=== PATIENT | male | born 2000 | race Caucasian/White ===

== ENCOUNTER 2019-09-27 01:53 | Outpatient (CLI) | payer OTHER, MEDICAID, SELFPAY ==
[2019-09-27 18:20] LABS: SARS-CoV-2 RNA PCR Negative
== END 2019-09-27 01:54 | disposition home or self-care (01) ==
LOC: ANHCOVIDDT 01:55
PROVIDERS: PCP Family Medicine; Visit Provider Internal Medicine Gastroenterology
DX: Z01.812 Encounter for preprocedural laboratory examination (principal); Z11.59 Encounter for screening for other viral diseases
CPT/HCPCS: 87635; C9803; U0003

== ENCOUNTER 2019-09-29 01:40 | Day surgery (SDC) | payer OTHER, MEDICAID, SELFPAY ==
[2019-09-24 09:55] VITALS: BMI 46.9
[2019-09-29 12:42] VITALS: BP 161/86; PULSE 76; RESP 18; TEMP 36.6; O2SAT 98; BMI 47.7
--- NOTE | 2019-09-29 12:52 | WPDANESEPPF ---
Anes - Initial Pre Proc Eval Procedure: Operation Date: 09/29/19 12:45 Proposed Procedures p Esophagogastroduodenoscopy - Timbo Tovar MD Date/Time: 09/29/19 12:52 Surgeon: Timbo Tovar MD Pre Op Diagnosis: GERD Patient Data Age: 19 Gender: M Height: 5 ft 11 in Weight: 155.4 kg Last Vital Signs Temp 36.6 C 09/29/19 12:42 Pulse 76 09/29/19 12:42 Resp 18 09/29/19 12:42 BP 161/86 H 09/29/19 12:42 Pulse Ox 98 09/29/19 12:42 Allergies Allergy/AdvReac Type Severity Reaction Status Date / Time cephalexin Allergy Intermediate Rash Verified 09/29/19 12:40 Home Medications Medication Instructions Recorded Confirmed Type albuterol sulfate 1 inh INHALATION QID PRN 09/24/19 09/24/19 History Patient hx anesthesia problems: none Family hx anesthesia problems: none PMFSH Past Medical History Medical History Asthma Hemorrhoids without complication History of IBS Morbidly obese Perianal cyst Upper abdominal pain Surgical History Surgical History Hx of tonsillectomy Family History Family History Grandparent Cancer Diabetes mellitus Social History Social History Smoking packs per day: 1 Smoking cigarettes per day: 20.0 Years smoked: 1 Smoking pack-years: 1.00 Smoking status: Current every day smoker Tobacco type: cigarettes Alcohol intake: current Anes - Eval Final PreProcedure Day of Procedure 09/29/19 12:52 Patient weight: morbidly obese Heart: regular rate and rhythm Lungs: clear to auscultation Airway: Mallampati scale class II Neurological: alert and oriented Last oral intake: >/= 8 hours ASA classification: III Emergent: no Anesthetic plan: proceed Anesthesia type and monitoring: general GIVS and standard monitoring Informed Consent: The patient's anesthetic plan and its attendant risks and benefits were discussed with the patient/family/POA. Questions were solicited and answers provided to the satisfaction of the patient/family/POA.
[2019-09-29] MEDS: LACTATED RINGERS 1,000 ML 150 ML IV CONT (13:06)
--- NOTE | 2019-09-29 13:22 | WPDHPUPDATE1 ---
History and Physical Update Update Date/Time: 09/29/19 13:22 History and Physical has been reviewed, including an updated exam of the patient. There are NO changes in the patient's condition. Risks, benefits, and alternatives have been discussed and questions answered. Patient agrees to proceed with procedure.
[2019-09-29 13:44] VITALS: BP 92/70; PULSE 72; O2SAT 98
[2019-09-29 13:54] VITALS: BP 100/68; PULSE 68; O2SAT 98
[2019-09-29 14:04] VITALS: BP 112/72; PULSE 72; O2SAT 99
== END 2019-09-29 14:30 | disposition home or self-care (01) ==
PROVIDERS: PCP Family Medicine; Visit Provider Internal Medicine Gastroenterology
PROC: 0DJ08ZZ Inspection of Upper Intestinal Tract, Via Natural or Artificial Opening Endoscopic (ICD-10-PCS; CPT 43235; principal; 2019-09-29 12:45)
DX: K20.9 Esophagitis, unspecified (principal); K29.60 Other gastritis without bleeding; J45.909 Unspecified asthma, uncomplicated; E66.01 Morbid (severe) obesity due to excess calories; Z68.42 Body mass index [BMI] 45.0-49.9, adult; F17.210 Nicotine dependence, cigarettes, uncomplicated
CPT/HCPCS: 43239; 88305; J2704; J7120

== ENCOUNTER 2019-10-01 11:17 | Emergency (ER) | payer OTHER, MEDICAID, SELFPAY ==
--- NOTE | 2019-10-01 11:45 | PC.NURSE ---
1022 noted prior to triage pt requests work note and pt was informed by staff provider could not release pt to return to work. states he did not want to be seen today and would call his doctor. no apparent distress. observed pleasant and talkative.
--- NOTE | 2019-10-01 12:05 | PCDIET ---
1120 noted prior to triage pt requested work note and was informed by staff provider would not give a work note. pt states does not want to be seen at this time and would call his doctor. observed pt active in no distress, pleasant and talkative.
== END 2019-10-01 11:20 | disposition left against medical advice (07) ==
PROVIDERS: Emergency Provider Nurse Practitioner Family; PCP Family Medicine
DX: Z53.21 Procedure and treatment not carried out due to patient leaving prior to being seen by health care provider (principal)
CPT/HCPCS: 99199

== ENCOUNTER 2020-01-28 10:21 | Outpatient (CLI) | payer OTHER, MEDICAID, SELFPAY ==
[2020-01-28 11:07] LABS: Alanine Aminotransferase 26 U/L (4-50); Albumin Level 4.3 g/dL (3.5-5.1); Alkaline Phosphatase 74 U/L (38-126); Anion Gap 7 mmol/L (8-16); Aspartate Amino Transferase 27 U/L (17-59); Bilirubin,Total 0.6 mg/dL (0.2-1.3); Blood Urea Nitrogen 16 mg/dL (9-20); Calcium 9.4 mg/dL (8.4-10.2); Carbon Dioxide 32 mmol/L (22-30); Chloride 102 mmol/L (98-107); Cholesterol 166 mg/dL (0-200); Estimated Glomerular Filt Rate > 60; Glucose 94 mg/dL (75-110); HDL Direct 33 mg/dL; Sodium 141 mmol/L (137-145); Triglycerides 144 mg/dL (<150)
[2020-01-28 11:19] LABS: LDL Cholesterol Direct 110 mg/dL
== END 2020-01-28 10:22 | disposition home or self-care (01) ==
LOC: ANHLAB 10:23
PROVIDERS: PCP Family Medicine; Visit Provider Internal Medicine Cardiovascular Disease
DX: E66.9 Obesity, unspecified (principal)
CPT/HCPCS: 36415; 80053; 80061; 84443

== ENCOUNTER 2022-01-28 11:55 | Emergency (ER) | payer OTHER, SELFPAY ==
[2022-01-28 12:00] VITALS: BP 151/71; PULSE 101; RESP 20; TEMP 36.7; O2SAT 98
--- NOTE | 2022-01-28 12:02 | ED.URI ---
HPI - URI/Sore Throat General Chief Complaint: Upper Respiratory Infection Stated Complaint: flu test Time Seen by Provider: 01/28/22 12:17 Source: patient and RN notes reviewed Mode of arrival: ambulatory Limitations: no limitations History of Present Illness HPI Narrative: 22-year-old male presents concern for cough, chest congestion this started last night. Reports today he woke up with general malaise, body aches, chills, fever, vomiting. Reports exposure influenza MD elicited complaint: cough and other (Vomiting) Related Data Allergies Allergy/AdvReac Type Severity Reaction Status Date / Time cephalexin Allergy Intermediate Rash Verified 10/11/21 16:45 Review of Systems Review of Systems: CONSTITUTIONAL: Reports malaise, chills, sweats, fever. EYES: Denies visual changes, redness, or discharge. ENT: Reports rhinorrhea, congestion. Denies sinus pain, otalgia and sore throat. CARDIOVASCULAR: Denies chest pain, palpitations, or edema. RESPIRATORY: Reports cough. Denies dyspnea. GASTROINTESTINAL: Denies abdominal pain, diarrhea. Reports nausea and vomiting SKIN: Denies rash or itching. MUSCULOSKELETAL: Reports myalgia. NEUROLOGIC: Denies headache. All systems reviewed & are unremarkable except as noted in HPI and below PMFSH Past Medical History Medical History Abdominal pain Asthma Chest pain Chronic GERD Constipation Daytime hypersomnolence Family history of osteoporosis Fatigue Headache, migraine Hemorrhoids without complication History of IBS Morbidly obese Nausea Noncompliance Obesity Palpitations Perianal cyst Pinworms Right shoulder injury Right shoulder pain Rotator cuff tendinitis Tobacco abuse Upper abdominal pain Surgical History Surgical History History of endoscopy History of removal of cyst Pilonidal Hx of tonsillectomy Family History Family History Grandparent Cancer Diabetes mellitus Social History Social History Social History: Single Smoking packs per day: 0.5 Smoking cigarettes per day: 10.0 Years smoked: 1.5 Smoking pack-years: 0.75 Smoking status: Current every day smoker Tobacco type: cigarettes Alcohol intake: current Alcohol use details: Occasionally Substance use: current Substance use type: marijuana Last use: Pt smokes daily. Gender identity (if verbalized by the patient): Male Sexual Orientation (if Verbalized by the Patient): Straight or Heterosexual Comments At time of signature, agree with nursing past medical, surgical, social and family history. There is no relevant family history pertinent to the presenting complaint Exam Narrative: GENERAL: Nontoxic-appearing and in no acute distress. HEAD: Normocephalic EYES: PERRLA, conjunctivae clear ENT: Nares clear, green discharge. Mucous membranes moist. TM pearly rangel with dull light reflex bilaterally; no tragal tenderness. Oropharynx not erythematous without lesions. Tonsils not enlarged and without exudate, no drooling, no hoarseness, no trismus, uvula midline. NECK: Supple. No lymphadenopathy CHEST: Clear to auscultation, breath sounds equal. No wheezing, rhonchi, rales, or stridor. No respiratory distress, speaks in full sentences. HEART: Regular rate and rhythm. No murmur heard. SKIN: Warm, dry, no rash. NEURO: Alert and oriented x3. PSYCH: Normal mood and affect Course Course Emergency Course: Patient is aware of diagnosis, understands and agrees to treatment plan. Anticipatory guidance given. Patient agrees to follow-up as directed and is aware of reasons to seek care at the emergency department. Portions of this record may have been created with voice recognition software Level of Care: Express Care Visit Vital Signs Vital signs:
== END 2022-01-28 12:51 | disposition home or self-care (01) ==
PROVIDERS: Emergency Provider Nurse Practitioner; PCP Family Medicine
DX: R05.9 Cough, unspecified (principal); R09.89 Other specified symptoms and signs involving the circulatory and respiratory systems; R11.10 Vomiting, unspecified; R53.81 Other malaise; F17.210 Nicotine dependence, cigarettes, uncomplicated; Z20.822 Contact with and (suspected) exposure to COVID-19
CPT/HCPCS: 87426; 87804; 99213; C9803; G0463

== ENCOUNTER 2023-02-12 11:15 | Emergency (ER) | payer OTHER, SELFPAY ==
[2023-02-12 11:21] VITALS: BP 147/65; PULSE 97; RESP 18; TEMP 36.6; O2SAT 97
--- NOTE | 2023-02-12 11:51 | ED.GENADULT ---
HPI - General Adult General Chief complaint: Upper Respiratory Infection Stated complaint: sore throat Source: patient, RN notes reviewed and old records reviewed Mode of arrival: ambulatory Limitations: no limitations History of Present Illness HPI narrative: 23-year-old male presents to Express Care with complaint sore throat, sinus congestion, sinus pain that started yesterday. Patient states symptoms are worsening. Patient is not taking [id number] medications for symptoms. Patient denies weakness, dizziness, chest pain, shortness of breath. MD complaint: sore throat, congestion Onset (ago): day(s) (1) Related Data Allergies Allergy/AdvReac Type Severity Reaction Status Date / Time cephalexin Allergy Intermediate Rash Verified 02/12/23 11:42 Review of Systems Constitutional: Constitutional: Reports no additional constitutional complaints, Denies body ache(s), Denies chills, Denies fatigue, Denies fever(s) and Denies headache(s) Eyes: Eyes: Reports no additional eye complaints and Denies blurry vision ENT: Reports system reviewed and no additional complaints, except as documented, Denies vertigo, Denies dizziness, Denies ear discharge, Denies otalgia, Denies facial pain, Denies headache(s), Reports nasal congestion, Reports nasal discharge, Denies sinus pain, Reports sinus pressure and Reports sore throat Cardiovascular: Cardiovascular: Reports no additional cardiovascular complaints, Denies chest pain, Denies chest pain at rest, Denies rapid heart rate and Denies dyspnea Respiratory: Respiratory: Reports no additional respiratory complaints, Denies chest congestion, Denies cough, Denies pain on inspiration, Denies pain with cough and Denies dyspnea Gastrointestinal: Gastrointestinal: Denies abdominal pain, Denies diarrhea, Denies nausea and Denies vomiting Integumentary/Breasts: Skin/Breast: Denies rash Neurologic: Reports system reviewed and no additional complaints, except as documented, Denies vertigo, Denies dizziness and Denies headache(s) Endocrine: Endocrine: Denies fatigue PMFSH Past Medical History Medical History Abdominal pain Asthma Chest pain Chronic GERD Constipation Daytime hypersomnolence Family history of osteoporosis Fatigue Headache, migraine Hemorrhoids without complication History of IBS Morbidly obese Nausea Noncompliance Obesity Palpitations Perianal cyst Pinworms Right shoulder injury Right shoulder pain Rotator cuff tendinitis Tobacco abuse Upper abdominal pain Surgical History Surgical History History of endoscopy History of removal of cyst Pilonidal Hx of tonsillectomy Family History Family History Grandparent Cancer Diabetes mellitus Social History Social History (Updated 01/28/23 @ 15:37 by Janis Nice) Social History: Single Smoking packs per day: 0.5 Smoking cigarettes per day: 10.0 Years smoked: 1.5 Smoking pack-years: 0.75 Smoking status: Current every day smoker Tobacco type: cigarettes and e-cigarettes/vaping Smoking end date: 07/18/22 Additional smoking assessment comments: Pt quit smoking and is now vaping. Alcohol intake: current Alcohol use details: rarely Substance use: current Substance use type: marijuana Last use: Pt smokes daily. 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
== END 2023-02-12 12:14 | disposition home or self-care (01) ==
PROVIDERS: Emergency Provider Registered Nurse; PCP Family Medicine
DX: B34.9 Viral infection, unspecified (principal); Z20.822 Contact with and (suspected) exposure to COVID-19; F17.290 Nicotine dependence, other tobacco product, uncomplicated; J45.909 Unspecified asthma, uncomplicated; K21.9 Gastro-esophageal reflux disease without esophagitis; E66.01 Morbid (severe) obesity due to excess calories; Z68.43 Body mass index [BMI] 50.0-59.9, adult
CPT/HCPCS: 87081; 87426; 87880; 99213; C9803; G0463

== ENCOUNTER 2024-07-07 11:09 | Outpatient (CLI) | payer MEDICAID, SELFPAY ==
--- OUTSIDE RECORDS SUMMARY | 2024-07-07 11:41 | XMS_ITS | Referral Summary ---
Author Organization [facility] Address [address] [place] [address] Care Team Providers Care Aboriginal Ceremonial Celebrant Name Role Phone Cesia Banda NP Primary Care Provider [phone] Allergies Active Allergy Reactions Criticality Noted Date Comments Cephalexin Rash Medium 01/06/2017 Other Unknown 01/06/2017 Milk, egg whites Shrimp Unknown 01/06/2017 Wheat Unknown 01/06/[address] (NexIUM) 20 mg capsule Take 20 mg by mouth daily before breakfast. Active acetaminophen-c odeine (TYLENOL with CODEINE #3) 300-30 mg per tablet every 6 hours. Acti ve cetirizine (ZyrTEC) 10 mg tablet daily. Active naproxen (NAPROSYN) 500 mg tablet 8 Active ibuprofen (ADVIL,MOTRIN) 800 mg tablet Take 1 tablet (800 mg total) by mouth 3 (three) times a day. 21 tablet 8 Active cyclobenzaprine (FLEXERIL) 10 mg tablet Take 1 tablet (10 mg total) by mouth every 8 (eight) hours as needed for muscle spasms 12 tablet 9 Active mupirocin (BACTROBAN) 2 % ointment Apply topically 3 (three) times a day 22 g 9 Active ondansetron (ZOFRAN) 4 mg tablet Take 1 tablet (4 mg total) by mouth every 6 (six) hours 12 tablet 9 Active dicyclomine (BENTYL) 20 mg tablet Take 1 tablet (20 mg total) by mouth 2 (two) times a day 20 tablet 9 Active azithromycin (ZITHROMAX) 250 mg tablet Take 2 tablets the first day, then 1 tablet daily for 4 days 6 tablet 9 Active albuterol HFA (PROVENTIL HFA,VENTOLIN HFA,PROAIR HFA) 90 mcg/actuation inhaler Inhale 2 puffs every 4 (four) hours as needed for wheezing 1 Inhaler 9 Active omeprazole (PriLOSEC) 20 mg capsule Take 1 capsule (20 mg total) by mouth daily 30 capsule 0 Active Active Problems Problem Noted Date Diagnosed Date Puncture wound of right hand without foreign bod y 06/15/2018 Abrasions of multiple sites 06/15/2018 Abrasion of right forearm 06/15/2018 Contusion of right hand 06/15/2018 Constipation 05/13/2016 Overview (07/12/2016): Constipation Adiposity 05/13/2016 Overview (07/12/2016): Obesity Pilonidal cyst 03/26/2016 Overview (05/25/2016): Pilonidal cyst Assessment & Plan (01/27/2017 11:45 AM INSTRUCTOR GROUND SERVICES): Encouraged to keep area clean and dry, please notify if redness, pain, swelling, or drainage occurs. Continue to avoid exertion for 2-3 more weeks. Assessment & Plan (01/08/2017 4:02 PM INSTRUCTOR [employer]OUND [employer]): Will schedule surgical excision of pilonidal cyst. The risk of wound complication was explained to the patient and his mother. Both agree to follow treatment plan. Indigestion 03/26/2016 Overview (05/25/2016): Dyspepsia Medical examinations/reports status 04/03/2012 Overview (05/22/2016): Health care maintenance Immunizations Immunization Administration Dates Next Due DTaP 10/11/2003, 0,1998,06/28,1998 HPV9 06/13/2016 Hep A, Pediatric 09/16/2008,10/09/2006 Hep B, Adolescent or Pediatric 1998,1997,1998 Hib (HbOC) 04/09/1999, 9,1998,04/28 IPV 10/11/2003, 0,1998,04/28 MMR 10/10/2003,01/05/1999 Meningococcal MCV4P (Menactra) 12/01/2015,2012 Meningococcal Polysaccharide (Menomune) 08/28/2009 Tdap 09/16/2012,09/16/2008 Varicella 09/30/2013,01/05/1999 Social History Tobacco Use Types Packs/Day Years Used Date Smoking Tobacco: Every Day Cigarettes Smokeless Tobacco: Never Alcohol Use Standard Drinks/Week Comments Yes 0 (1 standard drink = 0.6 oz pur e alcohol) rarely Sex and Gender Information Value Date Recorded Sex Assigned at Not on file Legal Sex Male 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 [employer] Gender Identity Not on file Sexual Orientation Not on file Last Filed Vital Signs Vital Sign Reading Time Taken Comments Blood Pressure 123/60 10/08/2019 7:41 PM CDT Pulse 87 10/08/2019 8:15 PM CDT Temperature 36.8 C (98.2 F) 10/08/2019 4:45 PM CDT Respiratory Rate 20 10/08/2019 7:41 PM CDT Oxygen Saturation 96% 10/08/2019 8:15 PM CDT Inhaled Oxygen Concentration - - Weight 155.1 kg (342 lb) 10/08/2019 4:45 PM CDT Height 177.8 cm (5' 10 ) 10/08/2019 4:45 PM CDT Body Mass Index 49.07 10/08/2019 4:45 PM CDT Plan of Treatment Not on file Insurance [facility] MEDICAID [facility] CHOICE PLUS [facility] PPO IDPA Care Teams Aboriginal Ceremonial Celebrant Relationship Specialty Start Date End Date Cesia Banda NP [address] [place] [id number] PCP - General 03/29/20
--- OUTSIDE RECORDS SUMMARY | 2024-07-07 11:41 | XMS_ITS | Encounter Summary ---
Author Organization [facility] Address [address] [place] [address] Care Team Providers Care Professor Of Latin American Studies Name Role Phone Unavailable Primary Care Provider Unavailabl e Reason for Visit * Reason Comments Post-Op Open appy with parti al cecectomy and abd washout Encounter Details Date Type Department Care Team (Latest Contact Info) Description 07/07/2024 9:40 AM CDT Office Visit [facility] - Surgery [address] [place] [address], [address] [place] [id number] Santiago Joy MD [address] [place] [facility] [place] [address] Postoperative state (Primary Dx) Social History Tobacco Use Types Packs/Day Years Used Date Smoking Tobacco: Never Smokeless Tobacco: Current Tobacco Cessation:Ready to Q uit: No; Counseling Given: No Comments:Vape. Alcohol Use Standard Drinks/Week Comments Never 0 (1 standard drink = 0.6 oz pur e alcohol) AUDIT-C Answer Date Recorded Q1: How often do you have a drink containing alcohol? Never 05/22/2024 Q2: How many drinks containi ng alcohol do you have on a typical day when you are drinking? Patient does not drink Q3: How often do you have si x or more drinks on one occasion? Never 05/22/2024 Overall Financial Resource Strain (CARDIA) Answe r Date Recorded How hard is it for you to pa y for the very basics like food, housing, medical care, and heating? Not hard at all 05/21/2024 [facility] [place] [facility] - Occupational Stress Questionnaire Answer Date Recorded Do you feel stress - tense, restless, nervous, or anxious, or unable to sleep at night because your mind is troubled all the time - these days? Not at all 05/21/2024 Hunger Vital Sign Answer Date Recorded Within the past 12 months, y ou worried that your food would run out before you got the money to buy more. Never true 05/22/19 25 Within the past 12 months, t he food you bought just didn't last and you didn't have money to get more. Never true 05/21/2024 PRAPARE - Transportation Answer Date Re corded In the past 12 months, has l ack of transportation kept you from medical appointments or from getting medications? No 05/2024 In the past 12 months, has l ack of transportation kept you from meetings, work, or from getting things needed for daily living? No 05/21/2024 Housing Stability Vital Sign Answer Stephen e Recorded In the last 12 months, was t here a time when you were not able to pay the mortgage or rent on time? No 05/21/2024 In the past 12 months, how m any times have you moved where you were living? 1 05/21/2024 At any time in the past 12 m [facility], were you homeless or living in a usp (including now)? 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 Answer Date of Assessment Author No 05/21/2024 6:51 PM CDT Charito Davies RN * Is person blind or have serious difficulty seeing? Answer Date of Assessment Author No 05/21/2024 6:51 PM CDT Charito Davies RN * Does person have serious difficulty walking/climbing stairs? Answer Date of Assessment Author No 05/21/2024 6:51 PM CDT Charito Davies RN * Does person have difficulty dressing/bathing? Answer Date of Assessment Author No 05/21/2024 6:51 PM CDT Charito Davies RN * Does person have difficulty doing errands alone? Answer Date of Assessment Author No 05/21/2024 6:51 PM CDT Charito Davies RN documented as of this encounter Mental Status * Does person have difficulty concentrating/remembering/making decisions? Answer Entry Date Author No 05/21/2024 6:51 PM CDT Charito Davies RN documented in this encounter Patient Instructions * Patient Instructions* Sumi Lazaro CMA - 07/07/2024 9:48 AM CDT Patient's medications and allergies were reviewed with the patient today. Patient was instructed tocontact primary care physician or ordering provider with any questions regarding medications. documented in this encounter Progress Notes * Santiago Joy MD - 07/07/2024 10:33 AM CDT General Surgery Note Status post open appendectomy, partial cecectomy for perforated appendicitis. Patient was a transfer from an outside hospital. Currently asymptomatic. Patient looks and feels great. No nausea vomiting fevers chills. No abdominal pain. Physical exam. Small little granulomas, treated with silver nitrate. No infection. No hernia. No drainage. Abdominal binder with activity. Discussed BMI of 62, discussed medical weight loss program recommended. Activity with an abdominal binder. Follow up with medical team. Return to ER for worsening abdominal pain, hernias, fevers chills, etc.. Discussed post operative care Santiago Joy MD, [facility] General Surgeon, [facility] in partnership with [facility] [phone] [facility] [phone] option 8 Exchange: [phone] documented in this encounter Plan of Treatment Not on file documented as of this encounter Visit Diagnoses Diagnosis Postoperative state- Primary Other postprocedural status documented in this encounter
--- OUTSIDE RECORDS SUMMARY | 2024-07-07 11:41 | XMS_ITS | Encounter Summary ---
Author Organization [facility] Address [address] [facility] [place] [address] Care Team Providers Care Spa Receptionist Name Role Phone Unavailable Primary Care Provider Unavailabl e Encounter Details Date Type Department Care Team (Latest Contact Info) Description 07/07/2024 Travel Social History Tobacco Use Types Packs/Day Years Used Date Smoking Tobacco: Never Smokeless Tobacco: Current Comments:Vape. Alcohol Use Standard Drinks/Week Comments Never [...] and heating? Not hard at all 05/21/2024 [facility] [place] [facility] - Occupational Stress [...] any time in the past 12 m [facility], were you homeless or living in a fpc (including now)? 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 Answer Date of Assessment Author No 05/21/2024 6:51 PM LOKESHT Charito Davies RN * Does person have difficulty doing errands alone? Answer Date of Assessment Author No 05/21/2024 6:51 PM LOKESHT Charito Davies RN documented as of this encounter Mental Status * Does person have difficulty concentrating/remembering/making decisions? Answer Entry Date Author No 05/21/2024 6:51 PM LOKESHT Charito Davies RN documented in this encounter Plan of Treatment Not on file documented as of this encounter Visit Diagnoses Not on filedocumented in this encounter
--- OUTSIDE RECORDS SUMMARY | 2024-07-07 11:41 | XMS_ITS | Clinical Summary ---
Author Organization [facility] Address [address] [place] [address] Phone Care Team Providers Care Can Top Setter Name Role Phone Provider, None Primary Care Provider Unavailabl e Allergies Active Allergy Reactions Criticality Noted Date Comments Cephalexin Hives 01/21/2019 Medications omeprazole (PRILOSEC) 20 MG CAPSULE DELAYED RELEASE [The details of the medication are not available because there are pending changes by a home health clinician.] 30 Cap 9 Active Additional Information Patient not taking.Reported on 06/10/2024 albuterol 108 (90 Base) MCG/ACT Aerosol Solution take 2 Puffs by inhalation every 6 hours as needed for Wheezing or Cough. 18 g 3 Active ferrous sulfate 325 (65 Fe) MG Tablet Take 325 mg by mouth daily. Active HYDROcodone-ac etaminophen (NORCO) 5-325 MG Tablet Take 1 Tablet by mouth every 6 hours as needed for Severe pain. Active amoxicillin-cl avulanate (AUGMENTIN) 875-125 MG Tablet Take 1 Tablet by mouth 2 times daily. 025 Discontin ued(Thera py completed ) enoxaparin (Lovenox) 40 MG/0.4ML Solution Prefilled Syringe 40 mg by Subcutaneous route every 12 hours. 025 Discontin ued(Thera py completed ) oxyCODONE (ROXICODONE) 5 MG Tablet Take 5 mg by mouth every 6 hours as needed for Severe pain. 025 Discontin ued(Thera py completed ) Encounters Date Type Department Care Team Description 06/30/2024 9:00 AM CDT Home Care Visit [address] [address] Sanaz Montoya, DESIRE SN - WOUND VISIT 06/23/2024 12:00 PM CDT Home Care Visit [address] [address] Amy Saul RN SN - WOUND VISIT 06/15/2024 3:00 PM CDT Home Care Visit [address] [address] Amy Saul RN SN - WOUND VISIT 06/11/2024 Plan of Care Documentation [address] [address] 06/10/2024 12:30 PM CDT Home Care Visit [address] [address] Amy Saul, DESIRE SN - OASIS START OF CARE 06/02/2024 Home Care Visit [address] [address] Bev Porter RN TELEPHONE ENCOUNTER 05/21/2024 10:52 AM CDT - 05/21/2024 5:02 PM CDT Emergency [facility] [address] [place] [address] Cayla Snyder APRN, COMBATANT DIVER QUALIFIED Acute appendicitis, unspecified acute appendicitis type Discharge Disposition: [facility] 05/21/2024 Travel from Last 3 Months Social History Tobacco Use Types Packs/Day Years Used Date Smoking Tobacco: Every Day Cigarettes Smokeless Tobacco: Never Alcohol Use Standard Drinks/Week Comments Yes 2 (1 standard drink = 0.6 oz pur e alcohol) Sex and Gender Information Value Date Recorded Sex Assigned at Not on file Legal Sex Male 7:31 PM CDT Gender Identity Not on file Sexual Orientation Not on file Last Filed Vital Signs Vital Sign Reading Time Taken Comments Blood Pressure 142/80 06/30/2024 9:11 AM CDT Pulse 76 06/30/2024 9:11 AM CDT Temperature 36.3 C (97.3 F) 06/30/2024 9:11 AM CDT Respiratory Rate 18 06/30/2024 9:11 AM CDT Oxygen Saturation 95% 06/30/2024 9:11 AM CDT Inhaled Oxygen Concentration - - Weight 190.5 kg (420 lb) 06/10/2024 12:39 PM CDT Height 180.3 cm (5' 11 ) 06/10/2024 12:39 PM CDT Body Mass Index 58.58 06/10/2024 12:39 PM CDT Plan of Treatment Upcoming Encounters Date Type Department Care Team (Late st Contact Info) Description 07/08/2024 1:00 AM CDT Home Care Visit [address] [address] Amy Saul, DESIRE [place] 07/13/2024 1:00 AM CDT Home Care Visit [address] [address] Sanaz Montoya RN [place] 07/27/2024 1:00 AM CDT Appointment [address] [address] Amy Saul, RN [place] Health Maintenance Due Date Last Done Comments Hepatitis C Virus (HCV) Screening 1998 Human Papillomavirus (HPV) Immunization (2 - Male 3-dose series) 07/11/2016 06/13/2016 Pneumococcal Immunization Combined (1 of 2 - PCV) 2017 SARS-COV-2 Immunization (3 - season) 2023 07/13/2020, 06/15/2020 Influenza Immunization (Season Ended) 2024 05/04/2018, 11/20/2016, 2011, Additional history exists Respiratory Syncytial Virus (RSV) Immunization (Adult) (1 - 1-dose 75+ series) 2073 Hepatitis B Immunization Completed 999, 1998, 1998 DTaP/Tdap/Td Immunization Discontinued 2012, 09/16/2008, 10/11/2003, Additional history exists TdaP Immunization Completed 09/16/2012, 09/16/2008 Meningococcal Immunization (ACWY) Completed 12/01/2015, 09/16/2012, 08/28/2009 Rotavirus Immunization Aged Out No lo nger eligible based on patient's age to complete this topic Procedures Procedure Name Priority Date/Time Associated Diagnosis Comments CT ABDOMEN PELVIS W/ CONTRAST Stat with Interpretation 05/21/2024 1:30 PM CDT URINALYSIS REFLEX IF INDICATED BY ABNORMAL RESULTS STAT 05/21/2024 12:08 PM CDT GROUP A STREP BY PCR STAT 05/21/2024 11:17 AM CDT RSV,SARS-COV-2,INF LUENZA A&B BY PCR STAT 05/21/2024 11:16 AM CDT GOLD TOP TUBE STAT 05/21/2024 11:04 AM CDT BLUE TOP TUBE STAT 05/21/2024 11:04 AM CDT CBC WITH AUTO DIFFERENTIAL STAT 05/21/2024 11:04 AM CDT EXTRA TUBES STAT 05/21/2024 11:04 AM CDT CMP (COMPREHENSIVE METABOLIC PANEL) STAT 05/21/2024 11:04 AM CDT COMPLETE BLOOD COUNT (CBC) WITH DIFF STAT 05/21/2024 11:04 AM CDT from Last 3 Months Results * CT ABDOMEN PELVIS W/ CONTRAST (05/21/2024 1:30 PM CDT) Anatomical Region Laterality Modality Abdomen N/A Computed Tomogra phy 05/21/2024 2:00 PM CDT Impressions 05/21/2024 2:03 PM CDT IMPRESSION: Induration surrounds the cecal tip and extends along the appendix with a small amount of adjacent fluid. The appendix itself is distended measuring 1.5 cm. Findings suspicious for developing appendicitis or other inflammatory change. Though, with a somewhat atypical appearance as above. No evidence of abscess or perforation. Nonenlarged lymph nodes along the small bowel mesentery and iliac alexandria chains are likely reactive in nature. I called these findings by phone at time of dictation to SAILBOAT CAPTAIN Cayla Fu 05/21/2024 2:03 PM CDT EXAM DESCRIPTION: CT ABDOMEN PELVIS W/ CONTRAST REASON FOR STUDY: N/V/D with abd pain since Friday night. Hx asthma. TECHNIQUE: CT scan of the abdomen and pelvis performed with intravenous and without oral contrast using helical scanning technique with dynamic intravenous contrast injection. Reconstructed coronal and sagittal MPR images reviewed. All images stored on PACS. Automated exposure control was used as a dose optimization technique for this examination. CONTRAST TYPE/DOSE: 124mL of IOPAMIDOL 76 % IV SOLN injected via Intravenous COMPARISON: 01/21/2019 FINDINGS: LOWER CHEST: No significant pulmonary abnormalities. No effusion. LIVER: Normal size. No identified cystic or solid masses. GALLBLADDER: Normally distended BILE DUCTS: No intrahepatic or extrahepatic ductal dilatation. SPLEEN: Normal size. No focal lesions. PANCREAS: No identified cystic or solid masses. No significant calcifications. No adjacent inflammation or peripancreatic fluid collections. Pancreatic duct not dilated. ADRENALS: Normal. KIDNEYS/URINARY TRACT: No identified significant cystic or solid masses. No visualized stones. No hydronephrosis or hydroureter. Symmetric enhancement. Urinary bladder is unremarkable. GI: The stomach and transverse duodenum appear unremarkable. Loops of small bowel have normal caliber without distention. The terminal ileum and cecum appear unremarkable. Induration is identified surrounding the cecal tip and extending along the appendix with the adjacent thickening of the pericolic gutter which may indicate a small amount of adjacent fluid. The appendix itself is mildly distended measuring 1.5 cm. Appendiceal inflammation is suspected. However there is air within portions of the appendix not typical of an obstructed appendicitis. Small lymph nodes identified in the adjacent small bowel mesentery. Findings may represent a developing appendicitis or other inflammatory change. No adjacent focal fluid collection to suggest abscess. No free air to suggest perforation. Colon has a normal caliber and overall low to moderate stool burden. PERITONEUM: No free air or focal free fluid collection. Induration along the right pericolic gutter near the appendix as above may indicate minimal amount of fluid or induration. RETROPERITONEUM: Nonenlarged lymph nodes along the iliac alexandria chains. Additional nonenlarged lymph nodes along the small bowel mesentery. REPRODUCTIVE: No significant abnormality. VASCULATURE: No abdominal aortic aneurysm. MUSCULOSKELETAL: No significant abnormality. OTHER: No other abnormality. THIS IS AN ELECTRONICALLY VERIFIED FINAL REPORT 05/21/2024 2:00 PM - Electronically signed by Marvin Merlos M.D. RB: CLAUDIA Report ID: [id number] Reading Location: [place] [address] Procedure Note Marvin Merlos MD - 05/21/2024 EXAM DESCRIPTION: CT ABDOMEN PELVIS W/ CONTRAST REASON FOR STUDY: N/V/D with abd pain since Friday night. Hx asthma. TECHNIQUE: CT scan of the abdomen and pelvis performed with intravenous and without oral contrast using helical scanning technique with dynamic intravenous contrast injection. Reconstructed coronal and sagittal MPR images reviewed. All images stored on PACS. Automated exposure control was used as a dose optimization technique for this examination. CONTRAST TYPE/DOSE: 124mL of IOPAMIDOL 76 % IV SOLN injected via Intravenous COMPARISON: 01/21/2019 FINDINGS: LOWER CHEST: No significant pulmonary abnormalities. No effusion. LIVER: Normal size. No identified cystic or solid masses. GALLBLADDER: Normally distended BILE DUCTS: No intrahepatic or extrahepatic ductal dilatation. SPLEEN: Normal size. No focal lesions. PANCREAS: No identified cystic or solid masses. No significant calcifications. No adjacent inflammation or peripancreatic fluid collections. Pancreatic duct not dilated. ADRENALS: Normal. KIDNEYS/URINARY TRACT: No identified significant cystic or solid masses. No visualized stones. No hydronephrosis or hydroureter. Symmetric enhancement. Urinary bladder is unremarkable. GI: The stomach and transverse duodenum appear unremarkable. Loops of small bowel have normal caliber without distention. The terminal ileum and cecum appear unremarkable. Induration is identified surrounding the cecal tip and extending along the appendix with the adjacent thickening of the pericolic gutter which may indicate a small amount of adjacent fluid. The appendix itself is mildly distended measuring 1.5 cm. Appendiceal inflammation is suspected. However there is air within portions of the appendix not typical of an obstructed appendicitis. Small lymph nodes identified in the adjacent small bowel mesentery. Findings may represent a developing appendicitis or other inflammatory change. No adjacent focal fluid collection to suggest abscess. No free air to suggest perforation. Colon has a normal caliber and overall low to moderate stool burden. PERITONEUM: No free air or focal free fluid collection. Induration along the right pericolic gutter near the appendix as above may indicate minimal amount of fluid or induration. RETROPERITONEUM: Nonenlarged lymph nodes along the iliac alexandria chains. Additional nonenlarged lymph nodes along the small bowel mesentery. REPRODUCTIVE: No significant abnormality. VASCULATURE: No abdominal aortic aneurysm. MUSCULOSKELETAL: No significant abnormality. OTHER: No other abnormality. THIS IS AN ELECTRONICALLY VERIFIED FINAL REPORT 05/21/2024 2:00 PM - Electronically signed by Marvin Merlos M.D. RB: CLAUDIA Report ID: [id number] Reading Location: [id number] IMPRESSION: Induration surrounds the cecal tip and extends along the appendix with a small amount of adjacent fluid. The appendix itself is distended measuring 1.5 cm. Findings suspicious for developing appendicitis or other inflammatory change. Though, with a somewhat atypical appearance as above. No evidence of abscess or perforation. Nonenlarged lymph nodes along the small bowel mesentery and iliac alexandria chains are likely reactive in nature. I called these findings by phone at time of dictation to JEREMY Snyder Cayla Snyder MANAGER SERVICE DESK, COMBATANT DIVER QUALIFIED IM CT ORDERABLES Final Result * (ABNORMAL) Urinalysis w/ Reflex (05/21/2024 12:08 PM CDT) SPECIFIC GRAVITY 1.010 1.003 - 1.030 05/21/2024 1:03 PM CDT [facility] URINE PH 7.0 5.0 - 9.0 05/21/2024 1:03 PM CDT [facility] WBC ESTERASE Negative Negative 05/21/2024 1:03 PM CDT [facility] NITRITE Negative Negative 05/21/2024 1:03 PM CDT [facility] PROTEIN, RANDOM URINE 30 mg/dL(A) Negative 05/21/2024 1:03 PM CDT [facility] URINE GLUCOSE, QUAL Negative Negative 05/21/2024 1:03 PM CDT [facility] URINE KETONES Negative Negative 05/21/2024 1:03 PM CDT [facility] UROBILINOGEN 4 mg/dL(A) Normal mg/dL 05/21/2024 1:03 PM CDT [facility] URINE BLOOD Negative Negative gonzález/ul 05/21/2024 1:03 PM CDT [facility] URINALYSIS COLOR Yellow 05/22/19 1:03 PM CDT [facility] URINALYSIS CLARITY Clear 05/21/2024 1:03 PM CDT [facility] WBC (Urine) Negative Negative, 0-5 /hpf 05/21/2024 1:03 PM CDT [facility] URINE RBC'S Negative Negative, 0-2 /hpf 05/21/2024 1:03 PM CDT [facility] EPITHELIAL CELLS Occasional /lpf 05/22/19 1:03 PM CDT [facility] BACTERIA, URINE Few(A) Negative /hpf 05/21/2024 1:03 PM CDT [facility] Urine URINE SPECIMEN / Unknown Non-Phlebotomy Collection / Unknown 05/21/2024 12:08 PM CDT 05/21/2024 12:22 PM CDT Cayla Snyder MANAGER SERVICE DESK, COMBATANT DIVER QUALIFIED URINE ORDERABLES F inal Result [facility] [address] [place] [address] * GROUP A STREP BY PCR (05/21/2024 11:17 AM CDT) GROUP A STREP BY PCR NOT DETECTED NOT DETECTED 05/21/2024 12:43 PM CDT [facility] Swab STRUCTURE OF ANTERIOR PORTION OF NECK / Unknown Non-Phlebotomy Collection / Unknown 05/21/2024 11:17 AM CDT 05/21/2024 12:10 PM CDT us Cayla Snyder APRN, CNP MICROBIOLOGY - GEN ERAL ORDERABLES Final Result [facility] [address] [place] [address] * PIPO-COV-2 Flu RSV - (Quad PCR) (05/21/2024 11:16 AM CDT) FLU A Negative Negative, Error 05/21/2024 12:19 PM CDT [facility] FLU B Negative Negative 05/21/2024 12:19 PM CDT [facility] RESP SYNC VIRUS Negative Negative 12:19 PM CDT [facility] SARSCOV2 NOT DETECTED (Reference Range for this test is Not Detected) 05/21/2024 12:19 PM CDT [facility] Comment:This test was perfor med by a Reverse Cane Pusher PCR Method. Swab NASOPHARYNGEAL SWAB / Unknown Non-Phlebotomy Collection / Unknown 05/21/2024 11:16 AM CDT 05/21/2024 11:37 AM CDT us Cayla Snyder APRN, CNP MICROBIOLOGY - GEN ERAL ORDERABLES Final Result Performing Organization Address City/[facility]/ZIP Co de Phone Number [facility] [address] [place] [address] * Gold Top Tube (05/21/2024 11:04 AM CDT) Blood No Phlebotomy Charged / Unknown 05/21/2024 11:04 AM CDT 05/21/2024 11:39 AM CDT us Cayla Snyder APRN, CNP CHEMISTRY ORDERABL ES Final Result [facility] [address] [place] [address] * Blue Top Tube (05/21/2024 11:04 AM CDT) Blood No Phlebotomy Charged / Unknown 05/21/2024 11:04 AM CDT 05/21/2024 11:39 AM CDT us Cayla Snyder APRN, CNP HEMATOLOGY ORDERAB LES Final Result [facility] [address] [place] [address] * (ABNORMAL) CBC with Auto Differential (05/21/2024 11:04 AM CDT) WBC 16.90(H) 4.00 - 12.00 10(3)/mcL 05/21/2024 11:42 AM CDT [facility] RBC 4.65 4.40 - 5.80 10(6)/[facility] 05/21/2024 11:42 AM CDT [facility] HEMOGLOBIN (HGB) 12.1(L) 13.0 - 16.5 g/dL 05/21/2024 11:42 AM CDT [facility] HEMATOCRIT (HCT) 38.3 38.0 - 50.0 % 05/21/2024 11:42 AM CDT [facility] MCV 82.4 82.0 - 96.0 fL 05/21/2024 11:42 AM CDT [facility] MCH 26.0 26.0 - 32.0 pg 05/21/2024 11:42 AM CDT [facility] MCHC 31.6 31.0 - 36.0 g/dL 05/21/2024 11:42 AM CDT [facility] PLATELET COUNT 296 140 - 440 10(3)/mcL 05/21/2024 11:42 AM CDT [facility] RDW 15.0 11.8 - 15.5 % 05/21/2024 11:42 AM CDT [facility] MPV 10.1 8.0 - 12.6 fL 05/21/2024 11:42 AM CDT [facility] NEUTROPHILS 70.8(H) 40.0 - 68.0 % 05/21/2024 11:42 AM CDT [facility] LYMPHOCYTES 17.3(L) 19.0 - 49.0 % 05/21/2024 11:42 AM CDT [facility] MONOCYTES 9.8 3.0 - 13.0 % 05/21/2024 11:42 AM CDT [facility] EOSINOPHILS 1.5 0.0 - 8.0 % 05/21/2024 11:42 AM CDT [facility] BASOPHILS 0.6 0.0 - 1.0 % 05/21/2024 11:42 AM CDT [facility] ABSOLUTE NEUTROPHILS 11.96(H) 1.40 - 5.30 10(3)/mcL 05/21/2024 11:42 AM CDT [facility] ABSOLUTE LYMPHOCYTES 2.92 0.90 - 3.30 10(3)/mcL 05/21/2024 11:42 AM CDT [facility] ABSOLUTE MONOCYTES 1.66(H) 0.10 - 0.90 10(3)/[facility] 05/21/2024 11:42 AM CDT [facility] ABSOLUTE EOSINOPHIL 0.26 0.00 - 0.50 10(3)/[facility] 05/21/2024 11:42 AM CDT [facility] ABSOLUTE BASOPHILS 0.10 0.00 - 0.10 10(3)/[facility] 05/21/2024 11:42 AM CDT [facility] NRBC PER 100 WBC 0 05/22/19 11:42 AM CDT [facility] Blood Venipuncture / Unknown 05/21/2024 11:04 AM CDT 05/21/2024 11:37 AM CDT us Jim Rowland MD HEMATOLOGY ORDERABLES Mechelle shah Result [facility] [address] [place] [address] * (ABNORMAL) Comprehensive Metabolic Panel (Cmp) [id number] (05/21/2024 11:04 AM CDT) [facility] SODIUM 139 136 - 145 mmol/L 05/21/2024 11:59 AM CDT [facility] POTASSIUM 3.8 3.5 - 5.1 mmol/L 05/21/2024 11:59 AM CDT [facility] CHLORIDE 101 98 - 107 mmol/L 05/21/2024 11:59 AM CDT [facility] CO2, VENOUS 28 22 - 30 mmol/L 05/21/2024 11:59 AM CDT [facility] ANION GAP 13.8 <18.0 mmol/L 05/21/2024 11:59 AM CDT [facility] GLUCOSE 90 70 - 99 mg/dL 05/21/2024 11:59 AM CDT [facility] BUN 9 9 - 21 mg/dL 05/21/2024 11:59 AM CDT [facility] CREATININE, BLOOD 0.80 0.70 - 1.30 mg/dL 05/21/2024 11:59 AM CDT [facility] BUN/CREATININE RATIO 11(L) 12 - 20 ratio 05/21/2024 11:59 AM CDT [facility] TOTAL PROTEIN 7.8 6.0 - 8.0 g/dL 05/21/2024 11:59 AM CDT [facility] ALBUMIN 4.0 3.5 - 5.0 g/dL 05/21/2024 11:59 AM CDT [facility] A/G RATIO 1.1 1.0 - 2.2 05/21/2024 11:59 AM CDT [facility] CALCIUM 9.2 8.7 - 10.5 mg/dL 05/21/2024 11:59 AM CDT [facility] T BILI 0.9 0.2 - 1.2 mg/dL 05/21/2024 11:59 AM CDT [facility] SGOT (AST) 27 <43 U/L 05/21/2024 11:59 AM CDT [facility] SGPT (ALT) 44 <56 U/L 05/21/2024 11:59 AM CDT [facility] ALKALINE PHOSPHATASE 85 40 - 150 U/L 05/21/2024 11:59 AM CDT [facility] GFR, ESTIMATED >60 >=60 05/21/2024 11:59 AM CDT [facility] Comment: Creatinine Clearance is the preferred criteria for selecting drug dose adjustments in renally impaired patients. The GFR is provided as additional pertinent clinical information. GFR is reported in mL/min/1.73 sq m. Calculation based on the Chronic Kidney Disease Epidemiology Collaboration (CKD- EPI) equation refit without adjustment for race. GFR, EST. >60 >=60 025 11:59 AM CDT [facility] GFR, EST. NONAFRICAN >60 >=60 05/21/2024 11:59 AM CDT [facility] Blood Venipuncture / Unknown 05/21/2024 11:04 AM CDT 05/21/2024 11:37 AM CDT Jim Rowland MD CHEMISTRY ORDERABLES Final Result [facility] [address] [place] [address] from Last 3 Months Insurance MEDICAID [place] Advance Directives * Full Code (Latest Code Status on File) Date Activated Date Inactivated Comments 06/11/2024 7:01 AM Care Teams Can Top Setter Relationship Specialty Start Date End Date Provider, None [place] PCP - General 12/12/23
--- OUTSIDE RECORDS SUMMARY | 2024-07-07 11:41 | XMS_ITS | Clinical Summary ---
Author Organization [facility] Address [address] [place] [address] Care Team Providers Care Gas Golf Cart Repairer Name Role Phone Cesia Banda NP Primary Care Provider [phone] Allergies Active Allergy Reactions Criticality Noted Date [...] cyst Assessment & Plan (01/27/2017 11:45 AM MACHINING TECHNICIAN): Encouraged to keep area clean and dry, please notify if redness, pain, swelling, or drainage occurs. Continue to avoid exertion for 2-3 more weeks. Assessment & Plan (01/08/2017 4:02 PM MACHINING TECHNICIAN): Will schedule surgical excision of pilonidal cyst. [...] Polysaccharide (Menomune) 08/28/2009 Tdap 09/16/2012,09/16/2008 Varicella 09/30/2013,01/05/1999 Surgical History Surgery Date Site/Laterality Comments OTHER SURGICAL HISTORY 8# product of nl : Vaginal delivery OTHER SURGICAL HISTORY Bronchiolitis RSV: Admit PICU OTHER SURGICAL HISTORY 01/13/2017 Excision of pilonidal cyst Medical History Medical History Date Comments Hx Other Medical 1997 8# product of n l Hx Other Medical 1997 Bronchiolitis R SV Hx Other Medical 12/10/2013 FX 5th metacarp al R (wall); Comments: KJL 12/14/2013 - Asthma mild asthma Family History Medical History Relation Name Comments Hyperlipidemia Father Hyperlipidemi a; borderline Mitral valve prolapse Mother Asthma Other 1 Family history of Asthma; Diabetes Other 2 Family history of Diabetes mellitus; Other Other 3 No family histo ry of Sudden <50; Other Other 4 Family history of CVAs in young; Relation Name Status Comments Father Alive Mother Alive Other 1 Other 2 Other 3 Other 4 Social History Tobacco Use Types Packs/Day Years Used Date Smoking Tobacco: Every Day Cigarettes Smokeless Tobacco: Never Alcohol Use Standard Drinks/Week Comments Yes 0 (1 standard drink = 0.6 oz pur e alcohol) rarely Sex and Gender Information Value Date Recorded Sex Assigned at Not on file Legal Sex Male 11:28 PM MACHINING TECHNICIAN Gender Identity Not on file Sexual Orientation Not on file Obstetrics History Last Filed Vital Signs Vital Sign Reading [...] 10/08/2019 4:45 PM CDT Plan of Treatment Health Maintenance Due Date Last Done Comments Depression Screening 1998 Hepatitis C Screening 1998 Regular Well Visit/Exam 18-64 01/05/2016 HPV Vaccines (2 - Male 3-dos e series) 07/11/2016 06/13/2016 Pneumococcal vaccine <65 (1 of 2 - PCV) 2017 DTaP/Tdap/Td Vaccine (8 - Td or Tdap) 09/16/2022 09/16/2012, 09/16/2008, 10/11/2003, Additional history exists Covid-19 Vaccine (3 - 2023-2 5 season) 2023 07/13/2020, 06/15/2020 Influenza Vaccine (Season Ended) 2024 05/05/19 19, 11/20/2016 Hepatitis B Screening Completed 1998 , 1998, 1998 Varicella Vaccines Completed 09/30/2013, 01/05/1999 Insurance HMO [facility] [employer] [facility] [employer] [facility] PPO Care Teams Gas Golf Cart Repairer Relationship Specialty Start Date End Date Cesia Banda NP [address] [place] [address] PCP - General 03/29/20
--- OUTSIDE RECORDS SUMMARY | 2024-07-07 11:42 | XMS_ITS | Clinical Summary ---
Author Organization [facility] Address [address] [place] [address] Care Team Providers Care Oil Inspector Name Role Phone Unavailable Primary Care Provider Unavailabl e Source Comments [facility],non-owned Affiliates and Associated Physician Practices is amultiple site organization consisting of ambulatory clinics and hospital sitesin [place], [place], [place] and [place]. This disclosure is being madepursuant to the Care Everywhere program and may not contain all information available regarding this patient. Last updated 17.[facility] Rocket Relief Allergies Active Allergy Reactions Criticality Noted Date Comments Cephalexin Urticaria Medium 05/21/2024 Shrimp Extract Allergy Skin Test Unknown 01/06/2017 shrimp allergenic extract Wheat Bran Unknown 01/06/2017 wheat preparation Medications * Be aware that medications may not be up to date on this document. Alwaysverify current medications with the patient. oxyCODONE, immediate release, (Roxicodone) 5 MG tabletIndicatio ns:Appendicitis , unspecified appendicitis type Take 1 (one) tablet by mouth every 6 hours as needed 12 tablet 5 3:59 PM CDT 05/29/19 25 Active Additional Information Patient not taking.Reported on 07/07/2024 HYDROcodone-qi taminophen (Lincoln) 5-325 MG tabletIndicatio ns:Post-op pain Take 1 (one) tablet by mouth every 6 hours as needed for Pain 12 tablet 06/12/19 25 07/11/ 025 Active Additional Information Patient not taking.Reported on 07/07/2024 albuterol HFA (Proventil; Ventolin; Proair) 108 (90 Base) MCG/ACT inhaler Inhale 2 puffs every 4 hours by inhalation route as needed. Active Nutritional Supplements (Chris) PACK Take 1 packet by mouth 2 times daily for 30 days 05/25/19 025 Additional Information Patient not taking.Reported on 06/23/2024 amoxicillin-cla vulanate (Augmentin) 875-125 MG tablet Take 1 (one) tablet by mouth 2 times daily with morning and evening meal 20 tablet 3:59 PM CDT 05/29/19 025 Discontinu ed(List Clean-Up) ferrous sulfate 325 (65 FE) MG tablet Take 1 (one) tablet by mouth once daily after lunch 30 tablet 3:59 PM CDT 05/29/19 025 Discontinu ed(List Clean-Up) enoxaparin (Lovenox) 40 MG/0.4ML injection Inject 0.4 mL subcutaneously 2 times daily for 21 days 16.8 mL 05/29/19 025 Active Problems Problem Noted Date Diagnosed Date Postoperative state 06/09/2024 Acute hypoxemic respiratory failure 05/22/2024 Morbid obesity with BMI of 60.0-69.9, adult 06/2024 Sepsis 05/22/2024 Appendicitis, unspecified appendicitis type 05/2024 Encounters Date Type Department Care Team Description 07/07/2024 9:40 AM CDT Office Visit [facility] - Surgery [address] [place] [address], [address] [place] [phone] Santiago Joy MD Postoperative state (Primary Dx) 07/07/2024 Travel 06/23/2024 8:40 AM CDT Office Visit [facility] - Surgery [address] [place] [address], [address] [place] [phone] Santiago Joy MD Postoperative state (Primary Dx) 06/23/2024 Travel 06/11/2024 Orders Only [facility] - Surgery [address], [address] [place] [address] Santiago Joy MD Post-op pain 06/11/2024 Orders Only [facility] Surgery [address], [address] [place] [address] Santiago Joy MD Post-op pain 06/10/2024 Telephone [facility] [address], [address] [place] [phone] Santiago Joy MD Med Question; Wound Care 06/09/2024 8:40 AM CDT Office Visit [facility] [address], [address] [place] [phone] Santiago Joy MD Postoperative state (Primary Dx) 06/09/2024 Travel 06/01/[address], [address] [place] [phone] Santiago Joy MD Question 05/27/2024 3:00 PM CDT Anesthesia Event [facility] - Perioperative Surgery [address] [place] [phone] Matty Raya, 05/27/2024 2:31 PM CDT - 05/27/2024 3:42 PM CDT Surgery [facility] - Perioperative Surgery [address] [place] [phone] Santiago Joy MD ABDOMINAL WOUND WASHOUT 05/22/2024 8:35 AM CDT Anesthesia Event [facility] - Perioperative Surgery [address] [place] [phone] Matty Raya, 05/22/2024 7:30 AM CDT - 05/22/2024 9:03 AM CDT Surgery [facility] - Perioperative Surgery [address] [place] [phone] Santiago Joy MD DIAGNOSTIC LAPAROSCOPY, OPEN APPENDECTOMY/PARTIAL CECECTOMY, PARTIAL OMENTECTOMY, DRAINAGE ABDOMINAL ABSCESS, NEGATIVE PRESSURE WOUND VAC, LYSIS OF ADHESIONS 05/21/2024 5:56 PM CDT - 05/28/2024 4:20 PM CDT Hospital Encounter [address] [address] Doug Perez MD Arekooti, MD Claudia Munguia, MD Suzy Shore, MD Kyle Cruz, MD Karl Salazar, Ishaan Hussein MD Hospitalist Discharge Disposition: Home or Self Care 05/21/2024 Travel from Last 3 Months Family History Medical History Relation Name Comments Other Other Negative Relation Name Status Comments Other Social History Tobacco Use Types Packs/Day Years [...] and heating? Not hard at all 05/21/2024 [facility] [place] [facility] Occupat ional Health - Occupational Stress [...] any time in the past 12 [facility], were you homeless or living in a nursing home (including now)? 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 Gender Identity Not on file Sexual Orientation Not on file Last Filed Vital Signs Vital Sign Reading Time Taken Comments Blood Pressure 150/88 05/28/2024 8:28 AM CDT Pulse 90 05/28/2024 8:28 AM CDT Temperature 36.2 C (97.2 F) 05/28/2024 8:28 AM CDT Respiratory Rate 18 05/28/2024 8:28 AM CDT Oxygen Saturation 96% 05/28/2024 8:28 AM CDT Inhaled Oxygen Concentration 40% 05/25/2024 4 :31 AM CDT Weight 208.7 kg (460 lb) 07/07/2024 9:47 AM CDT Height 182.9 cm (6') 07/07/2024 9:47 AM CDT Body Mass Index 62.39 07/07/2024 9:47 AM CDT Plan of Treatment Health Maintenance Due Date Last Done Comments HIV SCREENING 2013 HPV VACCINE (1 - Male 3-dose series) 2013 HEPATITIS C SCREENING 12/31/2015 DTAP/TDAP/TD VACCINES (1 - Tdap) 2017 HEPATITIS B VACCINE (1 of 3 - 19+ 3-dose series) 2017 COVID-19 VACCINE (3 - season) 2023 07/13/2020, 06/15/2020 DEPRESSION SCREENING 02/18/2024 INFLUENZA VACCINE (Season Ended) 2024 05/04/2018, 11/20/2016, 2011, Additional history exists ZOSTER VACCINE (1 of 2) 01/05/2048 HIB VACCINE Aged Out No longer eligi ble based on patient's age to complete this topic MENINGOCOCCAL (Group B) VACCINE SHARED DECISION-MAKING Aged Out No longer eligible based on patient's age to complete this topic MENINGOCOCCAL GROUPS A/C/Y/W VACCINE Aged Out No longer eligible based on patient's age to complete this topic PNEUMOCOCCAL VACCINE Aged Out No long er eligible based on patient's age to complete this topic Procedures Procedure Name Priority Date/Time Associated Diagnosis Comments CARDIAC RHYTHM STRIP ORDER 05/31/2024 6:28 PM CDT CBC W/O DIFFERENTIAL AM Draw 05/28/2024 6:22 AM CDT GLUCOSE - POINT OF CARE Routine 05/27/2024 9:11 PM CDT GLUCOSE - POINT OF CARE Routine 05/27/2024 3:52 PM CDT ENDOTRACHEAL TUBE NOTE Routine 05/27/2024 3:14 PM CDT VT DEBRIDE SKIN AT FX SITE 05/27/2024 2:53 PM CDT CBC W/O DIFFERENTIAL AM Draw 05/27/2024 5:52 AM CDT FOLATE AM Draw 05/26/2024 5:05 AM CDT VITAMIN B12 AM Draw 05/26/2024 5:05 AM CDT FERRITIN Routine 05/26/2024 5:05 AM CDT IRON + TRANSFERRIN PANEL Routine 05/26/2024 5:05 AM CDT CBC W/O DIFFERENTIAL AM Draw 05/26/2024 5:05 AM CDT PHOSPHORUS BLOOD AM Draw 05/26/2024 5:05 AM CDT GLUCOSE - POINT OF CARE Routine 05/25/2024 12:33 PM CDT GLUCOSE - POINT OF CARE Routine 05/25/2024 5:01 AM CDT SLIDE SCAN HEMATOLOGY AM Draw 05/25/2024 2:10 AM CDT PHOSPHORUS BLOOD AM Draw 05/25/2024 2:10 AM CDT MAGNESIUM BLOOD AM Draw 05/25/2024 2:10 AM CDT COMPREHENSIVE METABOLIC PANEL AM Draw 05/25/2024 2:10 AM CDT CBC W AUTO DIFFERENTIAL AM Draw 05/25/2024 2:10 AM CDT GLUCOSE - POINT OF CARE Routine 05/25/2024 12:31 AM CDT GLUCOSE - POINT OF CARE Routine 05/24/2024 6:15 PM CDT GLUCOSE - POINT OF CARE Routine 05/24/2024 12:03 PM CDT GLUCOSE - POINT OF CARE Routine 05/24/2024 6:05 AM CDT SLIDE SCAN HEMATOLOGY AM Draw 05/24/2024 5:10 AM CDT PHOSPHORUS BLOOD AM Draw 05/24/2024 5:10 AM CDT MAGNESIUM BLOOD AM Draw 05/24/2024 5:10 AM CDT COMPREHENSIVE METABOLIC PANEL AM Draw 05/24/2024 5:10 AM CDT CBC W AUTO DIFFERENTIAL AM Draw 05/24/2024 5:10 AM CDT GLUCOSE - POINT OF CARE Routine 05/24/2024 12:13 AM CDT GLUCOSE - POINT OF CARE Routine 05/23/2024 5:42 PM CDT GLUCOSE - POINT OF CARE Routine 05/23/2024 12:23 PM CDT OT EVAL AND TREAT Routine 05/23/2024 9:2 1 AM CDT GLUCOSE - POINT OF CARE Routine 05/23/2024 6:44 AM CDT XR CHEST 1VW PORTABLE Routine 05/23/2024 6:14 AM CDT Appendicitis, unspecified appendicitis type SLIDE SCAN HEMATOLOGY AM Draw 05/23/2024 5:06 AM CDT PHOSPHORUS BLOOD AM Draw 05/23/2024 5:06 AM CDT MAGNESIUM BLOOD AM Draw 05/23/2024 5:06 AM CDT COMPREHENSIVE METABOLIC PANEL AM Draw 05/23/2024 5:06 AM CDT CBC W AUTO DIFFERENTIAL AM Draw 05/23/2024 5:06 AM CDT HEMOGLOBIN A1C Routine 05/23/2024 5:06 AM CDT GLUCOSE - POINT OF CARE Routine 05/23/2024 12:08 AM CDT GLUCOSE - POINT OF CARE Routine 05/22/2024 6:02 PM CDT XR CHEST 1VW PORTABLE STAT 05/22/2024 2:07 PM CDT Appendicitis, unspecified appendicitis type CBC W AUTO DIFFERENTIAL STAT 05/22/2024 1:29 PM CDT PHOSPHORUS BLOOD STAT 05/22/2024 1:28 PM CDT LACTIC ACID BLOOD STAT 05/22/2024 1:2 8 PM CDT MAGNESIUM BLOOD STAT 05/22/2024 1:28 PM CDT COMPREHENSIVE METABOLIC PANEL STAT 05/22/2024 1:28 PM CDT GLUCOSE - POINT OF CARE Routine 05/22/2024 1:20 PM CDT BLOOD GASES ARTERIAL STAT 05/22/2024 12:24 PM CDT PATHOLOGY TISSUE EXAM (STL) Routine 05/22/2024 10:01 AM CDT Diagnosis unknown ENDOTRACHEAL TUBE NOTE Routine 05/22/2024 9:20 AM CDT VT LAP,APPENDECTOMY 05/22/2024 8 :26 AM CDT Special Needs REQ BOOKWALTER, PT NEEDS ICU BED POSTOP CULTURE BLOOD STAT 05/21/2024 9:21 PM CDT PT-INR STAT 05/21/2024 9:07 PM CDT LACTIC ACID BLOOD STAT 05/21/2024 9:0 7 PM CDT COMPREHENSIVE METABOLIC PANEL STAT 05/21/2024 9:07 PM CDT CBC W AUTO DIFFERENTIAL STAT 05/21/2024 9:07 PM CDT CULTURE BLOOD STAT 05/21/2024 8:43 PM CDT from Last 3 Months Results * CARDIAC RHYTHM STRIP ORDER (05/31/2024 6:28 PM CDT) Narrative 05/31/2024 6:28 PM CDT Ordered by an unspecified provider. us Scanned Document CARDIAC SERVICES ORDERABLES Fin al Result * (ABNORMAL) CBC W/O DIFFERENTIAL (05/28/2024 6:22 AM CDT) Only the most recent of3 resultswithin the time period is included. WBC 16.2(H) 4.0 - 10.7 x10E9/L 05/28/2024 6:35 AM CDT [facility] RBC Count 4.42 4.30 - 5.80 x10E12/L 05/28/2024 6:35 AM CDT [facility] Hemoglobin 11.0(L) 13.3 - 17.5 g/dL 05/28/2024 6:35 AM CDT [facility] Hematocrit 36.1(L) 38.7 - 51.1 % 05/28/2024 6:35 AM CDT [facility] MCV 81.7 80.0 - 98.0 fL 05/28/2024 6:35 AM CDT [facility] MCH 24.9(L) 26.7 - 33.6 pg 05/28/2024 6:35 AM CDT [facility] MCHC 30.5(L) 31.7 - 36.3 g/dL 05/28/2024 6:35 AM CDT [facility] RDW-CV 14.7 11.3 - 14.8 % 05/28/2024 6:35 AM CDT [facility] Platelet Count 345 150 - 420 x10E9/L 05/28/2024 6:35 AM CDT [facility] MPV 10.0 7.8 - 11.4 fL 05/28/2024 6:35 AM CDT [facility] Blood BLOOD SPECIMEN / Unknown Venipuncture / Unknown 05/28/2024 6:22 AM CDT 05/28/2024 6:29 AM CDT us Ishaan Barajas MD LAB - HEMATOLOGY ORD ERABLES Final Result [facility] [address] [place] [address] * (ABNORMAL) GLUCOSE - POINT OF CARE (05/27/2024 9:11 PM CDT) Only the most recent of15 resultswithin the time period is included. Glucose WB/POC 145(H) 70 - 99 mg/dL 05/27/2024 11:33 PM CDT [facility] Specimen Type Cap Fingerstick 2024 11:33 PM CDT [facility] Blood BLOOD SPECIMEN / Unknown 05/27/2024 9:11 PM CDT 05/27/2024 11:32 PM CDT us Ishaan Barajas MD LAB - POINT OF CARE ORDERABLES Final Result [facility] [address] [place] [address] * ETT LINE PERFORMABLE (05/27/2024 3:14 PM CDT) Narrative Radha Chatman APRN-CRNA - 05/27/2024 3:14 PM CDT Radha Chatman APRN-CRNA 05/27/2024 3:14 PM Endotracheal Tube Placement: Patient Location: OR. Intubation Event Date/Time: 05/27/2024 3:09 PM Procedure: intubation (31574) Procedure Section: Sedation: under general anesthesia. Indications for Airway Management: anesthesia Induction: modified rapid sequence Patient Position: sniffing Mask Ventilation: not attempted. Blade Type: Video Blade Size: 4 Laryngoscopy View: grade 1 (full cords) Intubation Adjuncts: video laryngoscope and stylet Tube: endotracheal tube Placement: oral Tube type: cuff - inflated Depth of Insertion (CM): 22 Measured From: lips Cuff volume (mL): 8 Cuff Inflated With: air Number of Attempts: 1. Placement Verified By: direct visualization, bilateral breath sounds, chest auscultation and CO2 monitor Tube secured with: adhesive tape and ETT acosta. Dentition unchanged? Yes Difficult Airway? Yes. Reason: obesity Procedure Start Time: 05/27/2024 3:09 PM. Staff Section Anesthesia Provider: Radha Chatman APRN-CRNA, Performed the procedure Additional Comments: Atraumatic induction and intubation. Dentition remained intact ETT secured with tape . Matty Raya DO GENERAL ANESTHESIA ORDERABLES F inal Result * PHOSPHORUS BLOOD (05/26/2024 5:05 AM CDT) Only the most recent of5 resultswithin the time period is included. Pathologist [facility] Phosphorus 3.1 2.5 - 4.5 mg/dL 05/26/2024 5:39 AM CDT [facility] Blood BLOOD SPECIMEN / Unknown Venipuncture / Unknown 05/26/2024 5:05 AM CDT 05/26/2024 5:17 AM CDT us Santos Almonte MD LAB - CHEMISTRY ORDERABLES Fin al Result Performing Organization Address City/[facility]/ZIP Co de Phone Number [facility] [address] [place] [phone] * FOLATE (05/26/2024 5:05 AM CDT) Folate 11.7 7.0 - 31.4 ng/mL 05/26/2024 6:10 AM CDT [facility] Blood BLOOD SPECIMEN / Unknown Venipuncture / Unknown 05/26/2024 5:05 AM CDT 05/26/2024 5:17 AM CDT us Ishaan Barajas MD LAB - CHEMISTRY DEBRA BONNER Final Result Performing Organization Address [facility] Co de Phone Number [facility] [address] [place] [phone] * VITAMIN B12 (05/26/2024 5:05 AM CDT) Vitamin B12 501 213 - 816 pg/mL 05/26/2024 6:10 AM CDT [facility] Blood BLOOD SPECIMEN / Unknown Venipuncture / Unknown 05/26/2024 5:05 AM CDT 05/26/2024 5:17 AM CDT us Ishaan Barajas MD LAB - CHEMISTRY DEBRA BONNER Final Result Performing Organization Address City/[facility]/ZIP Co de Phone Number [facility] [address] [place] [phone] * (ABNORMAL) IRON + TRANSFERRIN PANEL (05/26/2024 5:05 AM CDT) Iron 13(L) 50 - 175 ug/dL 05/26/2024 5:39 AM CDT [facility] Transferrin 153(L) 174 - 382 mg/dL 05/26/2024 5:39 AM CDT [facility] TIBC Calculated 191(L) 240 - 450 ug/dL 05/26/2024 5:39 AM CDT [facility] Iron Saturation % 7(L) 20 - 50 % 05/26/2024 5:39 AM CDT [facility] Blood BLOOD SPECIMEN / Unknown Venipuncture / Unknown 05/26/2024 5:05 AM CDT 05/26/2024 5:17 AM CDT Ishaan Barajas MD LAB - CHEMISTRY DEBRA BONNER Final Result Performing Organization Address [facility]/ZIP Co de Phone Number [facility] [address] [place] [phone] * (ABNORMAL) FERRITIN (05/26/2024 5:05 AM CDT) Pathologist [facility] Ferritin 347(H) 22 - 275 ng/mL 05/26/2024 6:10 AM CDT [facility] Blood BLOOD SPECIMEN / Unknown Venipuncture / Unknown 05/26/2024 5:05 AM CDT 05/26/2024 5:17 AM CDT Ishaan Barajas MD LAB - CHEMISTRY DEBRA BONNER Final Result Performing Organization Address [facility] de Phone Number [facility] [address] [place] [phone] * (ABNORMAL) SLIDE SCAN HEMATOLOGY (05/25/2024 2:10 AM CDT) Only the most recent of3 resultswithin the time period is included. Pathologist [facility] RBC Morphology REVIEWED 05/25/2024 3:13 AM CDT [facility] Microcytosis MANY(A) (none) 05/25/2024 3:13 AM CDT [facility] Platelet Clumps PRESENT(A) (none) 3:13 AM CDT [facility] Comment See Comment 05/25/2024 3:13 AM CDT [facility] Comment:Platelet clumped on smear, but it appears adequate. Recommond repeat with sodium citrate tube. Blood BLOOD SPECIMEN / Unknown Venipuncture / Unknown 05/25/2024 2:10 AM CDT 05/25/2024 2:39 AM CDT us Santos Almonte MD LAB - HEMATOLOGY ORDERABLES Fi nal Result [facility] [address] [place] [address] * (ABNORMAL) CBC W AUTO DIFFERENTIAL (05/25/2024 2:10 AM CDT) Only the most recent of5 resultswithin the time period is included. WBC 14.8(H) 4.0 - 10.7 x10E9/L 05/25/2024 3:13 AM CDT [facility] RBC Count 4.17(L) 4.30 - 5.80 x10E12/L 05/25/2024 3:13 AM CDT [facility] Hemoglobin 10.4(L) 13.3 - 17.5 g/dL 05/25/2024 3:13 AM CDT [facility] Hematocrit 34.8(L) 38.7 - 51.1 % 05/25/2024 3:13 AM CDT [facility] MCV 83.5 80.0 - 98.0 fL 05/25/2024 3:13 AM CDT [facility] MCH 24.9(L) 26.7 - 33.6 pg 05/25/2024 3:13 AM CDT [facility] MCHC 29.9(L) 31.7 - 36.3 g/dL 05/25/2024 3:13 AM CDT [facility] RDW-CV 14.5 11.3 - 14.8 % 05/25/2024 3:13 AM CDT [facility] Platelet Count 269 150 - 420 x10E9/L 05/25/2024 3:13 AM CDT [facility] MPV 10.0 7.8 - 11.4 fL 05/25/2024 3:13 AM CDT [facility] Neutrophil % 69.9 41.0 - 74.0 % 05/25/2024 3:13 AM CDT [facility] Lymphocyte % 17.1 17.0 - 47.0 % 05/25/2024 3:13 AM CDT [facility] Monocyte % 9.2 3.0 - 11.0 % 05/25/2024 3:13 AM CDT [facility] Eosinophil % 2.8 0.0 - 7.0 % 05/25/2024 3:13 AM CDT [facility] Basophil % 0.3 0.0 - 1.6 % 05/25/2024 3:13 AM CDT [facility] Immature Granulocytes % 0.7 0.0 - 1.0 % 05/25/2024 3:13 AM CDT [facility] Neutrophil Absolute 10.34(H) 1.60 - 7.50 x10E9/L 05/25/2024 3:13 AM CDT [facility] Lymphocyte Absolute 2.54 1.00 - 4.40 x10E9/L 05/25/2024 3:13 AM CDT [facility] Monocyte Absolute 1.37(H) 0.15 - 1.00 x10E9/L 05/25/2024 3:13 AM CDT [facility] Eosinophil Absolute 0.42 0.00 - 0.60 x10E9/L 05/25/2024 3:13 AM CDT [facility] Basophil Absolute 0.05 0.00 - 0.13 x10E9/L 05/25/2024 3:13 AM CDT [facility] Blood BLOOD SPECIMEN / Unknown Venipuncture / Unknown 05/25/2024 2:10 AM CDT 05/25/2024 2:39 AM CDT us Santos Almonte MD LAB - HEMATOLOGY ORDERABLES Fi nal Result [facility] [address] [place] [address] * (ABNORMAL) COMPREHENSIVE METABOLIC PANEL (05/25/2024 2:10 AM CDT) Only the most recent of5 resultswithin the time period is included. [facility] Glucose 96 70 - 99 mg/dL 05/25/2024 2:57 AM CDT [facility] Sodium 137 136 - 145 mmol/L 05/25/2024 2:57 AM CDT [facility] Potassium 4.0 3.5 - 5.1 mmol/L 05/25/2024 2:57 AM CDT [facility] Chloride 102 98 - 107 mmol/L 05/25/2024 2:57 AM CDT [facility] CO2 24 22 - 29 mmol/L 05/25/2024 2:57 AM CDT [facility] Calcium 8.8 8.4 - 10.4 mg/dL 05/25/2024 2:57 AM CDT [facility] Anion Gap 11 6 - 16 mmol/L 05/25/2024 2:57 AM CDT [facility] BUN 11 5.3 - 18.7 mg/dL 05/25/2024 2:57 AM CDT [facility] Creatinine 0.76 0.72 - 1.25 mg/dL 05/25/2024 2:57 AM CDT [facility] Alkaline Phosphatase 69 40 - 150 U/L 05/25/2024 2:57 AM CDT [facility] ALT 36 6 - 57 U/L 05/25/2024 2:57 AM CDT [facility] AST 26 10 - 48 U/L 05/25/2024 2:57 AM CDT [facility] Protein Total 6.3(L) 6.4 - 8.3 gm/dL 05/25/2024 2:57 AM CDT [facility] Albumin 2.4(L) 3.4 - 5.0 gm/dL 05/25/2024 2:57 AM CDT [facility] Bilirubin Total 0.4 0.2 - 1.2 mg/dL 05/25/2024 2:57 AM CDT [facility] eGFR by CKD-EPI >90 >=90 mL/min/1.7 3 m2 05/25/2024 2:57 AM CDT [facility] Blood BLOOD SPECIMEN / Unknown Venipuncture / Unknown 05/25/2024 2:10 AM CDT 05/25/2024 2:39 AM CDT us Santos Almonte MD LAB - CHEMISTRY ORDERABLES Fin al Result [facility] [address] [place] [address] * MAGNESIUM BLOOD (05/25/2024 2:10 AM CDT) Only the most recent of4 resultswithin the time period is included. Magnesium 1.8 1.6 - 2.6 mg/dL 05/25/2024 2:57 AM CDT [facility] Blood BLOOD SPECIMEN / Unknown Venipuncture / Unknown 05/25/2024 2:10 AM CDT 05/25/2024 2:39 AM CDT Santos Almonte MD LAB - CHEMISTRY ORDERABLES Fin al Result [facility] [address] [place] [address] * XR CHEST 1VW PORTABLE (05/23/2024 6:14 AM CDT) Only the most recent of2 resultswithin the time period is included. Anatomical Region Laterality Modality Chest Computed Radiogr aphy 05/23/2024 11:0 4 AM CDT Narrative 05/23/2024 11:07 AM CDT Portable AP Chest x-ray INDICATION: K37: Unspecified appendicitis, chest pain, shortness of breath COMPARISON: 05/22/2024 FINDINGS: Heart size is stable. There is no focal infiltrate or consolidation. There is no pleural effusion or pneumothorax. > Interpreting Provider: Matty Almonte JR, MD on 05/23/2024 11:07 AM Procedure Note Matty Almonte MD - 05/23/2024 Portable AP Chest x-ray INDICATION: K37: Unspecified appendicitis, chest pain, shortness ofbreath COMPARISON: 05/22/2024 FINDINGS: Heart size is stable. There is no focal infiltrate or consolidation.There is no pleural effusion or pneumothorax. > Interpreting Provider: Matty Almonte JR, MD on 05/23/2024 11:07 AM Santos Almonte MD DIAGNOSTIC IMAGING ORDERABLES Final Result * (ABNORMAL) HEMOGLOBIN A1C (05/23/2024 5:06 AM CDT) Hemoglobin A1c 5.9(H) <5.7 % 05/23/2024 5:57 AM CDT [facility] Estimated Average Glucose 123 mg/dL 05/23/2024 5:57 AM CDT [facility] Blood BLOOD SPECIMEN / Unknown Venipuncture / Unknown 05/23/2024 5:06 AM CDT 05/23/2024 5:45 AM CDT Narrative [facility] - 05/23/2024 5:57 AM CDT HbA1c Interpretation: Normal: < 5.7% Pre-diabetes: 5.7-6.4% Diabetes: Equal to or greater than 6.5% Test results diagnostic of diabetes should be repeated for confirmation. Treatment target values recommended by ADA and other clinical organizations should be used to evaluate metabolic control in patients. This test should not replace glucose testing for patients with Type 1 diabetes, pediatric patients, or women. Falsely low HbA1c results may be observed in patients with clinical conditions that shorten erythrocyte life span or decrease mean erythrocyte age such as the presence of unstable hemoglobin variants, elevated hemoglobin F level or other causes of hemolytic anemia. HbA1c may not accurately reflect glycemic control when clinical conditions that affect erythrocyte survival are present. Severe Iron deficiency anemia may yield falsely high results. Hemoglobin A1c assay should not be used to diagnose or monitor diabetes in patients with malignancy, recent blood transfusion, chronic kidney or liver disease. This method may yield falsely low results when hemoglobin (HbF) exceeds 5% in the specimen. The [employer] Alinity assay for the measurement of HbA1c is a National Glycohemoglobin Standardization Program (NGSP) certified method. Bryan Taylor MD LAB - CHEMISTRY ORDERAB LES Final Result Performing Organization Address City/[facility] de Phone Number [facility] [address] [place] [address] * LACTIC ACID BLOOD (05/22/2024 1:28 PM CDT) Only the most recent of2 resultswithin the time period is included. Lactic Acid 1.7 <=2 mmol/L 05/22/2024 1:50 PM CDT [facility] Blood BLOOD SPECIMEN / Unknown Venipuncture / Unknown 05/22/2024 1:28 PM CDT 05/22/2024 1:35 PM CDT Santos Almonte MD LAB - CHEMISTRY ORDERABLES Fin al Result Performing Organization Address City/State/[facility] Co de Phone Number [facility] [address] [place] [address] * (ABNORMAL) BLOOD GASES ARTERIAL (05/22/2024 12:24 PM CDT) pH Arterial 7.27(L) 7.35 - 7.45 pH 05/22/2024 12:35 PM CDT [facility] pO2 Arterial 68(L) 80 - 100 mmHg 05/22/2024 12:35 PM CDT [facility] pCO2 Arterial 66(H) 35 - 45 mmHg 05/22/2024 12:35 PM CDT [facility] HCO3 Arterial 30.3(H) 22.0 - 26.0 mmol/L 05/22/2024 12:35 PM CDT [facility] BE Arterial 1.6 -2.0 - 2.0 mmol/L 05/22/2024 12:35 PM CDT [facility] O2 Saturation Arterial 92 90 - 100 % 05/22/2024 12:35 PM CDT [facility] Dawit's Test Yes 05/22/2024 12:35 PM CDT [facility] Sample Site Right RA 05/22/2024 12:35 PM CDT [facility] Mode Bipap 05/22/2024 12:35 PM CDT [facility] FI O2 40.0 % 05/22/2024 12:35 PM CDT [facility] BIPAP Insp Pressure (cmH2O) 12 05/22/2024 12:35 PM CDT [facility] BIPAP Exp Pressure (cmH2O) 6 05/22/2024 12:35 PM CDT [facility] Blood, arterial ARTERIAL BLOOD SPECIMEN / Unknown 05/22/2024 12:24 PM CDT 05/22/2024 12:24 PM CDT us Santos Almonte MD LAB - BLOOD GASES ORDERABLES F inal Result Performing Organization Address [facility]/ZIP Co de Phone Number [facility] [address] [place] [address], [facility] [phone] * PATHOLOGY TISSUE EXAM (STL) (05/22/2024 10:01 AM CDT) Case Report Surgical Pathology Report Case: [id number] Authorizing Provider: Santiago Joy MD Collected: 05/22/2024 10:01 AM Ordering Location: [facility] Received: 05/24/2024 06:29 AM - Perioperative Surgery Pathologist: Jose Wylie MD Specimen: Appendix 05/25/2024 11:05 AM CDT [facility] Final Diagnosis Appendix, appendectomy: -- Acute necrotizing and perforated appendicitis 05/25/2024 11:05 AM CDT [facility] at 1105 CDT Clinical History Perforated appendicitis 05/25/2024 11:05 AM CDT [facility] Gross Description Received in formalin in a sterile container labeled Vin Alonzo, appendix, is a 9 x 1.5 cm vermiform appendix with attached mesoappendix. The serosa is dusky purple, with thickened [id number] purulent exudate. The margin of resection is inked. Sections show a patent lumen containing red-brown debris. Distribution Supervisor sections are submitted in cassette A1. CH/eh 05/25/2024 11:05 AM CDT [facility] Microscopic Description Microscopic examination substantiates the above cited diagnosis. MC 05/25/2024 11:05 AM T [facility] Disclaimer All histochemical and/or immunohistochemical results are interpreted with controls that demonstrate appropriate staining reactions before reporting results. Note on use of immunocytochemistry reagents: This test was developed and its performance characteristic determined by [facility], Department of Laboratory Medicine. It has not been cleared or approved by the U.S. Food and Drug Administration (FDA). The FDA has determined that such clearance or approval is not necessary. The test is used for clinical purpose. It should not be regarded as investigational or for research. This laboratory is certified to perform high complexity testing. The performance characteristics of the IHC/LEN assays have been validated on formalin-fixed paraffin embedded tissues only. The assays have not been validated on decalcified tissues. Results should be interpreted with caution. 05/25/2024 11:05 AM CDT [facility] Embedded Images 05/25/2024 11:05 AM [facility] Pathology/Cytolo gy ENTIRE APPENDIX / Unknown 05/22/2024 10:01 AM CDT 05/24/2024 6:29 AM CDT us Santiago Joy MD LAB - PATHOLOGY/CYTOLOGY ORDER SAMUEL Final Result [facility] [address] [place] [address] * ETT LINE PERFORMABLE (05/22/2024 9:20 AM CDT) Narrative Jesenia Vazquez APRN-CRNA - 05/22/2024 9:20 AM CDT Jesenia Vazquez APRN-CRNA 05/22/2024 9:20 AM Endotracheal Tube Placement: Patient Location: OR. Intubation Event Date/Time: 05/22/2024 8:51 AM Procedure: intubation (03733) Procedure Section: Sedation: under general anesthesia. Indications for Airway Management: anesthesia Procedure pretreatments used? No Induction: rapid sequence Patient Position: sniffing Mask Ventilation: not attempted. Blade Type: Video Blade Size: 4 Laryngoscopy View: grade 1 (full cords) Intubation Adjuncts: cricoid pressure, stylet and video laryngoscope Tube: endotracheal tube Placement: oral Tube type: cuff - inflated Tube Size (MM): 8 Depth of Insertion (CM): 23 Measured From: teeth Cuff volume (mL): 8 Cuff Inflated With: air Number of Attempts: 1. Placement Verified By: direct visualization, bilateral breath sounds, chest auscultation and CO2 monitor Tube secured with: adhesive tape. Dentition unchanged? Yes Difficult Airway? No. Procedure Start Time: 05/22/2024 8:51 AM. Staff Section Anesthesia Provider: Jesenia Vazquez APRN-CRNA, Performed the procedure us Matty Raya DO GENERAL ANESTHESIA ORDERABLES F inal Result * CULTURE BLOOD (05/21/2024 9:21 PM CDT) Only the most recent of2 resultswithin the time period is included. Culture No growth day 5 IMELDA 05/27/2024 2:01 AM CDT [facility] Blood PERIPHERAL BLOOD / Unknown Venipuncture / Unknown 05/21/2024 9:21 PM CDT 05/21/2024 9:47 PM CDT Doug Perez MD LAB - MICROBIOLOGY ORDERABLES F inal Result [facility] [address] [place] [address], [facility] [phone] * (ABNORMAL) PT-INR (05/21/2024 9:07 PM CDT) PT 14.9(H) 12.1 - 14.8 sec 05/21/2024 10:03 PM CDT [facility] INR 1.2(H) 0.9 - 1.1 05/21/2024 10:03 PM CDT [facility] Blood BLOOD SPECIMEN / Unknown Venipuncture / Unknown 05/21/2024 9:07 PM CDT 05/21/2024 9:47 PM CDT Narrative [facility] - 05/21/2024 10:03 PM CDT Conventional Warfarin Anticoagulant Therapy: INR Reference Range: 2.0-3.0 Intensive Warfarin Anticoagulant Therapy: INR Reference Range: 2.5-3.5 Doug Perez MD LAB - COAGULATION ORDERABLES Fi nal Result Performing Organization Address [facility] Co de Phone Number [facility] [address] [place] [address] from Last 3 Months Insurance MEDICAID - OUT OF STATE [employer] MEDICAID - [place] Advance Directives * Full Code (Latest Code Status on File) Date Activated Date Inactivated Comments 05/22/2024 11:11 AM 05/28/2024 5:20 PM * Full Code Date Activated Date Inactivated Comments 05/21/2024 6:58 PM 05/22/2024 11:11 AM
--- OUTSIDE RECORDS SUMMARY | 2024-07-07 11:42 | XMS_ITS | Data Portability ---
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 Not available 03/29/2020 13:42:40 Plan of Treatment Reminders Order Date Submit Date Provider Last Modified By Organization Details Last Modified Time Details Appointments NEW PATIENT 30 2024 09:00A M Cesia Pickard, DAMPENER, PLATINUMSMITH-C Not available Not available Not available Lab CMP, serum or plasma 2020 021 [facility], [address] [place] [address], [address], [address], 06/16/2020 08:20:43 CBC w/ auto diff 2020 021 [facility], [address] [place] [address], [facility], [place], [address], 06/16/2020 08:20:42 TSH, ultra-sen sitive, serum 2020 021 [facility], [address] [place] [address], [facility], [place], [address], 06/16/2020 08:20:45 vitamin B12 + folate, serum or blood 2020 021 [facility], [address] [place] [address], [facility], [place], [address], 06/16/2020 08:20:43 HbA1c (hemoglob in A1c), blood 2020 021 [facility], [address] [facility], [facility], [place], [address], 06/16/2020 08:20:45 SARS CoV 2 IgG Ab, QL IA, serum or plasma 2020 021 [facility], [address] [facility], [facility], [place], [address], 06/16/2020 08:20:46 amylase + lipase, serum 2020 021 [facility], [address] [facility], [facility], [place], [address], 06/16/2020 08:20:44 rapid flu (A+B) 2018 019 [facility] In-Office Order, Internal Use Only DO Not Attach Compendium DO Not Attach Compendium, Do Not Delete/merge, [id number] 06/24/2018 12:32:37 Referral None recorded. Procedures None recorded. Surgeries None recorded. Imaging XR, [facility], 2 [facility] [address] [facility] , [place], [address], 03/29/2020 16:59:29 Medication Orders ProAir HFA 90 mcg/actua tion aerosol inhaler 2020 021 [id number], [address], [place], [place], [id number], 06/15/2020 10:33:47 ProAir HFA 90 mcg/actua tion aerosol inhaler 2020 021 [facility] #[id number], [address], [place], [place], [id number], 03/29/2020 12:36:30 albuterol sulfate 2.5 mg/3 mL (0.083 %) solution for nebulizat ion 2018 Not available 03/29/2020 12:32:49 azithromy chanell 250 mg tablet 2018 [facility] #[id number], [address], [place], [place], [id number], 03/29/2020 12:06:07 Zyrtec 10 mg capsule 2018 [facility] #[id number], [address], [place], [place], [id number], 03/29/2020 12:06:30 Patient TargetsNo targets recorded. Patient Instructions Encounter Date Encounter Id Patient Instructions Last Modified By Organization Details Last Modified Time 03/29/2020 [id number] tobacco cessation Not availab le 03/29/2020 12:36:18 Learning About Benefits of Quitting Smoking Not available 03/29/2020 12:36:18 shortness of breath: care instructions Not available 03/29/2020 12:36:18 Keep rescue inha ler with you, if using more than 2 times a week please notify office. Use inhaler 15-20 min before working out as prevention. Not available 03/29/2020 13:43:42 make apt for long ual prevention exam Not available 03/29/2020 13:44:05 06/15/2020 [id number] lightheadedness or faintness: care instructions Not available 06/15/2020 10:33:42 nausea and vomiting: care instructions Not available 06/15/2020 10:33:42 Increase clear fluids. BRAT (bananas, rice, applesauce, toast) diet. If pain increases or if fever, go to ER. 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 Keep log of foods/symptoms. Not available 06/15/2020 10:33:22 dwp labs needed, plan pending results Not available 06/15/2020 13:50:43 Reason for Referral None Reported. Results Created Date Observation Date Name Description Value Unit Range Abnormal Flag Note LastModifiedBy Organization Detail LastModifiedTime 06/25/19 19 06/24/2018 rapid flu (A+B) Flu A negati ve Not Available In-Office Order Internal Use Only DO Not Attach Compendium DO Not Attach Compendium, Do Not Delete/merge, [id number] 06/24/2018 12:08:56 06/25/19 19 06/24/2018 rapid flu (A+B) Flu B negati ve Not Available In-Office Order Internal Use Only DO Not Attach Compendium DO Not Attach Compendium, Do Not Delete/merge, [id number] 06/24/2018 12:08:56 06/16/19 21 06/16/2020 CBC w/ auto diff WBC 9.0 x10e3 /uL 3.4-10 .8 Not Available [facility] ([facility]) [address] [place], [address], 06/16/2020 08:20:42 06/16/19 21 06/16/2020 CBC w/ auto diff RBC 5.43 x10e6 /uL 4.14-5 .80 Not Available [facility] ([facility]) [address] [place], [address], 06/16/2020 08:20:42 06/16/19 21 06/16/2020 CBC w/ auto diff hemoglobin 15.1 g/dL 13.0-1 7.7 Not Available [facility] ([facility]) [address] [place], [address], 06/16/2020 08:20:42 06/16/19 21 06/16/2020 CBC w/ auto diff hematocrit 45.2 % 37.5-5 1.0 Not Available [facility] ([facility]) [address] [place], [address], 06/16/2020 08:20:42 06/16/19 21 06/16/2020 CBC w/ auto diff MCV 83 fL 79-97 Not Available [facility] ([facility]) [address] [facility], [place], [address], 06/16/2020 08:20:42 06/16/19 21 06/16/2020 CBC w/ auto diff MCH 27.8 pg 26.6-3 3.0 Not Available [facility] ([facility]) [address] [facility], [place], [address], 06/16/2020 08:20:42 06/16/19 21 06/16/2020 CBC w/ auto diff MCHC 33.4 g/dL 31.5-3 5.7 Not Available [facility] ([facility]) [address] [facility], [place], [address], 06/16/2020 08:20:42 06/16/19 21 06/16/2020 CBC w/ auto diff RDW 13.2 % 11.6-1 5.4 Not Available [facility] ([facility]) [address] [facility], [place], [address], 06/16/2020 08:20:42 06/16/19 21 06/16/2020 CBC w/ auto diff platelets 295 x10e3 /uL 150-45 0 Not Available [facility] ([facility]) [address] [facility], [place], [address], 06/16/2020 08:20:42 06/16/19 21 06/16/2020 CBC w/ auto diff neutrophils 58 % not estab. Not Available [facility] ([facility]) [address] [facility], [place], [address], 06/16/2020 08:20:42 06/16/19 21 06/16/2020 CBC w/ auto diff lymphs 32 % not estab. Not Available [facility] ([facility]) [address] [facility], [place], [address], 06/16/2020 08:20:42 06/16/19 21 06/16/2020 CBC w/ auto diff monocytes 7 % not estab. Not Available [facility] ([facility]) [address] [place], [address], 06/16/2020 08:20:42 06/16/19 21 06/16/2020 CBC w/ auto diff eos 2 % not estab. Not Available [facility] ([facility]) [address] [place], [address], 06/16/2020 08:20:42 06/16/19 21 06/16/2020 CBC w/ auto diff basos 1 % not estab. Not Available [facility] ([facility]) [address] [place], [address], 06/16/2020 08:20:42 06/16/19 21 06/16/2020 CBC w/ auto diff immature cells IRONMOLDER Not Available [facility] ([facility]) [address] [place], [address], 06/16/2020 08:20:42 06/16/19 21 06/16/2020 CBC w/ auto diff neutrophils (absolute) 5.2 x10e3 /uL 1.4-7. 0 Not Available [facility] ([facility]) [address] [place], [address], 06/16/2020 08:20:42 06/16/19 21 06/16/2020 CBC w/ auto diff lymphs (absolute) 2.9 x10e3 /uL 0.7-3. 1 Not Available [facility] ([facility]) [address] [place], [address], 06/16/2020 08:20:42 06/16/19 21 06/16/2020 CBC w/ auto diff monocytes(ab solute) 0.6 x10e3 /uL 0.1-0. 9 Not Available [facility] ([facility]) [address] [place], [address], 06/16/2020 08:20:42 06/16/19 21 06/16/2020 CBC w/ auto diff eos (absolute) 0.2 x10e3 /uL 0.0-0. 4 Not Available [facility] ([facility]) [address] [facility], [place], [address], 06/16/2020 08:20:42 06/16/19 21 06/16/2020 CBC w/ auto diff baso (absolute) 0.1 x10e3 /uL 0.0-0. 2 Not Available [facility] ([facility]) [address] [facility], [place], [address], 06/16/2020 08:20:42 06/16/19 21 06/16/2020 CBC w/ auto diff immature granulocytes 0 % not estab. Not Available [facility] ([facility]) [address] [facility], [place], [address], 06/16/2020 08:20:42 06/16/19 21 06/16/2020 CBC w/ auto diff immature grans (abs) 0.0 x10e3 /uL 0.0-0. 1 Not Available [facility] ([facility]) [address] [facility], [place], [address], 06/16/2020 08:20:42 06/16/19 21 06/16/2020 CBC w/ auto diff NRBC IRONMOLDER Not Available [facility] ([facility]) [address] [facility], [place], [address], 06/16/2020 08:20:42 06/16/19 21 06/16/2020 CBC w/ auto diff hematology comments: IRONMOLDER Not Available [facility] ([facility]) [address] [facility], [place], [address], 06/16/2020 08:20:42 06/16/19 21 06/16/2020 CMP, serum or plasm a glucose 80 mg/dL 65-99 Not Available [facility] ([facility]) [address] [facility] [place], [address], 06/16/2020 08:20:43 06/16/19 21 06/16/2020 CMP, serum or plasm a BUN 13 mg/dL 6-20 Not Available [facility] ([facility]) [address] [facility] [place], [address], 06/16/2020 08:20:43 06/16/19 21 06/16/2020 CMP, serum or plasm a creatinine 0.82 mg/dL 0.76-1 .27 Not Available [facility] ([facility]) [address] [facility], [place], [address], 06/16/2020 08:20:43 06/16/19 21 06/16/2020 CMP, serum or plasm a eGFR if nonafricn AM 126 mL/mi n/1.7 3 >59 Not Available [facility] ([facility]) [address] [facility], [place], [address], 06/16/2020 08:20:43 06/16/19 21 06/16/2020 CMP, serum or plasm a eGFR if africn AM 145 mL/mi n/1.7 3 >59 Lab [facility] curre ntly repor ts eGFR in compl iance with the curre nt recom menda tions of the [facility] ation . [facility] will updat e repor ting as new guide lines are publi shed from the NKF-A SN Task force . Not Available [facility] ([facility]) [address] [facility], [place], [address], 06/16/2020 08:20:43 06/16/19 21 06/16/2020 CMP, serum or plasm a BUN/creatini ne ratio 16 9-20 Not Available [facility] ([facility]) [address] [facility], [place], [address], 06/16/2020 08:20:43 06/16/19 21 06/16/2020 CMP, serum or plasm a sodium 141 mmol/ L 134-14 4 Not Available [facility] ([facility]) [address] [place], [address], 06/16/2020 08:20:43 06/16/19 21 06/16/2020 CMP, serum or plasm a potassium 4.3 mmol/ L 3.5-5. 2 Not Available [facility] ([facility]) [address] [place], [address], 06/16/2020 08:20:43 06/16/19 21 06/16/2020 CMP, serum or plasm a chloride 103 mmol/ L 96-106 Not Available [facility] ([facility]) [address] [place], [address], 06/16/2020 08:20:43 06/16/19 21 06/16/2020 CMP, serum or plasm a carbon dioxide, total 24 mmol/ L 20-29 Not Available [facility] ([facility]) [address] [place], [address], 06/16/2020 08:20:43 06/16/19 21 06/16/2020 CMP, serum or plasm a calcium 9.2 mg/dL 8.7-10 .2 Not Available [facility] ([facility]) [address] [place], [address], 06/16/2020 08:20:43 06/16/19 21 06/16/2020 CMP, serum or plasm a protein, total 7.3 g/dL 6.0-8. 5 Not Available [facility] ([facility]) [address] [place], [address], 06/16/2020 08:20:43 06/16/19 21 06/16/2020 CMP, serum or plasm a albumin 4.6 g/dL 4.1-5. 2 Not Available [facility] ([facility]) [address] [facility] [place], [address], 06/16/2020 08:20:43 06/16/19 21 06/16/2020 CMP, serum or plasm a globulin, total 2.7 g/dL 1.5-4. 5 Not Available [facility] ([facility]) [address] [facility] [place], [address], 06/16/2020 08:20:43 06/16/19 21 06/16/2020 CMP, serum or plasm a A/G ratio 1.7 1.2-2. 2 Not Available [facility] ([facility]) [address] [facility] [place], [address], 06/16/2020 08:20:43 06/16/19 21 06/16/2020 CMP, serum or plasm a bilirubin, total 0.2 mg/dL 0.0-1. 2 Not Available [facility] ([facility]) [address] [place], [address], 06/16/2020 08:20:43 06/16/19 21 06/16/2020 CMP, serum or plasm a alkaline phosphatase 93 IU/L 39-117 Not Available [facility] [address] [facility] [place], [address], 06/16/2020 08:20:43 06/16/19 21 06/16/2020 CMP, serum or plasm a AST (SGOT) 16 IU/L 0-40 Not Available [facility] ([facility]) [address] [place], [address], 06/16/2020 08:20:43 06/16/19 21 06/16/2020 CMP, serum or plasm a ALT (SGPT) 24 IU/L 0-44 Not Available [facility] ([facility]) [address] [facility] [place], [address], 06/16/2020 08:20:43 06/16/19 21 06/16/2020 vitam in B12 + folat e, serum or blood vitamin B12 542 pg/mL 232-12 45 Not Available [facility] ([facility]) [address] [place], [address], 06/16/2020 08:20:43 06/16/19 21 06/16/2020 vitam in B12 + folat e, serum or blood folate (folic acid), serum >20.0 NG/mL >3.0 A serum folat e kentrell ntrat ion of less than 3.1 ng/mL is consi dered to repre sent clini becky defic iency . Not Available [facility] ([facility]) [address] [place], [address], 06/16/2020 08:20:43 06/16/19 21 06/16/2020 amyla se + lipas e, serum amylase 43 U/L 31-110 Not Available [facility] ([facility]) [address] [place], [address], 06/16/2020 08:20:44 06/16/19 21 06/16/2020 amyla se + lipas e, serum lipase 15 U/L 13-78 Not Available [facility] ([facility]) [address] [place], [address], 06/16/2020 08:20:44 06/16/19 21 06/16/2020 HbA1c (hemo globi n A1c), blood hemoglobin A1C 5.4 % 4.8-5. 6 Predi abete s: 5.7 - 6.4 Diabe eduard: >6.4 Glyce imelda contr ol for adult s with diabe eduard: <7.0 Not Available [facility] ([facility]) [address] [place], [address], 06/16/2020 08:20:45 06/16/19 21 06/16/2020 TSH, ultra -sens itive , serum TSH 5.510 uIU/m L 0.450- 4.500 above high normal Not Available [facility] ([facility]) [address] [place], [address], 06/16/2020 08:20:45 06/16/19 21 06/16/2020 SARS CoV 2 IgG Ab, QL IA, serum or plasm a sars-cov-2 antibody, IgG Positi ve negati ve Resul ts sugge st recen t or prior infec tion with SARS- CoV-2 . Corre latio n with epide miolo gic risk facto rs and other clini becky and labor atory findi ngs is recom roddy d. Serol ogic resul ts shoul d not be used as the sole basis to diagn ose or exclu de recen t SARS- CoV-2 infec tion. False posit lupillo resul ts infre quent ly occur due to prior infec tion with other human Coron aviru ses. This assay was perfo rmed using the Dia[employer] rin Liais on(R) SARS- CoV-2 S1/S2 IgG assay . This assay detec ts antib odies again st SARS- CoV-2 spike prote in inclu ding the office manager receptionist tor bala ng nav n (RBD) . Not Available [facility] ([facility]) [address] [facility], [place], [address], 06/16/2020 08:20:46 07/28/19 21 07/28/2020 TSH, ultra -sens itive , serum TSH 2.300 uIU/m L 0.450- 4.500 Not Available [facility] ([facility]) [address] [facility], [place], [address], 07/28/2020 04:09:23 05/22/19 25 05/27/2024 Bacte sully ident ified in Blood by Cultu re microorganis m identified in specimen by culture No growth day 5 Cultu re No growt h day 5 IMELDA 05/27 2:01 AM CDT [facility] Not Available Not Available 06/01/2024 16:51:01 05/22/19 25 05/27/2024 Bacte sully ident ified in Blood by Cultu re interpretati on and review of laboratory results Normal Not Available Not Available 05/18 16:51:01 05/22/19 25 05/21/2024 INR in Plate let poor plasm a by Coagu latio n assay prothrombin time (PT) 14.9 text: 12.1 - 14.8 sec high PT 14.9 (H) 12.1 - 14.8 sec 05/21 10:03 PM CDT [facility] Not Available Not Available 06/01/2024 16:51:01 05/22/19 25 05/21/2024 INR in Plate let poor plasm a by Coagu latio n assay INR in platelet poor plasma by coagulation assay 1.2 low: 0.9hig h: 1.1 high INR 1.2 (H) 0.9 - 1.1 05/21 10:03 PM CDT [facility] Not Available Not Available 06/01/2024 16:51:01 05/22/19 25 05/21/2024 INR in Plate let poor plasm a by Coagu latio n assay Unknown Analyte Conven tional Warfar in Antico agulan t Therap y: INR Refere nce Range: 2.0-3. 0 Intens lupillo Warfar in Antico agulan t Therap y: INR Refere nce Range: 2.5-3. 5 Conve ntion al Warfa rin Antic oagul ant Thera py: INR Refer ence Range : 2.0-3 .0 Inten sive Warfa rin Antic oagul ant Thera py: INR Refer ence Range : 2.5-3 .5 Not Available Not Available 06/01/2024 16:51:01 05/22/19 25 05/21/2024 INR in Plate let poor plasm a by Coagu latio n assay interpretati on and review of laboratory results Abnorm al Not Available Not Available 16:51:01 05/22/19 25 05/21/2024 Lacta te [Mole s/vol ume] in Serum or Plasm a lactate [moles/volum e] in serum or plasma 0.6 mmol/ L high: 2mmol/ L Lacti c Acid 0.6 <=2 mmol/ L 05/21 10:05 PM CDT [facility] Not Available Not Available 06/01/2024 16:51:01 05/22/19 25 05/21/2024 Lacta te [Mole s/vol ume] in Serum or Plasm a interpretati on and review of laboratory results Normal Not Available Not Available 05/18 16:51:01 05/22/19 25 05/21/2024 Compr Useful Systemsens lupillo metab olic 1999 panel - Serum or Plasm a glucose [mass/volume ] in serum or plasma 80 mg/dL low: 70mg/d Lhigh: 99mg/d L Gluco se 80 70 - 99 mg/dL 05/21 10:07 PM CDT [facility] Not Available Not Available 06/01/2024 16:51:01 05/22/19 25 05/21/2024 Compr Useful Systemsens luipllo metab olic 1999 panel - Serum or Plasm a sodium [moles/volum e] in serum or plasma 138 mmol/ L low: 136mmo l/Lhig h: 145mmo l/L Sodiu m 138 136 - 145 mmol/ L 05/21 10:07 PM CDT [facility] Not Available Not Available 06/01/2024 16:51:01 05/22/19 25 05/21/2024 Compr Useful Systemsens lupillo metab olic 1999 panel - Serum or Plasm a potassium [moles/volum e] in serum or plasma 3.9 mmol/ L low: 3.5mmo l/Lhig h: 5.1mmo l/L Potas sium 3.9 3.5 - 5.1 mmol/ L 05/21 10:07 PM CDT [facility] Not Available Not Available 06/01/2024 16:51:01 05/22/19 25 05/21/2024 Compr Useful Systemsens lupillo metab olic 1999 panel - Serum or Plasm a chloride [moles/volum e] in serum or plasma 101 mmol/ L low: 98mmol /Lhigh : 107mmo l/L Chlor temitope 101 98 - 107 mmol/ L 05/21 10:07 PM CDT [facility] Not Available Not Available 06/01/2024 16:51:01 05/22/19 25 05/21/2024 Compr ehens lupillo metab olic 1999 panel - Serum or Plasm a carbon dioxide, total [moles/volum e] in serum or plasma 27 mmol/ L low: 22mmol /Lhigh : 29mmol /L CO2 27 22 - 29 mmol/ L 05/21 10:07 PM CDT [facility] Not Available Not Available 06/01/2024 16:51:01 05/22/19 25 05/21/2024 Compr ehens lupillo metab olic 1999 panel - Serum or Plasm a calcium [mass/volume ] in serum or plasma 8.8 mg/dL low: 8.4mg/ dLhigh : 10.4mg /dL Calci um 8.8 8.4 - 10.4 mg/dL 05/21 10:07 PM CDT [facility] Not Available Not Available 06/01/2024 16:51:01 05/22/19 25 05/21/2024 Compr ehens lupillo metab olic 1999 panel - Serum or Plasm a anion gap in blood by calculation 10 mmol/ L low: 6mmol/ Lhigh: 16mmol /L Anion Gap 10 6 - 16 mmol/ L 05/21 10:07 PM CDT [facility] Not Available Not Available 06/01/2024 16:51:01 05/22/19 25 05/21/2024 Compr Useful Systemsens lupillo metab olic 1999 panel - Serum or Plasm a urea nitrogen [mass/volume ] in serum or plasma 11 mg/dL low: 5.3mg/ dLhigh : 18.7mg /dL BUN 11 5.3 - 18.7 mg/dL 05/21 10:07 PM CDT [facility] Not Available Not Available 06/01/2024 16:51:01 05/22/19 25 05/21/2024 Compr Useful Systemsens lupillo metab olic 1999 panel - Serum or Plasm a creatinine [mass/volume ] in serum or plasma 0.77 mg/dL low: 0.72mg /dLhig h: 1.25mg /dL Creat inine 0.77 0.72 - 1.25 mg/dL 05/21 10:07 PM CDT [facility] Not Available Not Available 06/01/2024 16:51:01 05/22/19 25 05/21/2024 Compr ehens lupillo metab olic 1999 panel - Serum or Plasm a alkaline phosphatase [enzymatic activity/vol ume] in serum or plasma 86 U/L low: 40U/Lh igh: 150U/L Alkal ine Phosp hatas e 86 40 - 150 U/L 05/21 10:07 PM CDT [facility] Not Available Not Available 06/01/2024 16:51:01 05/22/19 25 05/21/2024 Compr ehens lupillo metab olic 1999 panel - Serum or Plasm a alanine aminotransfe rase [enzymatic activity/vol ume] in serum or plasma 43 U/L low: 6U/Lhi gh: 57U/L ALT 43 6 - 57 U/L 05/21 10:07 PM CDT [facility] Not Available Not Available 06/01/2024 16:51:01 05/22/19 25 05/21/2024 Compr ehens lupillo metab olic 1999 panel - Serum or Plasm a aspartate aminotransfe rase [enzymatic activity/vol ume] in serum or plasma 31 U/L low: 10U/Lh igh: 48U/L AST 31 10 - 48 U/L 05/21 10:07 PM CDT [facility] Not Available Not Available 06/01/2024 16:51:01 05/22/19 25 05/21/2024 Compr ehens lupillo metab olic 1999 panel - Serum or Plasm a protein [mass/volume ] in serum or plasma 7.1 text: 6.4 - 8.3 gm/dL Prote in Total 7.1 6.4 - 8.3 gm/dL 05/21 10:07 PM CDT [facility] Not Available Not Available 06/01/2024 16:51:01 05/22/19 25 05/21/2024 Compr ehens lupillo metab olic 1999 panel - Serum or Plasm a albumin [mass/volume ] in serum or plasma 3.2 text: 3.4 - 5.0 gm/dL low Album in 3.2 (L) 3.4 - 5.0 gm/dL 05/21 10:07 PM CDT [facility] Not Available Not Available 06/01/2024 16:51:01 05/22/19 25 05/21/2024 Compr ehens lupillo metab olic 2000 panel - Serum or Plasm a bilirubin.to chana [mass/volume ] in serum or plasma 0.9 mg/dL low: 0.2mg/ dLhigh : 1.2mg/ dL Bilir ubin Total 0.9 0.2 - 1.2 mg/dL 05/21 10:07 PM CDT [facility] Not Available Not Available 06/01/2024 16:51:01 05/22/19 25 05/21/2024 Compr ehens lupillo metab olic 2000 panel - Serum or Plasm a glomerular filtration rate [volume rate/area] in serum, plasma or blood by creatinine-b ased formula (CKD-epi 2020)/1.73 sq M text: >=90 mL/min /1.73 m2 eGFR by CKD-E PI >90 >=90 mL/mi n/1.7 3 m2 05/21 10:07 PM CDT [facility] Not Available Not Available 06/01/2024 16:51:01 05/22/19 25 05/21/2024 Compr ehens lupillo metab olic 2000 panel - Serum or Plasm a interpretati on and review of laboratory results Abnorm al Not Available Not Available 16:51:01 05/22/19 25 05/21/2024 CBC W Auto Diffe renti al panel - Blood leukocytes [#/volume] in blood by automated count 17 text: 4.0 - 10.7 x10e9/ L high WBC 17.0 (H) 4.0 - 10.7 x10E9 /L 05/21 9:53 PM CDT [facility] Not Available Not Available 06/01/2024 16:51:01 05/22/19 25 05/21/2024 CBC W Auto Diffe renti al panel - Blood erythrocytes [#/volume] in blood by automated count 4.55 text: 4.30 - 5.80 x10e12 /L RBC Count 4.55 4.30 - 5.80 x10E1 2/L 05/21 9:53 PM CDT [facility] Not Available Not Available 06/01/2024 16:51:01 05/22/19 25 05/21/2024 CBC W Auto Diffe kayode al panel - Blood hemoglobin [mass/volume ] in blood 11.5 g/dL low: 13.3g/ dLhigh : 17.5g/ dL low Hemog lobin 11.5 (L) 13.3 - 17.5 g/dL 05/21 9:53 PM CDT [facility] Not Available Not Available 06/01/2024 16:51:01 05/22/19 25 05/21/2024 CBC W Auto Diffe kayode branham panel - Blood hematocrit [volume fraction] of blood by automated count 37.3 % low: 38.7%h igh: 51.1% low Hemat ocrit 37.3 (L) 38.7 - 51.1 % 05/21 9:53 PM CDT [facility] Not Available Not Available 06/01/2024 16:51:01 05/22/19 25 05/21/2024 CBC W Auto Diffe kayode branham panel - Blood MCV [entitic mean volume] in red blood cells by automated count 82 fL low: 80fLhi gh: 98fL MCV 82.0 80.0 - 98.0 fL 05/21 9:53 PM CDT [facility] Not Available Not Available 06/01/2024 16:51:01 05/22/19 25 05/21/2024 CBC W Auto Diffrosalia branham panel - Blood MCH [entitic mass] by automated count 25.3 pg low: 26.7pg high: 33.6pg low MCH 25.3 (L) 26.7 - 33.6 pg 05/21 9:53 PM CDT [facility] Not Available Not Available 06/01/2024 16:51:01 05/22/19 25 05/21/2024 CBC W Auto Diffe kayode al panel - Blood MCHC [entitic mass/volume] in red blood cells by automated count 30.8 g/dL low: 31.7g/ dLhigh : 36.3g/ dL low MCHC 30.8 (L) 31.7 - 36.3 g/dL 05/21 9:53 PM CDT [facility] Not Available Not Available 06/01/2024 16:51:01 05/22/19 25 05/21/2024 CBC W Auto Diffe renti al panel - Blood erythrocyte [distwidth] in red blood cells by automated count 15.1 % low: 11.3%h igh: 14.8% high RDW-C V 15.1 (H) 11.3 - 14.8 % 05/21 9:53 PM CDT [facility] Not Available Not Available 06/01/2024 16:51:01 05/22/19 25 05/21/2024 CBC W Auto Diffe renti al panel - Blood platelets [#/volume] in blood by automated count 283 text: 150 - 420 x10e9/ L Plate let Count 283 150 - 420 x10E9 /L 05/21 9:53 PM CDT [facility] Not Available Not Available 06/01/2024 16:51:01 05/22/19 25 05/21/2024 CBC W Auto Diffe renti al panel - Blood platelet [entitic mean volume] in blood by automated count 10.5 fL low: 7.8fLh igh: 11.4fL MPV 10.5 7.8 - 11.4 fL 05/21 9:53 PM CDT [facility] Not Available Not Available 06/01/2024 16:51:01 05/22/19 25 05/21/2024 CBC W Auto Diffe renti al panel - Blood neutrophils/ leukocytes in blood by automated count 74.1 % low: 41%hig h: 74% high Neutr ophil % 74.1 (H) 41.0 - 74.0 % 05/21 9:53 PM CDT [facility] Not Available Not Available 06/01/2024 16:51:01 05/22/19 25 05/21/2024 CBC W Auto Diffe renti al panel - Blood lymphocytes/ leukocytes in blood by automated count 15.6 % low: 17%hig h: 47% low Lymph ocyte % 15.6 (L) 17.0 - 47.0 % 05/21 9:53 PM CDT [facility] Not Available Not Available 06/01/2024 16:51:01 05/22/19 25 05/21/2024 CBC W Auto Diffe renti al panel - Blood monocytes/le ukocytes in blood by automated count 7.9 % low: 3%high : 11% Monoc yte % 7.9 3.0 - 11.0 % 05/21 9:53 PM CDT [facility] Not Available Not Available 06/01/2024 16:51:01 05/22/19 25 05/21/2024 CBC W Auto Diffe renti al panel - Blood eosinophils/ leukocytes in blood by automated count 1.6 % low: 0%high : 7% Eosin ophil % 1.6 0.0 - 7.0 % 05/21 9:53 PM CDT [facility] Not Available Not Available 06/01/2024 16:51:01 05/22/19 25 05/21/2024 CBC W Auto Diffe renti al panel - Blood basophils/le ukocytes in blood by automated count 0.3 % low: 0%high : 1.6% Basop hil % 0.3 0.0 - 1.6 % 05/21 9:53 PM CDT [facility] Not Available Not Available 06/01/2024 16:51:01 05/22/19 25 05/21/2024 CBC W Auto Diffe renti al panel - Blood immature granulocytes /leukocytes in blood by automated count 0.5 % low: 0%high : 1% Immat ure Granu locyt es % 0.5 0.0 - 1.0 % 05/21 9:53 PM CDT [facility] Not Available Not Available 06/01/2024 16:51:01 05/22/19 25 05/21/2024 CBC W Auto Diffe renti al panel - Blood neutrophils [#/volume] in blood by automated count 12.58 text: 1.60 - 7.50 x10e9/ L high Neutr ophil Absol [place] 12.58 (H) 1.60 - 7.50 x10E9 /L 05/21 9:53 PM CDT [facility] Not Available Not Available 06/01/2024 16:51:01 05/22/19 25 05/21/2024 CBC W Auto Diffe renti al panel - Blood lymphocytes [#/volume] in blood by automated count 2.66 text: 1.00 - 4.40 x10e9/ L Lymph ocyte Absol [place] 2.66 1.00 - 4.40 x10E9 /L 05/21 9:53 PM CDT [facility] Not Available Not Available 06/01/2024 16:51:01 05/22/19 25 05/21/2024 CBC W Auto Diffe renti al panel - Blood monocytes [#/volume] in blood by automated count 1.35 text: 0.15 - 1.00 x10e9/ L high Monoc yte Absol [place] 1.35 (H) 0.15 - 1.00 x10E9 /L 05/21 9:53 PM CDT [facility] Not Available Not Available 06/01/2024 16:51:01 05/22/19 25 05/21/2024 CBC W Auto Diffe renti al panel - Blood eosinophils [#/volume] in blood 0.28 text: 0.00 - 0.60 x10e9/ L Eosin ophil Absol [place] 0.28 0.00 - 0.60 x10E9 /L 05/21 9:53 PM CDT [facility] Not Available Not Available 06/01/2024 16:51:01 05/22/19 25 05/21/2024 CBC W Auto Diffe renti al panel - Blood basophils [#/volume] in blood by automated count 0.05 text: 0.00 - 0.13 x10e9/ L Basop hil Absol [place] 0.05 0.00 - 0.13 x10E9 /L 05/21 9:53 PM CDT [facility] Not Available Not Available 06/01/2024 16:51:01 05/22/19 25 05/21/2024 CBC W Auto Diffe renti al panel - Blood interpretati on and review of laboratory results Abnorm al Not Available Not Available 16:51:01 05/22/19 25 05/27/2024 Bacte sully ident ified in Blood by Cultu re microorganis m identified in specimen by culture No growth day 5 Cultu re No growt h day 5 IMELDA 05/27 2:01 AM CDT [facility] Not Available Not Available 06/01/2024 16:51:01 05/22/19 25 05/27/2024 Bacte sully ident ified in Blood by Cultu re interpretati on and review of laboratory results Normal Not Available Not Available 05/18 16:51:01 05/22/19 25 05/21/2024 Influ nan virus A and B and SARS- CoV-2 (COVI D-19) and Respi rator y syncy tial virus RNA panel - Respi rator y syste m speci men by ELLIE with probe detec tion influenza virus A RNA [presence] in upper respiratory specimen by ELLIE with probe detection Negati ve text: negati ve, error FLU A Negat lupillo Negat lupillo, Error 05/21 12:19 PM CDT [facility] [employer] LAB Not Available Not Available 06/01/2024 16:51:38 05/22/19 25 05/21/2024 Influ nan virus A and B and SARS- CoV-2 (COVI D-19) and Respi rator y syncy tial virus RNA panel - Respi rator y syste m speci men by ELLIE with probe detec tion influenza virus B RNA [presence] in upper respiratory specimen by ELLIE with probe detection Negati ve text: negati ve FLU B Negat lupillo Negat lupillo 05/21 12:19 PM CDT [facility] [employer] LAB Not Available Not Available 06/01/2024 16:51:38 05/22/19 25 05/21/2024 Influ nan virus A and B and SARS- CoV-2 (COVI D-19) and Respi rator y syncy tial virus RNA panel - Respi rator y syste m speci men by ELLIE with probe detec tion respiratory syncytial virus RNA [presence] in respiratory system specimen by ELLIE with probe detection Negati ve text: negati ve RESP SYNC VIRUS Negat lupillo Negat lupillo 05/21 12:19 PM CDT [facility] [employer] LAB Not Available Not Available 06/01/2024 16:51:38 05/22/19 25 05/21/2024 Influ nan virus A and B and SARS- CoV-2 (COVI D-19) and Respi rator y syncy tial virus RNA panel - Respi rator y syste m speci men by ELLIE with probe detec tion sars-cov-2 (covid-19) N gene [presence] in specimen by ELLIE with probe detection NOT DETECT ED text: (refer ence range for this test IS not detect ed) SARSC OV2 NOT DETEC TREASURE (Refe rence Range for this test is Not Detec treasure) 05/21 12:19 PM CDT [facility] [employer] LAB Not Available Not Available 06/01/2024 16:51:38 05/22/19 25 05/21/2024 Influ nan virus A and B and SARS- CoV-2 (COVI D-19) and Respi rator y syncy tial virus RNA panel - Respi rator y syste m speci men by ELLIE with probe detec tion interpretati on and review of laboratory results Normal Not Available Not Available 05/18 16:51:38 05/22/19 25 05/21/2024 CBC W Auto Diffe renti al panel - Blood leukocytes [#/volume] in blood by automated count 16.9 text: 4.00 - 12.00 10(3)/ mcL high WBC 16.90 (H) 4.00 - 12.00 10(3) /mcL 05/21 11:42 AM CDT [facility] [employer] LAB Not Available Not Available 06/01/2024 16:51:38 05/22/19 25 05/21/2024 CBC W Auto Diffe renti al panel - Blood erythrocytes [#/volume] in blood by automated count 4.65 text: 4.40 - 5.80 10(6)/ mcL RBC 4.65 4.40 - 5.80 10(6) /mcL 05/21 11:42 AM CDT [facility] [employer] LAB Not Available Not Available 06/01/2024 16:51:38 05/22/19 25 05/21/2024 CBC W Auto Diffe renti al panel - Blood hemoglobin [mass/volume ] in blood 12.1 g/dL low: 13g/dL high: 16.5g/ dL low HEMOG LOBIN (HGB) 12.1 (L) 13.0 - 16.5 g/dL 05/21 11:42 AM CD[facility] Not Available Not Available 06/01/2024 16:51:38 05/22/19 25 05/21/2024 CBC W Auto Diffe renti al panel - Blood hematocrit [volume fraction] of blood by automated count 38.3 % low: 38%hig h: 50% HEMAT OCRIT (HCT) 38.3 38.0 - 50.0 % 05/21 11:42 AM CDT [facility] Not Available Not Available 06/01/2024 16:51:38 05/22/19 25 05/21/2024 CBC W Auto Diffe renti al panel - Blood MCV [entitic mean volume] in red blood cells by automated count 82.4 fL low: 82fLhi gh: 96fL MCV 82.4 82.0 - 96.0 fL 05/21 11:42 AM CDT [facility] Not Available Not Available 06/01/2024 16:51:38 05/22/19 25 05/21/2024 CBC W Auto Diffe renti al panel - Blood MCH [entitic mass] by automated count 26 pg low: 26pghi gh: 32pg MCH 26.0 26.0 - 32.0 pg 05/21 11:42 AM CDT [facility] Not Available Not Available 06/01/2024 16:51:38 05/22/19 25 05/21/2024 CBC W Auto Diffe renti al panel - Blood MCHC [entitic mass/volume] in red blood cells by automated count 31.6 g/dL low: 31g/dL high: 36g/dL MCHC 31.6 31.0 - 36.0 g/dL 05/21 11:42 AM CDT [facility] Not Available Not Available 06/01/2024 16:51:38 05/22/19 25 05/21/2024 CBC W Auto Diffe renti al panel - Blood platelets [#/volume] in blood 296 text: 140 - 440 10(3)/ mcL PLATE LET COUNT 296 140 - 440 10(3) /mcL 05/21 11:42 AM CDT [facility] H [facility] Not Available Not Available 06/01/2024 16:51:38 05/22/19 25 05/21/2024 CBC W Auto Diffe renti al panel - Blood erythrocyte [distwidth] in red blood cells by automated count 15 % low: 11.8%h igh: 15.5% RDW 15.0 11.8 - 15.5 % 05/21 11:42 AM CDT [facility]IT[facility] H [facility] Not Available Not Available 06/01/2024 16:51:38 05/22/19 25 05/21/2024 CBC W Auto Diffe renti al panel - Blood platelet [entitic mean volume] in blood by automated count 10.1 fL low: 8fLhig h: 12.6fL MPV 10.1 8.0 - 12.6 fL 05/21 11:42 AM CDT [facility] Not Available Not Available 06/01/2024 16:51:38 05/22/19 25 05/21/2024 CBC W Auto Diffe renti al panel - Blood neutrophils/ leukocytes in blood by automated count 70.8 % low: 40%hig h: 68% high NEUTR OPHIL S 70.8 (H) 40.0 - 68.0 % 05/21 11:42 AM CDT [facility] H [facility] Not Available Not Available 06/01/2024 16:51:38 05/22/19 25 05/21/2024 CBC W Auto Diffe renti al panel - Blood lymphocytes/ leukocytes in blood by automated count 17.3 % low: 19%hig h: 49% low LYMPH OCYTE S 17.3 (L) 19.0 - 49.0 % 05/21 11:42 AM CDT [facility] Not Available Not Available 06/01/2024 16:51:38 05/22/19 25 05/21/2024 CBC W Auto Diffe renti al panel - Blood monocytes/le ukocytes in blood by automated count 9.8 % low: 3%high : 13% MONOC YTES 9.8 3.0 - 13.0 % 05/21 11:42 AM CDT [facility] Not Available Not Available 06/01/2024 16:51:38 05/22/19 25 05/21/2024 CBC W Auto Diffe renti al panel - Blood eosinophils/ leukocytes in blood by automated count 1.5 % low: 0%high : 8% EOSIN OPHIL S 1.5 0.0 - 8.0 % 05/21 11:42 AM CDT [facility] Not Available Not Available 06/01/2024 16:51:38 05/22/19 25 05/21/2024 CBC W Auto Diffe renti al panel - Blood basophils/le ukocytes in blood by automated count 0.6 % low: 0%high : 1% BASOP HILS 0.6 0.0 - 1.0 % 05/21 11:42 AM CDT [facility] Not Available Not Available 06/01/2024 16:51:38 05/22/19 25 05/21/2024 CBC W Auto Diffe renti al panel - Blood neutrophils [#/volume] in blood by automated count 11.96 text: 1.40 - 5.30 10(3)/ mcL high ABSOL [place] [employer] NEUTR OPHIL S 11.96 (H) 1.40 - 5.30 10(3) /mcL 05/21 11:42 AM CDT [facility] Not Available Not Available 06/01/2024 16:51:38 05/22/19 25 05/21/2024 CBC W Auto Diffe renti al panel - Blood lymphocytes [#/volume] in blood by automated count 2.92 text: 0.90 - 3.30 10(3)/ mcL ABSOL [place] [employer] LYMPH OCYTE S 2.92 0.90 - 3.30 10(3) /mcL 05/21 11:42 AM CDT [facility] Not Available Not Available 06/01/2024 16:51:38 05/22/19 25 05/21/2024 CBC W Auto Diffe renti al panel - Blood monocytes [#/volume] in blood by automated count 1.66 text: 0.10 - 0.90 10(3)/ mcL high ABSOL [place] [employer] MONOC YTES 1.66 (H) 0.10 - 0.90 10(3) /mcL 05/21 11:42 AM CDT [facility] Not Available Not Available 06/01/2024 16:51:38 05/22/19 25 05/21/2024 CBC W Auto Diffe renti al panel - Blood eosinophils [#/volume] in blood by automated count 0.26 text: 0.00 - 0.50 10(3)/ mcL ABSOL [place] [employer] EOSIN OPHIL 0.26 0.00 - 0.50 10(3) /mcL 05/21 11:42 AM CDT [facility] Not Available Not Available 06/01/2024 16:51:38 05/22/19 25 05/21/2024 CBC W Auto Diffe renti al panel - Blood basophils [#/volume] in blood by automated count 0.1 text: 0.00 - 0.10 10(3)/ mcL ABSOL [place] [employer] BASOP HILS 0.10 0.00 - 0.10 10(3) /mcL 05/21 11:42 AM CDT [facility] Not Available Not Available 06/01/2024 16:51:38 05/22/19 25 05/21/2024 CBC W Auto Diffe renti al panel - Blood nucleated erythrocytes /leukocytes [ratio] in blood 0 NRBC PER 100 WBC 0 05/21 11:42 AM CDT [facility] Not Available Not Available 06/01/2024 16:51:38 05/22/19 25 05/21/2024 CBC W Auto Diffe renti al panel - Blood interpretati on and review of laboratory results Abnorm al Not Available Not Available 16:51:38 05/22/19 25 05/21/2024 Compr ehens lupillo metab olic 1999 panel - Serum or Plasm a sodium [moles/volum e] in serum or plasma 139 mmol/ L low: 136mmo l/Lhig h: 145mmo l/L SODIU M 139 136 - 145 mmol/ L 05/21 11:59 AM CDT [facility] Not Available Not Available 06/01/2024 16:51:38 05/22/19 25 05/21/2024 Compr ehens lupillo metab olic 1999 panel - Serum or Plasm a potassium [moles/volum e] in serum or plasma 3.8 mmol/ L low: 3.5mmo l/Lhig h: 5.1mmo l/L POTAS SIUM 3.8 3.5 - 5.1 mmol/ L 05/21 11:59 AM CDT [facility] Not Available Not Available 06/01/2024 16:51:38 05/22/19 25 05/21/2024 Compr ehens lupillo metab olic 1999 panel - Serum or Plasm a chloride [moles/volum e] in serum or plasma 101 mmol/ L low: 98mmol /Lhigh : 107mmo l/L CHLOR TEMITOPE 101 98 - 107 mmol/ L 05/21 11:59 AM CDT [facility] Not Available Not Available 06/01/2024 16:51:38 05/22/19 25 05/21/2024 Compr ehens lupillo metab olic 1999 panel - Serum or Plasm a carbon dioxide, total [moles/volum e] in serum or plasma 28 mmol/ L low: 22mmol /Lhigh : 30mmol /L CO2, VENOU S 28 22 - 30 mmol/ L 05/21 11:59 AM CDT [facility] Not Available Not Available 06/01/2024 16:51:38 05/22/19 25 05/21/2024 Compr ehens lupillo metab olic 1999 panel - Serum or Plasm a anion gap in serum or plasma by calculation 13.8 mmol/ L high: 18mmol /L ANION GAP 13.8 <18.0 mmol/ L 05/21 11:59 AM CDT [facility] [employer] [facility] Not Available Not Available 06/01/2024 16:51:38 05/22/19 25 05/21/2024 [facility] Action lupillo metab olic 1999 panel - Serum or Plasm a glucose [mass/volume ] in serum or plasma 90 mg/dL low: 70mg/d Lhigh: 99mg/d L GLUCO SE 90 70 - 99 mg/dL 05/21 11:59 AM CDT [facility] [employer] [facility] Not Available Not Available 06/01/2024 16:51:38 05/22/19 25 05/21/2024 [facility] Action lupilloFaceRig olic 1999 panel - Serum or Plasm a urea nitrogen [mass/volume ] in serum or plasma 9 mg/dL low: 9mg/dL high: 21mg/d L BUN 9 9 - 21 mg/dL 05/21 11:59 AM CDT [facility] [employer] [facility] Not Available Not Available 06/01/2024 16:51:38 05/22/19 25 05/21/2024 [facility] Daz 3d olic 1999 panel - Serum or Plasm a creatinine [mass/volume ] in serum or plasma 0.8 mg/dL low: 0.7mg/ dLhigh : 1.3mg/ dL CREAT ININE , BLOOD 0.80 0.70 - 1.30 mg/dL 05/21 11:59 AM CDT [facility] [employer] [facility] LAB Not Available Not Available 06/01/2024 16:51:38 05/22/19 25 05/21/2024 Compr Daz 3d olic 1999 panel - Serum or Plasm a urea nitrogen/cre atinine [mass ratio] in serum or plasma 11 text: 12 - 20 ratio low BUN/C REATI NINE RATIO 11 (L) 12 - 20 ratio 05/21 11:59 AM CDT [facility] Not Available Not Available 06/01/2024 16:51:38 05/22/19 25 05/21/2024 Compr ehens lupillo metab olic 1999 panel - Serum or Plasm a protein [mass/volume ] in serum or plasma 7.8 g/dL low: 6g/dLh igh: 8g/dL TOTAL PROTE IN 7.8 6.0 - 8.0 g/dL 05/21 11:59 AM CDT [facility] [employer] LAB Not Available Not Available 06/01/2024 16:51:38 05/22/19 25 05/21/2024 Compr ehens lupillo metab olic 2000 panel - Serum or Plasm a albumin [mass/volume ] in serum or plasma 4 g/dL low: 3.5g/d Lhigh: 5g/dL ALBUM IN 4.0 3.5 - 5.0 g/dL 05/21 11:59 AM CDT [facility] [employer] LAB Not Available Not Available 06/01/2024 16:51:38 05/22/19 25 05/21/2024 Compr ehens lupillo metab olic 2000 panel - Serum or Plasm a albumin/glob ulin [mass ratio] in serum or plasma 1.1 low: 1high: 2.2 A/G RATIO 1.1 1.0 - 2.2 05/21 11:59 AM CDT [facility] [employer] LAB Not Available Not Available 06/01/2024 16:51:38 05/22/19 25 05/21/2024 Compr ehens lupillo metab olic 1999 panel - Serum or Plasm a calcium [mass/volume ] in serum or plasma 9.2 mg/dL low: 8.7mg/ dLhigh : 10.5mg /dL CALCI UM 9.2 8.7 - 10.5 mg/dL 05/21 11:59 AM CDT [facility] [employer] LAB Not Available Not Available 06/01/2024 16:51:38 05/22/19 25 05/21/2024 Compr ehens lupillo metab olic 2000 panel - Serum or Plasm a bilirubin.to chana [mass/volume ] in serum or plasma 0.9 mg/dL low: 0.2mg/ dLhigh : 1.2mg/ dL T BILI 0.9 0.2 - 1.2 mg/dL 05/21 11:59 AM CDT [facility] Not Available Not Available 06/01/2024 16:51:38 05/22/19 25 05/21/2024 Compr Useful System[employer] lupillo metab olic 1999 panel - Serum or Plasm a aspartate aminotransfe rase [enzymatic activity/vol ume] in serum or plasma 27 U/L high: 43U/L SGOT (AST) 27 <43 U/L 05/21 11:59 AM CDT [facility] Not Available Not Available 06/01/2024 16:51:38 05/22/19 25 05/21/2024 Compr Useful Systemsens lupillo metab olic 2000 panel - Serum or Plasm a alanine aminotransfe rase [enzymatic activity/vol ume] in serum or plasma 44 U/L high: 56U/L SGPT (ALT) 44 <56 U/L 05/21 11:59 AM CDT [facility] Not Available Not Available 06/01/2024 16:51:38 05/22/19 25 05/21/2024 Compr Useful Systemsens lupillo metab olic 1999 panel - Serum or Plasm a alkaline phosphatase [enzymatic activity/vol ume] in serum or plasma 85 U/L low: 40U/Lh igh: 150U/L ALKAL INE PHOSP HATAS E 85 40 - 150 U/L 05/21 11:59 AM CDT [facility] Not Available Not Available 06/01/2024 16:51:38 05/22/19 25 05/21/2024 Compr Action lupillo Back[employer] olic 1999 panel - Serum or Plasm a glomerular filtration rate [volume rate/area] in serum, plasma or blood by creatinine-b ased formula (CKD-epi 2020)/1.73 sq M low: 60 GFR, ESTIM ATED >60 >=60 05/21 11:59 AM CDT [facility] Not Available Not Available 06/01/2024 16:51:38 05/22/19 25 05/21/2024 Compr ehens lupillo metab olic 2000 panel - Serum or Plasm a glomerular filtration rate [volume rate/area] in serum, plasma or blood by creatinine-b ased formula (MDRD)/1.73 sq M among black population low: 60 GFR, EST. AFRIC AN >60 >=60 05/21 11:59 AM CDT [facility] Not Available Not Available 06/01/2024 16:51:38 05/22/19 25 05/21/2024 Compr ehens lupillo metab olic 2000 panel - Serum or Plasm a glomerular filtration rate [volume rate/area] in serum, plasma or blood by creatinine-b ased formula (MDRD)/1.73 sq M among non black population low: 60 GFR, EST. NONAF RICAN >60 >=60 05/21 11:59 AM CD[facility] Not Available Not Available 06/01/2024 16:51:38 05/22/19 25 05/21/2024 Compr ehens lupillo metab olic 2000 panel - Serum or Plasm a interpretati on and review of laboratory results Abnorm al Not Available Not Available 16:51:38 05/23/19 25 05/23/2024 Gluco se [Mass /volu me] in Arter ial blood glucose [mass/volume ] in capillary blood by glucometer 115 mg/dL low: 70mg/d Lhigh: 99mg/d L high Gluco se WB/PO C 115 (H) 70 - 99 mg/dL 05/23 3:57 AM CDT [facility] Not Available Not Available 06/01/2024 16:51:02 05/23/19 25 05/23/2024 Gluco se [Mass /volu me] in Arter ial blood specimen source identified Arteri al Speci men Type Arter ial 05/23 3:57 AM CDT [facility] Not Available Not Available 06/01/2024 16:51:02 05/23/19 25 05/23/2024 Gluco se [Mass /volu me] in Arter ial blood interpretati on and review of laboratory results Abnorm al Not Available Not Available 16:51:02 05/23/19 25 05/22/2024 CBC W Auto Diffe renroberto al panel - Blood leukocytes [#/volume] in blood by automated count 20.3 text: 4.0 - 10.7 x10e9/ L high WBC 20.3 (H) 4.0 - 10.7 x10E9 /L 05/22 1:38 PM CDT [facility] Not Available Not Available 06/01/2024 16:51:02 05/23/19 25 05/22/2024 CBC W Auto Diffe kayode al panel - Blood erythrocytes [#/volume] in blood by automated count 4.76 text: 4.30 - 5.80 x10e12 /L RBC Count 4.76 4.30 - 5.80 x10E1 2/L 05/22 1:38 PM CDT [facility] Not Available Not Available 06/01/2024 16:51:02 05/23/19 25 05/22/2024 CBC W Auto Diffe kayode al panel - Blood hemoglobin [mass/volume ] in blood 12.1 g/dL low: 13.3g/ dLhigh : 17.5g/ dL low Hemog lobin 12.1 (L) 13.3 - 17.5 g/dL 05/22 1:38 PM CDT [facility] Not Available Not Available 06/01/2024 16:51:02 05/23/19 25 05/22/2024 CBC W Auto Diffe kayode branham panel - Blood hematocrit [volume fraction] of blood by automated count 39.3 % low: 38.7%h igh: 51.1% Hemat ocrit 39.3 38.7 - 51.1 % 05/22 1:38 PM CDT [facility] Not Available Not Available 06/01/2024 16:51:02 05/23/19 25 05/22/2024 CBC W Auto Diffe renroberto al panel - Blood MCV [entitic mean volume] in red blood cells by automated count 82.6 fL low: 80fLhi gh: 98fL MCV 82.6 80.0 - 98.0 fL 05/22 1:38 PM CDT [facility] Not Available Not Available 06/01/2024 16:51:02 05/23/19 25 05/22/2024 CBC W Auto Diffe renti al panel - Blood MCH [entitic mass] by automated count 25.4 pg low: 26.7pg high: 33.6pg low MCH 25.4 (L) 26.7 - 33.6 pg 05/22 1:38 PM CDT [facility] Not Available Not Available 06/01/2024 16:51:02 05/23/19 25 05/22/2024 CBC W Auto Diffe renti al panel - Blood MCHC [entitic mass/volume] in red blood cells by automated count 30.8 g/dL low: 31.7g/ dLhigh : 36.3g/ dL low MCHC 30.8 (L) 31.7 - 36.3 g/dL 05/22 1:38 PM CDT [facility] Not Available Not Available 06/01/2024 16:51:02 05/23/19 25 05/22/2024 CBC W Auto Diffe augustinti al panel - Blood erythrocyte [distwidth] in red blood cells by automated count 14.6 % low: 11.3%h igh: 14.8% RDW-C V 14.6 11.3 - 14.8 % 05/22 1:38 PM CDT [facility] Not Available Not Available 06/01/2024 16:51:02 05/23/19 25 05/22/2024 CBC W Auto Diffe augustinti al panel - Blood platelets [#/volume] in blood by automated count 286 text: 150 - 420 x10e9/ L Plate let Count 286 150 - 420 x10E9 /L 05/22 1:38 PM CDT [facility] Not Available Not Available 06/01/2024 16:51:02 05/23/19 25 05/22/2024 CBC W Auto Diffe renti al panel - Blood platelet [entitic mean volume] in blood by automated count 9.7 fL low: 7.8fLh igh: 11.4fL MPV 9.7 7.8 - 11.4 fL 05/22 1:38 PM CDT [facility] Not Available Not Available 06/01/2024 16:51:02 05/23/19 25 05/22/2024 CBC W Auto Diffe renti al panel - Blood neutrophils/ leukocytes in blood by automated count 92.8 % low: 41%hig h: 74% high Neutr ophil % 92.8 (H) 41.0 - 74.0 % 05/22 1:38 PM CDT [facility] Not Available Not Available 06/01/2024 16:51:02 05/23/19 25 05/22/2024 CBC W Auto Diffe renti al panel - Blood lymphocytes/ leukocytes in blood by automated count 3.4 % low: 17%hig h: 47% low Lymph ocyte % 3.4 (L) 17.0 - 47.0 % 05/22 1:38 PM CDT [facility] Not Available Not Available 06/01/2024 16:51:02 05/23/19 25 05/22/2024 CBC W Auto Diffe renti al panel - Blood monocytes/le ukocytes in blood by automated count 3.1 % low: 3%high : 11% Monoc yte % 3.1 3.0 - 11.0 % 05/22 1:38 PM CDT [facility] Not Available Not Available 06/01/2024 16:51:02 05/23/19 25 05/22/2024 CBC W Auto Diffe renti al panel - Blood eosinophils/ leukocytes in blood by automated count 0 % low: 0%high : 7% Eosin ophil % 0.0 0.0 - 7.0 % 05/22 1:38 PM CDT [facility] Not Available Not Available 06/01/2024 16:51:02 05/23/19 25 05/22/2024 CBC W Auto Diffe renti al panel - Blood basophils/le ukocytes in blood by automated count 0.2 % low: 0%high : 1.6% Basop hil % 0.2 0.0 - 1.6 % 05/22 1:38 PM CDT [facility] Not Available Not Available 06/01/2024 16:51:02 05/23/19 25 05/22/2024 CBC W Auto Diffe renti al panel - Blood immature granulocytes /leukocytes in blood by automated count 0.5 % low: 0%high : 1% Immat ure Granu locyt es % 0.5 0.0 - 1.0 % 05/22 1:38 PM CDT [facility] Not Available Not Available 06/01/2024 16:51:02 05/23/19 25 05/22/2024 CBC W Auto Diffe renti al panel - Blood neutrophils [#/volume] in blood by automated count 18.8 text: 1.60 - 7.50 x10e9/ L high Neutr ophil Absol [place] 18.80 (H) 1.60 - 7.50 x10E9 /L 05/22 1:38 PM CDT [facility] Not Available Not Available 06/01/2024 16:51:02 05/23/19 25 05/22/2024 CBC W Auto Diffe renti al panel - Blood lymphocytes [#/volume] in blood by automated count 0.68 text: 1.00 - 4.40 x10e9/ L low Lymph ocyte Absol [place] 0.68 (L) 1.00 - 4.40 x10E9 /L 05/22 1:38 PM CDT [facility] Not Available Not Available 06/01/2024 16:51:02 05/23/19 25 05/22/2024 CBC W Auto Diffe renti al panel - Blood monocytes [#/volume] in blood by automated count 0.62 text: 0.15 - 1.00 x10e9/ L Monoc yte Absol [place] 0.62 0.15 - 1.00 x10E9 /L 05/22 1:38 PM CDT [facility] Not Available Not Available 06/01/2024 16:51:02 05/23/19 25 05/22/2024 CBC W Auto Diffe renti al panel - Blood eosinophils [#/volume] in blood 0.01 text: 0.00 - 0.60 x10e9/ L Eosin ophil Absol [place] 0.01 0.00 - 0.60 x10E9 /L 05/22 1:38 PM CDT [facility] Not Available Not Available 06/01/2024 16:51:02 05/23/19 25 05/22/2024 CBC W Auto Diffe renti al panel - Blood basophils [#/volume] in blood by automated count 0.05 text: 0.00 - 0.13 x10e9/ L Basop hil Absol [place] 0.05 0.00 - 0.13 x10E9 /L 05/22 1:38 PM CDT [facility] Not Available Not Available 06/01/2024 16:51:02 05/23/19 25 05/22/2024 CBC W Auto Diffe renti al panel - Blood interpretati on and review of laboratory results Abnorm al Not Available Not Available 16:51:02 05/23/19 25 05/22/2024 Phosp hate [Mass /volu me] in Serum or Plasm a phosphate [mass/volume ] in serum or plasma 3.2 mg/dL low: 2.5mg/ dLhigh : 4.5mg/ dL Phosp horus 3.2 2.5 - 4.5 mg/dL 05/22 1:51 PM CDT [facility] Not Available Not Available 06/01/2024 16:51:02 05/23/19 25 05/22/2024 Phosp hate [Mass /volu me] in Serum or Plasm a interpretati on and review of laboratory results Normal Not Available Not Available 05/18 16:51:02 05/23/19 25 05/22/2024 Lacta te [Mole s/vol ume] in Serum or Plasm a lactate [moles/volum e] in serum or plasma 1.7 mmol/ L high: 2mmol/ L Lacti c Acid 1.7 <=2 mmol/ L 05/22 1:50 PM CDT [facility] Not Available Not Available 06/01/2024 16:51:02 05/23/19 25 05/22/2024 Lacta te [Mole s/vol ume] in Serum or Plasm a interpretati on and review of laboratory results Normal Not Available Not Available 05/18 16:51:02 05/23/19 25 05/22/2024 Magne sium [Mass /volu me] in Serum or Plasm a magnesium [mass/volume ] in serum or plasma 2.1 mg/dL low: 1.6mg/ dLhigh : 2.6mg/ dL Magne sium 2.1 1.6 - 2.6 mg/dL 05/22 1:51 PM CDT [facility] Not Available Not Available 06/01/2024 16:51:02 05/23/19 25 05/22/2024 Magne sium [Mass /volu me] in Serum or Plasm a interpretati on and review of laboratory results Normal Not Available Not Available 05/18 16:51:02 05/23/19 25 05/22/2024 Compr ehens lupillo metab olic 1999 panel - Serum or Plasm a glucose [mass/volume ] in serum or plasma 125 mg/dL low: 70mg/d Lhigh: 99mg/d L high Gluco se 125 (H) 70 - 99 mg/dL 05/22 1:51 PM CDT [facility] Not Available Not Available 06/01/2024 16:51:02 05/23/19 25 05/22/2024 Compr ehens lupillo metab olic 1999 panel - Serum or Plasm a sodium [moles/volum e] in serum or plasma 137 mmol/ L low: 136mmo l/Lhig h: 145mmo l/L Sodiu m 137 136 - 145 mmol/ L 05/22 1:51 PM CDT [facility] Not Available Not Available 06/01/2024 16:51:02 05/23/19 25 05/22/2024 Compr ehens lupillo metab olic 1999 panel - Serum or Plasm a potassium [moles/volum e] in serum or plasma 4.2 mmol/ L low: 3.5mmo l/Lhig h: 5.1mmo l/L Potas sium 4.2 3.5 - 5.1 mmol/ L 05/22 1:51 PM CDT [facility] Not Available Not Available 06/01/2024 16:51:02 05/23/19 25 05/22/2024 Compr ehens lupillo metab olic 1999 panel - Serum or Plasm a chloride [moles/volum e] in serum or plasma 99 mmol/ L low: 98mmol /Lhigh : 107mmo l/L Chlor temitope 99 98 - 107 mmol/ L 05/22 1:51 PM CDT [facility] Not Available Not Available 06/01/2024 16:51:02 05/23/19 25 05/22/2024 Compr ehens lupillo metab olic 1999 panel - Serum or Plasm a carbon dioxide, total [moles/volum e] in serum or plasma 25 mmol/ L low: 22mmol /Lhigh : 29mmol /L CO2 25 22 - 29 mmol/ L 05/22 1:51 PM CDT [facility] Not Available Not Available 06/01/2024 16:51:02 05/23/19 25 05/22/2024 Compr ehens lupillo metab olic 1999 panel - Serum or Plasm a calcium [mass/volume ] in serum or plasma 9.1 mg/dL low: 8.4mg/ dLhigh : 10.4mg /dL Calci um 9.1 8.4 - 10.4 mg/dL 05/22 1:51 PM CDT [facility] Not Available Not Available 06/01/2024 16:51:02 05/23/19 25 05/22/2024 Compr ehens lupillo metab olic 1999 panel - Serum or Plasm a anion gap in blood by calculation 13 mmol/ L low: 6mmol/ Lhigh: 16mmol /L Anion Gap 13 6 - 16 mmol/ L 05/22 1:51 PM CDT [facility] Not Available Not Available 06/01/2024 16:51:02 05/23/19 25 05/22/2024 Compr ehens lupillo metab olic 1999 panel - Serum or Plasm a urea nitrogen [mass/volume ] in serum or plasma 12 mg/dL low: 5.3mg/ dLhigh : 18.7mg /dL BUN 12 5.3 - 18.7 mg/dL 05/22 1:51 PM CDT [facility] Not Available Not Available 06/01/2024 16:51:02 05/23/19 25 05/22/2024 Compr ehens lupillo metab olic 1999 panel - Serum or Plasm a creatinine [mass/volume ] in serum or plasma 0.95 mg/dL low: 0.72mg /dLhig h: 1.25mg /dL Creat inine 0.95 0.72 - 1.25 mg/dL 05/22 1:51 PM CDT [facility] Not Available Not Available 06/01/2024 16:51:02 05/23/19 25 05/22/2024 Compr ehens lupillo metab olic 1999 panel - Serum or Plasm a alkaline phosphatase [enzymatic activity/vol ume] in serum or plasma 90 U/L low: 40U/Lh igh: 150U/L Alkal ine Phosp hatas e 90 40 - 150 U/L 05/22 1:51 PM CDT [facility] Not Available Not Available 06/01/2024 16:51:02 05/23/19 25 05/22/2024 Compr ehens lupillo metab olic 1999 panel - Serum or Plasm a alanine aminotransfe rase [enzymatic activity/vol ume] in serum or plasma 56 U/L low: 6U/Lhi gh: 57U/L ALT 56 6 - 57 U/L 05/22 1:51 PM CDT [facility] Not Available Not Available 06/01/2024 16:51:02 05/23/19 25 05/22/2024 Compr ehens lupillo metab olic 1999 panel - Serum or Plasm a aspartate aminotransfe rase [enzymatic activity/vol ume] in serum or plasma 34 U/L low: 10U/Lh igh: 48U/L AST 34 10 - 48 U/L 05/22 1:51 PM CDT [facility] Not Available Not Available 06/01/2024 16:51:02 05/23/19 25 05/22/2024 Compr ehens lupillo metab olic 1999 panel - Serum or Plasm a protein [mass/volume ] in serum or plasma 7.5 text: 6.4 - 8.3 gm/dL Prote in Total 7.5 6.4 - 8.3 gm/dL 05/22 1:51 PM CDT [facility] Not Available Not Available 06/01/2024 16:51:02 05/23/19 25 05/22/2024 Compr ehens lupillo metab olic 1999 panel - Serum or Plasm a albumin [mass/volume ] in serum or plasma 3.2 text: 3.4 - 5.0 gm/dL low Album in 3.2 (L) 3.4 - 5.0 gm/dL 05/22 1:51 PM CDT [facility] Not Available Not Available 06/01/2024 16:51:02 05/23/19 25 05/22/2024 Compr ehens lupillo metab olic 1999 panel - Serum or Plasm a bilirubin.to chana [mass/volume ] in serum or plasma 1 mg/dL low: 0.2mg/ dLhigh : 1.2mg/ dL Bilir ubin Total 1.0 0.2 - 1.2 mg/dL 05/22 1:51 PM CDT [facility] Not Available Not Available 06/01/2024 16:51:02 05/23/19 25 05/22/2024 Compr Useful Systemsens lupillo metab olic 2000 panel - Serum or Plasm a glomerular filtration rate [volume rate/area] in serum, plasma or blood by creatinine-b ased formula (CKD-epi 2020)/1.73 sq M text: >=90 mL/min /1.73 m2 eGFR by CKD-E PI >90 >=90 mL/mi n/1.7 3 m2 05/22 1:51 PM CDT [facility] Not Available Not Available 06/01/2024 16:51:02 05/23/19 25 05/22/2024 Compr Useful Systemsens lupillo Backchat olic 2000 panel - Serum or Plasm a interpretati on and review of laboratory results Abnorm al Not Available Not Available 16:51:02 05/23/19 25 05/22/2024 Gluco se [Mass /volu me] in Arter ial blood glucose [mass/volume ] in capillary blood by glucometer 112 mg/dL low: 70mg/d Lhigh: 99mg/d L high Gluco se WB/PO C 112 (H) 70 - 99 mg/dL 05/22 4:43 PM CDT [facility] Not Available Not Available 06/01/2024 16:51:02 05/23/19 25 05/22/2024 Gluco se [Mass /volu me] in Arter ial blood specimen source identified Cap Finger stick Speci men Type Cap Finge rstic k 05/22 4:43 PM CDT [facility] Not Available Not Available 06/01/2024 16:51:02 05/23/19 25 05/22/2024 Gluco se [Mass /volu me] in Arter ial blood interpretati on and review of laboratory results Abnorm al Not Available Not Available 16:51:02 05/23/19 25 05/22/2024 Gas panel - Arter ial blood pH of arterial blood 7.27 pH low: 7.35pH high: 7.45pH low pH Arter ial 7.27 (L) 7.35 - 7.45 pH 05/22 12:35 PM CDT [facility] Not Available Not Available 06/01/2024 16:51:02 05/23/19 25 05/22/2024 Gas panel - Arter ial blood oxygen [partial pressure] in arterial blood 68 text: 80 - 100 mmHg low pO2 Arter ial 68 (L) 80 - 100 mmHg 05/22 12:35 PM CDT [facility] Not Available Not Available 06/01/2024 16:51:02 05/23/19 25 05/22/2024 Gas panel - Arter ial blood carbon dioxide [partial pressure] in arterial blood 66 text: 35 - 45 mmHg high pCO2 Arter ial 66 (H) 35 - 45 mmHg 05/22 12:35 PM CDT [facility] Not Available Not Available 06/01/2024 16:51:02 05/23/19 25 05/22/2024 Gas panel - Arter ial blood bicarbonate [moles/volum e] in arterial blood 30.3 mmol/ L low: 22mmol /Lhigh : 26mmol /L high HCO3 Arter ial 30.3 (H) 22.0 - 26.0 mmol/ L 05/22 12:35 PM CDT [facility] Not Available Not Available 06/01/2024 16:51:02 05/23/19 25 05/22/2024 Gas panel - Arter ial blood base excess standard in arterial blood by calculation 1.6 mmol/ L low: -2mmol /Lhigh : 2mmol/ L BE Arter ial 1.6 -2.0 - 2.0 mmol/ L 05/22 12:35 PM CDT [facility] Not Available Not Available 06/01/2024 16:51:02 05/23/19 25 05/22/2024 Gas panel - Arter ial blood oxygen saturation in arterial blood 92 % low: 90%hig h: 100% O2 Satur ation Arter ial 92 90 - 100 % 05/22 12:35 PM CDT [facility] Not Available Not Available 06/01/2024 16:51:02 05/23/19 25 05/22/2024 Gas panel - Arter ial blood arterial patency wrist artery --pre arterial puncture Yes Dawit 's Test Yes 05/22 12:35 PM CDT [facility] Not Available Not Available 06/01/2024 16:51:02 05/23/19 25 05/22/2024 Gas panel - Arter ial blood specimen source identified Right RA Sampl e Site Right RA 05/22 12:35 PM CDT [facility] Not Available Not Available 06/01/2024 16:51:02 05/23/19 25 05/22/2024 Gas panel - Arter ial blood ventilation mode ventilator Bipap Mode Bipap 05/22 12:35 PM CDT [facility] Not Available Not Available 06/01/2024 16:51:02 05/23/19 25 05/22/2024 Gas panel - Arter ial blood inhaled oxygen concentratio n 40 % FI O2 40.0 % 05/22 12:35 PM CDT [facility] Not Available Not Available 06/01/2024 16:51:02 05/23/19 25 05/22/2024 Gas panel - Arter ial blood BIPAP andor CPAP setting ventilator 12 BIPAP Insp Press ure (cmH2 O) 12 05/22 12:35 PM CDT [facility] Not Available Not Available 06/01/2024 16:51:02 05/23/19 25 05/22/2024 Gas panel - Arter ial blood BIPAP andor CPAP setting ventilator 6 BIPAP Exp Press ure (cmH2 O) 6 05/22 12:35 PM CDT [facility] Not Available Not Available 06/01/2024 16:51:02 05/23/19 25 05/22/2024 Gas panel - Arter ial blood interpretati on and review of laboratory results Abnorm al Not Available Not Available 16:51:02 05/23/19 25 05/25/2024 Patho logy study pathology report.secti on heading Surgic al Pathol ogy Report Case: [id number] Author izing Provid er: Santiago Joy MD [facility] treasure: 2024 10:01 AM Orderi ng Locati on: [facility] Receiv ed: 2024 06:29 AM - Periop erativ e Surger y Pathol ogist: Jose Wylie MD Specim en: Append ix Case Repor t Surgi becky Patho logy Repor t Case: [id number] Autho rizin g Provi silverio: Santiago Joy MD [facility] cted: 05/22 10:01 AM Order ing Locat ion: [facility] Recei prosper: 05/24 06:29 AM - Perio perat lupillo Surge ry Patho logis t: Shirley Wylie MD Speci men: Polo ni 05/25 11:05 AM CDT [facility] Not Available Not Available 06/01/2024 16:51:02 05/23/19 25 05/25/2024 Patho logy study pathology report final diagnosis narrative Append ix, append ectomy : -- Acute necrot izing and perfor ated append icitis Final Diagn osis Appbree ni, polo decto my: -- Acute necro tizin g and perfo rated appbree dicit is 05/25 11:05 AM CDT [facility] Elect mara huang kavitha d by Shirley Wylie MD on 025 at 11:05 AM Not Available Not Available 06/01/2024 16:51:02 05/23/19 25 05/25/2024 Patho logy study pathology report relevant history narrative Perfor ated append icitis Clini becky Histo ry Perfo rated appen dicit is 05/25 11:05 AM CDT [facility] Not Available Not Available 06/01/2024 16:51:02 05/23/19 25 05/25/2024 Patho logy study pathology report gross observation narrative Receiv ed in formal in in a steril e contai ner labele d Scottie Alonzo, append ix, is a 9 x 1.5 cm vermif orm append ix with attach ed mesoap pendix . The serosa is dusky purple , with thicke kirill green- yellow -purpl e purule nt exudat e. The margin of resect ion is inked. Sectio ns show a patent lumen contai anu red-br own debris . Repres entati ve sectio ns are submit treasure in casset te A1. / Gross Descr iptio n Recei prosper in forma maverick in a steri le conta iner label ed Chri stopdaryl Alonzo, appen raine, is a 9 x 1.5 cm vermi form appen raine with attac hed mesoa ppend ix. The seros a is dusky purpl e, with thick ened green -yell ow-pu rple purul ent exuda te. The joann n of resec tion is inked . Secti ons show a paten t lumen conta ining red-b rown debri s. Repre senta tive secti ons are submi tted in casse tte A1. / 05/25 11:05 AM CDT [facility] Not Available Not Available 06/01/2024 16:51:02 05/23/19 25 05/25/2024 Patho logy study pathology report microscopic observation narrative other stain Micros copic examin ation substa ntiate s the above cited diagno sis. Micro scopi c Descr iptio n Micro scopi c exami natio n subst antia eduard the above cited diagn osis. 05/25 11:05 AM CDT [facility] Not Available Not Available 06/01/2024 16:51:02 05/23/19 25 05/25/2024 Patho logy study service comment All histoc hemica l and/or immuno histoc hemica l result s are interp reted with contro ls that demons trate approp riate staini ng reacti ons before report ing result s. Note on use of immuno cytoch emistr y reagen ts: This test was develo ped and its perfor olive thompson terist ic determ ined by [facility] , Depart ment of Labora tory Medici ne. It has not been cleare d or approv ed by the U.[place]. Food and Drug Admini strati on (FDA). The FDA has determ ined that such cleara nce or approv al is not necess horace. The test is used for clinic al purpos e. It should not be regard ed as invest igatio nal or for resear ch. This labora tory is certif ied to perfor m high comple xity testin g. The perfor olive charalexus terist ics of the IHC/IS H assays have been valida treasure on formal in-fix ed paraff in embedd ed tissue s only. The assays have not been valida treasure on decalc ified tissue s. Result s should be interp reted with cautio n. Discl aimer All histo chemi becky and/o r immun ohist ochem ical resul ts are inter prete d with contr ols that demon strat e appro priat e stain ing react ions befor e repor ting resul ts. Note on use of immun ocyto chemi stry reage nts: This test was devel oped and its perfo rmanc e tariq cteri stic deter mined by [facility], Depar tment of Labor atory Medic ine. It has not been clear ed or appro prosper by the U.S. Food and Drug Admin istra tion (FDA) . The FDA has deter mined that such clear ance or appro melina is not neces melvi. The test is used for clini becky purpo se. It shoul d not be regar ded as inves tigat ional or for resea rch. This labor atory is certi fied to perfo rm high compl exity testi ng. The perfo rmanc e tariq cteri stics of the IHC/I SH assay s have been valid ated on forma maverick-f ixed paraf fin embed ded tissu es only. The assay s have not been valid ated on decal cifie d tissu es. Resul ts shojose d be inter prete d with cauti on. 05/25 11:05 AM CDT [facility] Not Available Not Available 06/01/2024 16:51:02 05/23/19 25 05/25/2024 Patho logy study embedded images Embed ded Image s 05/25 11:05 AM CDT [facility] Not Available Not Available 06/01/2024 16:51:02 05/24/19 25 05/23/2024 Gluco se [Mass /volu me] in Arter ial blood glucose [mass/volume ] in capillary blood by glucometer 106 mg/dL low: 70mg/d Lhigh: 99mg/d L high Gluco se WB/PO C 106 (H) 70 - 99 mg/dL 05/23 5:56 PM CDT [facility] Not Available Not Available 06/01/2024 16:51:04 05/24/19 25 05/23/2024 Gluco se [Mass /volu me] in Arter ial blood specimen source identified Cap Finger stick Speci men Type Cap Finge rstic k 05/23 5:56 PM CDT [facility] Not Available Not Available 06/01/2024 16:51:04 05/24/19 25 05/23/2024 Gluco se [Mass /volu me] in Arter ial blood interpretati on and review of laboratory results Abnorm al Not Available Not Available 16:51:04 05/24/19 25 05/23/2024 Gluco se [Mass /volu me] in Arter ial blood glucose [mass/volume ] in capillary blood by glucometer 106 mg/dL low: 70mg/d Lhigh: 99mg/d L high Gluco se WB/PO C 106 (H) 70 - 99 mg/dL 05/23 12:29 PM CDT [facility] Not Available Not Available 06/01/2024 16:51:03 05/24/19 25 05/23/2024 Gluco se [Mass /volu me] in Arter ial blood specimen source identified Cap Finger stick Speci men Type Cap Finge rstic k 05/23 12:29 PM CDT [facility] Not Available Not Available 06/01/2024 16:51:03 05/24/19 25 05/23/2024 Gluco se [Mass /volu me] in Arter ial blood interpretati on and review of laboratory results Abnorm al Not Available Not Available 16:51:03 05/24/19 25 05/23/2024 Gluco se [Mass /volu me] in Arter ial blood glucose [mass/volume ] in capillary blood by glucometer 112 mg/dL low: 70mg/d Lhigh: 99mg/d L high Gluco se WB/PO C 112 (H) 70 - 99 mg/dL 05/23 6:50 AM CDT [facility] Not Available Not Available 06/01/2024 16:51:03 05/24/19 25 05/23/2024 Gluco se [Mass /volu me] in Arter ial blood specimen source identified Arteri al Speci men Type Arter ial 05/23 6:50 AM CDT [facility] Not Available Not Available 06/01/2024 16:51:03 05/24/19 25 05/23/2024 Gluco se [Mass /volu me] in Arter ial blood interpretati on and review of laboratory results Abnorm al Not Available Not Available 16:51:03 05/24/19 25 05/23/2024 SLIDE SCAN HEMAT OLOGY erythrocyte [morphology] in blood REVIEW ED RBC Morph ology REVIE WED 05/23 6:16 AM CDT [facility] Not Available Not Available 06/01/2024 16:51:03 05/24/19 25 05/23/2024 SLIDE SCAN HEMAT OLOGY microcytes [presence] in blood by light microscopy MANY text: (none) abnormal Micro cytos is MANY (A) (none ) 05/23 6:16 AM CDT [facility] Not Available Not Available 06/01/2024 16:51:03 05/24/19 25 05/23/2024 SLIDE SCAN HEMAT OLOGY interpretati on and review of laboratory results Abnorm al Not Available Not Available 16:51:03 05/24/19 25 05/23/2024 Phosp hate [Mass /volu me] in Serum or Plasm a phosphate [mass/volume ] in serum or plasma 3.7 mg/dL low: 2.5mg/ dLhigh : 4.5mg/ dL Phosp horus 3.7 2.5 - 4.5 mg/dL 05/23 6:10 AM CDT [facility] Not Available Not Available 06/01/2024 16:51:03 05/24/19 25 05/23/2024 Phosp hate [Mass /volu me] in Serum or Plasm a interpretati on and review of laboratory results Normal Not Available Not Available 05/18 16:51:03 05/24/19 25 05/23/2024 Magne sium [Mass /volu me] in Serum or Plasm a magnesium [mass/volume ] in serum or plasma 2.2 mg/dL low: 1.6mg/ dLhigh : 2.6mg/ dL Magne sium 2.2 1.6 - 2.6 mg/dL 05/23 6:10 AM CDT [facility] Not Available Not Available 06/01/2024 16:51:03 05/24/19 25 05/23/2024 Magne sium [Mass /volu me] in Serum or Plasm a interpretati on and review of laboratory results Normal Not Available Not Available 05/18 16:51:03 05/24/19 25 05/23/2024 Compr ehens lupillo metab olic 1999 panel - Serum or Plasm a glucose [mass/volume ] in serum or plasma 110 mg/dL low: 70mg/d Lhigh: 99mg/d L high Gluco se 110 (H) 70 - 99 mg/dL 05/23 6:10 AM CDT [facility] Not Available Not Available 06/01/2024 16:51:03 05/24/19 25 05/23/2024 Compr ehens lupillo metab olic 2000 panel - Serum or Plasm a sodium [moles/volum e] in serum or plasma 138 mmol/ L low: 136mmo l/Lhig h: 145mmo l/L Sodiu m 138 136 - 145 mmol/ L 05/23 6:10 AM CDT [facility] Not Available Not Available 06/01/2024 16:51:03 05/24/19 25 05/23/2024 Compr ehens lupillo metab olic 1999 panel - Serum or Plasm a potassium [moles/volum e] in serum or plasma 4.7 mmol/ L low: 3.5mmo l/Lhig h: 5.1mmo l/L Potas sium 4.7 3.5 - 5.1 mmol/ L 05/23 6:10 AM CDT [facility] Not Available Not Available 06/01/2024 16:51:03 05/24/19 25 05/23/2024 Compr ehens lupillo metab olic 1999 panel - Serum or Plasm a chloride [moles/volum e] in serum or plasma 102 mmol/ L low: 98mmol /Lhigh : 107mmo l/L Chlor temitope 102 98 - 107 mmol/ L 05/23 6:10 AM CDT [facility] Not Available Not Available 06/01/2024 16:51:03 05/24/19 25 05/23/2024 Compr Useful Systemsens lupillo metab olic 1999 panel - Serum or Plasm a carbon dioxide, total [moles/volum e] in serum or plasma 24 mmol/ L low: 22mmol /Lhigh : 29mmol /L CO2 24 22 - 29 mmol/ L 05/23 6:10 AM CDT [facility] Not Available Not Available 06/01/2024 16:51:03 05/24/19 25 05/23/2024 Compr ehens lupillo metab olic 1999 panel - Serum or Plasm a calcium [mass/volume ] in serum or plasma 9 mg/dL low: 8.4mg/ dLhigh : 10.4mg /dL Calci um 9.0 8.4 - 10.4 mg/dL 05/23 6:10 AM CDT [facility] Not Available Not Available 06/01/2024 16:51:03 05/24/19 25 05/23/2024 Compr ehens lupillo metab olic 1999 panel - Serum or Plasm a anion gap in blood by calculation 12 mmol/ L low: 6mmol/ Lhigh: 16mmol /L Anion Gap 12 6 - 16 mmol/ L 05/23 6:10 AM CDT [facility] Not Available Not Available 06/01/2024 16:51:03 05/24/19 25 05/23/2024 [facility] 1999 panel - Serum or Plasm a urea nitrogen [mass/volume ] in serum or plasma 13 mg/dL low: 5.3mg/ dLhigh : 18.7mg /dL BUN 13 5.3 - 18.7 mg/dL 05/23 6:10 AM CDT [facility] Not Available Not Available 06/01/2024 16:51:03 05/24/19 25 05/23/2024 Compr [facility] 1999 panel - Serum or Plasm a creatinine [mass/volume ] in serum or plasma 0.77 mg/dL low: 0.72mg /dLhig h: 1.25mg /dL Creat inine 0.77 0.72 - 1.25 mg/dL 05/23 6:10 AM CDT [facility] Not Available Not Available 06/01/2024 16:51:03 05/24/19 25 05/23/2024 Compr [facility] 1999 panel - Serum or Plasm a alkaline phosphatase [enzymatic activity/vol ume] in serum or plasma 76 U/L low: 40U/Lh igh: 150U/L Alkal ine Phosp hatas e 76 40 - 150 U/L 05/23 6:10 AM CDT [facility] Not Available Not Available 06/01/2024 16:51:03 05/24/19 25 05/23/2024 Compr [facility] 1999 panel - Serum or Plasm a alanine aminotransfe rase [enzymatic activity/vol ume] in serum or plasma 34 U/L low: 6U/Lhi gh: 57U/L ALT 34 6 - 57 U/L 05/23 6:10 AM CDT [facility] Not Available Not Available 06/01/2024 16:51:03 05/24/19 25 05/23/2024 [facility] 1999 panel - Serum or Plasm a aspartate aminotransfe rase [enzymatic activity/vol ume] in serum or plasma 23 U/L low: 10U/Lh igh: 48U/L AST 23 10 - 48 U/L 05/23 6:10 AM CDT [facility] Not Available Not Available 06/01/2024 16:51:03 05/24/19 25 05/23/2024 [facility] 1999 panel - Serum or Plasm a protein [mass/volume ] in serum or plasma 6.8 text: 6.4 - 8.3 gm/dL Prote in Total 6.8 6.4 - 8.3 gm/dL 05/23 6:10 AM CDT [facility] Not Available Not Available 06/01/2024 16:51:03 05/24/19 25 05/23/2024 [facility] panel - Serum or Plasm a albumin [mass/volume ] in serum or plasma 2.7 text: 3.4 - 5.0 gm/dL low Album in 2.7 (L) 3.4 - 5.0 gm/dL 05/23 6:10 AM CDT [facility] Not Available Not Available 06/01/2024 16:51:03 05/24/19 25 05/23/2024 [facility] panel - Serum or Plasm a bilirubin.to chana [mass/volume ] in serum or plasma 0.6 mg/dL low: 0.2mg/ dLhigh : 1.2mg/ dL Bilir ubin Total 0.6 0.2 - 1.2 mg/dL 05/23 6:10 AM CDT [facility] Not Available Not Available 06/01/2024 16:51:03 05/24/19 25 05/23/2024 [facility] 2000 panel - Serum or Plasm a glomerular filtration rate [volume rate/area] in serum, plasma or blood by creatinine-b ased formula (CKD-epi 2020)/1.73 sq M text: >=90 mL/min /1.73 m2 eGFR by CKD-E PI >90 >=90 mL/mi n/1.7 3 m2 04/06 /2025 6:10 AM CDT [facility] Not Available Not Available 06/01/2024 16:51:03 05/24/19 25 05/23/2024 Compr ehens lupillo metab olic 2000 panel - Serum or Plasm a interpretati on and review of laboratory results Abnorm al Not Available Not Available 16:51:03 05/24/19 25 05/23/2024 CBC W Auto Diffe renti al panel - Blood leukocytes [#/volume] in blood by automated count 18.6 text: 4.0 - 10.7 x10e9/ L high WBC 18.6 (H) 4.0 - 10.7 x10E9 /L 05/23 6:16 AM CDT [facility] Not Available Not Available 06/01/2024 16:51:03 05/24/19 25 05/23/2024 CBC W Auto Diffe renti al panel - Blood erythrocytes [#/volume] in blood by automated count 4.32 text: 4.30 - 5.80 x10e12 /L RBC Count 4.32 4.30 - 5.80 x10E1 2/L 05/23 6:16 AM CDT [facility] Not Available Not Available 06/01/2024 16:51:03 05/24/19 25 05/23/2024 CBC W Auto Diffe renti al panel - Blood hemoglobin [mass/volume ] in blood 11 g/dL low: 13.3g/ dLhigh : 17.5g/ dL low Hemog lobin 11.0 (L) 13.3 - 17.5 g/dL 05/23 6:16 AM CDT [facility] Not Available Not Available 06/01/2024 16:51:03 05/24/19 25 05/23/2024 CBC W Auto Diffe renti al panel - Blood hematocrit [volume fraction] of blood by automated count 35.7 % low: 38.7%h igh: 51.1% low Hemat ocrit 35.7 (L) 38.7 - 51.1 % 05/23 6:16 AM CDT [facility] Not Available Not Available 06/01/2024 16:51:03 05/24/19 25 05/23/2024 CBC W Auto Diffe renti al panel - Blood MCV [entitic mean volume] in red blood cells by automated count 82.6 fL low: 80fLhi gh: 98fL MCV 82.6 80.0 - 98.0 fL 05/23 6:16 AM CDT [facility] Not Available Not Available 06/01/2024 16:51:03 05/24/19 25 05/23/2024 CBC W Auto Diffe renti al panel - Blood MCH [entitic mass] by automated count 25.5 pg low: 26.7pg high: 33.6pg low MCH 25.5 (L) 26.7 - 33.6 pg 05/23 6:16 AM CDT [facility] Not Available Not Available 06/01/2024 16:51:03 05/24/19 25 05/23/2024 CBC W Auto Diffe renti al panel - Blood MCHC [entitic mass/volume] in red blood cells by automated count 30.8 g/dL low: 31.7g/ dLhigh : 36.3g/ dL low MCHC 30.8 (L) 31.7 - 36.3 g/dL 05/23 6:16 AM CDT [facility] Not Available Not Available 06/01/2024 16:51:03 05/24/19 25 05/23/2024 CBC W Auto Diffe renti al panel - Blood erythrocyte [distwidth] in red blood cells by automated count 14.6 % low: 11.3%h igh: 14.8% RDW-C V 14.6 11.3 - 14.8 % 05/23 6:16 AM CDT [facility] Not Available Not Available 06/01/2024 16:51:03 05/24/19 25 05/23/2024 CBC W Auto Diffe renti al panel - Blood platelets [#/volume] in blood by automated count 275 text: 150 - 420 x10e9/ L Plate let Count 275 150 - 420 x10E9 /L 05/23 6:16 AM CDT [facility] Not Available Not Available 06/01/2024 16:51:03 05/24/19 25 05/23/2024 CBC W Auto Diffe renti al panel - Blood platelet [entitic mean volume] in blood by automated count 10.3 fL low: 7.8fLh igh: 11.4fL MPV 10.3 7.8 - 11.4 fL 05/23 6:16 AM CDT [facility] Not Available Not Available 06/01/2024 16:51:03 05/24/19 25 05/23/2024 CBC W Auto Diffe renti al panel - Blood neutrophils/ leukocytes in blood by automated count 82 % low: 41%hig h: 74% high Neutr ophil % 82.0 (H) 41.0 - 74.0 % 05/23 6:16 AM CDT [facility] Not Available Not Available 06/01/2024 16:51:03 05/24/19 25 05/23/2024 CBC W Auto Diffe renti al panel - Blood lymphocytes/ leukocytes in blood by automated count 9 % low: 17%hig h: 47% low Lymph ocyte % 9.0 (L) 17.0 - 47.0 % 05/23 6:16 AM CDT [facility] Not Available Not Available 06/01/2024 16:51:03 05/24/19 25 05/23/2024 CBC W Auto Diffe renti al panel - Blood monocytes/le ukocytes in blood by automated count 8.2 % low: 3%high : 11% Monoc yte % 8.2 3.0 - 11.0 % 05/23 6:16 AM CDT [facility] Not Available Not Available 06/01/2024 16:51:03 05/24/19 25 05/23/2024 CBC W Auto Diffe renti al panel - Blood eosinophils/ leukocytes in blood by automated count 0.1 % low: 0%high : 7% Eosin ophil % 0.1 0.0 - 7.0 % 05/23 6:16 AM CDT [facility] Not Available Not Available 06/01/2024 16:51:03 05/24/19 25 05/23/2024 CBC W Auto Diffe renti al panel - Blood basophils/le ukocytes in blood by automated count 0.2 % low: 0%high : 1.6% Basop hil % 0.2 0.0 - 1.6 % 05/23 6:16 AM CDT [facility] Not Available Not Available 06/01/2024 16:51:03 05/24/19 25 05/23/2024 CBC W Auto Diffe renti al panel - Blood immature granulocytes /leukocytes in blood by automated count 0.5 % low: 0%high : 1% Immat ure Granu locyt es % 0.5 0.0 - 1.0 % 05/23 6:16 AM CDT [facility] Not Available Not Available 06/01/2024 16:51:03 05/24/19 25 05/23/2024 CBC W Auto Diffe renti al panel - Blood neutrophils [#/volume] in blood by automated count 15.23 text: 1.60 - 7.50 x10e9/ L high Neutr ophil Absol [employer] 15.23 (H) 1.60 - 7.50 x10E9 /L 05/23 6:16 AM CDT [facility] Not Available Not Available 06/01/2024 16:51:03 05/24/19 25 05/23/2024 CBC W Auto Diffe renti al panel - Blood lymphocytes [#/volume] in blood by automated count 1.67 text: 1.00 - 4.40 x10e9/ L Lymph ocyte Absol [employer] 1.67 1.00 - 4.40 x10E9 /L 05/23 6:16 AM CDT [facility] Not Available Not Available 06/01/2024 16:51:03 05/24/19 25 05/23/2024 CBC W Auto Diffe renti al panel - Blood monocytes [#/volume] in blood by automated count 1.53 text: 0.15 - 1.00 x10e9/ L high Monoc yte Absol [employer] 1.53 (H) 0.15 - 1.00 x10E9 /L 05/23 6:16 AM CDT [facility] Not Available Not Available 06/01/2024 16:51:03 05/24/19 25 05/23/2024 CBC W Auto Diffe renti al panel - Blood eosinophils [#/volume] in blood 0.01 text: 0.00 - 0.60 x10e9/ L Eosin ophil Absol [employer] 0.01 0.00 - 0.60 x10E9 /L 05/23 6:16 AM CDT [facility] Not Available Not Available 06/01/2024 16:51:03 05/24/19 25 05/23/2024 CBC W Auto Diffe renti al panel - Blood basophils [#/volume] in blood by automated count 0.03 text: 0.00 - 0.13 x10e9/ L Basop hil Absol [employer] 0.03 0.00 - 0.13 x10E9 /L 05/23 6:16 AM CDT [facility] Not Available Not Available 06/01/2024 16:51:03 05/24/19 25 05/23/2024 CBC W Auto Diffe renti al panel - Blood interpretati on and review of laboratory results Abnorm al Not Available Not Available 16:51:03 05/24/19 25 05/23/2024 Hemog lobin A1c/H emogl obin. total in Blood hemoglobin A1C/hemoglob in.total in blood 5.9 % high: 5.7% high Hemog lobin A1c 5.9 (H) <5.7 % 05/23 5:57 AM CDT [facility] Not Available Not Available 06/01/2024 16:51:03 05/24/19 25 05/23/2024 Hemog lobin A1c/H emogl obin. total in Blood glucose mean value [mass/volume ] in blood estimated from glycated hemoglobin 123 mg/dL Estim ated Ethel ge Gluco se 123 mg/dL 05/23 5:57 AM CDT [facility] Not Available Not Available 06/01/2024 16:51:03 05/24/19 25 05/23/2024 Hemog lobin A1c/H emogl obin. total in Blood Unknown Analyte HbA1c Interp retati on: Normal : < 5.7% Pre-di abetes : 5.7-6. 4% Diabet es: Equal to or greate r than 6.5% Test result s diagno stic of diabet es should be repeat ed for confir mation . Treatm ent target values recomm ended by ADA and other clinic al organi zation s should be used to evalua te metabo lic contro l in patien ts. This test should not replac e glucos e testin g for patien ts with Type 1 diabet es, pediat freddie patien ts, or pregna nt women. Falsel y low HbA1c result s may be observ ed in patien ts with clinic al condit ions that shorte n erythr ocyte life span or decrea se mean erythr ocyte age such as the presen ce of unstab le hemogl obin varian ts, elevat ed hemogl obin F level or other causes of hemoly tic anemia . HbA1c may not accura tely reflec t glycem ic contro l when clinic al condit ions that affect erythr ocyte surviv al are presen t. Severe Iron defici ency anemia may yield falsel y high result s. Hemogl obin A1c assay should not be used to diagno se or monito r diabet es in patien ts with malign agnieszka, recent blood transf usion, chroni c kidney or liver diseas e. This method may yield falsel y low result s when hemogl obin (HbF) exceed s 5% in the specim en. The [employer] assay for the measur ement of HbA1c is a Nation al Glycoh emoglo bin Standa rdizat ion Progra m (NGSP) certif ied method . HbA1c Inter preta tion: Nevaeh l: < 5.7% Pre-d iabet es: 5.7-6 .4% Diabe eduard: Equal to or great er than 6.5% Test resul ts diagn ostic of diabe eduard shoul d be repea treasure for confi rmati on. Treat ment targe t value s recom roddy d by ADA and other clini becky organ izati ons shoul d be used to evalu ate metab olic contr ol in patie nts. This test shoul d not repla ce gluco se testi ng for patie nts with Type 1 diabe eduard, pedia tric patie nts, or pregn ant women . False ly low HbA1c resul ts may be obser prosper in patie nts with clini becky condi tions that short en eryth rocyt e life span or decre ase mean eryth rocyt e age such as the prese nce of unsta ble hemog lobin varia nts, eleva treasure hemog lobin F level or other cause s of hemol ytic anemi a. HbA1c may not accur ately refle ct glyce imelda contr ol when clini becky condi tions that affec t eryth rocyt e survi melina are prese nt. Sever e Iron defic iency anemi a may yield false ly high resul ts. Hemog lobin A1c assay shoul d not be used to diagn ose or monit or diabe eduard in patie nts with malig maggie , recen t blood trans fusio n, chron ic kidne y or liver disea se. This metho d may yield false ly low resul ts when hemog lobin (HbF) excee ds 5% in the speci men. The [employer] assay for the measu remen t of HbA1c is a Natio nal Glyco hemog lobin Stand ardiz ation Progr am (NGSP ) certi fied metho d. Not Available Not Available 06/01/2024 16:51:03 05/24/19 25 05/23/2024 Hemog lobin A1c/H emogl obin. total in Blood interpretati on and review of laboratory results Abnorm al Not Available Not Available 16:51:03 05/24/19 25 05/23/2024 Gluco se [Mass /volu me] in Arter ial blood glucose [mass/volume ] in capillary blood by glucometer 122 mg/dL low: 70mg/d Lhigh: 99mg/d L high Gluco se WB/PO C 122 (H) 70 - 99 mg/dL 05/23 12:32 AM CDT [facility] Not Available Not Available 06/01/2024 16:51:02 05/24/19 25 05/23/2024 Gluco se [Mass /volu me] in Arter ial blood specimen source identified Arteri al Speci men Type Arter ial 05/23 12:32 AM CDT [facility] Not Available Not Available 06/01/2024 16:51:02 05/24/19 25 05/23/2024 Gluco se [Mass /volu me] in Arter ial blood interpretati on and review of laboratory results Abnorm al Not Available Not Available 16:51:02 05/25/19 25 05/24/2024 Gluco se [Mass /volu me] in Arter ial blood glucose [mass/volume ] in capillary blood by glucometer 87 mg/dL low: 70mg/d Lhigh: 99mg/d L Gluco se WB/PO C 87 70 - 99 mg/dL 05/24 6:17 PM CDT [facility] Not Available Not Available 06/01/2024 16:51:04 05/25/19 25 05/24/2024 Gluco se [Mass /volu me] in Arter ial blood specimen source identified Cap Finger stick Speci men Type Vadim Yepez rstic k 05/24 6:17 PM CDT [facility] Not Available Not Available 06/01/2024 16:51:04 05/25/19 25 05/24/2024 Gluco se [Mass /volu me] in Arter ial blood glucose [mass/volume ] in capillary blood by glucometer 74 mg/dL low: 70mg/d Lhigh: 99mg/d L Gluco se WB/PO C 74 70 - 99 mg/dL 05/24 12:11 PM CDT [facility] Not Available Not Available 06/01/2024 16:51:04 05/25/19 25 05/24/2024 Gluco se [Mass /volu me] in Arter ial blood specimen source identified Cap Finger stick Speci men Type Vadim Yepez rstic k 05/24 12:11 PM CDT [facility] Not Available Not Available 06/01/2024 16:51:04 05/25/19 25 05/24/2024 Gluco se [Mass /volu me] in Arter ial blood glucose [mass/volume ] in capillary blood by glucometer 97 mg/dL low: 70mg/d Lhigh: 99mg/d L Gluco se WB/PO C 97 70 - 99 mg/dL 05/24 6:19 AM CDT [facility] Not Available Not Available 06/01/2024 16:51:04 04/07/05/24/2024 Gluco se [Mass /volu me] in Arter ial blood specimen source identified Arteri al Speci men Type Arter ial 05/24 6:19 AM CDT [facility] Not Available Not Available 06/01/2024 16:51:04 05/25/19 25 05/24/2024 SLIDE SCAN HEMAT OLOGY erythrocyte [morphology] in blood RED CELL INDICI ES CONFIR MED RBC Morph ology RED CELL INDIC IES CONFI RMED 05/24 6:00 AM CDT [facility] Not Available Not Available 06/01/2024 16:51:04 05/25/19 25 05/24/2024 Phosp hate [Mass /volu me] in Serum or Plasm a phosphate [mass/volume ] in serum or plasma 4.3 mg/dL low: 2.5mg/ dLhigh : 4.5mg/ dL Phosp horus 4.3 2.5 - 4.5 mg/dL 05/24 5:44 AM CDT [facility] Not Available Not Available 06/01/2024 16:51:04 05/25/19 25 05/24/2024 Phosp hate [Mass /volu me] in Serum or Plasm a interpretati on and review of laboratory results Normal Not Available Not Available 05/18 16:51:04 05/25/19 25 05/24/2024 Magne sium [Mass /volu me] in Serum or Plasm a magnesium [mass/volume ] in serum or plasma 1.9 mg/dL low: 1.6mg/ dLhigh : 2.6mg/ dL Magne sium 1.9 1.6 - 2.6 mg/dL 05/24 5:44 AM CDT [facility] [employer] [facility] Not Available Not Available 06/01/2024 16:51:04 05/25/19 25 05/24/2024 Magne sium [Mass /volu me] in Serum or Plasm a interpretati on and review of laboratory results Normal Not Available Not Available 05/18 16:51:04 05/25/19 25 05/24/2024 Compr ehens lupillo metab olic 2000 panel - Serum or Plasm a glucose [mass/volume ] in serum or plasma 95 mg/dL low: 70mg/d Lhigh: 99mg/d L Gluco se 95 70 - 99 mg/dL 05/24 5:44 AM CDT [facility] Not Available Not Available 06/01/2024 16:51:04 05/25/19 25 05/24/2024 Compr ehens lupillo metab olic 1999 panel - Serum or Plasm a sodium [moles/volum e] in serum or plasma 138 mmol/ L low: 136mmo l/Lhig h: 145mmo l/L Sodiu m 138 136 - 145 mmol/ L 05/24 5:44 AM CDT [facility] Not Available Not Available 06/01/2024 16:51:04 05/25/19 25 05/24/2024 Compr ehens lupillo metab olic 1999 panel - Serum or Plasm a potassium [moles/volum e] in serum or plasma 4.1 mmol/ L low: 3.5mmo l/Lhig h: 5.1mmo l/L Potas sium 4.1 3.5 - 5.1 mmol/ L 05/24 5:44 AM CDT [facility] Not Available Not Available 06/01/2024 16:51:04 05/25/19 25 05/24/2024 Compr ehens lupillo metab olic 1999 panel - Serum or Plasm a chloride [moles/volum e] in serum or plasma 102 mmol/ L low: 98mmol /Lhigh : 107mmo l/L Chlor temitope 102 98 - 107 mmol/ L 05/24 5:44 AM CDT [facility] Not Available Not Available 06/01/2024 16:51:04 05/25/19 25 05/24/2024 Compr ehens lupillo metab olic 1999 panel - Serum or Plasm a carbon dioxide, total [moles/volum e] in serum or plasma 28 mmol/ L low: 22mmol /Lhigh : 29mmol /L CO2 28 22 - 29 mmol/ L 05/24 5:44 AM CDT [facility] Not Available Not Available 06/01/2024 16:51:04 05/25/19 25 05/24/2024 Compr ehens lupillo metab olic 1999 panel - Serum or Plasm a calcium [mass/volume ] in serum or plasma 8.9 mg/dL low: 8.4mg/ dLhigh : 10.4mg /dL Calci um 8.9 8.4 - 10.4 mg/dL 05/24 5:44 AM CDT [facility] Not Available Not Available 06/01/2024 16:51:04 05/25/19 25 05/24/2024 Compr [employer] [facility] [employer] 1999 panel - Serum or Plasm a anion gap in blood by calculation 8 mmol/ L low: 6mmol/ Lhigh: 16mmol /L Anion Gap 8 6 - 16 mmol/ L 05/24 5:44 AM CDT [facility] Not Available Not Available 06/01/2024 16:51:04 05/25/19 25 05/24/2024 Compr [employer] [facility] [employer] 1999 panel - Serum or Plasm a urea nitrogen [mass/volume ] in serum or plasma 15 mg/dL low: 5.3mg/ dLhigh : 18.7mg /dL BUN 15 5.3 - 18.7 mg/dL 05/24 5:44 AM CDT [facility] Not Available Not Available 06/01/2024 16:51:04 05/25/19 25 05/24/2024 Compr [employer] [facility] [employer] 1999 panel - Serum or Plasm a creatinine [mass/volume ] in serum or plasma 0.87 mg/dL low: 0.72mg /dLhig h: 1.25mg /dL Creat inine 0.87 0.72 - 1.25 mg/dL 05/24 5:44 AM CDT [facility] Not Available Not Available 06/01/2024 16:51:04 05/25/19 25 05/24/2024 Compr [employer] [facility] [employer] 1999 panel - Serum or Plasm a alkaline phosphatase [enzymatic activity/vol ume] in serum or plasma 68 U/L low: 40U/Lh igh: 150U/L Alkal ine Phosp hatas e 68 40 - 150 U/L 05/24 5:44 AM CDT [facility] Not Available Not Available 06/01/2024 16:51:04 05/25/19 25 05/24/2024 [facility] 1999 panel - Serum or Plasm a alanine aminotransfe rase [enzymatic activity/vol ume] in serum or plasma 31 U/L low: 6U/Lhi gh: 57U/L ALT 31 6 - 57 U/L 05/24 5:44 AM CDT [facility] Not Available Not Available 06/01/2024 16:51:04 05/25/19 25 05/24/2024 [facility] [employer] [facility] [facility] 1999 panel - Serum or Plasm a aspartate aminotransfe rase [enzymatic activity/vol ume] in serum or plasma 19 U/L low: 10U/Lh igh: 48U/L AST 19 10 - 48 U/L 05/24 5:44 AM CDT [facility] Not Available Not Available 06/01/2024 16:51:04 05/25/19 25 05/24/2024 [facility] [employer] [facility] 1999 panel - Serum or Plasm a protein [mass/volume ] in serum or plasma 6.4 text: 6.4 - 8.3 gm/dL Prote in Total 6.4 6.4 - 8.3 gm/dL 05/24 5:44 AM CDT [facility] Not Available Not Available 06/01/2024 16:51:04 05/25/19 25 05/24/2024 [facility] [employer] 1999 panel - Serum or Plasm a albumin [mass/volume ] in serum or plasma 2.6 text: 3.4 - 5.0 gm/dL low Album in 2.6 (L) 3.4 - 5.0 gm/dL 05/24 5:44 AM CDT [facility] Not Available Not Available 06/01/2024 16:51:04 05/25/19 25 05/24/2024 [facility] 1999 panel - Serum or Plasm a bilirubin.to chana [mass/volume ] in serum or plasma 0.4 mg/dL low: 0.2mg/ dLhigh : 1.2mg/ dL Bilir ubin Total 0.4 0.2 - 1.2 mg/dL 05/24 5:44 AM CDT [facility] Not Available Not Available 06/01/2024 16:51:04 05/25/1905/24/2024 Compr ehens lupillo metab olic 2000 panel - Serum or Plasm a glomerular filtration rate [volume rate/area] in serum, plasma or blood by creatinine-b ased formula (CKD-epi 2020)/1.73 sq M text: >=90 mL/min /1.73 m2 eGFR by CKD-E PI >90 >=90 mL/mi n/1.7 3 m2 05/24 5:44 AM CDT [facility] Not Available Not Available 06/01/2024 16:51:04 05/25/1905/24/2024 Compr ehens lupillo metab olic 2000 panel - Serum or Plasm a interpretati on and review of laboratory results Abnorm al Not Available Not Available 16:51:04 05/25/19 25 05/24/2024 CBC W Auto Diffe renti al panel - Blood leukocytes [#/volume] in blood by automated count 17.7 text: 4.0 - 10.7 x10e9/ L high WBC 17.7 (H) 4.0 - 10.7 x10E9 /L 05/24 6:00 AM CDT [facility] Not Available Not Available 06/01/2024 16:51:04 05/25/19 25 05/24/2024 CBC W Auto Diffe renti al panel - Blood erythrocytes [#/volume] in blood by automated count 4.18 text: 4.30 - 5.80 x10e12 /L low RBC Count 4.18 (L) 4.30 - 5.80 x10E1 2/L 05/24 6:00 AM CDT [facility] Not Available Not Available 06/01/2024 16:51:04 05/25/19 25 05/24/2024 CBC W Auto Diffe renti al panel - Blood hemoglobin [mass/volume ] in blood 10.4 g/dL low: 13.3g/ dLhigh : 17.5g/ dL low Hemog lobin 10.4 (L) 13.3 - 17.5 g/dL 05/24 6:00 AM CDT [facility] Not Available Not Available 06/01/2024 16:51:04 05/25/19 25 05/24/2024 CBC W Auto Diffe kayode al panel - Blood hematocrit [volume fraction] of blood by automated count 35 % low: 38.7%h igh: 51.1% low Hemat ocrit 35.0 (L) 38.7 - 51.1 % 05/24 6:00 AM CDT [facility] Not Available Not Available 06/01/2024 16:51:04 05/25/19 25 05/24/2024 CBC W Auto Diffe kayode al panel - Blood MCV [entitic mean volume] in red blood cells by automated count 83.7 fL low: 80fLhi gh: 98fL MCV 83.7 80.0 - 98.0 fL 05/24 6:00 AM CDT [facility] Not Available Not Available 06/01/2024 16:51:04 05/25/19 25 05/24/2024 CBC W Auto Diffe kayode al panel - Blood MCH [entitic mass] by automated count 24.9 pg low: 26.7pg high: 33.6pg low MCH 24.9 (L) 26.7 - 33.6 pg 05/24 6:00 AM CDT [facility] Not Available Not Available 06/01/2024 16:51:04 05/25/19 25 05/24/2024 CBC W Auto Diffe kayode al panel - Blood MCHC [entitic mass/volume] in red blood cells by automated count 29.7 g/dL low: 31.7g/ dLhigh : 36.3g/ dL low MCHC 29.7 (L) 31.7 - 36.3 g/dL 05/24 6:00 AM CDT [facility] Not Available Not Available 06/01/2024 16:51:04 05/25/19 25 05/24/2024 CBC W Auto Diffe kayode al panel - Blood erythrocyte [distwidth] in red blood cells by automated count 14.8 % low: 11.3%h igh: 14.8% RDW-C V 14.8 11.3 - 14.8 % 05/24 6:00 AM CDT [facility] Not Available Not Available 06/01/2024 16:51:04 05/25/19 25 05/24/2024 CBC W Auto Diffe renti al panel - Blood platelets [#/volume] in blood by automated count 296 text: 150 - 420 x10e9/ L Plate let Count 296 150 - 420 x10E9 /L 05/24 6:00 AM CDT [facility] Not Available Not Available 06/01/2024 16:51:04 05/25/19 25 05/24/2024 CBC W Auto Diffe renti al panel - Blood platelet [entitic mean volume] in blood by automated count 10 fL low: 7.8fLh igh: 11.4fL MPV 10.0 7.8 - 11.4 fL 05/24 6:00 AM CDT [facility] Not Available Not Available 06/01/2024 16:51:04 05/25/19 25 05/24/2024 CBC W Auto Diffe renti al panel - Blood neutrophils/ leukocytes in blood by automated count 73.2 % low: 41%hig h: 74% Neutr ophil % 73.2 41.0 - 74.0 % 05/24 6:00 AM CDT [facility] Not Available Not Available 06/01/2024 16:51:04 05/25/19 25 05/24/2024 CBC W Auto Diffe renti al panel - Blood lymphocytes/ leukocytes in blood by automated count 12.5 % low: 17%hig h: 47% low Lymph ocyte % 12.5 (L) 17.0 - 47.0 % 05/24 6:00 AM CDT [facility] Not Available Not Available 06/01/2024 16:51:04 05/25/19 25 05/24/2024 CBC W Auto Diffe renti al panel - Blood monocytes/le ukocytes in blood by automated count 11.3 % low: 3%high : 11% high Monoc yte % 11.3 (H) 3.0 - 11.0 % 05/24 6:00 AM CDT [facility] Not Available Not Available 06/01/2024 16:51:04 05/25/19 25 05/24/2024 CBC W Auto Diffe renti al panel - Blood eosinophils/ leukocytes in blood by automated count 2 % low: 0%high : 7% Eosin ophil % 2.0 0.0 - 7.0 % 05/24 6:00 AM CDT [facility] Not Available Not Available 06/01/2024 16:51:04 05/25/19 25 05/24/2024 CBC W Auto Diffe renti al panel - Blood basophils/le ukocytes in blood by automated count 0.4 % low: 0%high : 1.6% Basop hil % 0.4 0.0 - 1.6 % 05/24 6:00 AM CDT [facility] Not Available Not Available 06/01/2024 16:51:04 05/25/19 25 05/24/2024 CBC W Auto Diffe renti al panel - Blood immature granulocytes /leukocytes in blood by automated count 0.6 % low: 0%high : 1% Immat ure Granu locyt es % 0.6 0.0 - 1.0 % 05/24 6:00 AM CDT [facility] Not Available Not Available 06/01/2024 16:51:04 05/25/19 25 05/24/2024 CBC W Auto Diffe renti al panel - Blood neutrophils [#/volume] in blood by automated count 12.94 text: 1.60 - 7.50 x10e9/ L high Neutr ophil Absol [place] 12.94 (H) 1.60 - 7.50 x10E9 /L 05/24 6:00 AM CDT [facility] Not Available Not Available 06/01/2024 16:51:04 05/25/19 25 05/24/2024 CBC W Auto Diffe renti al panel - Blood lymphocytes [#/volume] in blood by automated count 2.2 text: 1.00 - 4.40 x10e9/ L Lymph ocyte Absol [place] 2.20 1.00 - 4.40 x10E9 /L 05/24 6:00 AM CDT [facility] Not Available Not Available 06/01/2024 16:51:04 05/25/19 25 05/24/2024 CBC W Auto Diffe renti al panel - Blood monocytes [#/volume] in blood by automated count 1.99 text: 0.15 - 1.00 x10e9/ L high Monoc yte Absol [place] 1.99 (H) 0.15 - 1.00 x10E9 /L 05/24 6:00 AM CDT [facility] Not Available Not Available 06/01/2024 16:51:04 05/25/19 25 05/24/2024 CBC W Auto Diffe renti al panel - Blood eosinophils [#/volume] in blood 0.35 text: 0.00 - 0.60 x10e9/ L Eosin ophil Absol [place] 0.35 0.00 - 0.60 x10E9 /L 05/24 6:00 AM CDT [facility] Not Available Not Available 06/01/2024 16:51:04 05/25/19 25 05/24/2024 CBC W Auto Diffe renti al panel - Blood basophils [#/volume] in blood by automated count 0.07 text: 0.00 - 0.13 x10e9/ L Basop hil Absol [place] 0.07 0.00 - 0.13 x10E9 /L 05/24 6:00 AM CDT [facility] Not Available Not Available 06/01/2024 16:51:04 05/25/19 25 05/24/2024 CBC W Auto Diffe renti al panel - Blood interpretati on and review of laboratory results Abnorm al Not Available Not Available 16:51:04 05/25/19 25 05/24/2024 Gluco se [Mass /volu me] in Arter ial blood glucose [mass/volume ] in capillary blood by glucometer 95 mg/dL low: 70mg/d Lhigh: 99mg/d L Gluco se WB/PO C 95 70 - 99 mg/dL 05/24 12:36 AM CDT [facility] Not Available Not Available 06/01/2024 16:51:04 05/25/19 25 05/24/2024 Gluco se [Mass /volu me] in Arter ial blood specimen source identified Arteri al Speci men Type Arter ial 05/24 12:36 AM CDT [facility] Not Available Not Available 06/01/2024 16:51:04 04/08/20 25 05/25/2024 Gluco se [Mass /volu me] in Arter ial blood glucose [mass/volume ] in capillary blood by glucometer 116 mg/dL low: 70mg/d Lhigh: 99mg/d L high Gluco se WB/PO C 116 (H) 70 - 99 mg/dL 05/25 12:40 PM CDT [facility] Not Available Not Available 06/01/2024 16:51:05 05/26/19 25 05/25/2024 Gluco se [Mass /volu me] in Arter ial blood specimen source identified Cap Finger stick Speci men Type Cap Finge rstic k 05/25 12:40 PM CDT [facility] Not Available Not Available 06/01/2024 16:51:05 05/26/19 25 05/25/2024 Gluco se [Mass /volu me] in Arter ial blood interpretati on and review of laboratory results Abnorm al Not Available Not Available 16:51:05 05/26/19 25 05/25/2024 Gluco se [Mass /volu me] in Arter ial blood glucose [mass/volume ] in capillary blood by glucometer 95 mg/dL low: 70mg/d Lhigh: 99mg/d L Gluco se WB/PO C 95 70 - 99 mg/dL 05/25 5:05 AM CDT [facility] Not Available Not Available 06/01/2024 16:51:05 05/26/19 25 05/25/2024 Gluco se [Mass /volu me] in Arter ial blood specimen source identified Cap Finger stick Speci men Type Cap Finge rstic k 05/25 5:05 AM CDT [facility] Not Available Not Available 06/01/2024 16:51:05 05/26/19 25 05/25/2024 SLIDE SCAN HEMAT OLOGY erythrocyte [morphology] in blood REVIEW ED RBC Morph ology REVIE WED 05/25 3:13 AM CDT [facility] Not Available Not Available 06/01/2024 16:51:05 05/26/19 25 05/25/2024 SLIDE SCAN HEMAT OLOGY microcytes [presence] in blood by light microscopy MANY text: (none) abnormal Micro cytos is MANY (A) (none ) 05/25 3:13 AM CDT [facility] Not Available Not Available 06/01/2024 16:51:05 05/26/19 25 05/25/2024 SLIDE SCAN HEMAT OLOGY platelet clump [presence] in blood by light microscopy PRESEN T text: (none) abnormal Plate let Clump s PRESE NT (A) (none ) 05/25 3:13 AM CDT [facility] Not Available Not Available 06/01/2024 16:51:05 05/26/19 25 05/25/2024 SLIDE SCAN HEMAT OLOGY comment See Commen t Comme nt See Comme nt 05/25 3:13 AM CDT [facility] Not Available Not Available 06/01/2024 16:51:05 05/26/19 25 05/25/2024 SLIDE SCAN HEMAT OLOGY interpretati on and review of laboratory results Abnorm al Not Available Not Available 16:51:05 05/26/19 25 05/25/2024 Phosp hate [Mass /volu me] in Serum or Plasm a phosphate [mass/volume ] in serum or plasma 4.9 mg/dL low: 2.5mg/ dLhigh : 4.5mg/ dL high Phosp horus 4.9 (H) 2.5 - 4.5 mg/dL 05/25 2:57 AM CDT [facility] Not Available Not Available 06/01/2024 16:51:05 05/26/19 25 05/25/2024 Phosp hate [Mass /volu me] in Serum or Plasm a interpretati on and review of laboratory results Abnorm al Not Available Not Available 16:51:05 05/26/19 25 05/25/2024 Magne sium [Mass /volu me] in Serum or Plasm a magnesium [mass/volume ] in serum or plasma 1.8 mg/dL low: 1.6mg/ dLhigh : 2.6mg/ dL Magne sium 1.8 1.6 - 2.6 mg/dL 05/25 2:57 AM CDT [facility] Not Available Not Available 06/01/2024 16:51:05 05/26/19 25 05/25/2024 Magne sium [Mass /volu me] in Serum or Plasm a interpretati on and review of laboratory results Normal Not Available Not Available 05/18 16:51:05 05/26/19 25 05/25/2024 Compr ehens lupillo metab olic 1999 panel - Serum or Plasm a glucose [mass/volume ] in serum or plasma 96 mg/dL low: 70mg/d Lhigh: 99mg/d L Gluco se 96 70 - 99 mg/dL 05/25 2:57 AM CDT [facility] Not Available Not Available 06/01/2024 16:51:05 05/26/19 25 05/25/2024 Compr ehens lupillo metab olic 1999 panel - Serum or Plasm a sodium [moles/volum e] in serum or plasma 137 mmol/ L low: 136mmo l/Lhig h: 145mmo l/L Sodiu m 137 136 - 145 mmol/ L 05/25 2:57 AM CDT [facility] Not Available Not Available 06/01/2024 16:51:05 05/26/19 25 05/25/2024 Compr ehens lupillo metab olic 1999 panel - Serum or Plasm a potassium [moles/volum e] in serum or plasma 4 mmol/ L low: 3.5mmo l/Lhig h: 5.1mmo l/L Potas sium 4.0 3.5 - 5.1 mmol/ L 05/25 2:57 AM CDT [facility] Not Available Not Available 06/01/2024 16:51:05 05/26/19 25 05/25/2024 Compr ehens lupillo metab olic 1999 panel - Serum or Plasm a chloride [moles/volum e] in serum or plasma 102 mmol/ L low: 98mmol /Lhigh : 107mmo l/L Chlor temitope 102 98 - 107 mmol/ L 05/25 2:57 AM CDT [facility] Not Available Not Available 06/01/2024 16:51:05 05/26/19 25 05/25/2024 Compr ehens lupillo metab olic 1999 panel - Serum or Plasm a carbon dioxide, total [moles/volum e] in serum or plasma 24 mmol/ L low: 22mmol /Lhigh : 29mmol /L CO2 24 22 - 29 mmol/ L 05/25 2:57 AM CDT [facility] Not Available Not Available 06/01/2024 16:51:05 05/26/19 25 05/25/2024 Compr ens lupillo metab olic 1999 panel - Serum or Plasm a calcium [mass/volume ] in serum or plasma 8.8 mg/dL low: 8.4mg/ dLhigh : 10.4mg /dL Calci um 8.8 8.4 - 10.4 mg/dL 05/25 2:57 AM CDT [facility] Not Available Not Available 06/01/2024 16:51:05 05/26/19 25 05/25/2024 [facility] [employer] lupillo metab olic 1999 panel - Serum or Plasm a anion gap in blood by calculation 11 mmol/ L low: 6mmol/ Lhigh: 16mmol /L Anion Gap 11 6 - 16 mmol/ L 05/25 2:57 AM CDT [facility] Not Available Not Available 06/01/2024 16:51:05 05/26/19 25 05/25/2024 Compr Use[employer] lupillo metab olic 1999 panel - Serum or Plasm a urea nitrogen [mass/volume ] in serum or plasma 11 mg/dL low: 5.3mg/ dLhigh : 18.7mg /dL BUN 11 5.3 - 18.7 mg/dL 05/25 2:57 AM CDT [facility] Not Available Not Available 06/01/2024 16:51:05 05/26/19 25 05/25/2024 Compr Use[employer] lupillo Backchat olic 1999 panel - Serum or Plasm a creatinine [mass/volume ] in serum or plasma 0.76 mg/dL low: 0.72mg /dLhig h: 1.25mg /dL Creat inine 0.76 0.72 - 1.25 mg/dL 05/25 2:57 AM CDT [facility] Not Available Not Available 06/01/2024 16:51:05 05/26/19 25 05/25/2024 Compr ehens lupillo metab ic 1999 panel - Serum or Plasm a alkaline phosphatase [enzymatic activity/vol ume] in serum or plasma 69 U/L low: 40U/Lh igh: 150U/L Alkal ine Phosp hatas e 69 40 - 150 U/L 05/25 2:57 AM CDT [facility] Not Available Not Available 06/01/2024 16:51:05 05/26/19 25 05/25/2024 Compr Use[employer] lupillo metab ic 1999 panel - Serum or Plasm a alanine aminotransfe rase [enzymatic activity/vol ume] in serum or plasma 36 U/L low: 6U/Lhi gh: 57U/L ALT 36 6 - 57 U/L 05/25 2:57 AM CDT [facility] Not Available Not Available 06/01/2024 16:51:05 05/26/19 25 05/25/2024 Compr Use[employer] lupillo metab ic 1999 panel - Serum or Plasm a aspartate aminotransfe rase [enzymatic activity/vol ume] in serum or plasma 26 U/L low: 10U/Lh igh: 48U/L AST 26 10 - 48 U/L 05/25 2:57 AM CDT [facility] Not Available Not Available 06/01/2024 16:51:05 05/26/19 25 05/25/2024 Compr Action lupillo metab ic 1999 panel - Serum or Plasm a protein [mass/volume ] in serum or plasma 6.3 text: 6.4 - 8.3 gm/dL low Prote in Total 6.3 (L) 6.4 - 8.3 gm/dL 05/25 2:57 AM CDT [facility] Not Available Not Available 06/01/2024 16:51:05 05/26/19 25 05/25/2024 Compr Use[employer] lupillo metab olic 1999 panel - Serum or Plasm a albumin [mass/volume ] in serum or plasma 2.4 text: 3.4 - 5.0 gm/dL low Album in 2.4 (L) 3.4 - 5.0 gm/dL 05/25 2:57 AM CDT [facility] Not Available Not Available 06/01/2024 16:51:05 05/26/19 25 05/25/2024 Compr ehens lupillo metab olic 2000 panel - Serum or Plasm a bilirubin.to chana [mass/volume ] in serum or plasma 0.4 mg/dL low: 0.2mg/ dLhigh : 1.2mg/ dL Bilir ubin Total 0.4 0.2 - 1.2 mg/dL 05/25 2:57 AM CDT [facility] Not Available Not Available 06/01/2024 16:51:05 05/26/19 25 05/25/2024 Compr ehens lupillo metab olic 2000 panel - Serum or Plasm a glomerular filtration rate [volume rate/area] in serum, plasma or blood by creatinine-b ased formula (CKD-epi 2020)/1.73 sq M text: >=90 mL/min /1.73 m2 eGFR by CKD-E PI >90 >=90 mL/mi n/1.7 3 m2 05/25 2:57 AM CDT [facility] Not Available Not Available 06/01/2024 16:51:05 05/26/19 25 05/25/2024 Compr Use[employer] lupillo Backchat olic 2000 panel - Serum or Plasm a interpretati on and review of laboratory results Abnorm al Not Available Not Available 16:51:05 05/26/19 25 05/25/2024 CBC W Auto Diffe renti al panel - Blood leukocytes [#/volume] in blood by automated count 14.8 text: 4.0 - 10.7 x10e9/ L high WBC 14.8 (H) 4.0 - 10.7 x10E9 /L 05/25 3:13 AM CDT [facility] Not Available Not Available 06/01/2024 16:51:05 05/26/19 25 05/25/2024 CBC W Auto Diffe renti al panel - Blood erythrocytes [#/volume] in blood by automated count 4.17 text: 4.30 - 5.80 x10e12 /L low RBC Count 4.17 (L) 4.30 - 5.80 x10E1 2/L 05/25 3:13 AM CDT [facility] Not Available Not Available 06/01/2024 16:51:05 05/26/19 25 05/25/2024 CBC W Auto Diffe renti al panel - Blood hemoglobin [mass/volume ] in blood 10.4 g/dL low: 13.3g/ dLhigh : 17.5g/ dL low Hemog lobin 10.4 (L) 13.3 - 17.5 g/dL 05/25 3:13 AM CDT [facility] Not Available Not Available 06/01/2024 16:51:05 05/26/19 25 05/25/2024 CBC W Auto Diffe renti al panel - Blood hematocrit [volume fraction] of blood by automated count 34.8 % low: 38.7%h igh: 51.1% low Hemat ocrit 34.8 (L) 38.7 - 51.1 % 05/25 3:13 AM CDT [facility] Not Available Not Available 06/01/2024 16:51:05 05/26/19 25 05/25/2024 CBC W Auto Diffe renti al panel - Blood MCV [entitic mean volume] in red blood cells by automated count 83.5 fL low: 80fLhi gh: 98fL MCV 83.5 80.0 - 98.0 fL 05/25 3:13 AM CDT [facility] Not Available Not Available 06/01/2024 16:51:05 05/26/19 25 05/25/2024 CBC W Auto Diffe renti al panel - Blood MCH [entitic mass] by automated count 24.9 pg low: 26.7pg high: 33.6pg low MCH 24.9 (L) 26.7 - 33.6 pg 05/25 3:13 AM CDT [facility] Not Available Not Available 06/01/2024 16:51:05 05/26/19 25 05/25/2024 CBC W Auto Diffe renti al panel - Blood MCHC [entitic mass/volume] in red blood cells by automated count 29.9 g/dL low: 31.7g/ dLhigh : 36.3g/ dL low MCHC 29.9 (L) 31.7 - 36.3 g/dL 05/25 3:13 AM CDT [facility] Not Available Not Available 06/01/2024 16:51:05 05/26/19 25 05/25/2024 CBC W Auto Diffe renti al panel - Blood erythrocyte [distwidth] in red blood cells by automated count 14.5 % low: 11.3%h igh: 14.8% RDW-C V 14.5 11.3 - 14.8 % 05/25 3:13 AM CDT [facility] Not Available Not Available 06/01/2024 16:51:05 05/26/19 25 05/25/2024 CBC W Auto Diffe renti al panel - Blood platelets [#/volume] in blood by automated count 269 text: 150 - 420 x10e9/ L Plate let Count 269 150 - 420 x10E9 /L 05/25 3:13 AM CDT [facility] Not Available Not Available 06/01/2024 16:51:05 05/26/19 25 05/25/2024 CBC W Auto Diffe renti al panel - Blood platelet [entitic mean volume] in blood by automated count 10 fL low: 7.8fLh igh: 11.4fL MPV 10.0 7.8 - 11.4 fL 05/25 3:13 AM CDT [facility] Not Available Not Available 06/01/2024 16:51:05 05/26/19 25 05/25/2024 CBC W Auto Diffe renti al panel - Blood neutrophils/ leukocytes in blood by automated count 69.9 % low: 41%hig h: 74% Neutr ophil % 69.9 41.0 - 74.0 % 05/25 3:13 AM CDT [facility] Not Available Not Available 06/01/2024 16:51:05 05/26/19 25 05/25/2024 CBC W Auto Diffe renti al panel - Blood lymphocytes/ leukocytes in blood by automated count 17.1 % low: 17%hig h: 47% Lymph ocyte % 17.1 17.0 - 47.0 % 05/25 3:13 AM CDT [facility] Not Available Not Available 06/01/2024 16:51:05 05/26/19 25 05/25/2024 CBC W Auto Diffe renti al panel - Blood monocytes/le ukocytes in blood by automated count 9.2 % low: 3%high : 11% Monoc yte % 9.2 3.0 - 11.0 % 05/25 3:13 AM CDT [facility] Not Available Not Available 06/01/2024 16:51:05 05/26/19 25 05/25/2024 CBC W Auto Diffe renti al panel - Blood eosinophils/ leukocytes in blood by automated count 2.8 % low: 0%high : 7% Eosin ophil % 2.8 0.0 - 7.0 % 05/25 3:13 AM CDT [facility] Not Available Not Available 06/01/2024 16:51:05 05/26/19 25 05/25/2024 CBC W Auto Diffe renti al panel - Blood basophils/le ukocytes in blood by automated count 0.3 % low: 0%high : 1.6% Basop hil % 0.3 0.0 - 1.6 % 05/25 3:13 AM CDT [facility] Not Available Not Available 06/01/2024 16:51:05 05/26/19 25 05/25/2024 CBC W Auto Diffe renti al panel - Blood immature granulocytes /leukocytes in blood by automated count 0.7 % low: 0%high : 1% Immat ure Granu locyt es % 0.7 0.0 - 1.0 % 05/25 3:13 AM CDT [facility] Not Available Not Available 06/01/2024 16:51:05 05/26/19 25 05/25/2024 CBC W Auto Diffe renti al panel - Blood neutrophils [#/volume] in blood by automated count 10.34 text: 1.60 - 7.50 x10e9/ L high Neutr ophil Absol [place] 10.34 (H) 1.60 - 7.50 x10E9 /L 05/25 3:13 AM CDT [facility] Not Available Not Available 06/01/2024 16:51:05 05/26/19 25 05/25/2024 CBC W Auto Diffe renti al panel - Blood lymphocytes [#/volume] in blood by automated count 2.54 text: 1.00 - 4.40 x10e9/ L Lymph ocyte Absol [place] 2.54 1.00 - 4.40 x10E9 /L 05/25 3:13 AM CDT [facility] Not Available Not Available 06/01/2024 16:51:05 05/26/19 25 05/25/2024 CBC W Auto Diffe renti al panel - Blood monocytes [#/volume] in blood by automated count 1.37 text: 0.15 - 1.00 x10e9/ L high Monoc yte Absol [place] 1.37 (H) 0.15 - 1.00 x10E9 /L 05/25 3:13 AM CDT [facility] Not Available Not Available 06/01/2024 16:51:05 05/26/19 25 05/25/2024 CBC W Auto Diffe renti al panel - Blood eosinophils [#/volume] in blood 0.42 text: 0.00 - 0.60 x10e9/ L Eosin ophil Absol [place] 0.42 0.00 - 0.60 x10E9 /L 05/25 3:13 AM CDT [facility] Not Available Not Available 06/01/2024 16:51:05 05/26/19 25 05/25/2024 CBC W Auto Diffe renti al panel - Blood basophils [#/volume] in blood by automated count 0.05 text: 0.00 - 0.13 x10e9/ L Basop hil Absol [place] 0.05 0.00 - 0.13 x10E9 /L 05/25 3:13 AM CDT [facility] Not Available Not Available 06/01/2024 16:51:05 05/26/19 25 05/25/2024 CBC W Auto Diffe renti al panel - Blood interpretati on and review of laboratory results Abnorm al Not Available Not Available 16:51:05 05/26/19 25 05/25/2024 Gluco se [Mass /volu me] in Arter ial blood glucose [mass/volume ] in capillary blood by glucometer 108 mg/dL low: 70mg/d Lhigh: 99mg/d L high Gluco se WB/PO C 108 (H) 70 - 99 mg/dL 05/25 12:33 AM CDT [facility] Not Available Not Available 06/01/2024 16:51:05 05/26/19 25 05/25/2024 Gluco se [Mass /volu me] in Arter ial blood specimen source identified Arteri al Speci men Type Arter ial 05/25 12:33 AM CDT [facility] Not Available Not Available 06/01/2024 16:51:05 05/26/19 25 05/25/2024 Gluco se [Mass /volu me] in Arter ial blood interpretati on and review of laboratory results Abnorm al Not Available Not Available 16:51:05 05/27/19 25 05/26/2024 Phosp hate [Mass /volu me] in Serum or Plasm a phosphate [mass/volume ] in serum or plasma 3.1 mg/dL low: 2.5mg/ dLhigh : 4.5mg/ dL Phosp horus 3.1 2.5 - 4.5 mg/dL 05/26 5:39 AM CDT [facility] Not Available Not Available 06/01/2024 16:51:06 05/27/19 25 05/26/2024 Phosp hate [Mass /volu me] in Serum or Plasm a interpretati on and review of laboratory results Normal Not Available Not Available 05/18 16:51:06 05/27/19 25 05/26/2024 Folat e [Mass /volu me] in Serum or Plasm a folate [mass/volume ] in serum or plasma 11.7 NG/mL low: 7NG/mL high: 31.4NG /mL Folat e 11.7 7.0 - 31.4 ng/mL 05/26 6:10 AM CDT [facility] Not Available Not Available 06/01/2024 16:51:06 05/27/19 25 05/26/2024 Folat e [Mass /volu me] in Serum or Plasm a interpretati on and review of laboratory results Normal Not Available Not Available 05/18 16:51:06 05/27/19 25 05/26/2024 Cobal littlejohn (Becca min B12) [Mass /volu me] in Serum or Plasm a cobalamin (vitamin B12) [mass/volume ] in serum or plasma 501 pg/mL low: 213pg/ mLhigh : 816pg/ mL Vitam in B12 501 213 - 816 pg/mL 05/26 6:10 AM CDT [facility] Not Available Not Available 06/01/2024 16:51:06 05/27/19 25 05/26/2024 Cobal littlejohn (Becca min B12) [Mass /volu me] in Serum or Plasm a interpretati on and review of laboratory results Normal Not Available Not Available 05/18 16:51:06 05/27/19 25 05/26/2024 Shawn tin [Mass /volu me] in Serum or Plasm a ferritin [mass/volume ] in serum or plasma 347 NG/mL low: 22NG/m Lhigh: 275NG/ mL high Shawn tin 347 (H) 22 - 275 ng/mL 05/26 6:10 AM CDT [facility] Not Available Not Available 06/01/2024 16:51:06 05/27/19 25 05/26/2024 Shawn tin [Mass /volu me] in Serum or Plasm a interpretati on and review of laboratory results Abnorm al Not Available Not Available 16:51:06 05/27/19 25 05/26/2024 Iron satur ation [Mass Fract ion] in Serum or Plasm a iron [mass/volume ] in serum or plasma 13 ug/dL low: 50ug/d Lhigh: 175ug/ dL low Iron 13 (L) 50 - 175 ug/dL 05/26 5:39 AM CDT [facility] Not Available Not Available 06/01/2024 16:51:06 05/27/19 25 05/26/2024 Iron satur ation [Mass Fract ion] in Serum or Plasm a transferrin [mass/volume ] in serum or plasma 153 mg/dL low: 174mg/ dLhigh : 382mg/ dL low Trans shawn n 153 (L) 174 - 382 mg/dL 05/26 5:39 AM CDT [facility] Not Available Not Available 06/01/2024 16:51:06 05/27/19 25 05/26/2024 Iron satur ation [Mass Fract ion] in Serum or Plasm a iron binding capacity [mass/volume ] in serum or plasma 191 ug/dL low: 240ug/ dLhigh : 450ug/ dL low TIBC Calcu lated 191 (L) 240 - 450 ug/dL 05/26 5:39 AM CDT [facility] Not Available Not Available 06/01/2024 16:51:06 05/27/19 25 05/26/2024 Iron satur ation [Mass Fract ion] in Serum or Plasm a iron saturation [mass fraction] in serum or plasma 7 % low: 20%hig h: 50% low Iron Satur ation % 7 (L) 20 - 50 % 05/26 5:39 AM CDT [facility] Not Available Not Available 06/01/2024 16:51:06 05/27/19 25 05/26/2024 Iron satur ation [Mass Fract ion] in Serum or Plasm a interpretati on and review of laboratory results Abnorm al Not Available Not Available 16:51:06 05/27/19 25 05/26/2024 CBC panel - Blood by Autom ated count leukocytes [#/volume] in blood by automated count 16 text: 4.0 - 10.7 x10e9/ L high WBC 16.0 (H) 4.0 - 10.7 x10E9 /L 05/26 5:23 AM CDT [facility] Not Available Not Available 06/01/2024 16:51:06 05/27/19 25 05/26/2024 CBC panel - Blood by Autom ated count erythrocytes [#/volume] in blood by automated count 4.25 text: 4.30 - 5.80 x10e12 /L low RBC Count 4.25 (L) 4.30 - 5.80 x10E1 2/L 05/26 5:23 AM CDT [facility] Not Available Not Available 06/01/2024 16:51:06 05/27/19 25 05/26/2024 CBC panel - Blood by Autom ated count hemoglobin [mass/volume ] in blood 10.6 g/dL low: 13.3g/ dLhigh : 17.5g/ dL low Hemog lobin 10.6 (L) 13.3 - 17.5 g/dL 05/26 5:23 AM CDT [facility] Not Available Not Available 06/01/2024 16:51:06 05/27/19 25 05/26/2024 CBC panel - Blood by Autom ated count hematocrit [volume fraction] of blood by automated count 34.3 % low: 38.7%h igh: 51.1% low Hemat ocrit 34.3 (L) 38.7 - 51.1 % 05/26 5:23 AM CDT [facility] Not Available Not Available 06/01/2024 16:51:06 05/27/1905/26/2024 CBC panel - Blood by Autom ated count MCV [entitic mean volume] in red blood cells by automated count 80.7 fL low: 80fLhi gh: 98fL MCV 80.7 80.0 - 98.0 fL 05/26 5:23 AM [facility] Not Available Not Available 06/01/2024 16:51:06 05/27/19 25 05/26/2024 CBC panel - Blood by Autom ated count MCH [entitic mass] by automated count 24.9 pg low: 26.7pg high: 33.6pg low MCH 24.9 (L) 26.7 - 33.6 pg 05/26 5:23 AM CDT [facility] Not Available Not Available 06/01/2024 16:51:06 05/27/1905/26/2024 CBC panel - Blood by Autom ated count MCHC [entitic mass/volume] in red blood cells by automated count 30.9 g/dL low: 31.7g/ dLhigh : 36.3g/ dL low MCHC 30.9 (L) 31.7 - 36.3 g/dL 05/26 5:[address] [facility] [employer] AT[facility] Not Available Not Available 06/01/2024 16:51:06 05/27/19 25 05/26/2024 CBC panel - Blood by Autom ated count erythrocyte [distwidth] in red blood cells by automated count 14.3 % low: 11.3%h igh: 14.8% RDW-C V 14.3 11.3 - 14.8 % 05/26 5:23 AM CDT [facility] Not Available Not Available 06/01/2024 16:51:06 05/27/19 25 05/26/2024 CBC panel - Blood by Autom ated count platelets [#/volume] in blood by automated count 305 text: 150 - 420 x10e9/ L Plate let Count 305 150 - 420 x10E9 /L 05/26 5:23 AM CDT [facility] Not Available Not Available 06/01/2024 16:51:06 05/27/19 25 05/26/2024 CBC panel - Blood by Autom ated count platelet [entitic mean volume] in blood by automated count 9.7 fL low: 7.8fLh igh: 11.4fL MPV 9.7 7.8 - 11.4 fL 05/26 5:23 AM CDT [facility] Not Available Not Available 06/01/2024 16:51:06 05/27/19 25 05/26/2024 CBC panel - Blood by Autom ated count interpretati on and review of laboratory results Abnorm al Not Available Not Available 16:51:06 05/28/19 25 05/28/2024 Gluco se [Mass /volu me] in Arter ial blood glucose [mass/volume ] in capillary blood by glucometer 145 mg/dL low: 70mg/d Lhigh: 99mg/d L high Gluco se WB/PO C 145 (H) 70 - 99 mg/dL 05/27 11:33 PM CDT [facility] Not Available Not Available 06/01/2024 16:51:06 05/28/19 25 05/28/2024 Gluco se [Mass /volu me] in Arter ial blood specimen source identified Cap Finger stick Speci men Type Cap Finge rstic k 05/27 11:33 PM CDT [facility] Not Available Not Available 06/01/2024 16:51:06 05/28/19 25 05/28/2024 Gluco se [Mass /volu me] in Arter ial blood interpretati on and review of laboratory results Abnorm al Not Available Not Available 16:51:06 05/28/19 25 05/27/2024 Gluco se [Mass /volu me] in Arter ial blood glucose [mass/volume ] in capillary blood by glucometer 120 mg/dL low: 70mg/d Lhigh: 99mg/d L high Gluco se WB/PO C 120 (H) 70 - 99 mg/dL 05/27 3:52 PM CDT [facility] Not Available Not Available 06/01/2024 16:51:06 05/28/19 25 05/27/2024 Gluco se [Mass /volu me] in Arter ial blood specimen source identified Venous Speci men Type Venou s 05/27 3:52 PM CDT [facility] Not Available Not Available 06/01/2024 16:51:06 05/28/1905/27/2024 Gluco se [Mass /volu me] in Arter ial blood interpretati on and review of laboratory results Abnorm al Not Available Not Available 16:51:06 05/28/19 25 05/27/2024 CBC panel - Blood by Autom ated count leukocytes [#/volume] in blood by automated count 14.2 text: 4.0 - 10.7 x10e9/ L high WBC 14.2 (H) 4.0 - 10.7 x10E9 /L 05/27 6:00 AM CDT [facility] Not Available Not Available 06/01/2024 16:51:06 05/28/19 25 05/27/2024 CBC panel - Blood by Autom ated count erythrocytes [#/volume] in blood by automated count 4.63 text: 4.30 - 5.80 x10e12 /L RBC Count 4.63 4.30 - 5.80 x10E1 2/L 05/27 6:00 AM CDT [facility] Not Available Not Available 06/01/2024 16:51:06 05/28/19 25 05/27/2024 CBC panel - Blood by Autom ated count hemoglobin [mass/volume ] in blood 11.4 g/dL low: 13.3g/ dLhigh : 17.5g/ dL low Hemog lobin 11.4 (L) 13.3 - 17.5 g/dL 05/27 6:[address] [facility] Not Available Not Available 06/01/2024 16:51:06 05/28/19 25 05/27/2024 CBC panel - Blood by Autom ated count hematocrit [volume fraction] of blood by automated count 38.6 % low: 38.7%h igh: 51.1% low Hemat ocrit 38.6 (L) 38.7 - 51.1 % 05/27 6:[address] [facility] Not Available Not Available 06/01/2024 16:51:06 05/28/19 25 05/27/2024 CBC panel - Blood by Autom ated count MCV [entitic mean volume] in red blood cells by automated count 83.4 fL low: 80fLhi gh: 98fL MCV 83.4 80.0 - 98.0 fL 05/27 6:[address] [facility] Not Available Not Available 06/01/2024 16:51:06 05/28/19 25 05/27/2024 CBC panel - Blood by Autom ated count MCH [entitic mass] by automated count 24.6 pg low: 26.7pg high: 33.6pg low MCH 24.6 (L) 26.7 - 33.6 pg 05/27 6:[address] [facility] Not Available Not Available 06/01/2024 16:51:06 05/28/19 25 05/27/2024 CBC panel - Blood by Autom ated count MCHC [entitic mass/volume] in red blood cells by automated count 29.5 g/dL low: 31.7g/ dLhigh : 36.3g/ dL low MCHC 29.5 (L) 31.7 - 36.3 g/dL 05/27 6:[address] [facility] Not Available Not Available 06/01/2024 16:51:06 05/28/19 25 05/27/2024 CBC panel - Blood by Autom ated count erythrocyte [distwidth] in red blood cells by automated count 14.6 % low: 11.3%h igh: 14.8% RDW-C V 14.6 11.3 - 14.8 % 05/27 6:00 AM CDT [facility] Not Available Not Available 06/01/2024 16:51:06 05/28/19 25 05/27/2024 CBC panel - Blood by Autom ated count platelets [#/volume] in blood by automated count 274 text: 150 - 420 x10e9/ L Plate let Count 274 150 - 420 x10E9 /L 05/27 6:00 AM CDT [facility] Not Available Not Available 06/01/2024 16:51:06 05/28/19 25 05/27/2024 CBC panel - Blood by Autom ated count platelet [entitic mean volume] in blood by automated count 9.7 fL low: 7.8fLh igh: 11.4fL MPV 9.7 7.8 - 11.4 fL 05/27 6:00 AM CDT [facility] Not Available Not Available 06/01/2024 16:51:06 05/28/19 25 05/27/2024 CBC panel - Blood by Autom ated count interpretati on and review of laboratory results Abnorm al Not Available Not Available 16:51:06 05/29/19 25 05/28/2024 CBC panel - Blood by Autom ated count leukocytes [#/volume] in blood by automated count 16.2 text: 4.0 - 10.7 x10e9/ L high WBC 16.2 (H) 4.0 - 10.7 x10E9 /L 05/28 6:35 AM T [facility] Not Available Not Available 06/01/2024 16:51:06 05/29/19 25 05/28/2024 CBC panel - Blood by Autom ated count erythrocytes [#/volume] in blood by automated count 4.42 text: 4.30 - 5.80 x10e12 /L RBC Count 4.42 4.30 - 5.80 x10E1 2/L 05/28 6:35 AM CDT [facility] Not Available Not Available 06/01/2024 16:51:06 05/29/19 25 05/28/2024 CBC panel - Blood by Autom ated count hemoglobin [mass/volume ] in blood 11 g/dL low: 13.3g/ dLhigh : 17.5g/ dL low Hemog lobin 11.0 (L) 13.3 - 17.5 g/dL 05/28 6:35 AM CDT [facility] Not Available Not Available 06/01/2024 16:51:06 05/29/19 25 05/28/2024 CBC panel - Blood by Autom ated count hematocrit [volume fraction] of blood by automated count 36.1 % low: 38.7%h igh: 51.1% low Hemat ocrit 36.1 (L) 38.7 - 51.1 % 05/28 6:35 AM CDT [facility] Not Available Not Available 06/01/2024 16:51:06 05/29/19 25 05/28/2024 CBC panel - Blood by Autom ated count MCV [entitic mean volume] in red blood cells by automated count 81.7 fL low: 80fLhi gh: 98fL MCV 81.7 80.0 - 98.0 fL 05/28 6:35 AM [facility] Not Available Not Available 06/01/2024 16:51:06 05/29/19 25 05/28/2024 CBC panel - Blood by Autom ated count MCH [entitic mass] by automated count 24.9 pg low: 26.7pg high: 33.6pg low MCH 24.9 (L) 26.7 - 33.6 pg 05/28 6:35 AM [facility] Not Available Not Available 06/01/2024 16:51:06 05/29/19 25 05/28/2024 CBC panel - Blood by Autom ated count MCHC [entitic mass/volume] in red blood cells by automated count 30.5 g/dL low: 31.7g/ dLhigh : 36.3g/ dL low MCHC 30.5 (L) 31.7 - 36.3 g/dL 05/28 6:35 AM [facility] Not Available Not Available 06/01/2024 16:51:06 05/29/19 25 05/28/2024 CBC panel - Blood by Autom ated count erythrocyte [distwidth] in red blood cells by automated count 14.7 % low: 11.3%h igh: 14.8% RDW-C V 14.7 11.3 - 14.8 % 05/28 6:35 AM CDT [facility] Not Available Not Available 06/01/2024 16:51:06 05/29/19 25 05/28/2024 CBC panel - Blood by Autom ated count platelets [#/volume] in blood by automated count 345 text: 150 - 420 x10e9/ L Plate let Count 345 150 - 420 x10E9 /L 05/28 6:35 AM CDT [facility] Not Available Not Available 06/01/2024 16:51:06 05/29/19 25 05/28/2024 CBC panel - Blood by Autom ated count platelet [entitic mean volume] in blood by automated count 10 fL low: 7.8fLh igh: 11.4fL MPV 10.0 7.8 - 11.4 fL 05/28 6:35 AM CDT [facility] Not Available Not Available 06/01/2024 16:51:06 05/29/19 25 05/28/2024 CBC panel - Blood by Autom ated count interpretati on and review of laboratory results Abnorm al Not Available Not Available 16:51:06 03/29/19 21 03/29/2020 XR, chest , 2 view No observ ation record ed. [email or web address] [address], [address], 04/06/2020 12:31:28 Result Notes None recorded. Problems Name Problem SNOMED Code Status Onset Date Resolution Date Notes Provider Name and Address Organization Details Recorded Time Contact dermatit is 77850532 Active 2017 Rossy Lim PA-C Attn: Lita g,[address] [facility], [place], [address], [facility] 9 12:25:07 Non-alco holic fatty liver 700759705 Active 2017 Rossy Lim PA-C Attn: Lita g,[address] [facility], [place], [address], [facility] 9 12:25:07 Streptoc occal tonsilli tis 72162527 Active 2017 Rossy Lim PA-C Attn: Lita johnson,[address] [facility], [place], [address], [facility] 9 12:25:07 Pilonida l cyst 03816208 Active 2016 Rossy Lim PA-C Attn: Lita johnson,[address] [facility], [place], [address], [facility] 9 12:25:56 Constipa tion 95056012 Active 2016 Rossy Lim PA-C Attn: Lita johnson,[address] [facility], [place], [address], [facility] 9 12:25:56 Gastroes ophageal reflux disease without esophagi tis 297695249 Active 2016 Rossy Lim PA-C Attn: Lita johnson,[address] [facility], [place], [address], [facility] 9 12:25:07 Pilonida l cyst with abscess Completed 201602/25/2017 s/p surgical excision Removal Reason: removed by gen surg Rossy Lim PA-C Attn: Lita johnson,[address] [facility], [place], [address], [facility] 8 11:41:15 Problem Notes None recorded. Procedures Surgical History Date Name Laterality Status Provider Name and Address Organization Details Recorded Time 9 Nebulizer tx completed Rossy Lim PA-C Attn: Accounting,[address] [place], [address], [facility] 06/25/2018 08:33:39 8 Nebulizer tx completed Rossy Lim PA-C Attn: Accounting,[address] [place], [address], [facility] 03/31/2017 11:26:54 Imaging Results Imaging Date Name Status LastModified by Organiz ation Details LastModified Time 03/29/2020 X[facility] [address] [place], [address], 04/06/2020 12:31:28 Procedure Notes None recorded. Medical Equipment None Reported. Allergies Allergen ID Allergen Name Allergen Category Reaction Reaction Severity Criticality Documentation Date Start Date Code Code System Note Provider Name and Address Organization Details Recorded Time 607690 wheat preparati on food,medi cation Not available Not available Not available 05/04/20182016 72348 52 RxNorm Other react ions and sever ities : 'Unkn own'. Rossy Lim PA-C Attn: Accountin g,[address] [facility], [place], [address], [place] - [facility] 9 12:25:56 [id number] shrimp allergeni c extract food Not available Not available Not available 05/04/20182016 47131 2 RxNorm Other react ions and sever ities : 'Unkn own'. Rossy Lim PA-C Attn: Accountin g,[address] [facility], [place], [address], [place] - [facility] 9 12:25:56 [id number] cephalexi n medicatio n rash moderate Not available 05/04/20182016 2231 RxNorm Rossy Lim PA-C Attn: Accountin g,[address] [facility], [place], [address], [place] - [facility] 9 12:25:56 70766 Keflex medicatio n rash Not available Not available 11/20/2016 19982 7 RxNorm SADAF [place], [place] - [facility] 7 09:03:53 Medications Name Sig Start Date Stop Date Status Note LastModified by Organization Details LastModified Time cyclobenz aprine 10 mg tablet 10 mg by oral route. 05/04 completed 05/05/19 19-pt states he stopped taking it Not Available Not Available Not Available amoxicill in 500 mg capsule Take 2 capsules every 8 hours by oral route for 5 days. 05/04 completed Not Available Not Available Not Available albuterol sulfate 2.5 mg/3 mL (0.083 %) solution for nebulizat ion Inhale 3 mL every day by nebuliza tion route for 1 day. 03/29 completed Not Available Not Available Not Available azithromy chanell 250 mg tablet TAKE 2 TABLETS (500 MG) BY ORAL ROUTE ONCE DAILY FOR 1 DAY THEN 1 TABLET (250 MG) BY ORAL ROUTE ONCE DAILY FOR 4 DAYS 03/29 completed Not Available Not Available Not Available ibuprofen 800 mg tablet 01/21 completed Not Available Not Available Not Available ondansetr on HCl 8 mg tablet Take 1 tablet every 8 hours by oral route as needed. 10/22 completed Not Available Not Available Not Available famotidin e 40 mg tablet Take 1 tablet every day by oral route. 10/22 completed Not Available Not Available Not Available Tubersol 5 tub. unit/0.1 mL intraderm al injection solution Administ er .1ml interder orlin 01/21 completed Not Available Not Available Not Available Zyrtec 10 mg tablet Take 1 tablet every day by oral route at bedtime. 06/24 completed Not Available Not Available Not Available metronida zole 500 mg tablet 12/24 completed Not Available Not Available Not Available acetamino phen 300 mg-codein e 30 mg tablet 06/24 completed Not Available Not Available Not Available ciproflox acin 500 mg tablet 12/24 completed Not Available Not Available Not Available tramadol 50 mg tablet TAKE 1 TABLET BY MOUTH EVERY 8 HOURS NEEDED FOR MODERATE TO SEVERE PAIN 03/29 completed Not Available Not Available Not Available amoxicill in 500 mg tablet Take 2 tablets every day by oral route for 10 days. 10/22 completed Not Available Not Available Not Available oxycodone -acetamin ophen 5 mg-325 mg tablet 02/25 completed Not Available Not Available Not Available ranitidin e 150 mg tablet 11/20 completed Not Available Not Available Not Available amoxicill in 400 mg/5 mL oral suspensio n 05/04 completed Not Available Not Available Not Available polyethyl estuardo glycol 3350 17 gram/dose oral powder 11/20 completed Not Available Not Available Not Available methylpre dnisolone 4 mg tablets in a dose pack take as directed 03/31 completed Not Available Not Available Not Available albuterol sulfate HFA 90 mcg/actua tion aerosol inhaler Inhale 2 puffs every 4 hours by inhalati on route as needed. active Not Available Not Available No t Available fluticaso ne propionat e 50 mcg/actua tion nasal spray,eric pension INHALE 1 SPRAY INTO EACH NOSTRIL ONCE A DAY 05/07 completed Not Available Not Available Not Available naproxen 500 mg tablet TAKE 1 TABLET BY MOUTH TWICE DAILY WITH MEALS 03/29 completed Not Available Not Available Not Available amoxicill in 875 mg-potass ium clavulana te 125 mg tablet Take 1 tablet every 12 hours by oral route for 7 days. 05/07 completed Not Available Not Available Not Available hydrocodo ne 7.5 mg-acetam inophen 325 mg/15 mL oral solution 05/04 completed Not Available Not Available Not Available Mucinex D 60 mg-600 mg tablet,ex tended release Take 1 tablet twice a day by oral route. 05/04 completed Not Available Not Available Not Available Align (B. is) 4 mg capsule Take 1 capsule every day by oral route for 7 days. 02/25 completed Not Available Not Available Not Available Zyrtec 10 mg capsule Take 1 capsule every day by oral route. 03/29 completed Not Available Not Available Not Available Nexium 24HR 22.3 mg capsule,d elayed release Take 1 capsule every day by oral route for 10 days. 05/07 completed Not Available Not Available Not Available ID NOW COVID-19 Test Kit TEST DIRECTED active Not Available Not Available No t Available COVID-19 test specimen collectio n DIRECTED active Not Available Not Available No t Available Vitals Date Recorded Body height Body mass index (BMI) Body mass index (BMI) Percentile per age and sex Body weight Heart rate Respiratory rate Body temperature Oxygen saturation Oxygen saturation in Arterial blood by Pulse oximetry Systolic blood pressure Diastolic blood pressure Provider Name and Address Organization Details Last Updated DateTime 9 179.07 cm 47.8 kg/m2 99 % 731047. 14 g 100 /min 16 /min 99.1 [degF] 95 % 95 % 146 mm[Hg] 98 mm[Hg] SADAF [place] [facility] 9 12:02:58 Date Recorded Body height Body mass index (BMI) Body weight Oxygen saturation Oxygen saturation in Arterial blood by Pulse oximetry Heart rate Respiratory rate Body temperature Systolic blood pressure Diastolic blood pressure Provider Name and Address Organization Details Last Updated DateTime 1 179.07 cm 55.1 kg/m2 027263. 58 g 98 % 98 % 92 /min 16 /min 97.3 [degF] 138 mm[Hg] 86 mm[Hg] Maranda Pacheco MA [facility] 10:16:17 Social History Question Answer Notes LastModified by [employer] ion Details LastModified Time Tobacco Smoking Status Current Every Day Smoker Maranda Pacheco MA [facility] 03/29/2020 12:10:54 Do You Have An Advance Directive? No Information not available 03/29/2020 Is Your Home Air Conditioned? Yes Information not available 03/29/2020 How Many Years Have You Consumed Alcohol? 13 Information not available 03/29/2020 Are You Currently Sexually Active With Anyone Who Has Traveled (within The Last 12 Weeks) To A Zika-affected Area? No Information not available 03/29/2020 Do You Have A Basement? No Information not available 03/29/2020 Do You Wear A Helmet When Biking? No Information not available 03/29/2020 Are You Blind Or Do You Have Difficulty Seeing? No Information not available 03/29/2020 Is Blood Transfusion Acceptable In An Emergency? Yes Information not available 03/29/2020 What Is Your Level Of Caffeine Consumption? Moderate Soda Information not available 11/20/2016 Are You A Caregiver? No Information not available 03/29/2020 How Much Tobacco Do You Chew? None Information not available 11/20/2016 What Type Of Injection Machine Operator Do You Use? None Information not available 03/29/2020 In The 14 Days Before Symptom Onset, Have You Had Close Contact With A Laboratory-confi rmed COVID-19 While That Case Was Ill? No Information not available 03/29/2020 In The 14 Days Before Symptom Onset, Have You Had Close Contact With A Person Who Is Under Investigation For COVID-19 While That Person Was Ill? No Information not available 03/29/2020 Have You Been To An Area Known To Be High Risk For COVID-19? No Information not available 03/29/2020 Are You Deaf Or Do You Have Serious Difficulty Hearing? No Information not available 03/29/2020 What Type Of Diet Are You Following? REGULAR Information not available 11/20/2016 Do You Have A Directive To Physicians? No Information not available 03/29/2020 Which Illicit Or Recreational Drugs Have You Used? Marijuana Smokes Marijuana 1-2 Times A Month Information not available 05/04/2018 Have You Processed Blood Or Body Fluids From An Ebola Virus Disease Patient Without Appropriate PPE? No Information not available 03/29/2020 Do You Reside In Or Have You Traveled To An Area Where Ebola Virus Transmission Is Active? No Information not available 03/29/2020 Education 12 Information no t available 03/31/2017 What Is The Highest Grade Or Level Of School You Have Completed Or The Highest Degree You Have Received? [id number] Information not available 03/29/2020 Do You Have An Electrostatic Air Filter? No Information not available 03/29/2020 Who Is Your Employer? [employer] Information not available 03/29/2020 Have There Been Any Changes To Your Family Or Social Situation? Yes Information not available 03/29/2020 What Is The Fluoride Status Of Your Home? Unknown Information not available 03/29/2020 Are There Any Guns Present In Your Home? No Information not available 03/29/2020 Which Of Your Hands Is Dominant? Right Information not available 03/29/2020 Hard Of Hearing Or Deaf In One Or Both Ears? No Information not available 11/20/2016 Have You Recently Or Are You Planning To Travel To An Area With Zika Virus? No Information not available 03/29/2020 Do You Have A Humidifier? No Information not available 03/29/2020 How Many Years Have You Used Illicit Or Recreational Drugs? 13 Information not available 03/29/2020 Do You Use Insect Repellent Routinely? No Information not available 03/29/2020 Legally Blind In One Or Both Eyes? No Information not available 11/20/2016 Where Do You Live? Apartment Information not available 03/29/2020 Do You Have A High School Diploma Or Higher Education? Yes Information not available 03/29/2020 Do You Sometimes Have To Miss Your Medical Appointments Due To Difficult Getting Transportation? No Information not available 03/29/2020 Do You Feel Unfairly Treated Due To Things Such As Race, Age, Gender, Disability Or Some Other Reason? No Information not available 03/29/2020 Do You Feel Physically And Emotionally Safe While Living At Home? Yes Information not available 03/29/2020 Do You Feel Physically And Emotionally Safe In Your Neighborhood Or Other Public Places? Yes Information not available 03/29/2020 How Long Have You Lived There? 2 Information not available 03/29/2020 Marital Status Single julio [email or web address] judd not available 11/20/2016 Do You Have A Medical Power Of Compliance Engineer Products? No Information not available 03/29/2020 What Was The Date Of Your Most Recent Tobacco Screening? 06/15/2020 Information not available 06/15/2020 Do You Have An Out Of Hospital DNR? No Information not available 03/29/2020 Have You Ever Been Counseled For Unhealthy Alcohol Use? No Information not available 03/29/2020 Do You Have Any Pets? Yes Information not available 03/29/2020 What Is Your Relationship Status? Single Information not available 03/29/2020 Do You Use Your Seat Belt Or Car Seat Routinely? No Information not available 03/29/2020 Are You Sexually Active? No Information not available 03/29/2020 Do You Have Smoke And Carbon Monoxide Detectors In Your Home? Yes Information not available 03/29/2020 At What Age Did You Start Smoking Tobacco? 19 Information not available 03/29/2020 Are You Passively Exposed To Smoke? Yes Information not available 03/29/2020 Are There Any Smokers In Your House? Yes Information not available 03/29/2020 How Much Tobacco Do You Smoke? 0.5 PPD Information not available 03/29/2020 Do You Participate In Social Media? Yes Information not available 03/29/2020 General Stress Level High Information not available 11/20/2016 Do You Use Sunscreen Routinely? No Information not available 03/29/2020 How Many Years Have You Smoked Tobacco? 1 03/29/2020 Information not available 03/29/2020 Have You Recently Traveled Abroad? No Information not available 03/29/2020 Do You Have Difficulty Walking Or Climbing Stairs? No Information not available 03/29/2020 Are You Currently In School? No Information not available 03/29/2020 Sex: Unknown Functional Status Question Answer Note LastModified by Organization Details LastModified Time Do you or have you ever used smokeless tobacco? Never used smokeless tobacco Information not available 03/29/2020 Are you currently employed? Yes Information not available 03/29/2020 Have you been exposed to chemicals or toxins? No Information not available 03/29/2020 Do you have transportation difficulties? No Information not available 03/29/2020 Are you able to care for yourself? Yes Information not available 03/29/2020 Do you have difficulty dressing or bathing? No Information not available 03/29/2020 Do you or have you ever used e-cigarettes or vape? Former user of electronic cigarettes Information not available 03/29/2020 What is your exercise level? Occasional [address], walking Information not available 11/20/2016 Do you use any illicit or recreational drugs? Yes Information not available 03/29/2020 Do you or have you ever used any other forms of tobacco or nicotine? Yes Information not available 03/29/2020 What is your level of alcohol consumption? Occasional Information not available 03/29/2020 Have you been exposed to heavy metals? No Information not available 03/29/2020 Are you able to walk? YESWOREST Information not available 03/29/2020 Do you have difficulty doing errands alone? 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 noExposureToExcessiveNo ise Information not available 03/29/2020 Mental Status Question Answer Note LastModified by Organizat ion Details LastModified Time Do you feel stressed (tense, restless, nervous, or anxious, or unable to sleep at night)? [id number] Information not available 03/29/2020 Do you have difficulty concentrating, remembering or making decisions? No Information no t available 03/29/2020 Family History Relationship Description Onset Age of this Age Resolved Age Notes LastModified by Organization Details LastModified Time Father Kortneyt sergio bah Not available 2016 09:05:03 Medical History Condition Response Coronary Artery Disease N Other N High Blood Pressure N Atrial Fibrillation N Thyroid Problems N Kidney or Bladder Problems N GI Problems Y Depression N COPD N Blood Clots N Skin Problems N Anemia N Heart Attack ([place]) N Anxiety Disorder N Diabetes N Muscle, Joint, or Bone Problems N Seizures/Epilepsy N Acid Reflux (GERD) N Cancer N Stroke N Asthma Y Allergies N High Cholesterol N Hepatitis N Liver Disease N Headaches N Osteoporosis N Heart Failure N Immunizations Vaccine Type Date Status Note Provider Nam e and Address Organization Details Recorded Time varicella 9 completed Rossy Lim PA-C Attn: Accounting,[address], [place], [address], [facility] 05/04/2018 12:25:56 Tdap 9 completed Rossy Lim PA-C Attn: Accounting,[address] [facility], [place], [place], [address] [place] [address], [facility] 05/04/2018 12:25:56 DTaP 0 completed Rossy Lim PA-C Attn: Accounting,[address] [facility], [place], [place], [address] [place] [address], [facility] 05/04/2018 12:25:56 varicella 4 completed Rossy Lim PA-C Attn: Accounting,[address] [facility], [place], [address] [place] [address], [facility] 05/04/2018 12:25:56 Hib (HbOC) 0 completed Rossy Lim PA-C Attn: Accounting,[address] [facility], [place], [address] [place] [address], [facility] 05/04/2018 12:25:57 meningococcal MPSV4 0 completed Rossy Lim PA-C Attn: Accounting,[address] [facility], [place], [address] [place] [address], [facility] 05/04/2018 12:25:57 Hep A, ped/adol, 2 dose 9 completed Rossy Lim PA-C Attn: Accounting,[address] [facility], [place], [address] [place] [address], [facility] 05/04/2018 12:25:57 Hib (HbOC) 9 completed Rossy Lim PA-C Attn: Accounting,[address] [facility], [place], [address] [place] [address], [facility] 05/04/2018 12:25:57 Tdap 3 completed Rossy Lim PA-C Attn: Accounting,[address] [facility], [place], [address] [place] [address], [facility] 05/04/2018 12:25:57 DTaP 4 completed Rossy Lim PA-C Attn: Accounting,[address] [facility], [place], [address] [place] [address], [facility] 05/04/2018 12:25:57 IPV 4 completed Rossy Lim PA-C Attn: Accounting,[address] [facility], [place], [address] [place] [address], [facility] 05/04/2018 12:25:57 Hep A, ped/adol, 2 dose 7 completed Rossy Lim PA-C Attn: Accounting,[address] [facility], [place], [address] [place] [address], [facility] 05/04/2018 12:25:57 meningococcal MCV4P 6 completed Rossy Lim PA-C Attn: Accounting,[address] [facility], [place], [address] [place] [address], [facility] 05/04/2018 12:25:57 DTaP 9 completed Rossy Lim PA-C Attn: Accounting,[address] [facility], [place], [address] [place] [address], [facility] 05/04/2018 12:25:57 HPV9 7 completed Rossy Lim PA-C Attn: Accounting,[address] [facility], [place], [address] [place] [address], [facility] 05/04/2018 12:25:57 IPV 9 completed Rossy Lim PA-C Attn: Accounting,[address] [facility], [place], [address] [place] [address], [facility] 05/04/2018 12:25:57 DTaP 9 completed Rossy Lim PA-C Attn: Accounting,[address] [facility], [place], [address] [place] [address], [facility] 05/04/2018 12:25:57 MMR 4 completed Rossy Lim PA-C Attn: Accounting,[address] [facility], [place], [address] [place] [address], [facility] 05/04/2018 12:25:57 IPV 9 completed Rossy Lim PA-C Attn: Accounting,[address] [facility], [place], [address], [facility] 05/04/2018 12:25:57 Hep B, adolescent or pediatric 8 completed Rossy Lim PA-C Attn: Accounting,[address] [facility], [place], [address], [facility] 05/04/2018 12:25:57 Hib (HbOC) 9 completed Rossy Lim PA-C Attn: Accounting,[address] [facility], [place], [address], [facility] 05/04/2018 12:25:57 meningococcal MCV4P 3 completed Rossy Lim PA-C Attn: Accounting,[address] [facility], [place], [address], [facility] 05/04/2018 12:25:57 Hep B, adolescent or pediatric 9 completed Rossy Lim PA-C Attn: Accounting,[address] [place], [address], [facility] 05/04/2018 12:25:57 IPV 0 completed Rossy Lim PA-C Attn: Accounting,[address] [place], [address], [facility] 05/04/2018 12:25:57 Hib (HbOC) 9 completed Rossy Lim PA-C Attn: Accounting,[address] [facility], [place], [address], [facility] 05/04/2018 12:25:57 MMR 9 completed Rossy Lim PA-C Attn: Accounting,[address] [place], [address], [facility] 05/04/2018 12:25:57 DTaP 9 completed Rossy Lim PA-C Attn: Accounting,[address] [facility], [place], [address], [facility] 05/04/2018 12:25:57 Hep B, adolescent or pediatric 8 completed Rossy Lim PA-C Attn: Accounting,[address] [facility], [place], [address], [facility] 05/04/2018 12:25:57 Influenza, split virus, quadrivalent, PF 7 completed Not Available [facility] 03/06/2019 02:34:20 Influenza, split virus, quadrivalent, preservative 9 completed Not Available [facility] 03/06/2019 02:40:58 COVID-19, mRNA, LNP-S, PF, 100 mcg/0.5mL dose or 50 mcg/0.25mL dose 1 completed [facility] Small, [place] [facility] 06/19/2020 08:04:54 COVID-19, mRNA, LNP-S, PF, 100 mcg/0.5mL dose or 50 mcg/0.25mL dose 1 completed SADAF Martin null, [place] [facility] 07/13/2020 16:59:59 Past Encounters Encounter ID Performer Location Encounter Start Date Encounter Closed Date Diagnosis/Indication Diagnosis SNOMED-CT Code Diagnosis ICD10 Code Diagnosis Note [id number] Luther Arora MD [facility] (Adult Med) [address] [place] [address] 11/20/2016 08:45:43 11/21/2016 08:34:43 Abdominal pain 20619681 R10.9 Reviewed ER notes, no imaging studies, no fever, no tenderness to LLQ, not likely colitis, pt has one more week of abx. Can't get breath test until that is completed. Not sure if patient needs to continue abx since he has not felt any change in pain with completing one week of treatment. DDx: gastritis, GERD, cholelithi asis. ER labs showed normal pancreatic enzymes so not likely pancreatit is. Due to chronicity and review of pt's diet, likely GERD/gastr itis. Given samples of Nexium, but needs to hold this until he gets breath test done. Rule out any food allergy or celiac dz. One liver enzyme elevated in ER, repeat test now that he has not had ay more vomiting. Low back pain 095945380 M54.5 maybe associated w/ abdominal pain since it started at same time and not assoc w/ movement, non-tender on exam today. Rule out urinary cause. Pilonidal cyst without abscess 02265858 L05.91 Cyst is very small and superficia l today. discussed sitz baths to prevent worsening of current cyst. If it flares up, increases in size becomes more tender, instructed him to call here and we can refer to general surgeon for I&D or removal. Gastroesop hageal reflux disease without esophagitis 176717864 K21.9 Reviewed diet with patient, discussed making changes to current caffeine intake and limiting fried/fatt y foods. Did not improve w/ ranitidine . Given samples of nexium but instructed to hold until breath test can be done once he completes abx. Given handout with foods to try & avoid Influenza vaccine needed [id number] 106 Z23 Body mass index 40+ - severely obese 999025424 Z68.41 discussed reducing caffeinate d products that are also high in sugar including sodas. stay active, goal of 1lb weight loss per week would be safe, reasses at f/u visit. 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 Positive s creening for depression on PHQ-9 (Patient Health Questionnaire 9) [id number] 69113 Z13.89 pts pain is his main concern at this time, will revisit at f/u appt [id number] [facility] [address] [place] [address] 12/24/2016 09:50:24 12/25/2016 15:39:33 Pilonidal cyst with abscess 84279910 L05.01 drains intermitte ntly since he was in grade school. continue sitz baths, see general surgeon for possible excision. Gastroesop hageal reflux disease without esophagitis 045475863 K21.9 improving w/ dietary changes. discussed use of medication s on as needed basis if he feels it is controlled w/ diet, especially with upcoming holidays and tendency to overeat during those times and eating high fat foods Depressive disorder 3548 6130 F33.0 patient deferred counseling and/or medication s at this time. Denies any SI or HI. He has good support system with friends and family. Understand s that if situation changes he can call here for referral or to discuss medication s. [id number] MD Connor De La Paz (Adult Med) [address] [place] [address] 02/25/2017 10:48:10 02/25/2017 16:03:10 Contact dermatitis 29854291 L25.9 Likely from using new product, AXE 3 in 1 body wash. Stop using the product, use hypoallerg enic products. Take oral steroids due to diffuse rash, ok to use hydrocorti sone OTC. Take benadryl or other allergy med for itching. Call if rash persists after completing medication . Pilonidal cyst with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
[2024-07-07 18:36] LABS: Basophils Absolute Auto 0.1 K/mm3 (0.0-0.1); Basophils Percent Auto 0.6 % (0.2-1.2); Eosinophils Absolute Auto 0.3 K/mm3 (0-0.3); Eosinophils Percent Auto 3.4 % (0-4.4); Hematocrit 42.2 % (42.0-52.0); Hemoglobin 12.4 g/dL (14.0-18.0); Immature Granulocyte Absolute 0.04 K/mm3 (0.00-0.031); Immature Granulocyte Percent A 0.4 % (0-0.5); Lymphocytes Absolute Auto 2.98 K/mm3 (0.9-3.2); Lymphocytes Percent Auto 30.4 % (18.3-44.2); Mean Corpuscular HGB Conc 29.4 g/dl (32-36); Mean Corpuscular Hemoglobin 24.6 pg (26-34); Mean Corpuscular Volume 83.7 fl (80-100); Mean Platelet Volume 9.9 fl (7.4-10.4); Monocytes Absolute Auto 0.6 K/mm3 (0.1-0.6); Monocytes Percent Auto 5.8 % (2.6-8.5); Neutrophils Absolute Auto 5.8 K/mm3 (1.3-6.7); Neutrophils Percent Auto 59.4 % (45.5-73.1); Platelet Count Result 328 k/mm3 (150-375); Red Blood Count 5.04 M/mm3 (4.6-6.20); White Blood Count 9.8 K/mm3 (4.5-10.0)
[2024-07-07 19:03] LABS: Hypochromasia 1+; Platelet Estimate Adequate (Adequate); Schistocytes None Seen
[2024-07-07 19:04] LABS: Anisocytosis 1+; Band Neutrophils Percent 0 % (0-6)
[2024-07-07 19:29] LABS: Alanine Aminotransferase 31 U/L (6-50); Albumin Level 4.2 g/dL (3.5-5.1); Alkaline Phosphatase 94 U/L (38-126); Anion Gap 6 mmol/L (4-12); Aspartate Amino Transferase 53 U/L (17-59); Bilirubin,Total 0.4 mg/dL (0.2-1.3); Blood Urea Nitrogen 15 mg/dL (9-20); Carbon Dioxide 32 mmol/L (22-30); Chloride 100 mmol/L (98-107); Cholesterol 200 mg/dL (0-200); Estimated Glomerular Filt Rate > 60; Glucose 68 mg/dL (65-110); HDL Direct 32 mg/dL; Potassium 4.2 mmol/L (3.4-5.0); Sodium 138 mmol/L (137-145); Triglycerides 183 mg/dL (<150)
[2024-07-07 19:37] LABS: NT Pro B Type Natriuretic Pept 37 pg/mL (19.9-100)
[2024-07-07 19:39] LABS: Free T4 Free Thyroxine 1.45 ng/dL (0.78-2.19)
[2024-07-07 19:40] LABS: LDL Cholesterol Direct 120 mg/dL
[2024-07-07 20:05] LABS: Hemoglobin A1C 5.6 % (<5.7)
[2024-07-09 08:03] LABS: Thyroid Peroxidase Antibodies <1 IU/mL (<9)
[2024-07-09 14:43] LABS: Insulin Level Total 37.7 uIU/mL
== END 2024-07-07 11:10 | disposition home or self-care (01) ==
LOC: ANHBWCLAB 11:13
PROVIDERS: PCP Nurse Practitioner Adult Health; Visit Provider Nurse Practitioner Adult Health
DX: E03.9 Hypothyroidism, unspecified (principal); I10 Essential (primary) hypertension
CPT/HCPCS: 36415; 80053; 80061; 83036; 83525; 83527; 83880; 84439; 84443; 85025; 86376

== ENCOUNTER 2024-07-13 09:38 | Outpatient (CLI) | payer MEDICAID, SELFPAY ==
--- OUTSIDE RECORDS SUMMARY | 2024-07-13 09:41 | XMS_ITS | Clinical Summary ---
Author Organization [facility] Address [address] [place] [address] Phone Care Team Providers Care Continuous Improvement Analyst Name Role Phone Provider, None Primary Care [...] Encounters Date Type Department Care Team Description 07/08/2024 2:30 PM CDT Home Care Visit [address] [address] Amy Saul, DESIRE SN - WOUND VISIT 06/30/2024 9:00 AM CDT Home Care Visit [address] [address] Sanaz Montoya RN SN - WOUND VISIT 06/23/2024 12:00 PM CDT Home Care Visit [address] [address] Amy Saul RN SN - WOUND VISIT 06/15/2024 3:00 PM CDT Home Care Visit [address] [address] Amy Saul RN SN - WOUND VISIT 06/11/2024 Plan of Care Documentation [address] [address] 06/10/2024 12:30 PM CDT Home Care Visit [address] [address] Amy Saul, DESIRE SN - OASIS START OF CARE 06/02/2024 Home Care Visit [address] [address] Bev Porter RN TELEPHONE ENCOUNTER 05/21/2024 10:52 AM CDT - 05/21/2024 5:02 PM CDT [facility] [address] [place] [address] Cayla Snyder APRN, CLERICAL PRODUCTION WORKER Acute appendicitis, unspecified acute appendicitis type Discharge [...] Sign Reading Time Taken Comments Blood Pressure 124/68 07/08/2024 1:36 PM CDT Pulse 94 07/08/2024 1:36 PM CDT Temperature 36.4 C (97.6 F) 07/08/2024 1:36 PM CDT Respiratory Rate 16 07/08/2024 1:36 PM CDT Oxygen Saturation 95% 07/08/2024 1:36 PM CDT Inhaled Oxygen Concentration - - Weight 190.5 kg (420 lb) 06/10/2024 12:39 PM CDT Height 180.3 cm (5' 11) 06/10/2024 12:39 PM CDT Body Mass Index 58.58 06/10/2024 12:39 PM CDT Plan of Treatment Upcoming Encounters Date Type Department Care Team (Late st Contact Info) Description 07/13/2024 11:00 AM CDT Home Care Visit [facility] [address] [place] [address] Sanaz Montoya RN [place] 07/27/2024 1:00 AM CDT Appointment [facility] [address] [place] [address] Amy Saul, RN [place] Health Maintenance Due Date Last Done Comments [...] phone at time of dictation to JEREMY Fu 05/21/2024 2:03 PM CDT EXAM DESCRIPTION: [...] Marvin Merlos M.D. RB: CLAUDIA Report ID: [id number] Reading Location: [id number] Procedure Note Marvin Merlos MD - 05/21/2024 [...] Marvin Merlos M.D. RB: CLAUDIA Report ID: [id number] Reading Location: [id number] IMPRESSION: Induration surrounds the cecal tip and [...] of dictation to JEREMY Snyder Cayla Snyder APRN, CLERICAL PRODUCTION WORKER IM CT ORDERABLES Final Result * (ABNORMAL) Urinalysis w/ Reflex (05/21/2024 12:08 PM CDT) SPECIFIC GRAVITY 1.010 1.003 - 1.030 05/21/2024 1:03 PM CDT [facility] URINE PH 7.0 5.0 - 9.0 05/21/2024 1:03 PM CDT [facility] WBC ESTERASE Negative Negative 05/21/2024 1:03 PM CDT [facility] NITRITE Negative Negative 05/21/2024 1:03 PM CDT [facility] PROTEIN, RANDOM URINE 30 mg/dL(A) Negative 05/21/2024 1:03 PM CDT [facility] URINE GLUCOSE, QUAL Negative Negative 05/21/2024 1:03 PM CDT [facility] URINE KETONES Negative Negative 05/21/2024 1:03 PM CDT [facility] UROBILINOGEN 4 mg/dL(A) Normal mg/dL 05/21/2024 1:03 PM CDT [facility] URINE BLOOD Negative Negative gonzález/ul 05/21/2024 1:03 PM CDT [facility] URINALYSIS COLOR Yellow 05/22/19 1:03 PM CDT [facility] URINALYSIS CLARITY Clear 05/21/2024 1:03 PM CDT [facility] WBC (Urine) Negative Negative, 0-5 /hpf 05/21/2024 1:03 PM CDT [facility] URINE RBC'S Negative Negative, 0-2 /hpf 05/21/2024 1:03 PM CDT [facility] EPITHELIAL CELLS Occasional /lpf 05/22/19 1:03 PM CDT [facility] BACTERIA, URINE Few(A) Negative /hpf 05/21/2024 1:03 PM CDT [facility] Urine URINE SPECIMEN / Unknown Non-Phlebotomy Collection / Unknown 05/21/2024 12:08 PM CDT 05/21/2024 12:22 PM CDT us Cayla Snyder SUPERINTENDENT ELECTRIC POWER, CLERICAL PRODUCTION WORKER URINE ORDERABLES F inal Result [facility] [address] [place] [address] * GROUP A STREP BY PCR (05/21/2024 11:17 AM CDT) GROUP A STREP BY PCR NOT DETECTED NOT DETECTED 05/21/2024 12:43 PM CDT [facility] Swab STRUCTURE OF ANTERIOR PORTION OF NECK / Unknown Non-Phlebotomy Collection / Unknown 05/21/2024 11:17 AM CDT 05/21/2024 12:10 PM CDT us Cayla Snyder APRN, KATHY MICROBIOLOGY - GEN ERAL ORDERABLES Final Result [facility] [address] [place] [address] * PIPO-COV-2 Flu RSV - (Quad PCR) (05/21/2024 11:16 AM CDT) FLU A Negative Negative, Error 05/21/2024 12:19 PM CDT [facility] FLU B Negative Negative 05/21/2024 12:19 PM CDT [facility] RESP SYNC VIRUS Negative Negative 12:19 PM CDT [facility] SARSCOV2 NOT DETECTED (Reference Range for this test is Not Detected) 05/21/2024 12:19 PM CDT [facility] Comment:This test was perfor med by a Reverse Industrial Methods Consultant PCR Method. Swab NASOPHARYNGEAL SWAB / Unknown Non-Phlebotomy Collection / Unknown 05/21/2024 11:16 AM CDT 05/21/2024 11:37 AM CDT us Cayla Snyder APRN, CNP MICROBIOLOGY - GEN ERAL ORDERABLES Final Result Performing Organization Address City/[facility]/ZIP Co de Phone Number [facility] [address] [place] [address] * Gold Top Tube (05/21/2024 11:04 AM CDT) Blood No Phlebotomy Charged / Unknown 05/21/2024 11:04 AM CDT 05/21/2024 11:39 AM CDT us Cayla Snyder APRN, KATHY CHEMISTRY ORDERABL ES Final Result [facility] [address] [place] [address] * Blue Top Tube (05/21/2024 11:04 AM CDT) Blood No Phlebotomy Charged / Unknown 05/21/2024 11:04 AM CDT 05/21/2024 11:39 AM CDT us Cayla Snyder APRN, KATHY HEMATOLOGY ORDERAB LES Final Result [facility] [address] [place] [address] * (ABNORMAL) CBC with Auto Differential (05/21/2024 11:04 AM CDT) WBC 16.90(H) 4.00 - 12.00 10(3)/mcL 05/21/2024 11:42 AM CDT [facility] RBC 4.65 4.40 - 5.80 10(6)/[facility] 05/21/2024 11:42 AM CDT [facility] HEMOGLOBIN (HGB) 12.1(L) 13.0 - 16.5 g/dL 05/21/2024 11:42 AM CDT [facility] HEMATOCRIT (HCT) 38.3 38.0 - 50.0 % 05/21/2024 11:42 AM CDT [facility] MCV 82.4 82.0 - 96.0 fL 05/21/2024 11:42 AM CDT [facility] MCH 26.0 26.0 - 32.0 pg 05/21/2024 11:42 AM CDT [facility] MCHC 31.6 31.0 - 36.0 g/dL 05/21/2024 11:42 AM CDT [facility] PLATELET COUNT 296 140 - 440 10(3)/mcL 05/21/2024 11:42 AM CDT [facility] RDW 15.0 11.8 - 15.5 % 05/21/2024 11:42 AM CDT [facility] MPV 10.1 8.0 - 12.6 fL 05/21/2024 11:42 AM CDT [facility] NEUTROPHILS 70.8(H) 40.0 - 68.0 % 05/21/2024 11:42 AM CDT [facility] LYMPHOCYTES 17.3(L) 19.0 - 49.0 % 05/21/2024 11:42 AM CDT [facility] MONOCYTES 9.8 3.0 - 13.0 % 05/21/2024 11:42 AM CDT [facility] EOSINOPHILS 1.5 0.0 - 8.0 % 05/21/2024 11:42 AM CDT [facility] BASOPHILS 0.6 0.0 - 1.0 % 05/21/2024 11:42 AM CDT [facility] ABSOLUTE NEUTROPHILS 11.96(H) 1.40 - 5.30 10(3)/[facility] 05/21/2024 11:42 AM CDT [facility] ABSOLUTE LYMPHOCYTES 2.92 0.90 - 3.30 10(3)/[facility] 05/21/2024 11:42 AM CDT [facility] ABSOLUTE MONOCYTES 1.66(H) 0.10 - 0.90 10(3)/[facility] 05/21/2024 11:42 AM CDT [facility] ABSOLUTE EOSINOPHIL 0.26 0.00 - 0.50 10(3)/[facility] 05/21/2024 11:42 AM CDT [facility] ABSOLUTE BASOPHILS 0.10 0.00 - 0.10 10(3)/[facility] 05/21/2024 11:42 AM CDT [facility] NRBC PER 100 WBC 0 05/22/19 11:42 AM CDT [facility] Blood Venipuncture / Unknown 05/21/2024 11:04 AM CDT 05/21/2024 11:37 AM CDT us Jim Rowland MD HEMATOLOGY ORDERABLES Mechelle l Result [facility] [address] [place] [address] * (ABNORMAL) Comprehensive Metabolic Panel (Cmp) [id number] (05/21/2024 11:04 AM CDT) SODIUM 139 136 - 145 mmol/L 05/21/2024 11:59 AM CDT [facility] POTASSIUM 3.8 3.5 - 5.1 mmol/L 05/21/2024 11:59 AM CDT [facility] CHLORIDE 101 98 - 107 mmol/L 05/21/2024 11:59 AM CDT [facility] CO2, VENOUS 28 22 - 30 mmol/L 05/21/2024 11:59 AM CDT [facility] ANION GAP 13.8 <18.0 mmol/L 05/21/2024 11:59 AM CDT [facility] GLUCOSE 90 70 - 99 mg/dL 05/21/2024 11:59 AM CDT [facility] BUN 9 9 - 21 mg/dL [...] 27 <43 U/L 05/21/2024 11:59 AM CDT [facility] SGPT (ALT) 44 <56 U/L 05/21/2024 11:59 AM CDT [facility] ALKALINE PHOSPHATASE 85 40 - 150 U/L 05/21/2024 11:59 AM CDT [facility] GFR, ESTIMATED >60 >=60 05/21/2024 11:59 AM CDT [facility] Comment: Creatinine Clearance is the preferred criteria for selecting drug dose adjustments in renally impaired patients. The GFR is provided as additional pertinent clinical information. GFR is reported in mL/min/1.73 sq m. Calculation based on the Chronic Kidney Disease Epidemiology Collaboration (CKD- EPI) equation refit without adjustment for race. GFR, EST. >60 >=60 025 11:59 AM CDT [facility] GFR, EST. NONAFRICAN >60 >=60 05/21/2024 11:59 AM CDT [facility] Blood Venipuncture / Unknown 05/21/2024 11:04 AM CDT 05/21/2024 11:37 AM CDT Jim Rowland MD CHEMISTRY ORDERABLES Final Result Performing Organization Address City/State/[facility] Co de Phone Number [facility] [address] [place] [address] from Last 3 Months Insurance MEDICAID [place] Advance Directives * Full Code (Latest Code Status on File) Date Activated Date Inactivated Comments 06/11/2024 7:01 AM Care Teams Continuous Improvement Analyst Relationship Specialty Start Date End Date Provider, None KJ PCP - General 12/12/23
--- OUTSIDE RECORDS SUMMARY | 2024-07-13 09:41 | XMS_ITS | Clinical Summary ---
Author Organization [facility] Address [address] [place] [address] Care Team Providers Care Business Continuity Analyst Name Role Phone Unavailable Primary Care Provider Unavailabl e Source Comments [facility],non-owned Affiliates and Associated Physician Practices is amultiple site organization consisting of ambulatory clinics and hospital sitesin [place], [place], [place] and [place]. This disclosure is being madepursuant to the Care Everywhere program and may not contain all information available regarding this patient. Last updated 17.[facility] [employer] Allergies Active Allergy Reactions Criticality Noted Date [...] 2 times daily for 30 days 05/25/19 25 025 Additional Information Patient not taking.Reported on 06/23/2024 amoxicillin-cla vulanate (Augmentin) 875-125 MG tablet Take 1 (one) tablet by mouth 2 times daily with morning and evening meal 20 tablet 5 3:59 PM CDT 05/29/19 025 Discontinu ed(List Clean-Up) ferrous sulfate 325 (65 FE) MG tablet Take 1 (one) tablet by mouth once daily after lunch 30 tablet 5 3:59 PM CDT 05/29/19 025 Discontinu ed(List Clean-Up) enoxaparin (Lovenox) 40 MG/0.4ML injection Inject 0.4 mL subcutaneously 2 times daily for 21 days 16.8 mL 05/29/19 025 HYDROcodone-qi taminophen ([place]) 5-325 MG tabletIndicatio ns:Post-op pain Take 1 (one) tablet by mouth every 6 hours as needed for Pain 12 tablet 06/12/19 025 Additional Information Patient not taking.Reported on 07/07/2024 Active Problems Problem Noted Date Diagnosed Date Postoperative state 06/09/2024 Acute hypoxemic respiratory failure 05/22/2024 Morbid obesity with BMI of 60.0-69.9, adult 06/2024 Sepsis 05/22/2024 Appendicitis, unspecified appendicitis type 05/2024 Encounters Date Type Department Care Team Description 07/07/2024 9:40 AM CDT Office Visit [facility] - Surgery [address] [place] [address], [address] [place] [phone] Santiago Joy MD Postoperative state (Primary Dx) 07/07/2024 Travel 06/23/2024 8:40 AM CDT Office Visit [facility] - Surgery [address] [place] [address], [address] [place] [phone] Santiago Joy MD Postoperative state (Primary Dx) 06/23/2024 Travel 06/11/2024 Orders Only [facility] - Surgery [address] [facility] [address] [place] [address] Santiago Joy MD Post-op pain 06/11/2024 Orders Only [facility] [address], [address] [place] [address] Santiago Joy MD Post-op pain 06/10/2024 Telephone [facility] [address] [facility], [address] [place] [phone] Santiago Joy MD Med Question; Wound Care 06/09/2024 8:40 AM CDT Office Visit [facility] [address] [facility], [address] [place] [phone] Santiago oJy MD Postoperative state (Primary Dx) 06/09/2024 Travel 06/01/[address], [facility] [address] [place] [phone] Santiago Joy MD Question 05/27/2024 3:00 PM CDT Anesthesia Event [facility] - Perioperative Surgery [address] [place] [address] Matty Raya, DO 05/27/2024 2:31 PM CDT - 05/27/2024 3:42 PM CDT Surgery [facility] - Perioperative Surgery [address] [place] [address] Santiago Joy MD ABDOMINAL WOUND WASHOUT 05/22/2024 8:35 AM CDT Anesthesia Event [facility] - Perioperative Surgery [address] [place] [phone] Matty Raya, DO 05/22/2024 7:30 AM CDT - 05/22/2024 9:03 AM CDT Surgery [facility] Perioperative Surgery [address] [place] [address] Santiago Joy MD DIAGNOSTIC LAPAROSCOPY, OPEN APPENDECTOMY/PARTIAL CECECTOMY, PARTIAL OMENTECTOMY, DRAINAGE ABDOMINAL ABSCESS, NEGATIVE PRESSURE WOUND VAC, LYSIS OF ADHESIONS 05/21/2024 5:56 PM CDT - 05/28/2024 4:20 PM CDT Hospital Encounter [address] [address] Doug Perez MD Arekooti, MD Claudia Munguia, [...] and heating? Not hard at all 05/21/2024 [facility] - Occupational Stress [...] time in the past 12 m [facility], were you homeless or living in a group home (including now)? No 05/21/2024 Sex and Gender Information Value Date Recorded Sex Assigned at Not on file Legal Sex Male 5:38 AM CARPENTRY SPECIALIST Gender Identity Not on file Sexual Orientation [...] - 17.5 g/dL 05/28/2024 6:35 AM CDT [facility] Hematocrit 36.1(L) 38.7 - 51.1 % 05/28/2024 6:35 AM CDT [facility] MCV 81.7 80.0 - 98.0 fL 05/28/2024 6:35 AM CDT [facility] MCH 24.9(L) 26.7 - 33.6 pg 05/28/2024 6:35 AM CDT [facility] MCHC 30.5(L) 31.7 - 36.3 g/dL 05/28/2024 6:35 AM CDT [facility] RDW-CV 14.7 11.3 - 14.8 % 05/28/2024 6:35 AM CDT [facility] Platelet Count 345 150 - 420 x10E9/L 05/28/2024 6:35 AM CDT [facility] MPV 10.0 7.8 - 11.4 fL 05/28/2024 6:35 AM CDT [facility] Blood BLOOD SPECIMEN / Unknown Venipuncture / Unknown 05/28/2024 6:22 AM CDT 05/28/2024 6:29 AM CDT us Ishaan Barajas MD LAB - HEMATOLOGY ORD ERABLES Final Result [facility] [address] [place] [address] * (ABNORMAL) GLUCOSE - POINT OF CARE (05/27/2024 9:11 PM CDT) Only the most recent of15 resultswithin the time period is included. Glucose WB/POC 145(H) 70 - 99 mg/dL 05/27/2024 11:33 PM CDT [facility] Specimen Type Cap Fingerstick 2024 11:33 PM CDT [facility] Blood BLOOD SPECIMEN / Unknown 05/27/2024 9:11 PM CDT 05/27/2024 11:32 PM CDT us Ishaan Barajas MD LAB - POINT OF CARE ORDERABLES Final Result [facility] [address] [place] [address] * ETT LINE PERFORMABLE (05/27/2024 3:14 PM CDT) Narrative Radha Chatman APRN-CRNA - 05/27/2024 3:14 PM CDT Radha Chatman APRN-CRNA 05/27/2024 3:14 PM Endotracheal Tube Placement: Patient Location: OR. Intubation Event Date/Time: 05/27/2024 3:09 PM Procedure: intubation ([id number]) Procedure Section: Sedation: under general anesthesia. Indications [...] - 4.5 mg/dL 05/26/2024 5:39 AM CDT [facility] Blood BLOOD SPECIMEN / Unknown Venipuncture / Unknown 05/26/2024 5:05 AM CDT 05/26/2024 5:17 AM CDT us Santos Almonte MD LAB - CHEMISTRY ORDERABLES Fin al Result Performing Organization Address City/[facility]/ZIP Co de Phone Number [facility] [address] [place] [address] * FOLATE (05/26/2024 5:05 AM CDT) Folate 11.7 7.0 - 31.4 ng/mL 05/26/2024 6:10 AM CDT [facility] Blood BLOOD SPECIMEN / Unknown Venipuncture / Unknown 05/26/2024 5:05 AM CDT 05/26/2024 5:17 AM CDT us Ishaan Barajas MD LAB - CHEMISTRY DEBRA BONNER Final Result Performing Organization Address [facility] Co de Phone Number [facility] [address] [place] [address] * VITAMIN B12 (05/26/2024 5:05 AM CDT) Pathologist [facility] Vitamin B12 501 213 - 816 pg/mL 05/26/2024 6:10 AM CDT [facility] Blood BLOOD SPECIMEN / Unknown Venipuncture / Unknown 05/26/2024 5:05 AM CDT 05/26/2024 5:17 AM CDT us Ishaan Barajas MD LAB - CHEMISTRY DEBRA BONNER Final Result Performing Organization Address City/[facility] Co de Phone Number [facility] [id number] [place] [address] * (ABNORMAL) IRON + TRANSFERRIN PANEL (05/26/2024 5:05 AM CDT) Iron 13(L) 50 - 175 ug/dL 05/26/2024 5:39 AM CDT [facility] Transferrin 153(L) 174 - 382 mg/dL 05/26/2024 5:39 AM CDT [facility] TIBC Calculated 191(L) 240 - 450 ug/dL 05/26/2024 5:39 AM CDT [facility] Iron Saturation % 7(L) 20 - 50 % 05/26/2024 5:39 AM CDT [facility] Blood BLOOD SPECIMEN / Unknown Venipuncture / Unknown 05/26/2024 5:05 AM CDT 05/26/2024 5:17 AM CDT Ishaan Barajas MD LAB - CHEMISTRY DEBRA BONNER Final Result Performing Organization Address City/[facility]/ZIP Co de Phone Number [facility] [address] [place] [address] * (ABNORMAL) FERRITIN (05/26/2024 5:05 AM CDT) Pathologist [facility] Ferritin 347(H) 22 - 275 ng/mL 05/26/2024 6:10 AM CDT [facility] Blood BLOOD SPECIMEN / Unknown Venipuncture / Unknown 05/26/2024 5:05 AM CDT 05/26/2024 5:17 AM CDT Ishaan Barajas MD LAB - CHEMISTRY DEBRA BONNER Final Result Performing Organization Address [facility] de Phone Number [facility] [address] [place] [address] * (ABNORMAL) SLIDE SCAN HEMATOLOGY (05/25/2024 2:10 AM CDT) Only the most recent of3 resultswithin the time period is included. Pathologist [facility] RBC Morphology REVIEWED 05/25/2024 3:13 AM CDT [facility] Microcytosis MANY(A) (none) 05/25/2024 3:13 AM CDT [facility] Platelet Clumps PRESENT(A) (none) 3:13 AM CDT [facility] Comment See Comment 05/25/2024 3:13 AM CDT [facility] Comment:Platelet clumped on smear, but it appears adequate. Recommond repeat with sodium citrate tube. Blood BLOOD SPECIMEN / Unknown Venipuncture / Unknown 05/25/2024 2:10 AM CDT 05/25/2024 2:39 AM CDT us Santos Almonte MD LAB - HEMATOLOGY ORDERABLES Fi nal Result [facility] [address] [place] [address] * (ABNORMAL) CBC W AUTO DIFFERENTIAL (05/25/2024 2:10 AM CDT) Only the most recent of5 resultswithin the time period is included. WBC 14.8(H) 4.0 - 10.7 x10E9/L 05/25/2024 3:13 AM CDT [facility] RBC Count 4.17(L) 4.30 - 5.80 x10E12/L 05/25/2024 3:13 AM CDT [facility] Hemoglobin 10.4(L) 13.3 - 17.5 g/dL 05/25/2024 3:13 AM CDT [facility] Hematocrit 34.8(L) 38.7 - 51.1 % 05/25/2024 3:13 AM CDT [facility] MCV 83.5 80.0 - 98.0 fL 05/25/2024 3:13 AM CDT [facility] MCH 24.9(L) 26.7 - 33.6 pg 05/25/2024 3:13 AM CDT [facility] MCHC 29.9(L) 31.7 - 36.3 g/dL 05/25/2024 3:13 AM CDT [facility] RDW-CV 14.5 11.3 - 14.8 % 05/25/2024 3:13 AM CDT [facility] Platelet Count 269 150 - 420 x10E9/L 05/25/2024 3:13 AM CDT [facility] MPV 10.0 7.8 - 11.4 fL 05/25/2024 3:13 AM CDT [facility] Neutrophil % 69.9 41.0 - 74.0 % 05/25/2024 3:13 AM CDT [facility] Lymphocyte % 17.1 17.0 - 47.0 % 05/25/2024 3:13 AM CDT [facility] Monocyte % 9.2 3.0 - 11.0 % 05/25/2024 3:13 AM CDT [facility] Eosinophil % 2.8 0.0 - 7.0 % 05/25/2024 3:13 AM CDT [facility] Basophil % 0.3 0.0 - 1.6 % 05/25/2024 3:13 AM CDT [facility] Immature Granulocytes % 0.7 0.0 - 1.0 % 05/25/2024 3:13 AM CDT [facility] Neutrophil Absolute 10.34(H) 1.60 - 7.50 x10E9/L 05/25/2024 3:13 AM CDT [facility] Lymphocyte Absolute 2.54 1.00 - 4.40 x10E9/L 05/25/2024 3:13 AM CDT [facility] Monocyte Absolute 1.37(H) 0.15 - 1.00 x10E9/L 05/25/2024 3:13 AM CDT [facility] Eosinophil Absolute 0.42 0.00 - 0.60 x10E9/L 05/25/2024 3:13 AM CDT [facility] Basophil Absolute 0.05 0.00 - 0.13 x10E9/L 05/25/2024 3:13 AM CDT [facility] Blood BLOOD SPECIMEN / Unknown Venipuncture / Unknown 05/25/2024 2:10 AM CDT 05/25/2024 2:39 AM CDT us Santos Almonte MD LAB - HEMATOLOGY ORDERABLES Fi nal Result [facility] [address] [place] [address] * (ABNORMAL) COMPREHENSIVE METABOLIC PANEL (05/25/2024 2:10 AM CDT) Only the most recent of5 resultswithin the time period is included. [facility] Glucose 96 70 - 99 mg/dL 05/25/2024 2:57 AM CDT [facility] Sodium 137 136 - 145 mmol/L 05/25/2024 2:57 AM CDT [facility] Potassium 4.0 3.5 - 5.1 mmol/L 05/25/2024 2:57 AM CDT [facility] Chloride 102 98 - 107 mmol/L 05/25/2024 2:57 AM CDT [facility] CO2 24 22 - 29 mmol/L 05/25/2024 2:57 AM CDT [facility] Calcium 8.8 8.4 - 10.4 mg/dL 05/25/2024 2:57 AM CDT [facility] Anion Gap 11 6 - 16 mmol/L 05/25/2024 2:57 AM CDT [facility] BUN 11 5.3 - 18.7 mg/dL 05/25/2024 2:57 AM CDT [facility] Creatinine 0.76 0.72 - 1.25 mg/dL 05/25/2024 2:57 AM CDT [facility] Alkaline Phosphatase 69 40 - 150 U/L 05/25/2024 2:57 AM CDT [facility] ALT 36 6 - 57 U/L 05/25/2024 2:57 AM CDT [facility] AST 26 10 - 48 U/L 05/25/2024 2:57 AM CDT [facility] Protein Total 6.3(L) 6.4 - 8.3 gm/dL 05/25/2024 2:57 AM CDT [facility] Albumin 2.4(L) 3.4 - 5.0 gm/dL 05/25/2024 2:57 AM CDT [facility] Bilirubin Total 0.4 0.2 - 1.2 mg/dL 05/25/2024 2:57 AM CDT [facility] eGFR by CKD-EPI >90 >=90 mL/min/1.7 3 m2 05/25/2024 2:57 AM CDT [facility] Blood BLOOD SPECIMEN / Unknown Venipuncture / Unknown 05/25/2024 2:10 AM CDT 05/25/2024 2:39 AM CDT us Santos Almonte MD LAB - CHEMISTRY ORDERABLES Fin al Result [facility] [address] [place] [address] * MAGNESIUM BLOOD (05/25/2024 2:10 AM CDT) Only the most recent of4 resultswithin the time period is included. Magnesium 1.8 1.6 - 2.6 mg/dL 05/25/2024 2:57 AM CDT [facility] Blood BLOOD SPECIMEN / Unknown Venipuncture / Unknown 05/25/2024 2:10 AM CDT 05/25/2024 2:39 AM CDT Santos Almonte MD LAB - CHEMISTRY ORDERABLES Fin al Result [facility] [address] [place] [address] * XR CHEST 1VW PORTABLE (05/23/2024 6:14 [...] 5.9(H) <5.7 % 05/23/2024 5:57 AM CDT [facility] Estimated Average Glucose 123 mg/dL 05/23/2024 5:57 AM CDT [facility] Blood BLOOD SPECIMEN / Unknown Venipuncture / Unknown 05/23/2024 5:06 AM CDT 05/23/2024 5:45 AM CDT Narrative [facility] - 05/23/2024 5:57 AM CDT HbA1c [...] National Glycohemoglobin Standardization Program (NGSP) certified method. us Bryan Taylor MD LAB - CHEMISTRY ORDERAB LES Final Result Performing Organization Address City/State/[facility] Co de Phone Number [facility] [address] [place] [address] * LACTIC ACID BLOOD (05/22/2024 1:28 PM CDT) Only the most recent of2 resultswithin the time period is included. Lactic Acid 1.7 <=2 mmol/L 05/22/2024 1:50 PM CDT [facility] Blood BLOOD SPECIMEN / Unknown Venipuncture / Unknown 05/22/2024 1:28 PM CDT 05/22/2024 1:35 PM CDT Santos Almonte MD LAB - CHEMISTRY ORDERABLES Fin al Result [facility] [address] [place] [address] * (ABNORMAL) BLOOD GASES ARTERIAL (05/22/2024 12:24 [...] ORDERABLES F inal Result Performing Organization Address [facility]/ZIP Co de Phone Number [facility] [address] [place] [address], [facility] [phone] * PATHOLOGY TISSUE EXAM (STL) (05/22/2024 10:01 AM CDT) Case Report Surgical Pathology Report Case: [id number] Authorizing Provider: Santiago Joy MD Collected: 05/22/2024 10:01 AM Ordering Location: [facility] Received: 05/24/2024 06:29 AM - Perioperative Surgery Pathologist: Jose Wylie MD Specimen: Appendix 05/25/2024 11:05 AM CDT [facility] Final Diagnosis Appendix, appendectomy: -- Acute necrotizing and perforated appendicitis 05/25/2024 11:05 AM T [facility] at 1105 CDT Clinical History Perforated appendicitis 05/25/2024 11:05 AM CDT [facility] Gross Description Received in formalin in a sterile container labeled Vin Alonzo, appendix, is a 9 x 1.5 cm vermiform appendix with attached mesoappendix. The serosa is dusky purple, with thickened qvnyi-ozuuym-xnxtpp purulent exudate. The margin of resection is inked. Sections show a patent lumen containing red-brown debris. Rn Case Management sections are submitted in cassette A1. CH/eh 05/25/2024 11:05 AM T [facility] Microscopic Description Microscopic examination substantiates the above cited diagnosis. 05/25/2024 11:05 AM T [facility] Disclaimer All histochemical and/or immunohistochemical results are interpreted with controls that demonstrate appropriate staining reactions before reporting results. Note on use of immunocytochemistry reagents: This test was developed and its performance characteristic determined by [facility], Department of Laboratory Medicine. It has not [...] [facility] Embedded Images 05/25/2024 11:05 AM T [facility] Pathology/Cytolo gy ENTIRE APPENDIX / Unknown 05/22/2024 10:01 AM CDT 05/24/2024 6:29 AM CDT us Santiago Joy MD LAB - PATHOLOGY/CYTOLOGY ORDER SAMUEL Final Result [facility] [address] [place] [address] * ETT LINE PERFORMABLE (05/22/2024 9:20 AM CDT) Narrative Jesenia Vazquez APRN-CRNA - 05/22/2024 9:20 AM CDT Jesenia Vazquez APRN-CRNA 05/22/2024 9:20 AM Endotracheal Tube Placement: Patient Location: OR. Intubation Event Date/Time: 05/22/2024 8:51 AM Procedure: intubation ([id number]) Procedure Section: Sedation: under general anesthesia. Indications [...] day 5 IMELDA 05/27/2024 2:01 AM CDT [facility] Blood PERIPHERAL BLOOD / Unknown Venipuncture / Unknown 05/21/2024 9:21 PM CDT 05/21/2024 9:47 PM CDT Doug Perez MD LAB - MICROBIOLOGY ORDERABLES F inal Result [facility] [address] [place] [address] [phone] * (ABNORMAL) PT-INR (05/21/2024 9:07 PM CDT) PT 14.9(H) 12.1 - 14.8 sec 05/21/2024 10:03 PM CDT [facility] INR 1.2(H) 0.9 - 1.1 05/21/2024 10:03 PM CDT [facility] Blood BLOOD SPECIMEN / Unknown Venipuncture / Unknown 05/21/2024 9:07 PM CDT 05/21/2024 9:47 PM CDT Narrative [facility] - 05/21/2024 10:03 PM CDT Conventional Warfarin Anticoagulant Therapy: INR Reference Range: 2.0-3.0 Intensive Warfarin Anticoagulant Therapy: INR Reference Range: 2.5-3.5 Doug Perez MD LAB - COAGULATION ORDERABLES Fi nal Result Performing Organization Address [facility] Co de Phone Number [facility] [address] [place] [address] from Last 3 Months Insurance MEDICAID - OUT OF STATE A[employer]NA MEDICAID [place] Advance Directives * Full Code (Latest Code Status on File) Date Activated Date Inactivated Comments 05/22/2024 11:11 AM 05/28/2024 5:20 PM * Full Code Date Activated Date Inactivated Comments 05/21/2024 6:58 PM 05/22/2024 11:11 AM
--- OUTSIDE RECORDS SUMMARY | 2024-07-13 09:41 | XMS_ITS | Referral Summary ---
Author Organization [facility] Address [address] [place] [address] Care Team Providers Care Honey Liquefier Name Role Phone Cesia Banda NP Primary Care Provider Allergies Active Allergy Reactions Criticality Noted Date [...] cyst Assessment & Plan (01/27/2017 11:45 AM LOADER MAGAZINE GRINDER): Encouraged to keep area clean and dry, please notify if redness, pain, swelling, or drainage occurs. Continue to avoid exertion for 2-3 more weeks. Assessment & Plan (01/08/2017 4:02 PM LOADER MAGAZINE GRINDER): Will schedule surgical excision of pilonidal cyst. [...] on file Legal Sex Male 11:28 PM LOADER MAGAZINE GRINDER Gender Identity Not on file Sexual Orientation [...] 4:45 PM CDT Height 177.8 cm (5' 10) 10/08/2019 4:45 PM CDT Body Mass Index 49.07 10/08/2019 4:45 PM CDT Plan of Treatment Not on file [facility] FOR[facility] MEDICAID [facility] CHOICE PLUS [facility] H[facility]/PPO Address: [address] [address] [place] [address] [facility] PPO IDPA Care Teams Honey Liquefier Relationship Specialty Start Date End Date Cesia Banda NP [address] [place] [address] PCP - General 03/29/20
--- OUTSIDE RECORDS SUMMARY | 2024-07-13 09:41 | XMS_ITS | Clinical Summary ---
Author Organization [facility] Address [address] [place] [address] Care Team Providers Care Auditing Specialist Name Role Phone Ceisa Banda NP Primary Care Provider [phone] Allergies Active Allergy Reactions Criticality Noted Date [...] cyst Assessment & Plan (01/27/2017 11:45 AM NEWSPAPER EDITOR MANAGING): Encouraged to keep area clean and dry, please notify if redness, pain, swelling, or drainage occurs. Continue to avoid exertion for 2-3 more weeks. Assessment & Plan (01/08/2017 4:02 PM NEWSPAPER EDITOR MANAGING): Will schedule surgical excision of pilonidal cyst. [...] on file Legal Sex Male 11:28 PM NEWSPAPER EDITOR MANAGING Gender Identity Not on file Sexual Orientation [...] 09/30/2013, 01/05/1999 Insurance HMO [facility] MEDICAID [facility] CHOICE PLUS IDPA [facility] PPO Care Teams Auditing Specialist Relationship Specialty Start Date End Date Cesia Banda NP [address] [place] [address] PCP - General 03/29/20
[2024-07-13 19:06] LABS: Iron 54 ug/dL (49-181)
[2024-07-13 19:26] LABS: Percent Iron Saturation 17 % (20-50)
== END 2024-07-13 09:39 | disposition home or self-care (01) ==
LOC: ANHBWCLAB 09:39
PROVIDERS: PCP Nurse Practitioner Adult Health; Visit Provider Nurse Practitioner Adult Health
DX: D64.9 Anemia, unspecified (principal)
CPT/HCPCS: 36415; 82728; 83540; 83550

== ENCOUNTER 2024-09-07 16:32 | Emergency (ER) | payer BC, SELFPAY ==
--- OUTSIDE RECORDS SUMMARY | 2024-09-07 16:35 | XMS_ITS | Clinical Summary ---
Author Organization [facility] Address [address] [place] [address] Care Team Providers Care Food Sales Clerk Name Role Phone Cesia Banda NP Primary [...] cyst Assessment & Plan (01/27/2017 11:45 AM MULTI CARE TECHNICIAN): Encouraged to keep area clean and dry, please notify if redness, pain, swelling, or drainage occurs. Continue to avoid exertion for 2-3 more weeks. Assessment & Plan (01/08/2017 4:02 PM MULTI CARE TECHNICIAN): Will schedule surgical excision of pilonidal [...] on file Legal Sex Male 11:28 PM MULTI CARE TECHNICIAN Gender Identity Not on file Sexual [...] Varicella Vaccines Completed 09/30/2013, 01/05/1999 Insurance HMO [facility] MEDICAID [facility] CHOICE PLUS IDPA [facility] PPO Care Teams Food Sales Clerk Relationship Specialty Start Date End Date Cesia Banda NP [address] [place] [address] PCP - General 03/29/20
--- OUTSIDE RECORDS SUMMARY | 2024-09-07 16:35 | XMS_ITS | Clinical Summary ---
Author Organization [facility] Address [address] [place] [address] Phone Care Team Providers Care Lumber Scaler Name Role Phone Provider, None Primary Care [...] Take 325 mg by mouth daily. Active HYDROcodone-qi taminophen (NORCO) 5-325 MG Tablet Take 1 Tablet by mouth every 6 hours as needed for Severe pain. Active irbesartan-hydr oCHLOROthiazide (AVALIDE) 300-12.5 MG Tablet Take 1 Tablet by mouth daily. Active Encounters Date Type Department Care Team Description 07/13/2024 11:00 AM CDT Home Care Visit [facility] [address] [place] [address] Sanaz Montoya RN SN - OASIS DISCHARGE 07/08/2024 2:30 PM CDT [facility] [address] [place] [address] Amy Saul RN SN - WOUND VISIT 06/30/2024 9:00 AM CDT Home Care Visit [address] [address] Sanaz Montoya RN SN - WOUND VISIT 06/23/2024 12:00 PM CDT Home Care Visit [address] [address] Amy Saul RN SN - WOUND VISIT 06/15/2024 3:00 PM CDT Home Care Visit [address] [address] Amy Saul RN SN - WOUND VISIT 06/11/2024 Plan of Care Documentation [address] [id number] 06/10/2024 12:30 PM CDT Home Care Visit [address] [address] Amy Saul RN SN - OASIS START OF CARE from Last 3 Months Social History Tobacco [...] Sign Reading Time Taken Comments Blood Pressure 132/78 07/13/2024 11:49 AM CDT Pulse 96 07/13/2024 11:49 AM CDT Temperature 37.1 C (98.7 F) 07/13/2024 11:49 AM CDT Respiratory Rate 20 07/13/2024 11:49 AM CDT Oxygen Saturation 97% 07/13/2024 11:49 AM CDT Inhaled Oxygen Concentration - - Weight 190.5 kg (420 lb) 06/10/2024 12:39 PM CDT Height 180.3 cm (5' 11) 06/10/2024 12:39 PM CDT Body Mass Index 58.58 06/10/2024 12:39 PM CDT Plan of Treatment Health Maintenance Due Date Last Done Comments Hepatitis C Virus (HCV) Screening 1998 Human Papillomavirus (HPV) Immunization (2 - Male 3-dose series) 07/11/2016 06/13/2016 Pneumococcal Immunization Combined (1 of 2 - PCV) 2017 SARS-COV-2 Immunization (3 - season) 2023 07/13/2020, 06/15/2020 Influenza Immunization (#1) 10/18/202404/17, 11/20/2016, 2011, Additional history exists Respiratory Syncytial Virus (RSV) Immunization (Adult) (1 - 1-dose 75+ series) 2073 Hepatitis B Immunization Completed 999, 1998, 1998 DTaP/Tdap/Td Immunization Discontinued 2012, 09/16/2008, 10/11/2003, Additional history exists TdaP Immunization Completed 09/16/2012, 09/16/2008 Meningococcal Immunization (ACWY) Completed 12/01/2015, 09/16/2012, 08/28/2009 Rotavirus Immunization Aged Out No lo nger eligible based on patient's age to complete this topic Insurance MEDICAID [place] Advance Directives * Full Code (Latest Code Status on File) Date Activated Date Inactivated Comments 06/11/2024 7:01 AM Care Teams Lumber Scaler Relationship Specialty Start Date End Date Provider, None [place] PCP - General 12/12/23
--- OUTSIDE RECORDS SUMMARY | 2024-09-07 16:35 | XMS_ITS | Referral Summary ---
Author Organization [facility] Address [address] [place] [address] Care Team Providers Care Trolley Collector Name Role Phone Cesia Banda NP Primary [...] cyst Assessment & Plan (01/27/2017 11:45 AM LITHOGRAPH OPERATOR): Encouraged to keep area clean and dry, please notify if redness, pain, swelling, or drainage occurs. Continue to avoid exertion for 2-3 more weeks. Assessment & Plan (01/08/2017 4:02 PM LITHOGRAPH OPERATOR): Will schedule surgical excision of pilonidal cyst. [...] on file Legal Sex Male 11:28 PM LITHOGRAPH OPERATOR Gender Identity Not on file Sexual Orientation [...] Plan of Treatment Not on file [facility] MEDICAID [facility] CHOICE PLUS [facility] H[facility]/PPO Address: [address] [address] [place] [address] [facility] PPO IDPA Care Teams Trolley Collector Relationship Specialty Start Date End Date Cesia Banda NP [address] [place] [address] [place] [id number] PCP - General 03/29/20
--- OUTSIDE RECORDS SUMMARY | 2024-09-07 16:36 | XMS_ITS | Clinical Summary ---
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 This disclosure is being madepursuant to the Care Everywhere program and may not contain all information available regarding this patient. Last updated 17.[facility] Allergies Active Allergy Reactions Criticality Noted Date Comments Cephalexin Urticaria Medium 05/21/2024 Shrimp Extract Allergy Skin Test Unknown 01/06/2017 shrimp allergenic extract Wheat Bran Unknown 01/06/2017 wheat preparation Medications * Be aware that medications may not be up to date on this document. Alwaysverify current medications with the patient. oxyCODONE, immediate release, (Roxicodone) 5 MG tabletIndication s:Appendicitis, unspecified appendicitis type Take 1 (one) tablet by mouth every 6 hours as needed 12 tablet 05/28/2024 3:59 PM CDT Active Additional Information Patient not taking.Reported on 07/07/2024 albuterol HFA (Proventil; Ventolin; Proair) 108 (90 Base) MCG/ACT inhaler Inhale 2 puffs every 4 hours by inhalation route as needed. Active Active Problems Problem Noted Date Diagnosed Date Postoperative state 06/09/2024 Acute hypoxemic respiratory failure 05/22/2024 Morbid obesity with BMI of 60.0-69.9, adult 06/2024 Sepsis 05/22/2024 Appendicitis, unspecified appendicitis type 05/2024 Encounters Date Type Department Care Team Description 07/15/2024 Telephone [facility] - Surgery [address] [place] [address], [address] [phone] Santiago Joy MD Med Question 07/07/2024 9:40 AM CDT Office Visit [address], [address] [phone] Santiago Joy MD Postoperative state (Primary Dx) 07/07/2024 Travel 06/23/2024 8:40 AM CDT Office Visit [address], [address] [phone] Santiago Joy MD Postoperative state (Primary Dx) 06/23/2024 Travel 06/11/2024 Orders Only [facility] - Surgery [address], [address] [place] [address] Santiago Joy MD Post-op pain 06/11/2024 Orders Only [facility] - Surgery [address], [address] [place] [address] Santiago Joy MD Post-op pain 06/10/2024 Telephone [facility] - Surgery [address] [place] [address], [address] [phone] Santiago Joy MD Med Question; Wound Care 06/09/2024 8:40 AM CDT Office Visit [facility] Surgery [address] [place] [address], [address] [phone] Santiago Joy MD Postoperative state (Primary Dx) 06/09/2024 Travel from Last 3 Months Family History [...] and heating? Not hard at all 05/21/2024 [facility] [place] [facility] - Occupational Stress [...] any time in the past 12 [facility], were you homeless or living in a care home (including now)? 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
--- OUTSIDE RECORDS SUMMARY | 2024-09-07 16:36 | XMS_ITS | Data Portability ---
Author Organization [facility] Address [address] [facility] [place] [address] Care Team Providers Care Data Management Name Role Phone CESIA PICKARD Primary Care Provider Assessment Encounter Date Assessment Date Assessment LastModified by Organization Details LastModified Time 03/29/2020 03/29/2020 Verbal consent for telephone visit was obtained and phone call lasted for approximately 15 min. Not available 03/29/2020 13:42:40 Plan of Treatment Reminders Order Date Submit Date Provider Last Modified By Organization Details Last Modified Time Details Appointments None recorded. Lab CMP, serum or plasma 2020 021 [facility], [address] [place] [address], [id number], 08:20:43 CBC w/ auto diff 2020 021 [facility], [address] [place] [address] [place], [address], 08:20:42 TSH, ultra-sens itive, serum 2020 021 [facility], [address] [place] [address] 2, [place], [address], 08:20:45 vitamin B12 + folate, serum or blood 2020 021 [facility], [address] [facility] [address], [place], [address], 04/30/202 1 08:20:43 HbA1c (hemoglobi n A1c), blood 2020 021 [facility], [address] [facility], [facility] 2, [place], [address], 1 08:20:45 SARS CoV 2 IgG Ab, QL IA, serum or plasma 2020 021 [facility], [address] [facility], [facility], [place], [address], 1 08:20:46 amylase + lipase, serum 2020 021 [facility], [address] [facility], [facility] 2, [place], [address], 1 08:20:44 rapid flu (A+B) 2018 019 [facility] In-Office Order, Internal Use Only DO Not Attach Compendium DO Not Attach Compendium, Do Not Delete/merge, [id number] 9 12:32:37 Referral None recorded. Procedures None recorded. Surgeries None recorded. Imaging XR, chest, 2 view 2020 [facility], [address] [facility] , [place], [address], 1 16:59:29 Medication Orders ProAir HFA 90 mcg/actuat ion aerosol inhaler 2020 021 [id number], [address] [place], [id number], 10:33:47 ProAir HFA 90 mcg/actuat ion aerosol inhaler 2020 021 [facility] #[id number], [address], [place], [place], [id number], 1 12:36:30 albuterol sulfate 2.5 mg/3 mL (0.083 %) solution for nebulizati on 2018 Not available 12:32:49 azithromyc in 250 mg tablet [address] [facility] #[id number], [address], [place], [place], [id number], 12:06:07 Zyrtec 10 mg capsule [address] [facility] #[id number], [address], [place], [place], [id number], 12:06:30 Patient TargetsNo targets recorded. Patient Instructions Encounter Date Encounter Id Patient Instructions Last Modified By Organization Details Last Modified Time 03/29/2020 [id number] tobacco cessation Not availab le 03/29/2020 12:36:18 [...] prevention exam Not available 03/29/2020 13:44:05 06/15/2020 [id number] lightheadedness or faintness: care instructions Not available 06/15/2020 10:33:42 nausea and vomiting: care instructions Not available 06/15/2020 10:33:42 Increase clear fluids. BRAT (bananas, rice, applesauce, toast) diet. If pain increases or if fever, go to ER. May need to f/u with GI if persists fpc. Keep log of foods/symptoms. Not available 06/15/2020 [...] DO Not Attach Compendium, Do Not Delete/merge, [id number] 06/24/2018 12:08:56 06/25/19 19 06/24/2018 rapid flu (A+B) Flu B negati ve Not Available In-Office Order Internal Use Only DO Not Attach Compendium DO Not Attach Compendium, Do Not Delete/merge, [id number] 06/24/2018 12:08:56 06/16/19 21 06/16/2020 CBC w/ auto diff WBC 9.0 x10e3 /uL 3.4-10 .8 Not Available [facility] ([facility]) [address] [place], [address], 06/16/2020 08:20:42 06/16/19 21 06/16/2020 CBC w/ auto diff RBC 5.43 x10e6 /uL 4.14-5 .80 Not Available [facility] ([facility]) [address] [place], [address], 06/16/2020 08:20:42 06/16/19 21 06/16/2020 CBC w/ auto diff hemoglobin 15.1 g/dL 13.0-1 7.7 Not Available [facility] ([facility]) [address] [place], [address], 06/16/2020 08:20:42 06/16/19 21 06/16/2020 CBC w/ auto diff hematocrit 45.2 % 37.5-5 1.0 Not Available [facility] ([facility]) [address] [place], [address], 06/16/2020 08:20:42 06/16/19 21 06/16/2020 CBC w/ auto diff MCV 83 fL 79-97 Not Available [facility] ([facility]) [address] [facility], [place], [address], 06/16/2020 08:20:42 06/16/19 21 06/16/2020 CBC w/ auto diff MCH 27.8 pg 26.6-3 3.0 Not Available [facility] ([facility]) [address] [facility], [place], [address], 06/16/2020 08:20:42 06/16/19 21 06/16/2020 CBC w/ auto diff MCHC 33.4 g/dL 31.5-3 5.7 Not Available [facility] ([facility]) [address] [facility], [place], [address], 06/16/2020 08:20:42 06/16/19 21 06/16/2020 CBC w/ auto diff RDW 13.2 % 11.6-1 5.4 Not Available [facility] ([facility]) [address] [facility], [place], [address], 06/16/2020 08:20:42 06/16/19 21 06/16/2020 CBC w/ auto diff platelets 295 x10e3 /uL 150-45 0 Not Available [facility] ([facility]) [address] [facility], [place], [address], 06/16/2020 08:20:42 06/16/19 21 06/16/2020 CBC w/ auto diff neutrophils 58 % not estab. Not Available [facility] ([facility]) [address] [facility], [place], [address], 06/16/2020 08:20:42 06/16/19 21 06/16/2020 CBC w/ auto diff lymphs 32 % not estab. Not Available [facility] ([facility]) [address] [facility], [place], [address], 06/16/2020 08:20:42 06/16/19 21 06/16/2020 CBC w/ auto diff monocytes 7 % not estab. Not Available [facility] ([facility]) [address] [place], [address], 06/16/2020 08:20:42 06/16/19 21 06/16/2020 CBC w/ auto diff eos 2 % not estab. Not Available [facility] ([facility]) [address] [place], [address], 06/16/2020 08:20:42 06/16/19 21 06/16/2020 CBC w/ auto diff basos 1 % not estab. Not Available [facility] ([facility]) [address] [facility], [place], [address], 06/16/2020 08:20:42 06/16/19 21 06/16/2020 CBC w/ auto diff immature cells LINEN CLERK Not Available [facility]) [address] [facility], [place], [address], 06/16/2020 08:20:42 06/16/19 21 06/16/2020 CBC w/ auto diff neutrophils (absolute) 5.2 x10e3 /uL 1.4-7. 0 Not Available [facility] ([facility]) [address] [place], [address], 06/16/2020 08:20:42 06/16/19 21 06/16/2020 CBC w/ auto diff lymphs (absolute) 2.9 x10e3 /uL 0.7-3. 1 Not Available [facility] ([facility]) [address] [place], [address], 06/16/2020 08:20:42 06/16/19 21 06/16/2020 CBC w/ auto diff monocytes(ab solute) 0.6 x10e3 /uL 0.1-0. 9 Not Available [facility] ([facility]) [address] [place], [address], 06/16/2020 08:20:42 04/29/20 21 06/16/2020 CBC w/ auto diff eos (absolute) 0.2 x10e3 /uL 0.0-0. 4 Not Available [facility] ([facility]) [address] [place], [address], 06/16/2020 08:20:42 06/16/19 21 06/16/2020 CBC w/ auto diff baso (absolute) 0.1 x10e3 /uL 0.0-0. 2 Not Available [facility] ([facility]) [address] [place], [address], 06/16/2020 08:20:42 06/16/19 21 06/16/2020 CBC w/ auto diff immature granulocytes 0 % not estab. Not Available [facility] ([facility]) [address] [place], [address], 06/16/2020 08:20:42 06/16/19 21 06/16/2020 CBC w/ auto diff immature grans (abs) 0.0 x10e3 /uL 0.0-0. 1 Not Available [facility] ([facility]) [address] [place], [address], 06/16/2020 08:20:42 06/16/19 21 06/16/2020 CBC w/ auto diff NRBC LINEN CLERK Not Available [facility] ([facility]) [address] [place], [address], 06/16/2020 08:20:42 06/16/19 21 06/16/2020 CBC w/ auto diff hematology comments: LINEN CLERK Not Available [facility] ([facility]) [address] [place], [address], 06/16/2020 08:20:42 06/16/19 21 06/16/2020 CMP, serum or plasm a glucose 80 mg/dL 65-99 Not Available [facility] ([facility]) [address] [place], [address], 06/16/2020 08:20:43 06/16/19 21 06/16/2020 CMP, serum or plasm a BUN 13 mg/dL 6-20 Not Available [facility] ([facility]) [address] [facility], [place], [address], 06/16/2020 08:20:43 06/16/19 21 06/16/2020 CMP, serum or plasm a creatinine 0.82 mg/dL 0.76-1 .27 Not Available [facility] ([facility]) [address] [facility], [place], [address], 06/16/2020 08:20:43 06/16/19 21 06/16/2020 CMP, serum or plasm a eGFR if nonafricn AM 126 mL/mi n/1.7 3 >59 Not Available [facility] ([facility]) [address] [facility], [place], [address], 06/16/2020 08:20:43 06/16/19 21 06/16/2020 CMP, serum [...] SN Task force . Not Available [facility] ([facility]) [address] [facility], [place], [address], 06/16/2020 08:20:43 06/16/19 21 06/16/2020 CMP, serum or plasm a BUN/creatini ne ratio 16 9-20 Not Available [facility] ([facility]) [address] [facility], [place], [address], 06/16/2020 08:20:43 06/16/19 21 06/16/2020 CMP, serum or plasm a sodium 141 mmol/ L 134-14 4 Not Available [facility] ([facility]) [address] [place], [address], 06/16/2020 08:20:43 06/16/19 21 06/16/2020 CMP, serum or plasm a potassium 4.3 mmol/ L 3.5-5. 2 Not Available [facility] ([facility]) [address] [place], [address], 06/16/2020 08:20:43 06/16/19 21 06/16/2020 CMP, serum or plasm a chloride 103 mmol/ L 96-106 Not Available [facility] ([facility]) [address] [place], [address], 06/16/2020 08:20:43 06/16/19 21 06/16/2020 CMP, serum or plasm a carbon dioxide, total 24 mmol/ L 20- Not Available [facility] ([facility]) [address] [place], [address], 06/16/2020 08:20:43 06/16/1906/16/2020 CMP, serum or plasm a calcium 9.2 mg/dL 8.7-10 .2 Not Available [facility] ([facility]) [address] [place], [address], 06/16/2020 08:20:43 06/16/1906/16/2020 CMP, serum or plasm a protein, total 7.3 g/dL 6.0-8. 5 Not Available [facility] ([facility]) [address] [place], [address], 06/16/2020 08:20:43 06/16/19 21 06/16/2020 CMP, serum or plasm a albumin 4.6 g/dL 4.1-5. 2 Not Available [facility] ([facility]) [address] [place], [address], 06/16/2020 08:20:43 06/16/19 21 06/16/2020 CMP, serum or plasm a globulin, total 2.7 g/dL 1.5-4. 5 Not Available [facility] ([facility]) [address] [place], [address], 06/16/2020 08:20:43 06/16/19 21 06/16/2020 CMP, serum or plasm a A/G ratio 1.7 1.2-2. 2 Not Available [facility] ([facility]) [address] [place], [address], 06/16/2020 08:20:43 06/16/19 21 06/16/2020 CMP, serum or plasm a bilirubin, total 0.2 mg/dL 0.0-1. 2 Not Available [facility] ([facility]) [address] [place], [address], 06/16/2020 08:20:43 06/16/19 21 06/16/2020 CMP, serum or plasm a alkaline phosphatase 93 IU/L 39-117 Not Available [facility] [address] [place], [address], 06/16/2020 08:20:43 06/16/19 21 06/16/2020 CMP, serum or plasm a AST (SGOT) 16 IU/L 0-40 Not Available [facility] ([facility]) [address] [place], [address], 06/16/2020 08:20:43 06/16/19 21 06/16/2020 CMP, serum or plasm a ALT (SGPT) 24 IU/L 0-44 Not Available [facility] ([facility]) [address] [place], [address], 06/16/2020 08:20:43 06/16/19 21 06/16/2020 vitam in B12 + folat e, serum or blood vitamin B12 542 pg/mL 232-12 45 Not Available [facility] ([facility]) [address] [place], [address], 06/16/2020 08:20:43 06/16/19 21 06/16/2020 vitam in B12 + folat e, serum or blood folate (folic acid), serum >20.0 NG/mL >3.0 A serum folat e kentrell ntrat ion of less than 3.1 ng/mL is consi dered to repre sent clini becky defic iency . Not Available [facility] ([facility]) [address] [place], [address], 06/16/2020 08:20:43 06/16/19 21 06/16/2020 amyla se + lipas e, serum amylase 43 U/L 31-110 Not Available [facility] ([facility]) [address] [place], [address], 06/16/2020 08:20:44 06/16/19 21 06/16/2020 amyla se + lipas e, serum lipase 15 U/L 13-78 Not Available [facility] ([facility]) [address] [place], [address], 06/16/2020 08:20:44 06/16/19 21 06/16/2020 HbA1c (hemo globi n A1c), blood hemoglobin A1C 5.4 % 4.8-5. 6 Predi abete s: 5.7 - 6.4 Diabe eduard: >6.4 Glyce imelda contr ol for adult s with diabe eduard: <7.0 Not Available [facility] ([facility]) [address] [place], [address], 06/16/2020 08:20:45 06/16/19 21 06/16/2020 TSH, ultra -sens itive , serum TSH 5.510 uIU/m L 0.450- 4.500 above high normal Not Available [facility] ([facility]) [address] [facility], [place], [address], 06/16/2020 08:20:45 06/16/19 21 06/16/2020 SARS CoV [...] This assay was perfo rmed using the DiaSHARKMARX rin Liais on(R) SARS- CoV-2 S1/S2 IgG assay . This assay detec ts antib odies again st SARS- CoV-2 spike prote in inclu ding the guest relations receptionist tor bala ng colleenai n (RBD) . Not Available [facility] ([facility]) [address] [facility], [place], [address], 06/16/2020 08:20:46 07/28/19 21 07/28/2020 TSH, ultra -sens itive , serum TSH 2.300 uIU/m L 0.450- 4.500 Not Available [facility] ([facility]) [address] [facility], [place], [address], 07/28/2020 04:09:23 05/22/19 25 05/27/2024 Bacte sully [...] <=2 mmol/ L 05/21 10:05 PM CDT [facility] Not Available Not Available 06/01/2024 16:51:01 05/22/19 25 05/21/2024 Lacta te [Mole s/vol ume] in Serum or Plasm a interpretati on and review of laboratory results Normal Not Available Not Available 05/18 16:51:01 05/22/19 25 05/21/2024 Compr ehens lupillo metab olic 1999 panel - Serum or Plasm a glucose [mass/volume ] in serum or plasma 80 mg/dL low: 70mg/d Lhigh: 99mg/d L Gluco se 80 70 - 99 mg/dL 05/21 10:07 PM CDT [facility] Not Available Not Available 06/01/2024 16:51:01 05/22/19 25 05/21/2024 Compr ehens lupillo metab olic 1999 panel - Serum or Plasm a sodium [moles/volum e] in serum or plasma 138 mmol/ L low: 136mmo l/Lhig h: 145mmo l/L Sodiu m 138 136 - 145 mmol/ L 05/21 10:07 PM CDT [facility] Not Available Not Available 06/01/2024 16:51:01 05/22/19 25 05/21/2024 Compr ehens lupillo metab olic 1999 panel - Serum or Plasm a potassium [moles/volum e] in serum or plasma 3.9 mmol/ L low: 3.5mmo l/Lhig h: 5.1mmo l/L Potas sium 3.9 3.5 - 5.1 mmol/ L 05/21 10:07 PM CDT [facility] Not Available Not Available 06/01/2024 16:51:01 05/22/19 25 05/21/2024 Compr ehens lupillo metab olic 2000 panel - Serum or Plasm a chloride [moles/volum e] in serum or plasma 101 mmol/ L low: 98mmol /Lhigh : 107mmo l/L Chlor temitope 101 98 - 107 mmol/ L 05/21 10:07 PM CDT [facility] Not Available Not Available 06/01/2024 16:51:01 05/22/19 25 05/21/2024 Compr ehens lupillo metab olic 2000 panel - Serum or Plasm a carbon dioxide, total [moles/volum e] in serum or plasma 27 mmol/ L low: 22mmol /Lhigh : 29mmol /L CO2 27 22 - 29 mmol/ L 05/21 10:07 PM CDT [facility] Not Available Not Available 06/01/2024 16:51:01 05/22/19 25 05/21/2024 [facility] 1999 panel - Serum or Plasm a calcium [mass/volume ] in serum or plasma 8.8 mg/dL low: 8.4mg/ dLhigh : 10.4mg /dL Calci um 8.8 8.4 - 10.4 mg/dL 05/21 10:07 PM CDT [facility] Not Available Not Available 06/01/2024 16:51:01 05/22/19 25 05/21/2024 [facility] 1999 panel - Serum or Plasm a anion gap in blood by calculation 10 mmol/ L low: 6mmol/ Lhigh: 16mmol /L Anion Gap 10 6 - 16 mmol/ L 05/21 10:07 PM CDT [facility] Not Available Not Available 06/01/2024 16:51:01 05/22/19 25 05/21/2024 [facility] lupillo [facility] 1999 panel - Serum or Plasm a urea nitrogen [mass/volume ] in serum or plasma 11 mg/dL low: 5.3mg/ dLhigh : 18.7mg /dL BUN 11 5.3 - 18.7 mg/dL 05/21 10:07 PM CDT [facility] Not Available Not Available 06/01/2024 16:51:01 05/22/19 25 05/21/2024 [facility] 1999 panel - Serum or Plasm a creatinine [mass/volume ] in serum or plasma 0.77 mg/dL low: 0.72mg /dLhig h: 1.25mg /dL Creat inine 0.77 0.72 - 1.25 mg/dL 05/21 10:07 PM CDT [facility] Not Available Not Available 06/01/2024 16:51:01 05/22/19 25 05/21/2024 Compr ehens lupillo metab olic 1999 panel - Serum or Plasm a alkaline phosphatase [enzymatic activity/vol ume] in serum or plasma 86 U/L low: 40U/Lh igh: 150U/L Alkal ine Phosp hatas e 86 40 - 150 U/L 05/21 10:07 PM CDT [facility] Not Available Not Available 06/01/2024 16:51:01 05/22/19 25 05/21/2024 Compr ehens lupillo metab olic 1999 panel - Serum or Plasm a alanine aminotransfe rase [enzymatic activity/vol ume] in serum or plasma 43 U/L low: 6U/Lhi gh: 57U/L ALT 43 6 - 57 U/L 05/21 10:07 PM CDT [facility] Not Available Not Available 06/01/2024 16:51:01 05/22/19 25 05/21/2024 Compr ehens lupillo metab olic 1999 panel - Serum or Plasm a aspartate aminotransfe rase [enzymatic activity/vol ume] in serum or plasma 31 U/L low: 10U/Lh igh: 48U/L AST 31 10 - 48 U/L 05/21 10:07 PM CDT [facility] Not Available Not Available 06/01/2024 16:51:01 05/22/19 25 05/21/2024 Compr ehens lupillo metab olic 1999 panel - Serum or Plasm a protein [mass/volume ] in serum or plasma 7.1 text: 6.4 - 8.3 gm/dL Prote in Total 7.1 6.4 - 8.3 gm/dL 05/21 10:07 PM CDT [facility] Not Available Not Available 06/01/2024 16:51:01 05/22/19 25 05/21/2024 Compr ehens lupillo metab olic 1999 panel - Serum or Plasm a albumin [mass/volume ] in serum or plasma 3.2 text: 3.4 - 5.0 gm/dL low Album in 3.2 (L) 3.4 - 5.0 gm/dL 05/21 10:07 PM CDT [facility] Not Available Not Available 06/01/2024 16:51:01 04/04/20 25 05/21/2024 Compr ehens lupillo metab olic 1999 panel - Serum or Plasm a bilirubin.to chana [mass/volume ] in serum or plasma 0.9 mg/dL low: 0.2mg/ dLhigh : 1.2mg/ dL Bilir ubin Total 0.9 0.2 - 1.2 mg/dL 05/21 10:07 PM CDT [facility] Not Available Not Available 06/01/2024 16:51:01 05/22/19 25 05/21/2024 Compr ehens lupillo metab olic 1999 panel - Serum or Plasm a glomerular filtration rate [volume rate/area] in serum, plasma or blood by creatinine-b ased formula (CKD-epi 2020)/1.73 sq M text: >=90 mL/min /1.73 m2 eGFR by CKD-E PI >90 >=90 mL/mi n/1.7 3 m2 05/21 10:07 PM CDT [facility] Not Available Not Available 06/01/2024 16:51:01 05/22/19 25 05/21/2024 Compr [facility] lupillo metab olic 2000 panel - Serum or Plasm a interpretati on and review of laboratory results Abnorm al Not Available Not Available 16:51:01 05/22/19 25 05/21/2024 CBC W Auto Diffe renti al panel - Blood leukocytes [#/volume] in blood by automated count 17 text: 4.0 - 10.7 x10e9/ L high WBC 17.0 (H) 4.0 - 10.7 x10E9 /L 05/21 9:53 PM CDT [facility] Not Available Not Available 06/01/2024 16:51:01 05/22/19 25 05/21/2024 CBC W Auto Diffe renti al panel - Blood erythrocytes [#/volume] in blood by automated count 4.55 text: 4.30 - 5.80 x10e12 /L RBC Count 4.55 4.30 - 5.80 x10E1 2/L 05/21 9:53 PM CDT [facility] Not Available Not Available 06/01/2024 16:51:01 05/22/19 25 05/21/2024 CBC W Auto Diffe renroberto al panel - Blood hemoglobin [mass/volume ] in blood 11.5 g/dL low: 13.3g/ dLhigh : 17.5g/ dL low Hemog lobin 11.5 (L) 13.3 - 17.5 g/dL 05/21 9:53 PM CDT [facility] Not Available Not Available 06/01/2024 16:51:01 05/22/19 25 05/21/2024 CBC W Auto Diffe augustinti al panel - Blood hematocrit [volume fraction] of blood by automated count 37.3 % low: 38.7%h igh: 51.1% low Hemat ocrit 37.3 (L) 38.7 - 51.1 % 05/21 9:53 PM CDT [facility] Not Available Not Available 06/01/2024 16:51:01 05/22/19 25 05/21/2024 CBC W Auto Diffe kayode branham panel - Blood MCV [entitic mean volume] in red blood cells by automated count 82 fL low: 80fLhi gh: 98fL MCV 82.0 80.0 - 98.0 fL 05/21 9:53 PM CDT [facility] Not Available Not Available 06/01/2024 16:51:01 05/22/19 25 05/21/2024 CBC W Auto Diffe kayode branham panel - Blood MCH [entitic mass] by automated count 25.3 pg low: 26.7pg high: 33.6pg low MCH 25.3 (L) 26.7 - 33.6 pg 05/21 9:53 PM CDT [facility] Not Available Not Available 06/01/2024 16:51:01 05/22/19 25 05/21/2024 CBC W Auto Diffe kayode al panel - Blood MCHC [entitic mass/volume] in red blood cells by automated count 30.8 g/dL low: 31.7g/ dLhigh : 36.3g/ dL low MCHC 30.8 (L) 31.7 - 36.3 g/dL 05/21 9:53 PM CDT [facility] [...] - 74.0 % 05/21 9:53 PM CDT [facility] Not Available Not Available 06/01/2024 16:51:01 05/22/19 25 05/21/2024 CBC W Auto Diffe renti al panel - Blood lymphocytes/ leukocytes in blood by automated count 15.6 % low: 17%hig h: 47% low Lymph ocyte % 15.6 (L) 17.0 - 47.0 % 05/21 9:53 PM CDT [facility] [...] 7.50 x10e9/ L high Neutr ophil Absol [place] 12.58 (H) 1.60 - 7.50 x10E9 /L 05/21 9:53 PM CDT [facility] Not Available Not Available 06/01/2024 16:51:01 05/22/19 25 05/21/2024 CBC W Auto Diffe renti al panel - Blood lymphocytes [#/volume] in blood by automated count 2.66 text: 1.00 - 4.40 x10e9/ L Lymph ocyte Absol [place] 2.66 1.00 - 4.40 x10E9 /L 05/21 9:53 PM CDT [facility] Not Available Not Available 06/01/2024 16:51:01 05/22/19 25 05/21/2024 CBC W Auto Diffe renti al panel - Blood monocytes [#/volume] in blood by automated count 1.35 text: 0.15 - 1.00 x10e9/ L high Monoc yte Absol [place] 1.35 (H) 0.15 - 1.00 x10E9 /L 05/21 9:53 PM CDT [facility] Not Available Not Available 06/01/2024 16:51:01 05/22/19 25 05/21/2024 CBC W Auto Diffe renti al panel - Blood eosinophils [#/volume] in blood 0.28 text: 0.00 - 0.60 x10e9/ L Eosin ophil Absol [place] 0.28 0.00 - 0.60 x10E9 /L 05/21 9:53 PM CDT [facility] Not Available Not Available 06/01/2024 16:51:01 05/22/19 25 05/21/2024 CBC W Auto Diffe renti al panel - Blood basophils [#/volume] in blood by automated count 0.05 text: 0.00 - 0.13 x10e9/ L Basop hil Absol [place] 0.05 0.00 - 0.13 x10E9 /L 05/21 9:53 PM CDT [facility] Not Available Not Available 06/01/2024 [...] lupillo, Error 05/21 12:19 PM CDT [facility] Not Available Not Available 06/01/2024 [...] Negat lupillo 05/21 12:19 PM CDT [facility] Not Available Not Available 06/01/2024 [...] Negat lupillo 05/21 12:19 PM CD[facility] Not Available [...] Detec treasure) 05/21 12:19 PM CDT [facility] Not Available Not Available 06/01/2024 [...] 10(3) /mcL 05/21 11:42 AM CDT [facility] Not Available Not Available 06/01/2024 16:51:38 05/22/19 25 05/21/2024 CBC W Auto Diffe renti al panel - Blood erythrocytes [#/volume] in blood by automated count 4.65 text: 4.40 - 5.80 10(6)/ mcL RBC 4.65 4.40 - 5.80 10(6) /mcL 05/21 11:42 AM CDT [facility] Not Available Not Available 06/01/2024 16:51:38 05/22/19 25 05/21/2024 CBC W Auto Diffe renti al panel - Blood hemoglobin [mass/volume ] in blood 12.1 g/dL low: 13g/dL high: 16.5g/ dL low HEMOG LOBIN (HGB) 12.1 (L) 13.0 - 16.5 g/dL 05/21 11:42 AM CDT [facility] Not Available Not Available 06/01/2024 16:51:38 05/22/19 25 05/21/2024 CBC W Auto Diffe renti al panel - Blood hematocrit [volume fraction] of blood by automated count 38.3 % low: 38%hig h: 50% HEMAT OCRIT (HCT) 38.3 38.0 - 50.0 % 05/21 11:42 AM CDT [facility] Not Available Not Available 06/01/2024 16:51:38 05/22/19 25 05/21/2024 CBC W Auto Diffe renti al panel - Blood MCV [entitic mean volume] in red blood cells by automated count 82.4 fL low: 82fLhi gh: 96fL MCV 82.4 82.0 - 96.0 fL 05/21 11:42 AM CDT [facility] Not Available Not Available 06/01/2024 16:51:38 05/22/19 25 05/21/2024 CBC W Auto Diffe renti al panel - Blood MCH [entitic mass] by automated count 26 pg low: 26pghi gh: 32pg MCH 26.0 26.0 - 32.0 pg 05/21 11:42 AM CDT [facility] Not Available Not Available 06/01/2024 16:51:38 05/22/19 25 05/21/2024 CBC W Auto Diffe renti al panel - Blood MCHC [entitic mass/volume] in red blood cells by automated count 31.6 g/dL low: 31g/dL high: 36g/dL MCHC 31.6 31.0 - 36.0 g/dL 05/21 11:42 AM CDT [facility] Not Available Not Available 06/01/2024 16:51:38 05/22/19 25 05/21/2024 CBC W Auto Diffe renti al panel - Blood platelets [#/volume] in blood 296 text: 140 - 440 10(3)/ mcL PLATE LET COUNT 296 140 - 440 10(3) /mcL 05/21 11:42 AM CDT [facility] Not Available Not Available 06/01/2024 16:51:38 05/22/19 25 05/21/2024 CBC W Auto Diffe renti al panel - Blood erythrocyte [distwidth] in red blood cells by automated count 15 % low: 11.8%h igh: 15.5% RDW 15.0 11.8 - 15.5 % 05/21 11:42 AM CDT [facility] Not Available Not Available 06/01/2024 16:51:38 05/22/19 25 05/21/2024 CBC W Auto Diffe renti al panel - Blood platelet [entitic mean volume] in blood by automated count 10.1 fL low: 8fLhig h: 12.6fL MPV 10.1 8.0 - 12.6 fL 05/21 11:42 AM CDT [facility] Not Available Not Available 06/01/2024 16:51:38 05/22/19 25 05/21/2024 CBC W Auto Diffe renti al panel - Blood neutrophils/ leukocytes in blood by automated count 70.8 % low: 40%hig h: 68% high NEUTR OPHIL S 70.8 (H) 40.0 - 68.0 % 05/21 11:42 AM CDT [facility] Not Available Not Available 06/01/2024 16:51:38 05/22/19 25 05/21/2024 CBC W Auto Diffe renti al panel - Blood lymphocytes/ leukocytes in blood by automated count 17.3 % low: 19%hig h: 49% low LYMPH OCYTE S 17.3 (L) 19.0 - 49.0 % 05/21 11:42 AM CDT [facility] Not Available Not Available 06/01/2024 16:51:38 05/22/19 25 05/21/2024 CBC W Auto Diffe renti al panel - Blood monocytes/le ukocytes in blood by automated count 9.8 % low: 3%high : 13% MONOC YTES 9.8 3.0 - 13.0 % 05/21 11:42 AM CDT [facility] Not Available Not Available 06/01/2024 16:51:38 05/22/19 25 05/21/2024 CBC W Auto Diffe renti al panel - Blood eosinophils/ leukocytes in blood by automated count 1.5 % low: 0%high : 8% EOSIN OPHIL S 1.5 0.0 - 8.0 % 05/21 11:42 AM CDT [facility] Not Available Not Available 06/01/2024 16:51:38 05/22/19 25 05/21/2024 CBC W Auto Diffe renti al panel - Blood basophils/le ukocytes in blood by automated count 0.6 % low: 0%high : 1% BASOP HILS 0.6 0.0 - 1.0 % 05/21 11:42 AM CDT [facility] Not Available Not Available 06/01/2024 16:51:38 05/22/19 25 05/21/2024 CBC W Auto Diffe renti al panel - Blood neutrophils [#/volume] in blood by automated count 11.96 text: 1.40 - 5.30 10(3)/ mcL high ABSOL WALES NEUTR OPHIL S 11.96 (H) 1.40 - 5.30 10(3) /mcL 05/21 11:42 AM CDT [facility] Not Available Not Available 06/01/2024 16:51:38 05/22/19 25 05/21/2024 CBC W Auto Diffe renti al panel - Blood lymphocytes [#/volume] in blood by automated count 2.92 text: 0.90 - 3.30 10(3)/ mcL ABSOL WALES LYMPH OCYTE S 2.92 0.90 - 3.30 10(3) /mcL 05/21 11:42 AM CDT [facility] Not Available Not Available 06/01/2024 16:51:38 05/22/19 25 05/21/2024 CBC W Auto Diffe renti al panel - Blood monocytes [#/volume] in blood by automated count 1.66 text: 0.10 - 0.90 10(3)/ mcL high ABSOL WALES MONOC YTES 1.66 (H) 0.10 - 0.90 10(3) /mcL 05/21 11:42 AM CDT [facility] Not Available Not Available 06/01/2024 16:51:38 05/22/19 25 05/21/2024 CBC W Auto Diffe renti al panel - Blood eosinophils [#/volume] in blood by automated count 0.26 text: 0.00 - 0.50 10(3)/ mcL ABSOL WALES EOSIN OPHIL 0.26 0.00 - 0.50 10(3) /mcL 05/21 11:42 AM CDT [facility] Not Available Not Available 06/01/2024 16:51:38 05/22/19 25 05/21/2024 CBC W Auto Diffe renti al panel - Blood basophils [#/volume] in blood by automated count 0.1 text: 0.00 - 0.10 10(3)/ mcL ABSOL WALES BASOP HILS 0.10 0.00 - 0.10 10(3) /mcL 05/21 11:42 AM CDT [facility] Not Available Not Available 06/01/2024 16:51:38 05/22/19 25 05/21/2024 CBC W Auto Diffe renti al panel - Blood nucleated erythrocytes /leukocytes [ratio] in blood 0 NRBC PER 100 WBC 0 05/21 11:42 AM CDT [facility] Not Available [...] 145 mmol/ L 05/21 11:59 AM CDT [facility] Not Available Not Available 06/01/2024 16:51:38 05/22/19 25 05/21/2024 Compr ehens lupillo metab olic 1999 panel - Serum or Plasm a potassium [moles/volum e] in serum or plasma 3.8 mmol/ L low: 3.5mmo l/Lhig h: 5.1mmo l/L POTAS SIUM 3.8 3.5 - 5.1 mmol/ L 05/21 11:59 AM CDT [facility] Not Available Not Available 06/01/2024 16:51:38 05/22/19 25 05/21/2024 Compr ehens lupillo metab olic 1999 panel - Serum or Plasm a chloride [moles/volum e] in serum or plasma 101 mmol/ L low: 98mmol /Lhigh : 107mmo l/L CHLOR TEMITOPE 101 98 - 107 mmol/ L 05/21 11:59 AM CDT [facility] Not Available Not Available 06/01/2024 16:51:38 05/22/19 25 05/21/2024 Compr ehens lupillo metab olic 1999 panel - Serum or Plasm a carbon dioxide, total [moles/volum e] in serum or plasma 28 mmol/ L low: 22mmol /Lhigh : 30mmol /L CO2, VENOU S 28 22 - 30 mmol/ L 05/21 11:59 AM CDT [facility] Not Available Not Available 06/01/2024 16:51:38 05/22/19 25 05/21/2024 Compr ehens lupillo metab olic 1999 panel - Serum or Plasm a anion gap in serum or plasma by calculation 13.8 mmol/ L high: 18mmol /L ANION GAP 13.8 <18.0 mmol/ L 05/21 11:59 AM CDT [facility] Not Available Not Available 06/01/2024 16:51:38 05/22/19 25 05/21/2024 Compr [employer] lupillo metab olic 2000 panel - Serum or Plasm a glucose [mass/volume ] in serum or plasma 90 mg/dL low: 70mg/d Lhigh: 99mg/d L GLUCO SE 90 70 - 99 mg/dL 05/21 11:59 AM CDT [facility] Not Available Not Available 06/01/2024 16:51:38 05/22/19 25 05/21/2024 Compr [employer] lupillo metab olic 2000 panel - Serum or Plasm a urea nitrogen [mass/volume ] in serum or plasma 9 mg/dL low: 9mg/dL high: 21mg/d L BUN 9 9 - 21 mg/dL 05/21 11:59 AM CDT [facility] Not Available Not Available 06/01/2024 16:51:38 05/22/19 25 05/21/2024 Compr [employer] lupillo metab olic 1999 panel - Serum or Plasm a creatinine [mass/volume ] in serum or plasma 0.8 mg/dL low: 0.7mg/ dLhigh : 1.3mg/ dL CREAT ININE , BLOOD 0.80 0.70 - 1.30 mg/dL 05/21 11:59 AM CDT [facility] Not Available Not Available 06/01/2024 16:51:38 05/22/19 25 05/21/2024 Compr [employer] lupillo metab olic 1999 panel - Serum or Plasm a urea nitrogen/cre atinine [mass ratio] in serum or plasma 11 text: 12 - 20 ratio low BUN/C REATI NINE RATIO 11 (L) 12 - 20 ratio 05/21 11:59 AM CDT [facility] Not Available Not Available 06/01/2024 16:51:38 05/22/19 25 05/21/2024 Compr [employer] lupillo metab olic 1999 panel - Serum or Plasm a protein [mass/volume ] in serum or plasma 7.8 g/dL low: 6g/dLh igh: 8g/dL TOTAL PROTE IN 7.8 6.0 - 8.0 g/dL 05/21 11:59 AM CDT [facility] Not Available Not Available 06/01/2024 16:51:38 05/22/19 25 05/21/2024 Compr [employer] lupillo metab olic 1999 panel - Serum or Plasm a albumin [mass/volume ] in serum or plasma 4 g/dL low: 3.5g/d Lhigh: 5g/dL ALBUM IN 4.0 3.5 - 5.0 g/dL 05/21 11:59 AM CDT [facility] Not Available Not Available 06/01/2024 16:51:38 05/22/19 25 05/21/2024 Compr [employer] lupillo metab olic 1999 panel - Serum or Plasm a albumin/glob ulin [mass ratio] in serum or plasma 1.1 low: 1high: 2.2 A/G RATIO 1.1 1.0 - 2.2 05/21 11:59 AM CDT [facility] Not Available Not Available 06/01/2024 16:51:38 05/22/19 25 05/21/2024 Compr [employer] lupillo metab olic 1999 panel - Serum or Plasm a calcium [mass/volume ] in serum or plasma 9.2 mg/dL low: 8.7mg/ dLhigh : 10.5mg /dL CALCI UM 9.2 8.7 - 10.5 mg/dL 05/21 11:59 AM CDT [facility] Not Available Not Available 06/01/2024 16:51:38 05/22/19 25 05/21/2024 Compr [employer] lupillo metab olic 2000 panel - Serum or Plasm a bilirubin.to chana [mass/volume ] in serum or plasma 0.9 mg/dL low: 0.2mg/ dLhigh : 1.2mg/ dL T BILI 0.9 0.2 - 1.2 mg/dL 05/21 11:59 AM CDT [facility] Not Available Not Available 06/01/2024 16:51:38 05/22/19 25 05/21/2024 Compr [employer] lupillo metab olic 1999 panel - Serum or Plasm a aspartate aminotransfe rase [enzymatic activity/vol ume] in serum or plasma 27 U/L high: 43U/L SGOT (AST) 27 <43 U/L 05/21 11:59 AM CDT [facility] Not Available Not Available 06/01/2024 16:51:38 05/22/19 25 05/21/2024 Compr [employer] lupillo metab olic 1999 panel - Serum or Plasm a alanine aminotransfe rase [enzymatic activity/vol ume] in serum or plasma 44 U/L high: 56U/L SGPT (ALT) 44 <56 U/L 05/21 11:59 AM CDT [facility] Not Available Not Available 06/01/2024 16:51:38 05/22/19 25 05/21/2024 Compr [employer] lupillo metab olic 1999 panel - Serum or Plasm a alkaline phosphatase [enzymatic activity/vol ume] in serum or plasma 85 U/L low: 40U/Lh igh: 150U/L ALKAL INE PHOSP HATAS E 85 40 - 150 U/L 05/21 11:59 AM CDT [facility] Not Available Not Available 06/01/2024 16:51:38 05/22/19 25 05/21/2024 Compr [employer] lupilloMeshfire olic 1999 panel - Serum or Plasm a glomerular filtration rate [volume rate/area] in serum, plasma or blood by creatinine-b ased formula (CKD-epi 2020)/1.73 sq M low: 60 GFR, ESTIM ATED >60 >=60 05/21 11:59 AM CDT [facility] Not Available Not Available 06/01/2024 16:51:38 04/06/06 2405/21/2024 Compr ehens lupillo metab olic 2000 panel - Serum or Plasm a glomerular filtration rate [volume rate/area] in serum, plasma or blood by creatinine-b ased formula (MDRD)/1.73 sq M among black population low: 60 GFR, EST. AFRIC AN >60 >=60 05/21 11:59 AM CDT [facility] Not Available Not Available 06/01/2024 16:51:38 05/22/19 25 05/21/2024 Compr ehens lupillo metab olic 1999 panel - Serum or Plasm a glomerular filtration rate [volume rate/area] in serum, plasma or blood by creatinine-b ased formula (MDRD)/1.73 sq M among non black population low: 60 GFR, EST. NONAF RICAN >60 >=60 05/21 11:59 AM CDT [facility] Not Available [...] - 99 mg/dL 05/23 3:57 AM CDT [facility] Not Available [...] Auto Diffe kayode al panel - Blood leukocytes [#/volume] in blood by automated count 20.3 text: 4.0 - 10.7 x10e9/ L high WBC 20.3 (H) 4.0 - 10.7 x10E9 /L 05/22 1:38 PM CDT [facility] Not Available Not Available 06/01/2024 16:51:02 05/23/19 25 05/22/2024 CBC W Auto Diffe kayode al panel - Blood erythrocytes [#/volume] in blood by automated count 4.76 text: 4.30 - 5.80 x10e12 /L RBC Count 4.76 4.30 - 5.80 x10E1 2/L 05/22 1:38 PM CDT [facility] Not Available Not Available 06/01/2024 16:51:02 05/23/19 25 05/22/2024 CBC W Auto Diffe kayode branham panel - Blood hemoglobin [mass/volume ] in blood 12.1 g/dL low: 13.3g/ dLhigh : 17.5g/ dL low Hemog lobin 12.1 (L) 13.3 - 17.5 g/dL 05/22 1:38 PM CDT [facility] Not Available Not Available 06/01/2024 16:51:02 05/23/19 25 05/22/2024 CBC W Auto Diffe kayode branham panel - Blood hematocrit [volume fraction] of blood by automated count 39.3 % low: 38.7%h igh: 51.1% Hemat ocrit 39.3 38.7 - 51.1 % 05/22 1:38 PM CDT [facility] Not Available Not Available 06/01/2024 16:51:02 05/23/19 25 05/22/2024 CBC W Auto Diffe kayode al panel - Blood MCV [entitic mean volume] in red blood cells by automated count 82.6 fL low: 80fLhi gh: 98fL MCV 82.6 80.0 - 98.0 fL 05/22 1:38 PM CDT [facility] Not Available Not Available 06/01/2024 16:51:02 05/23/19 25 05/22/2024 CBC W Auto Diffe renti al panel - Blood MCH [entitic mass] by automated count 25.4 pg low: 26.7pg high: 33.6pg low MCH 25.4 (L) 26.7 - 33.6 pg 05/22 1:38 PM CDT [facility] Not Available Not Available 06/01/2024 16:51:02 05/23/19 25 05/22/2024 CBC W Auto Diffe renti al panel - Blood MCHC [entitic mass/volume] in red blood cells by automated count 30.8 g/dL low: 31.7g/ dLhigh : 36.3g/ dL low MCHC 30.8 (L) 31.7 - 36.3 g/dL 05/22 1:38 PM CDT [facility] Not Available Not Available 06/01/2024 16:51:02 05/23/19 25 05/22/2024 CBC W Auto Diffe renti al panel - Blood erythrocyte [distwidth] in red blood cells by automated count 14.6 % low: 11.3%h igh: 14.8% RDW-C V 14.6 11.3 - 14.8 % 05/22 1:38 PM CDT [facility] Not Available Not Available 06/01/2024 16:51:02 05/23/19 25 05/22/2024 CBC W Auto Diffe augustinti al panel - Blood platelets [#/volume] in blood by automated count 286 text: 150 - 420 x10e9/ L Plate let Count 286 150 - 420 x10E9 /L 05/22 1:38 PM CDT [facility] [...] 7.50 x10e9/ L high Neutr ophil Absol [place] 18.80 (H) 1.60 - 7.50 x10E9 /L 05/22 1:38 PM CDT [facility] Not Available Not Available 06/01/2024 16:51:02 05/23/19 25 05/22/2024 CBC W Auto Diffe renti al panel - Blood lymphocytes [#/volume] in blood by automated count 0.68 text: 1.00 - 4.40 x10e9/ L low Lymph ocyte Absol [place] 0.68 (L) 1.00 - 4.40 x10E9 /L 05/22 1:38 PM CDT [facility] Not Available Not Available 06/01/2024 16:51:02 05/23/19 25 05/22/2024 CBC W Auto Diffe renti al panel - Blood monocytes [#/volume] in blood by automated count 0.62 text: 0.15 - 1.00 x10e9/ L Monoc yte Absol [place] 0.62 0.15 - 1.00 x10E9 /L 05/22 1:38 PM CDT [facility] Not Available Not Available 06/01/2024 16:51:02 05/23/19 25 05/22/2024 CBC W Auto Diffe renti al panel - Blood eosinophils [#/volume] in blood 0.01 text: 0.00 - 0.60 x10e9/ L Eosin ophil [place]ol [place] 0.01 0.00 - 0.60 x10E9 /L 05/22 1:38 PM CDT [facility] Not Available Not Available 06/01/2024 16:51:02 05/23/19 25 05/22/2024 CBC W Auto Diffe kayode al panel - Blood basophils [#/volume] in blood by automated count 0.05 text: 0.00 - 0.13 x10e9/ L Basop hil [place]ol [place] 0.05 0.00 - 0.13 x10E9 /L 05/22 1:38 PM CDT [facility] [...] - 4.5 mg/dL 05/22 1:51 PM CDT [facility] Not Available Not Available 06/01/2024 [...] <=2 mmol/ L 05/22 1:50 PM CDT [facility] Not Available Not Available 06/01/2024 [...] - 99 mg/dL 05/22 1:51 PM CDT [facility] Not Available Not Available 06/01/2024 16:51:02 05/23/19 25 05/22/2024 Compr ehens lupillo metab olic 1999 panel - Serum or Plasm a sodium [moles/volum e] in serum or plasma 137 mmol/ L low: 136mmo l/Lhig h: 145mmo l/L Sodiu m 137 136 - 145 mmol/ L 05/22 1:51 PM CDT [facility] Not Available Not Available 06/01/2024 16:51:02 05/23/19 25 05/22/2024 Compr ehens lupillo metab olic 1999 panel - Serum or Plasm a potassium [moles/volum e] in serum or plasma 4.2 mmol/ L low: 3.5mmo l/Lhig h: 5.1mmo l/L Potas sium 4.2 3.5 - 5.1 mmol/ L 05/22 1:51 PM CDT [facility] [...] 29 mmol/ L 05/22 1:51 PM CDT [facility] Not Available Not Available 06/01/2024 16:51:02 05/23/19 25 05/22/2024 Compr ehens lupillo metab olic 1999 panel - Serum or Plasm a calcium [mass/volume ] in serum or plasma 9.1 mg/dL low: 8.4mg/ dLhigh : 10.4mg /dL Calci um 9.1 8.4 - 10.4 mg/dL 05/22 1:51 PM CDT [facility] Not Available Not Available 06/01/2024 16:51:02 05/23/19 25 05/22/2024 Compr [employer] lupillo metab olic 1999 panel - Serum or Plasm a anion gap in blood by calculation 13 mmol/ L low: 6mmol/ Lhigh: 16mmol /L Anion Gap 13 6 - 16 mmol/ L 05/22 1:51 PM CDT [facility] Not Available Not Available 06/01/2024 16:51:02 05/23/19 25 05/22/2024 Compr [employer] lupillo metab olic 1999 panel - Serum or Plasm a urea nitrogen [mass/volume ] in serum or plasma 12 mg/dL low: 5.3mg/ dLhigh : 18.7mg /dL BUN 12 5.3 - 18.7 mg/dL 05/22 1:51 PM CDT [facility] Not Available Not Available 06/01/2024 [...] - 150 U/L 05/22 1:51 PM CDT [facility] Not Available Not Available 06/01/2024 16:51:02 05/23/19 25 05/22/2024 Compr [employer] lupillo metab olic 1999 panel - Serum or Plasm a alanine aminotransfe rase [enzymatic activity/vol ume] in serum or plasma 56 U/L low: 6U/Lhi gh: 57U/L ALT 56 6 - 57 U/L 05/22 1:51 PM CDT [facility] Not Available Not Available 06/01/2024 16:51:02 05/23/19 25 05/22/2024 Compr [employer] lupillo metab olic 1999 panel - Serum or Plasm a aspartate aminotransfe rase [enzymatic activity/vol ume] in serum or plasma 34 U/L low: 10U/Lh igh: 48U/L AST 34 10 - 48 U/L 05/22 1:51 PM CDT [facility] Not Available Not Available 06/01/2024 16:51:02 05/23/19 25 05/22/2024 Compr [employer] lupillo metab olic 1999 panel - Serum or Plasm a protein [mass/volume ] in serum or plasma 7.5 text: 6.4 - 8.3 gm/dL Prote in Total 7.5 6.4 - 8.3 gm/dL 05/22 1:51 PM CDT [facility] Not Available Not Available 06/01/2024 16:51:02 05/23/19 25 05/22/2024 Compr ehens lupillo metab olic 1999 panel - Serum or Plasm a albumin [mass/volume ] in serum or plasma 3.2 text: 3.4 - 5.0 gm/dL low Album in 3.2 (L) 3.4 - 5.0 gm/dL 05/22 1:51 PM CDT [facility] Not Available Not Available 06/01/2024 16:51:02 05/23/19 25 05/22/2024 Compr [employer] lupillo metab olic 2000 panel - Serum or Plasm a bilirubin.to chana [mass/volume ] in serum or plasma 1 mg/dL low: 0.2mg/ dLhigh : 1.2mg/ dL Bilir ubin Total 1.0 0.2 - 1.2 mg/dL 05/22 1:51 PM CDT [facility] Not Available Not Available 06/01/2024 16:51:02 05/23/1905/22/2024 Compr ehens lupillo metab olic 2000 panel - Serum or Plasm a glomerular filtration rate [volume rate/area] in serum, plasma or blood by creatinine-b ased formula (CKD-epi 2020)/1.73 sq M text: >=90 mL/min /1.73 m2 eGFR by CKD-E PI >90 >=90 mL/mi n/1.7 3 m2 05/22 1:51 PM CDT [facility] Not Available Not Available 06/01/2024 16:51:02 05/23/19 25 05/22/2024 Compr [employer] lupillo metab olic 2000 panel - Serum [...] - 99 mg/dL 05/22 4:43 PM CDT [facility] Not Available Not Available 06/01/2024 [...] Author izing Provid er: Santiago Joy MD Collec treasure: 2024 10:01 AM Orderi ng Locati on: [facility] Receiv ed: 2024 06:29 AM - Periop erativ e Surger y Pathol ogist: Jose Wylie MD Specim en: Append ix Case Repor t Surgi becky Patho logy Repor t Case: [id number] Autho rizin g Provi silverio: Santiago Joy MD [facility] cted: 05/22 10:01 AM Order ing Locat ion: [facility] [...] perfor ated append icitis Final Diagn osis polo Trujillo my: -- Acute necro tizin g and perfo rated appen dicit is 05/25 11:05 AM CDT [facility] Elect mara plummer d by Shirley Wylie MD on 025 at 11:05 AM Not Available Not Available 06/01/2024 16:51:02 05/23/19 25 05/25/2024 Patho logy study pathology report relevant history narrative Perfor ated append icitis Clini becky Histo ry Perfo rated appen dicit is 05/25 11:05 AM CDT [facility] [...] tte A1. / 05/25 11:05 AM CDT [facility] Not Available Not Available 06/01/2024 16:51:02 05/23/19 25 05/25/2024 Patho logy study pathology report microscopic observation narrative other stain Micros copic examin ation substa ntiate s the above cited diagno sis. Micro scopi c Descr iptio n Micro scopi c exami natio n subst antia eduard the above cited diagn osis. 05/25 11:05 AM CDT [facility] [...] olive thompson terist ic determ ined by [facility]. It has not been cleare [...] comple xity testin g. The perfor olive thompson terist ics of the IHC/IS H assays [...] e tariq cteri stic deter mined by [facility] r, Depar tment of Labor atory Medic [...] decal cifie d tissu es. Resul ts shoul d be inter prete d with cauti [...] - 99 mg/dL 05/23 12:29 PM CDT [facility] Not Available Not Available 06/01/2024 [...] Type Arter ial 05/23 6:50 AM CDT [facility] Not Available Not Available 06/01/2024 16:51:03 05/24/19 25 05/23/2024 Gluco se [Mass /volu me] in Arter ial blood interpretati on and review of laboratory results Abnorm al Not Available Not Available 16:51:03 05/24/19 25 05/23/2024 SLIDE SCAN HEMAT OLOGY erythrocyte [morphology] in blood REVIEW ED RBC Morph ology REVIE WED 05/23 6:16 AM CDT [facility] Not Available Not Available 06/01/2024 [...] - 99 mg/dL 05/23 6:10 AM CDT [facility] Not Available Not Available 06/01/2024 16:51:03 05/24/19 25 05/23/2024 Compr ehens lupillo metab olic 2000 panel - Serum or Plasm a sodium [moles/volum e] in serum or plasma 138 mmol/ L low: 136mmo l/Lhig h: 145mmo l/L Sodiu m 138 136 - 145 mmol/ L 05/23 6:10 AM CDT [facility] Not Available Not Available 06/01/2024 16:51:03 05/24/19 25 05/23/2024 Compr ehens lupillo metab olic 1999 panel - Serum or Plasm a potassium [moles/volum e] in serum or plasma 4.7 mmol/ L low: 3.5mmo l/Lhig h: 5.1mmo l/L Potas sium 4.7 3.5 - 5.1 mmol/ L 05/23 6:10 AM CDT [facility] Not Available Not Available 06/01/2024 16:51:03 05/24/19 25 05/23/2024 Compr ehens lupillo metab olic 1999 panel - Serum or Plasm a chloride [moles/volum e] in serum or plasma 102 mmol/ L low: 98mmol /Lhigh : 107mmo l/L Chlor temitope 102 98 - 107 mmol/ L 05/23 6:10 AM CDT [facility] Not Available Not Available 06/01/2024 16:51:03 05/24/19 25 05/23/2024 Compr ehens lupillo metab olic 1999 panel - Serum or Plasm a carbon dioxide, total [moles/volum e] in serum or plasma 24 mmol/ L low: 22mmol /Lhigh : 29mmol /L CO2 24 22 - 29 mmol/ L 05/23 6:10 AM CDT [facility] Not Available Not Available 06/01/2024 16:51:03 05/24/19 25 05/23/2024 Compr [employer] lupillo metab olic 1999 panel - Serum or Plasm a calcium [mass/volume ] in serum or plasma 9 mg/dL low: 8.4mg/ dLhigh : 10.4mg /dL Calci um 9.0 8.4 - 10.4 mg/dL 05/23 6:10 AM CDT [facility] Not Available Not Available 06/01/2024 [...] - 18.7 mg/dL 05/23 6:10 AM CDT [facility] Not Available Not Available 06/01/2024 16:51:03 05/24/19 25 05/23/2024 Compr [employer] lupillo metab olic 1999 panel - Serum or Plasm a creatinine [mass/volume ] in serum or plasma 0.77 mg/dL low: 0.72mg /dLhig h: 1.25mg /dL Creat inine 0.77 0.72 - 1.25 mg/dL 05/23 6:10 AM CDT [facility] Not Available Not Available 06/01/2024 16:51:03 05/24/19 25 05/23/2024 Compr [employer]hens lupillo metab olic 1999 panel - Serum or Plasm a alkaline phosphatase [enzymatic activity/vol ume] in serum or plasma 76 U/L low: 40U/Lh igh: 150U/L Alkal ine Phosp hatas e 76 40 - 150 U/L 05/23 6:10 AM CDT [facility] Not Available Not Available 06/01/2024 [...] - 48 U/L 05/23 6:10 AM CDT [facility] Not Available Not Available 06/01/2024 16:51:03 05/24/19 25 05/23/2024 Compr [employer] lupillo [employer] 2000 panel - Serum or Plasm a protein [mass/volume ] in serum or plasma 6.8 text: 6.4 - 8.3 gm/dL Prote in Total 6.8 6.4 - 8.3 gm/dL 05/23 6:10 AM CDT [facility] Not Available Not Available 06/01/2024 16:51:03 05/24/19 25 05/23/2024 Compr [employer] panel - Serum or Plasm a albumin [mass/volume ] in serum or plasma 2.7 text: 3.4 - 5.0 gm/dL low Album in 2.7 (L) 3.4 - 5.0 gm/dL 05/23 6:10 AM CDT [facility] Not Available Not Available 06/01/2024 16:51:03 05/24/19 25 05/23/2024 Compr [employer] 2000 panel - Serum or Plasm a bilirubin.to chana [mass/volume ] in serum or plasma 0.6 mg/dL low: 0.2mg/ dLhigh : 1.2mg/ dL Bilir ubin Total 0.6 0.2 - 1.2 mg/dL 05/23 6:10 AM [facility] AT[facility] Not Available Not Available 06/01/2024 16:51:03 05/24/19 25 05/23/2024 Compr [employer] 2000 panel - Serum or Plasm a glomerular filtration rate [volume rate/area] in serum, plasma or blood by creatinine-b ased formula (CKD-epi 2020)/1.73 sq M text: >=90 mL/min /1.73 m2 eGFR by CKD-E PI >90 >=90 mL/mi n/1.7 3 m2 05/23 6:10 AM CDT [facility] Not Available [...] 10.7 x10E9 /L 05/23 6:16 AM CDT [facility] Not Available Not Available 06/01/2024 16:51:03 05/24/19 25 05/23/2024 CBC W Auto Diffe renti al panel - Blood erythrocytes [#/volume] in blood by automated count 4.32 text: 4.30 - 5.80 x10e12 /L RBC Count 4.32 4.30 - 5.80 x10E1 2/L 05/23 6:16 AM CDT [facility] Not Available Not Available 06/01/2024 16:51:03 05/24/19 25 05/23/2024 CBC W Auto Diffe renti al panel - Blood hemoglobin [mass/volume ] in blood 11 g/dL low: 13.3g/ dLhigh : 17.5g/ dL low Hemog lobin 11.0 (L) 13.3 - 17.5 g/dL 05/23 6:16 AM CDT [facility] Not Available Not Available 06/01/2024 16:51:03 05/24/19 25 05/23/2024 CBC W Auto Diffe renti al panel - Blood hematocrit [volume fraction] of blood by automated count 35.7 % low: 38.7%h igh: 51.1% low Hemat ocrit 35.7 (L) 38.7 - 51.1 % 05/23 6:16 AM CDT [facility] Not Available Not Available 06/01/2024 16:51:03 05/24/19 25 05/23/2024 CBC W Auto Diffe renti al panel - Blood MCV [entitic mean volume] in red blood cells by automated count 82.6 fL low: 80fLhi gh: 98fL MCV 82.6 80.0 - 98.0 fL 05/23 6:16 AM CDT [facility] Not Available Not Available 06/01/2024 16:51:03 05/24/19 25 05/23/2024 CBC W Auto Diffe renti al panel - Blood MCH [entitic mass] by automated count 25.5 pg low: 26.7pg high: 33.6pg low MCH 25.5 (L) 26.7 - 33.6 pg 05/23 6:16 AM CDT [facility] Not Available Not Available 06/01/2024 16:51:03 05/24/19 25 05/23/2024 CBC W Auto Diffe renti al panel - Blood MCHC [entitic mass/volume] in red blood cells by automated count 30.8 g/dL low: 31.7g/ dLhigh : 36.3g/ dL low MCHC 30.8 (L) 31.7 - 36.3 g/dL 05/23 6:16 AM CDT [facility] Not Available Not Available 06/01/2024 16:51:03 05/24/1905/23/2024 CBC W Auto Diffe kayode al panel - Blood erythrocyte [distwidth] in red blood cells by automated count 14.6 % low: 11.3%h igh: 14.8% RDW-C V 14.6 11.3 - 14.8 % 05/23 6:16 AM T [facility] Not Available Not Available 06/01/2024 16:51:03 05/24/19 25 05/23/2024 CBC W Auto Diffe renti al panel - Blood platelets [#/volume] in blood by automated count 275 text: 150 - 420 x10e9/ L Plate let Count 275 150 - 420 x10E9 /L 05/23 6:16 AM CDT [facility] Not Available Not Available 06/01/2024 16:51:03 05/24/19 25 05/23/2024 CBC W Auto Diffe renti al panel - Blood platelet [entitic mean volume] in blood by automated count 10.3 fL low: 7.8fLh igh: 11.4fL MPV 10.3 7.8 - 11.4 fL 05/23 6:16 AM CDT [facility] Not Available Not Available 06/01/2024 16:51:03 05/24/19 25 05/23/2024 CBC W Auto Diffe renti al panel - Blood neutrophils/ leukocytes in blood by automated count 82 % low: 41%hig h: 74% high Neutr ophil % 82.0 (H) 41.0 - 74.0 % 05/23 6:16 AM CDT [facility] Not Available Not Available 06/01/2024 16:51:03 05/24/19 25 05/23/2024 CBC W Auto Diffe renti al panel - Blood lymphocytes/ leukocytes in blood by automated count 9 % low: 17%hig h: 47% low Lymph ocyte % 9.0 (L) 17.0 - 47.0 % 05/23 6:16 AM CDT [facility] Not Available Not Available 06/01/2024 16:51:03 05/24/19 25 05/23/2024 CBC W Auto Diffe renti al panel - Blood monocytes/le ukocytes in blood by automated count 8.2 % low: 3%high : 11% Monoc yte % 8.2 3.0 - 11.0 % 05/23 6:16 AM CDT [facility] Not Available Not Available 06/01/2024 16:51:03 05/24/19 25 05/23/2024 CBC W Auto Diffe renti al panel - Blood eosinophils/ leukocytes in blood by automated count 0.1 % low: 0%high : 7% Eosin ophil % 0.1 0.0 - 7.0 % 05/23 6:16 AM CDT [facility] Not Available Not Available 06/01/2024 16:51:03 05/24/19 25 05/23/2024 CBC W Auto Diffe renti al panel - Blood basophils/le ukocytes in blood by automated count 0.2 % low: 0%high : 1.6% Basop hil % 0.2 0.0 - 1.6 % 05/23 6:16 AM CDT [facility] Not Available Not Available 06/01/2024 16:51:03 05/24/19 25 05/23/2024 CBC W Auto Diffe renti al panel - Blood immature granulocytes /leukocytes in blood by automated count 0.5 % low: 0%high : 1% Immat ure Granu locyt es % 0.5 0.0 - 1.0 % 05/23 6:16 AM CDT [facility] Not Available Not Available 06/01/2024 16:51:03 05/24/19 25 05/23/2024 CBC W Auto Diffe renti al panel - Blood neutrophils [#/volume] in blood by automated count 15.23 text: 1.60 - 7.50 x10e9/ L high Neutr ophil [place]ol [place] 15.23 (H) 1.60 - 7.50 x10E9 /L 05/23 6:16 AM CDT [facility] Not Available Not Available 06/01/2024 16:51:03 05/24/19 25 05/23/2024 CBC W Auto Diffe renti al panel - Blood lymphocytes [#/volume] in blood by automated count 1.67 text: 1.00 - 4.40 x10e9/ L Lymph ocyte [place] 1.67 1.00 - 4.40 x10E9 /L 05/23 6:16 AM CDT [facility] Not Available Not Available 06/01/2024 16:51:03 05/24/19 25 05/23/2024 CBC W Auto Diffe renti al panel - Blood monocytes [#/volume] in blood by automated count 1.53 text: 0.15 - 1.00 x10e9/ L high Monoc yte [place]ol [place] 1.53 (H) 0.15 - 1.00 x10E9 /L 05/23 6:16 AM CDT [facility] Not Available Not Available 06/01/2024 16:51:03 05/24/19 25 05/23/2024 CBC W Auto Diffe renti al panel - Blood eosinophils [#/volume] in blood 0.01 text: 0.00 - 0.60 x10e9/ L Eosin ophil [place]ol [place] 0.01 0.00 - 0.60 x10E9 /L 05/23 6:16 AM CDT [facility] Not Available Not Available 06/01/2024 16:51:03 05/24/19 25 05/23/2024 CBC W Auto Diffe renti al panel - Blood basophils [#/volume] in blood by automated count 0.03 text: 0.00 - 0.13 x10e9/ L Basop hil [place]ol [place] 0.03 0.00 - 0.13 x10E9 /L 05/23 6:16 AM CDT [facility] Not Available Not Available 06/01/2024 [...] (H) <5.7 % 05/23 5:57 AM CDT [facility] Not Available Not Available 06/01/2024 16:51:03 05/24/19 25 05/23/2024 Hemog lobin A1c/H emogl obin. total in Blood glucose mean value [mass/volume ] in blood estimated from glycated hemoglobin 123 mg/dL Estim shelly brower Gluco se 123 mg/dL 05/23 5:57 AM CDT [facility] Not Available Not Available 06/01/2024 [...] s 5% in the specim en. The [employer] y assay for the measur ement [...] Cap Finger stick Speci men Type Cap Nitzae rstic k 05/24 6:17 PM CDT [facility] [...] Cap Finger stick Speci men Type Cap Nitzae rstic k 05/24 12:11 PM CDT [facility] [...] IES CONFI RMED 05/24 6:00 AM CDT [facility] Not Available Not Available 06/01/2024 16:51:04 05/25/19 25 05/24/2024 Phosp hate [Mass /volu me] in Serum or Plasm a phosphate [mass/volume ] in serum or plasma 4.3 mg/dL low: 2.5mg/ dLhigh : 4.5mg/ dL Phosp horus 4.3 2.5 - 4.5 mg/dL 05/24 5:44 AM CDT [facility] [...] - 2.6 mg/dL 05/24 5:44 AM CDT [facility] [employer] [facility] Not Available Not Available 06/01/2024 16:51:04 [...] - 99 mg/dL 05/24 5:44 AM CDT [facility] Not Available Not Available 06/01/2024 16:51:04 05/25/19 25 05/24/2024 Compr ehens lupillo metab olic 1999 panel - Serum or Plasm a sodium [moles/volum e] in serum or plasma 138 mmol/ L low: 136mmo l/Lhig h: 145mmo l/L Sodiu m 138 136 - 145 mmol/ L 05/24 5:44 AM CDT [facility] Not Available Not Available 06/01/2024 16:51:04 05/25/19 25 05/24/2024 Compr ehens lupillo metab olic 1999 panel - Serum or Plasm a potassium [moles/volum e] in serum or plasma 4.1 mmol/ L low: 3.5mmo l/Lhig h: 5.1mmo l/L Potas sium 4.1 3.5 - 5.1 mmol/ L 05/24 5:44 AM CDT [facility] Not Available Not Available 06/01/2024 16:51:04 05/25/19 25 05/24/2024 Compr ehens lupillo metab olic 1999 panel - Serum or Plasm a chloride [moles/volum e] in serum or plasma 102 mmol/ L low: 98mmol /Lhigh : 107mmo l/L Chlor temitope 102 98 - 107 mmol/ L 05/24 5:44 AM CDT [facility] Not Available Not Available 06/01/2024 16:51:04 05/25/19 25 05/24/2024 Compr ehens lupillo metab olic 1999 panel - Serum or Plasm a carbon dioxide, total [moles/volum e] in serum or plasma 28 mmol/ L low: 22mmol /Lhigh : 29mmol /L CO2 28 22 - 29 mmol/ L 05/24 5:44 AM CDT [facility] Not Available Not Available 06/01/2024 16:51:04 05/25/19 25 05/24/2024 Compr ehens lupillo metab olic 1999 panel - Serum or Plasm a calcium [mass/volume ] in serum or plasma 8.9 mg/dL low: 8.4mg/ dLhigh : 10.4mg /dL Calci um 8.9 8.4 - 10.4 mg/dL 05/24 5:44 AM CDT [facility] Not Available Not Available 06/01/2024 16:51:04 05/25/19 25 05/24/2024 Compr [employer] lupillo [employer] 1999 panel - Serum or Plasm a anion gap in blood by calculation 8 mmol/ L low: 6mmol/ Lhigh: 16mmol /L Anion Gap 8 6 - 16 mmol/ L 05/24 5:44 AM CDT [facility] Not Available Not Available 06/01/2024 16:51:04 05/25/19 25 05/24/2024 Compr [employer] lupillo [employer] 1999 panel - Serum or Plasm a urea nitrogen [mass/volume ] in serum or plasma 15 mg/dL low: 5.3mg/ dLhigh : 18.7mg /dL BUN 15 5.3 - 18.7 mg/dL 05/24 5:44 AM CDT [facility] Not Available Not Available 06/01/2024 16:51:04 05/25/19 25 05/24/2024 Compr [employer] lupillo [employer] 1999 panel - Serum or Plasm a creatinine [mass/volume ] in serum or plasma 0.87 mg/dL low: 0.72mg /dLhig h: 1.25mg /dL Creat inine 0.87 0.72 - 1.25 mg/dL 05/24 5:44 AM CDT [facility] Not Available Not Available 06/01/2024 16:51:04 05/25/19 25 05/24/2024 Compr [employer] lupillo [employer] 1999 panel - Serum or Plasm a alkaline phosphatase [enzymatic activity/vol ume] in serum or plasma 68 U/L low: 40U/Lh igh: 150U/L Alkal ine Phosp hatas e 68 40 - 150 U/L 05/24 5:44 AM CDT [facility] Not Available Not Available 06/01/2024 16:51:04 05/25/19 25 05/24/2024 Compr [employer] lupillo metab olic 2000 panel - Serum or Plasm a alanine aminotransfe rase [enzymatic activity/vol ume] in serum or plasma 31 U/L low: 6U/Lhi gh: 57U/L ALT 31 6 - 57 U/L 05/24 5:44 AM CDT [facility] Not Available Not Available 06/01/2024 16:51:04 05/25/19 25 05/24/2024 Compr [employer] lupillo [employer] 1999 panel - Serum or Plasm a aspartate aminotransfe rase [enzymatic activity/vol ume] in serum or plasma 19 U/L low: 10U/Lh igh: 48U/L AST 19 10 - 48 U/L 05/24 5:44 AM CDT [facility] Not Available Not Available 06/01/2024 16:51:04 05/25/19 25 05/24/2024 Compr [employer] lupillo [employer] 1999 panel - Serum or Plasm a protein [mass/volume ] in serum or plasma 6.4 text: 6.4 - 8.3 gm/dL Prote in Total 6.4 6.4 - 8.3 gm/dL 05/24 5:44 AM CDT [facility] Not Available Not Available 06/01/2024 16:51:04 05/25/19 25 05/24/2024 Compr [employer] lupillo [employer] 1999 panel - Serum or Plasm a albumin [mass/volume ] in serum or plasma 2.6 text: 3.4 - 5.0 gm/dL low Album in 2.6 (L) 3.4 - 5.0 gm/dL 05/24 5:44 AM CDT [facility] Not Available Not Available 06/01/2024 16:51:04 05/25/19 25 05/24/2024 Compr [employer] lupillo [employer] 1999 panel - Serum or Plasm a bilirubin.to chana [mass/volume ] in serum or plasma 0.4 mg/dL low: 0.2mg/ dLhigh : 1.2mg/ dL Bilir ubin Total 0.4 0.2 - 1.2 mg/dL 05/24 5:44 AM CDT [facility] Not Available Not Available 06/01/2024 16:51:04 05/25/19 25 05/24/2024 Compr ehens lupillo metab olic 1999 panel - Serum or Plasm a glomerular filtration rate [volume rate/area] in serum, plasma or blood by creatinine-b ased formula (CKD-epi 2020)/1.73 sq M text: >=90 mL/min /1.73 m2 eGFR by CKD-E PI >90 >=90 mL/mi n/1.7 3 m2 05/24 5:44 AM CDT [facility] Not Available Not Available 06/01/2024 16:51:04 05/25/19 25 05/24/2024 Compr ehens lupillo metab olic 1999 panel - Serum or Plasm a interpretati on and review of laboratory results Abnorm al Not Available Not Available 16:51:04 05/25/19 25 05/24/2024 CBC W Auto Diffe renti al panel - Blood leukocytes [#/volume] in blood by automated count 17.7 text: 4.0 - 10.7 x10e9/ L high WBC 17.7 (H) 4.0 - 10.7 x10E9 /L 05/24 6:00 AM CDT [facility] Not Available Not Available 06/01/2024 16:51:04 05/25/19 25 05/24/2024 CBC W Auto Diffe renti al panel - Blood erythrocytes [#/volume] in blood by automated count 4.18 text: 4.30 - 5.80 x10e12 /L low RBC Count 4.18 (L) 4.30 - 5.80 x10E1 2/L 05/24 6:00 AM CDT [facility] Not Available Not Available 06/01/2024 16:51:04 05/25/19 25 05/24/2024 CBC W Auto Diffe renti al panel - Blood hemoglobin [mass/volume ] in blood 10.4 g/dL low: 13.3g/ dLhigh : 17.5g/ dL low Hemog lobin 10.4 (L) 13.3 - 17.5 g/dL 05/24 6:00 AM CDT [facility] Not Available Not Available 06/01/2024 16:51:04 05/25/19 25 05/24/2024 CBC W Auto Diffe renti al panel - Blood hematocrit [volume fraction] of blood by automated count 35 % low: 38.7%h igh: 51.1% low Hemat ocrit 35.0 (L) 38.7 - 51.1 % 05/24 6:00 AM T [facility] Not Available Not Available 06/01/2024 16:51:04 05/25/19 25 05/24/2024 CBC W Auto Diffrosalia branham panel - Blood MCV [entitic mean volume] in red blood cells by automated count 83.7 fL low: 80fLhi gh: 98fL MCV 83.7 80.0 - 98.0 fL 05/24 6:00 AM CDT [facility] Not Available Not Available 06/01/2024 16:51:04 05/25/19 25 05/24/2024 CBC W Auto Sim branham panel - Blood MCH [entitic mass] by automated count 24.9 pg low: 26.7pg high: 33.6pg low MCH 24.9 (L) 26.7 - 33.6 pg 05/24 6:00 AM T [facility] Not Available Not Available 06/01/2024 16:51:04 05/25/19 25 05/24/2024 CBC W Auto Sim branham panel - Blood MCHC [entitic mass/volume] in red blood cells by automated count 29.7 g/dL low: 31.7g/ dLhigh : 36.3g/ dL low MCHC 29.7 (L) 31.7 - 36.3 g/dL 05/24 6:00 AM T [facility] Not Available Not Available 06/01/2024 16:51:04 05/25/19 25 05/24/2024 CBC W Auto Diffrosalia branham panel - Blood erythrocyte [distwidth] in red blood cells by automated count 14.8 % low: 11.3%h igh: 14.8% RDW-C V 14.8 11.3 - 14.8 % 05/24 6:00 AM T [facility] Not Available Not Available 06/01/2024 16:51:04 05/25/19 25 05/24/2024 CBC W Auto Diffrosalia branham panel - Blood platelets [#/volume] in blood by automated count 296 text: 150 - 420 x10e9/ L Plate let Count 296 150 - 420 x10E9 /L 05/24 6:00 AM CDT [facility] Not Available Not Available 06/01/2024 16:51:04 05/25/19 25 05/24/2024 CBC W Auto Diffe kayode al panel - Blood platelet [entitic mean volume] in blood by automated count 10 fL low: 7.8fLh igh: 11.4fL MPV 10.0 7.8 - 11.4 fL 05/24 6:00 AM CDT [facility] Not Available Not Available 06/01/2024 16:51:04 05/25/19 25 05/24/2024 CBC W Auto Diffrosalia headley al panel - Blood neutrophils/ leukocytes in blood by automated count 73.2 % low: 41%hig h: 74% Neutr ophil % 73.2 41.0 - 74.0 % 05/24 6:00 AM CDT [facility] Not Available Not Available 06/01/2024 16:51:04 05/25/19 25 05/24/2024 CBC W Auto Diffe kayode al panel - Blood lymphocytes/ leukocytes in blood by automated count 12.5 % low: 17%hig h: 47% low Lymph ocyte % 12.5 (L) 17.0 - 47.0 % 05/24 6:00 AM CDT [facility] Not Available Not Available 06/01/2024 16:51:04 05/25/19 25 05/24/2024 CBC W Auto Diffe kayode al panel - Blood monocytes/le ukocytes in blood by automated count 11.3 % low: 3%high : 11% high Monoc yte % 11.3 (H) 3.0 - 11.0 % 05/24 6:00 AM CDT [facility] Not Available Not Available 06/01/2024 16:51:04 05/25/19 25 05/24/2024 CBC W Auto Diffe kayode al panel - Blood eosinophils/ leukocytes in blood by automated count 2 % low: 0%high : 7% Eosin ophil % 2.0 0.0 - 7.0 % 05/24 6:00 AM CDT [facility] Not Available Not Available 06/01/2024 16:51:04 05/25/19 25 05/24/2024 CBC W Auto Diffe renti al panel - Blood basophils/le ukocytes in blood by automated count 0.4 % low: 0%high : 1.6% Basop hil % 0.4 0.0 - 1.6 % 05/24 6:00 AM CDT [facility] Not Available Not Available 06/01/2024 16:51:04 05/25/19 25 05/24/2024 CBC W Auto Diffe renti al panel - Blood immature granulocytes /leukocytes in blood by automated count 0.6 % low: 0%high : 1% Immat ure Granu locyt es % 0.6 0.0 - 1.0 % 05/24 6:00 AM CDT [facility] Not Available Not Available 06/01/2024 16:51:04 05/25/19 25 05/24/2024 CBC W Auto Diffe renti al panel - Blood neutrophils [#/volume] in blood by automated count 12.94 text: 1.60 - 7.50 x10e9/ L high Neutr ophil Absol [place] 12.94 (H) 1.60 - 7.50 x10E9 /L 05/24 6:00 AM CDT [facility] Not Available Not Available 06/01/2024 16:51:04 05/25/19 25 05/24/2024 CBC W Auto Diffe renti al panel - Blood lymphocytes [#/volume] in blood by automated count 2.2 text: 1.00 - 4.40 x10e9/ L Lymph ocyte Absol [place] 2.20 1.00 - 4.40 x10E9 /L 05/24 6:00 AM CDT [facility] Not Available Not Available 06/01/2024 16:51:04 05/25/19 25 05/24/2024 CBC W Auto Diffe renti al panel - Blood monocytes [#/volume] in blood by automated count 1.99 text: 0.15 - 1.00 x10e9/ L high Monoc yte Absol [place] 1.99 (H) 0.15 - 1.00 x10E9 /L 05/24 6:00 AM CDT [facility] Not Available Not Available 06/01/2024 16:51:04 05/25/19 25 05/24/2024 CBC W Auto Diffe renti al panel - Blood eosinophils [#/volume] in blood 0.35 text: 0.00 - 0.60 x10e9/ L Eosin ophil Absol [place] 0.35 0.00 - 0.60 x10E9 /L 05/24 6:00 AM CDT [facility] Not Available Not Available 06/01/2024 16:51:04 05/25/19 25 05/24/2024 CBC W Auto Diffe renti al panel - Blood basophils [#/volume] in blood by automated count 0.07 text: 0.00 - 0.13 x10e9/ L Basop hil Absol [place] 0.07 0.00 - 0.13 x10E9 /L 05/24 6:00 AM CDT [facility] [...] - 99 mg/dL 05/24 12:36 AM CDT [facility] Not Available Not Available 06/01/2024 16:51:04 05/25/19 25 05/24/2024 Gluco se [Mass /volu me] in Arter ial blood specimen source identified Arteri al Speci men Type Arter ial 05/24 12:36 AM CDT [facility] Not Available Not Available 06/01/2024 16:51:04 05/26/19 25 05/25/2024 Gluco se [Mass /volu [...] Cap Finger stick Speci men Type Cap Nitzae rstic k 05/25 12:40 PM CDT [facility] Not Available Not Available 06/01/2024 [...] - 99 mg/dL 05/25 5:05 AM CDT [facility] Not Available Not Available 06/01/2024 16:51:05 05/26/19 25 05/25/2024 Gluco se [Mass /volu me] in Arter ial blood specimen source identified Cap Finger stick Speci men Type Cap Lucho rstic k 05/25 5:05 AM CDT [facility] Not Available Not Available 06/01/2024 16:51:05 05/26/19 25 05/25/2024 SLIDE SCAN HEMAT OLOGY erythrocyte [morphology] in blood REVIEW ED RBC Morph ology REVIE WED 05/25 3:13 AM CDT [facility] Not Available Not Available 06/01/2024 [...] See Comme nt 05/25 3:13 AM CDT [facility] [...] - 4.5 mg/dL 05/25 2:57 AM CDT [facility] Not Available Not Available 06/01/2024 [...] - 2.6 mg/dL 05/25 2:57 AM CDT [facility] Not Available Not Available 06/01/2024 [...] - 99 mg/dL 05/25 2:57 AM CDT [facility] Not Available Not Available 06/01/2024 16:51:05 05/26/19 25 05/25/2024 Compr ehens lupillo metab olic 1999 panel - Serum or Plasm a sodium [moles/volum e] in serum or plasma 137 mmol/ L low: 136mmo l/Lhig h: 145mmo l/L Sodiu m 137 136 - 145 mmol/ L 05/25 2:57 AM CDT [facility] Not Available Not Available 06/01/2024 16:51:05 05/26/19 25 05/25/2024 Compr [employer] lupillo metab olic 1999 panel - Serum or Plasm a potassium [moles/volum e] in serum or plasma 4 mmol/ L low: 3.5mmo l/Lhig h: 5.1mmo l/L Potas sium 4.0 3.5 - 5.1 mmol/ L 05/25 2:57 AM CDT [facility] Not Available Not Available 06/01/2024 16:51:05 05/26/19 25 05/25/2024 Compr [employer] lupillo metab olic 1999 panel - Serum or Plasm a chloride [moles/volum e] in serum or plasma 102 mmol/ L low: 98mmol /Lhigh : 107mmo l/L Chlor temitope 102 98 - 107 mmol/ L 05/25 2:57 AM CDT [facility] Not Available Not Available 06/01/2024 16:51:05 05/26/19 25 05/25/2024 Compr ehens lupillo metab olic 2000 panel - Serum or Plasm a carbon dioxide, total [moles/volum e] in serum or plasma 24 mmol/ L low: 22mmol /Lhigh : 29mmol /L CO2 24 22 - 29 mmol/ L 05/25 2:57 AM CDT [facility] Not Available Not Available 06/01/2024 16:51:05 05/26/19 25 05/25/2024 Compr [employer] lupillo [employer] 1999 panel - Serum or Plasm a calcium [mass/volume ] in serum or plasma 8.8 mg/dL low: 8.4mg/ dLhigh : 10.4mg /dL Calci um 8.8 8.4 - 10.4 mg/dL 05/25 2:57 AM CDT [facility] Not Available Not Available 06/01/2024 16:51:05 05/26/19 25 05/25/2024 Compr [employer] lupillo [employer] 1999 panel - Serum or Plasm a anion gap in blood by calculation 11 mmol/ L low: 6mmol/ Lhigh: 16mmol /L Anion Gap 11 6 - 16 mmol/ L 05/25 2:57 AM CDT [facility] Not Available Not Available 06/01/2024 16:51:05 05/26/19 25 05/25/2024 Compr [employer] lupillo [employer] 1999 panel - Serum or Plasm a urea nitrogen [mass/volume ] in serum or plasma 11 mg/dL low: 5.3mg/ dLhigh : 18.7mg /dL BUN 11 5.3 - 18.7 mg/dL 05/25 2:57 AM CDT [facility] Not Available Not Available 06/01/2024 16:51:05 05/26/19 25 05/25/2024 Compr [employer] lupillo [employer] 1999 panel - Serum or Plasm a creatinine [mass/volume ] in serum or plasma 0.76 mg/dL low: 0.72mg /dLhig h: 1.25mg /dL Creat inine 0.76 0.72 - 1.25 mg/dL 05/25 2:57 AM CDT [facility] Not Available Not Available 06/01/2024 16:51:05 05/26/19 25 05/25/2024 Compr [employer] lupillo [employer] 1999 panel - Serum or Plasm a alkaline phosphatase [enzymatic activity/vol ume] in serum or plasma 69 U/L low: 40U/Lh igh: 150U/L Alkal ine Phosp hatas e 69 40 - 150 U/L 05/25 2:57 AM CDT [facility] Not Available Not Available 06/01/2024 16:51:05 05/26/19 25 05/25/2024 Compr ehens lupillo metab olic 1999 panel - Serum or Plasm a alanine aminotransfe rase [enzymatic activity/vol ume] in serum or plasma 36 U/L low: 6U/Lhi gh: 57U/L ALT 36 6 - 57 U/L 05/25 2:57 AM CDT [facility] Not Available Not Available 06/01/2024 16:51:05 05/26/19 25 05/25/2024 Compr [employer] lupillo metab [facility]lic 1999 panel - Serum or Plasm a aspartate aminotransfe rase [enzymatic activity/vol ume] in serum or plasma 26 U/L low: 10U/Lh igh: 48U/L AST 26 10 - 48 U/L 05/25 2:57 AM CDT [facility] Not Available Not Available 06/01/2024 16:51:05 05/26/19 25 05/25/2024 Compr [employer] lupillo metab olic 1999 panel - Serum or Plasm a protein [mass/volume ] in serum or plasma 6.3 text: 6.4 - 8.3 gm/dL low Prote in Total 6.3 (L) 6.4 - 8.3 gm/dL 05/25 2:57 AM CDT [facility] Not Available Not Available 06/01/2024 16:51:05 05/26/19 25 05/25/2024 Compr [facility]hens lupillo metab olic 1999 panel - Serum or Plasm a albumin [mass/volume ] in serum or plasma 2.4 text: 3.4 - 5.0 gm/dL low Album in 2.4 (L) 3.4 - 5.0 gm/dL 05/25 2:57 AM CDT [facility] Not Available Not Available 06/01/2024 16:51:05 05/26/19 25 05/25/2024 Compr [employer] 1999 panel - Serum or Plasm a bilirubin.to chana [mass/volume ] in serum or plasma 0.4 mg/dL low: 0.2mg/ dLhigh : 1.2mg/ dL Bilir ubin Total 0.4 0.2 - 1.2 mg/dL 05/25 2:57 AM CDT [facility] Not Available Not Available 06/01/2024 16:51:05 05/26/19 25 05/25/2024 [facility] [employer] lup[employer] 1999 panel - Serum or Plasm a glomerular filtration rate [volume rate/area] in serum, plasma or blood by creatinine-b ased formula (CKD-epi 2020)/1.73 sq M text: >=90 mL/min /1.73 m2 eGFR by CKD-E PI >90 >=90 mL/mi n/1.7 3 m2 05/25 2:57 AM CDT [facility] Not Available Not Available 06/01/2024 16:51:05 05/26/19 25 05/25/2024 [facility] [employer] 2000 panel - Serum or Plasm a interpretati on and review of laboratory results Abnorm al Not Available Not Available 16:51:05 05/26/19 25 05/25/2024 CBC W Auto Diffe renti al panel - Blood leukocytes [#/volume] in blood by automated count 14.8 text: 4.0 - 10.7 x10e9/ L high WBC 14.8 (H) 4.0 - 10.7 x10E9 /L 05/25 3:13 AM CDT [facility] Not Available Not Available 06/01/2024 16:51:05 05/26/19 25 05/25/2024 CBC W Auto Diffe renti al panel - Blood erythrocytes [#/volume] in blood by automated count 4.17 text: 4.30 - 5.80 x10e12 /L low RBC Count 4.17 (L) 4.30 - 5.80 x10E1 2/L 05/25 3:13 AM CDT [facility] Not Available Not Available 06/01/2024 16:51:05 05/26/19 25 05/25/2024 CBC W Auto Diffe renti al panel - Blood hemoglobin [mass/volume ] in blood 10.4 g/dL low: 13.3g/ dLhigh : 17.5g/ dL low Hemog lobin 10.4 (L) 13.3 - 17.5 g/dL 05/25 3:13 AM CDT [facility] Not Available Not Available 06/01/2024 16:51:05 05/26/19 25 05/25/2024 CBC W Auto Diffe renti al panel - Blood hematocrit [volume fraction] of blood by automated count 34.8 % low: 38.7%h igh: 51.1% low Hemat ocrit 34.8 (L) 38.7 - 51.1 % 05/25 3:13 AM CDT [facility] Not Available Not Available 06/01/2024 16:51:05 05/26/19 25 05/25/2024 CBC W Auto Diffe renti al panel - Blood MCV [entitic mean volume] in red blood cells by automated count 83.5 fL low: 80fLhi gh: 98fL MCV 83.5 80.0 - 98.0 fL 05/25 3:13 AM CDT [facility] Not Available Not Available 06/01/2024 16:51:05 05/26/19 25 05/25/2024 CBC W Auto Diffe renti al panel - Blood MCH [entitic mass] by automated count 24.9 pg low: 26.7pg high: 33.6pg low MCH 24.9 (L) 26.7 - 33.6 pg 05/25 3:13 AM CDT [facility] Not Available Not Available 06/01/2024 16:51:05 05/26/19 25 05/25/2024 CBC W Auto Diffe renti al panel - Blood MCHC [entitic mass/volume] in red blood cells by automated count 29.9 g/dL low: 31.7g/ dLhigh : 36.3g/ dL low MCHC 29.9 (L) 31.7 - 36.3 g/dL 05/25 3:13 AM CDT [facility] Not Available Not Available 06/01/2024 16:51:05 05/26/19 25 05/25/2024 CBC W Auto Diffe renti al panel - Blood erythrocyte [distwidth] in red blood cells by automated count 14.5 % low: 11.3%h igh: 14.8% RDW-C V 14.5 11.3 - 14.8 % 05/25 3:13 AM CDT [facility] Not Available Not Available 06/01/2024 16:51:05 05/26/19 25 05/25/2024 CBC W Auto Diffe renti al panel - Blood platelets [#/volume] in blood by automated count 269 text: 150 - 420 x10e9/ L Plate let Count 269 150 - 420 x10E9 /L 05/25 3:13 AM CDT [facility] Not Available Not Available 06/01/2024 16:51:05 05/26/19 25 05/25/2024 CBC W Auto Diffe renti al panel - Blood platelet [entitic mean volume] in blood by automated count 10 fL low: 7.8fLh igh: 11.4fL MPV 10.0 7.8 - 11.4 fL 05/25 3:13 AM CDT [facility] Not Available Not Available 06/01/2024 16:51:05 05/26/19 25 05/25/2024 CBC W Auto Diffe renti al panel - Blood neutrophils/ leukocytes in blood by automated count 69.9 % low: 41%hig h: 74% Neutr ophil % 69.9 41.0 - 74.0 % 05/25 3:13 AM CDT [facility] Not Available Not Available 06/01/2024 16:51:05 05/26/19 25 05/25/2024 CBC W Auto Diffe renti al panel - Blood lymphocytes/ leukocytes in blood by automated count 17.1 % low: 17%hig h: 47% Lymph ocyte % 17.1 17.0 - 47.0 % 05/25 3:13 AM CDT [facility] Not Available Not Available 06/01/2024 16:51:05 05/26/19 25 05/25/2024 CBC W Auto Diffe renti al panel - Blood monocytes/le ukocytes in blood by automated count 9.2 % low: 3%high : 11% Monoc yte % 9.2 3.0 - 11.0 % 05/25 3:13 AM CDT [facility] Not Available Not Available 06/01/2024 16:51:05 05/26/19 25 05/25/2024 CBC W Auto Diffe renti al panel - Blood eosinophils/ leukocytes in blood by automated count 2.8 % low: 0%high : 7% Eosin ophil % 2.8 0.0 - 7.0 % 05/25 3:13 AM CDT [facility] Not Available Not Available 06/01/2024 16:51:05 05/26/19 25 05/25/2024 CBC W Auto Diffe renti al panel - Blood basophils/le ukocytes in blood by automated count 0.3 % low: 0%high : 1.6% Basop hil % 0.3 0.0 - 1.6 % 05/25 3:13 AM CDT [facility] Not Available Not Available 06/01/2024 16:51:05 05/26/19 25 05/25/2024 CBC W Auto Diffe renti al panel - Blood immature granulocytes /leukocytes in blood by automated count 0.7 % low: 0%high : 1% Immat ure Granu locyt es % 0.7 0.0 - 1.0 % 05/25 3:13 AM CDT [facility] Not Available Not Available 06/01/2024 16:51:05 05/26/19 25 05/25/2024 CBC W Auto Diffe renti al panel - Blood neutrophils [#/volume] in blood by automated count 10.34 text: 1.60 - 7.50 x10e9/ L high Neutr ophil Absol [place] 10.34 (H) 1.60 - 7.50 x10E9 /L 05/25 3:13 AM CDT [facility] Not Available Not Available 06/01/2024 16:51:05 05/26/19 25 05/25/2024 CBC W Auto Diffe renti al panel - Blood lymphocytes [#/volume] in blood by automated count 2.54 text: 1.00 - 4.40 x10e9/ L Lymph ocyte Absol [place] 2.54 1.00 - 4.40 x10E9 /L 05/25 3:13 AM CDT [facility] Not Available Not Available 06/01/2024 16:51:05 05/26/19 25 05/25/2024 CBC W Auto Diffe renti al panel - Blood monocytes [#/volume] in blood by automated count 1.37 text: 0.15 - 1.00 x10e9/ L high Monoc yte Absol [place] 1.37 (H) 0.15 - 1.00 x10E9 /L 05/25 3:13 AM CDT [facility] Not Available Not Available 06/01/2024 16:51:05 05/26/19 25 05/25/2024 CBC W Auto Diffe renti al panel - Blood eosinophils [#/volume] in blood 0.42 text: 0.00 - 0.60 x10e9/ L Eosin ophil [place]ol [place] 0.42 0.00 - 0.60 x10E9 /L 05/25 3:13 AM CDT [facility] Not Available Not Available 06/01/2024 16:51:05 05/26/19 25 05/25/2024 CBC W Auto Diffe renti al panel - Blood basophils [#/volume] in blood by automated count 0.05 text: 0.00 - 0.13 x10e9/ L Basop hil [place]ol [place] 0.05 0.00 - 0.13 x10E9 /L 05/25 3:13 AM CDT [facility] Not Available Not Available 06/01/2024 [...] - 99 mg/dL 05/25 12:33 AM CDT [facility] Not Available Not Available 06/01/2024 16:51:05 05/26/19 25 05/25/2024 Gluco se [Mass /volu me] in Arter ial blood specimen source identified Arteri al Speci men Type Arter ial 05/25 12:33 AM CDT [facility] Not Available Not Available 06/01/2024 [...] - 4.5 mg/dL 05/26 5:39 AM CDT [facility] Not Available Not Available 06/01/2024 [...] - 31.4 ng/mL 05/26 6:10 AM CDT [facility] Not Available Not Available 06/01/2024 [...] - 275 ng/mL 05/26 6:10 AM CDT [facility] [...] - 175 ug/dL 05/26 5:39 AM CDT [facility] Not Available Not Available 06/01/2024 16:51:06 05/27/19 25 05/26/2024 Iron satur ation [Mass Fract ion] in Serum or Plasm a transferrin [mass/volume ] in serum or plasma 153 mg/dL low: 174mg/ dLhigh : 382mg/ dL low Trans shawn n 153 (L) 174 - 382 mg/dL 05/26 5:39 AM CDT [facility] [...] 10.7 x10E9 /L 05/26 5:23 AM CDT [facility] Not Available Not Available 06/01/2024 [...] - 17.5 g/dL 05/26 5:23 AM CDT [facility] Not Available Not Available 06/01/2024 16:51:06 05/27/19 25 05/26/2024 CBC panel - Blood by Autom ated count hematocrit [volume fraction] of blood by automated count 34.3 % low: 38.7%h igh: 51.1% low Hemat ocrit 34.3 (L) 38.7 - 51.1 % 05/26 5:23 AM CDT [facility] Not Available Not Available 06/01/2024 16:51:06 05/27/19 25 05/26/2024 CBC panel - Blood by Autom ated count MCV [entitic mean volume] in red blood cells by automated count 80.7 fL low: 80fLhi gh: 98fL MCV 80.7 80.0 - 98.0 fL 05/26 5:23 AM CDT [facility] Not Available Not Available 06/01/2024 16:51:06 05/27/19 25 05/26/2024 CBC panel - Blood by Autom ated count MCH [entitic mass] by automated count 24.9 pg low: 26.7pg high: 33.6pg low MCH 24.9 (L) 26.7 - 33.6 pg 05/26 5:23 AM T [facility] Not Available Not Available 06/01/2024 16:51:06 05/27/19 25 05/26/2024 CBC panel - Blood by Autom ated count MCHC [entitic mass/volume] in red blood cells by automated count 30.9 g/dL low: 31.7g/ dLhigh : 36.3g/ dL low MCHC 30.9 (L) 31.7 - 36.3 g/dL 05/26 5:23 AM CDT [facility] Not Available Not Available 06/01/2024 16:51:06 05/27/19 25 05/26/2024 CBC panel - Blood by Autom ated count erythrocyte [distwidth] in red blood cells by automated count 14.3 % low: 11.3%h igh: 14.8% RDW-C V 14.3 11.3 - 14.8 % 05/26 5:23 AM CDT [facility] Not Available Not Available 06/01/2024 16:51:06 05/27/19 25 05/26/2024 CBC panel - Blood by Autom ated count platelets [#/volume] in blood by automated count 305 text: 150 - 420 x10e9/ L Plate let Count 305 150 - 420 x10E9 /L 05/26 5:23 AM CDT [facility] Not Available Not Available 06/01/2024 16:51:06 05/27/19 25 05/26/2024 CBC panel - Blood by Autom ated count platelet [entitic mean volume] in blood by automated count 9.7 fL low: 7.8fLh igh: 11.4fL MPV 9.7 7.8 - 11.4 fL 05/26 5:23 AM CDT [facility] Not Available Not Available 06/01/2024 [...] - 99 mg/dL 05/27 11:33 PM CDT [facility] Not Available Not Available 06/01/2024 16:51:06 05/28/19 25 05/28/2024 Gluco se [Mass /volu me] in Arter ial blood specimen source identified Cap Finger stick Speci men Type Cap Finge rstic k 05/27 11:33 PM CDT [facility] Not Available Not Available 06/01/2024 [...] - 99 mg/dL 05/27 3:52 PM CDT [facility] Not Available Not Available 06/01/2024 16:51:06 05/28/19 25 05/27/2024 Gluco se [Mass /volu me] in Arter ial blood specimen source identified Venous Speci men Type Venou s 05/27 3:52 PM CDT [facility] Not Available [...] 10.7 x10E9 /L 05/27 6:00 AM CDT [facility] Not Available Not Available 06/01/2024 16:51:06 05/28/19 25 05/27/2024 CBC panel - Blood by Autom ated count erythrocytes [#/volume] in blood by automated count 4.63 text: 4.30 - 5.80 x10e12 /L RBC Count 4.63 4.30 - 5.80 x10E1 2/L 05/27 6:00 AM CDT [facility] Not Available Not Available 06/01/2024 16:51:06 05/28/19 25 05/27/2024 CBC panel - Blood by Autom ated count hemoglobin [mass/volume ] in blood 11.4 g/dL low: 13.3g/ dLhigh : 17.5g/ dL low Hemog lobin 11.4 (L) 13.3 - 17.5 g/dL 05/27 6:00 AM CDT [facility] Not Available Not Available 06/01/2024 16:51:06 05/28/19 25 05/27/2024 CBC panel - Blood by Autom ated count hematocrit [volume fraction] of blood by automated count 38.6 % low: 38.7%h igh: 51.1% low Hemat ocrit 38.6 (L) 38.7 - 51.1 % 05/27 6:00 AM [email or web address] Not Available Not Available 06/01/2024 16:51:06 05/28/19 25 05/27/2024 CBC panel - Blood by Autom ated count MCV [entitic mean volume] in red blood cells by automated count 83.4 fL low: 80fLhi gh: 98fL MCV 83.4 80.0 - 98.0 fL 05/27 6:00 AM [email or web address] Not Available Not Available 06/01/2024 16:51:06 05/28/19 25 05/27/2024 CBC panel - Blood by Autom ated count MCH [entitic mass] by automated count 24.6 pg low: 26.7pg high: 33.6pg low MCH 24.6 (L) 26.7 - 33.6 pg 05/27 6:00 AM [email or web address] Not Available Not Available 06/01/2024 16:51:06 05/28/19 25 05/27/2024 CBC panel - Blood by Autom ated count MCHC [entitic mass/volume] in red blood cells by automated count 29.5 g/dL low: 31.7g/ dLhigh : 36.3g/ dL low MCHC 29.5 (L) 31.7 - 36.3 g/dL 05/27 6:00 AM [email or web address] Not Available Not Available 06/01/2024 16:51:06 05/28/19 25 05/27/2024 CBC panel - Blood by Autom ated count erythrocyte [distwidth] in red blood cells by automated count 14.6 % low: 11.3%h igh: 14.8% RDW-C V 14.6 11.3 - 14.8 % 05/27 6:00 AM [facility] Not Available Not Available 06/01/2024 16:51:06 05/28/19 25 05/27/2024 CBC panel - Blood by Autom ated count platelets [#/volume] in blood by automated count 274 text: 150 - 420 x10e9/ L Plate let Count 274 150 - 420 x10E9 /L 05/27 6:00 AM CDT [facility] Not Available Not Available 06/01/2024 16:51:06 05/28/19 25 05/27/2024 CBC panel - Blood by Autom ated count platelet [entitic mean volume] in blood by automated count 9.7 fL low: 7.8fLh igh: 11.4fL MPV 9.7 7.8 - 11.4 fL 05/27 6:00 AM CDT [facility] Not Available Not Available 06/01/2024 [...] - 10.7 x10E9 /L 05/28 6:35 AM CDT [facility] Not Available Not Available 06/01/2024 16:51:06 05/29/19 25 05/28/2024 CBC panel - Blood by Autom ated count erythrocytes [#/volume] in blood by automated count 4.42 text: 4.30 - 5.80 x10e12 /L RBC Count 4.42 4.30 - 5.80 x10E1 2/L 05/28 6:35 AM CDT [facility] Not Available Not Available 06/01/2024 16:51:06 05/29/19 25 05/28/2024 CBC panel - Blood by Autom ated count hemoglobin [mass/volume ] in blood 11 g/dL low: 13.3g/ dLhigh : 17.5g/ dL low Hemog lobin 11.0 (L) 13.3 - 17.5 g/dL 05/28 6:35 AM CDT [facility] Not Available Not Available 06/01/2024 16:51:06 05/29/19 25 05/28/2024 CBC panel - Blood by Autom ated count hematocrit [volume fraction] of blood by automated count 36.1 % low: 38.7%h igh: 51.1% low Hemat ocrit 36.1 (L) 38.7 - 51.1 % 05/28 6:35 AM T [facility] Not Available Not Available 06/01/2024 16:51:06 05/29/19 25 05/28/2024 CBC panel - Blood by Autom ated count MCV [entitic mean volume] in red blood cells by automated count 81.7 fL low: 80fLhi gh: 98fL MCV 81.7 80.0 - 98.0 fL 05/28 6:35 AM T [facility] Not Available Not Available 06/01/2024 16:51:06 05/29/19 25 05/28/2024 CBC panel - Blood by Autom ated count MCH [entitic mass] by automated count 24.9 pg low: 26.7pg high: 33.6pg low MCH 24.9 (L) 26.7 - 33.6 pg 05/28 6:35 AM T [facility] Not Available Not Available 06/01/2024 16:51:06 05/29/19 25 05/28/2024 CBC panel - Blood by Autom ated count MCHC [entitic mass/volume] in red blood cells by automated count 30.5 g/dL low: 31.7g/ dLhigh : 36.3g/ dL low MCHC 30.5 (L) 31.7 - 36.3 g/dL 05/28 6:35 AM T [facility] Not Available Not Available 06/01/2024 16:51:06 05/29/19 25 05/28/2024 CBC panel - Blood by Autom ated count erythrocyte [distwidth] in red blood cells by automated count 14.7 % low: 11.3%h igh: 14.8% RDW-C V 14.7 11.3 - 14.8 % 04/11 /2025 6:35 AM CDT [facility] Not [...] 2 view No observ ation record ed. [email or web address] [address], [address], 04/06/2020 12:31:28 Result Notes None recorded. Problems Name Problem SNOMED Code Status Onset Date Resolution Date Notes Provider Name and Address Organization Details Recorded Time Pilonida l cyst 38255104 Active 2016 Rossy Lim PA-C Attn: Lita johnson,[address] [facility], [place], [address], [place] - [facility] 9 12:25:56 Constipa tion 41043574 Active 2016 Rossy Lim PA-C Attn: Lita g,[address] [facility], [place], [address], [place] - [facility] 9 12:25:56 Gastroes ophageal reflux disease without esophagi tis 942046647 Active 2016 Rossy Lim PA-C Attn: Lita johnson,[address] [facility], [place], [address], [place] - [facility] 9 12:25:07 Pilonida l cyst with abscess Completed 201602/25/2017 s/p surgical excision Removal Reason: removed by gen surg Rossy Lim PA-C Attn: Lita johnson,[address] [facility], [place], [address], [place] - [facility] 8 11:41:15 Contact dermatit is 65672021 Active 2017 Rossy Lim PA-C Attn: Lita johnson,[address] [facility], [place], [address], [place] [facility] 9 12:25:07 Non-alco holic fatty liver 607979191 Active 2017 Rossy Lim PA-C Attn: Lita johnson,[address] [facility], [place], [address], [place] [facility] 9 12:25:07 Streptoc occal tonsilli tis 93409769 Active 2017 Rossy Lim PA-C Attn: Lita johnson,[address] [facility], [place], [address], [place] [facility] 9 12:25:07 Problem Notes None recorded. Procedures Surgical History Date Name Laterality Status Provider Name and Address Organization Details Recorded Time 9 Nebulizer tx completed Rossy Lim PA-C Attn: Accounting,[address] [facility], [place], [address], [place] [facility] 06/25/2018 08:33:39 8 Nebulizer tx completed Rossy Lim PA-C Attn: Accounting,[address] [place], [address], [place] [facility] 03/31/2017 11:26:54 Imaging Results None recorded. Procedure Notes None recorded. Medical Equipment None Reported. Allergies Allergen ID Allergen Name Allergen Category Reaction Reaction Severity Criticality Documentation Date Start Date Code Code System Note Provider Name and Address Organization Details Recorded Time 295146 wheat preparati on food,medi cation Not available Not available Not available 05/04/20182016 17029 52 RxNorm Other react ions and sever ities : 'Unkn own'. Rossy Lim PA-C Attn: Accountin g,[address] [facility], [place], [address], [place] - [facility] 9 12:25:56 [id number] shrimp allergeni c extract food Not available Not available Not available 05/04/20182016 12327 2 RxNorm Other react ions and sever ities : 'Unkn own'. Rossy Lim PA-C Attn: Accountin g,[address] [facility], [place], [address], [place] - [facility] 9 12:25:56 386318 cephalexi n medicatio n rash moderate Not available 05/04/20182016 2231 RxNorm Rossy Lim PA-C Attn: Accountin g,[address] [facility], [place], [address], [place] - [facility] 9 12:25:56 71850 Keflex medicatio n rash Not available Not available 11/20/2016 75573 7 RxNorm SADAF [place], [place] - [facility] [...] Heart rate Respiratory rate Body temperature Systolic And Diastolic Provider Name and Address Organization Details Last Updated DateTime 1 179.07 cm 55.1 kg/m2 378528. 58 g 98 % 98 % 92 /min 16 /min 97.3 [degF] 138/86 mm[Hg] Maranda Pacheco [place] - [facility] 1 10:16:17 Date Recorded Body height Body mass index (BMI) Body mass index (BMI) [Percentile] Per age and sex Body weight Heart rate Respiratory rate Body temperature Oxygen saturation Oxygen saturation in Arterial blood by Pulse oximetry Systolic And Diastolic Provider Name and Address Organization Details Last Updated DateTime 9 179.07 cm 47.8 kg/m2 99 % 101076. 14 g 100 /min 16 /min 99.1 [degF] 95 % 95 % 146/98 mm[Hg] SADAF [place] - [facility] 9 12:02:58 Social History Question Answer Notes LastModified by Organizat ion Details LastModified Time Tobacco Smoking Status Current Every Day Smoker Maranda Pacheco MA [facility], [place] - [facility] 03/29/2020 12:10:54 Do You Have An Advance [...] Information not available 11/20/2016 What Type Of A And P Mechanic Do You Use? None Information not available [...] Or The Highest Degree You Have Received? [id number] Information not available 03/29/2020 Do You Have An Electrostatic Air Filter? No Information not available 03/29/2020 Who Is Your Employer? [employer] Information not available 03/29/2020 Have There [...] Information not available 03/29/2020 Marital Status Single olvin Norwoodashia judd not available 11/20/2016 Do You Have A Medical Power Of Yeast Maker? No Information not available 03/29/2020 What Was [...] anxious, or unable to sleep at night)? [id number] Information not available 03/29/2020 Do you have difficulty concentrating, remembering or making decisions? No Information no t available 03/29/2020 Family History Relationship Description Onset Age of this Age Resolved Age Notes LastModified by Organization Details LastModified Time Father Ming bah Not available 2016 09:05:03 Medical History Condition Response Coronary Artery Disease N Other N High Blood Pressure N Atrial Fibrillation N Kidney or Bladder Problems N Thyroid Problems N GI Problems Y Depression N COPD N Blood Clots N Skin Problems N Anemia N Heart Attack (NH) N Anxiety Disorder N Diabetes N Muscle, Joint, or Bone Problems N Seizures/Epilepsy N Acid Reflux (GERD) N Cancer N Stroke N Asthma Y Allergies N High Cholesterol N Hepatitis N Liver Disease N Headaches N Heart Failure N Osteoporosis N Immunizations Vaccine Type Date Status Note Provider Nam e and Address Organization Details Recorded Time varicella 9 completed Rossy Lim PA-C Attn: Accounting,[address] [place], [address], [facility] 05/04/2018 12:25:56 Tdap 9 completed Rossy Lim PA-C Attn: Accounting,[address] [place], [address], [facility] 05/04/2018 12:25:56 DTaP 0 completed Rossy Lim PA-C Attn: Accounting,[address] [place], [place], [address] [place] [address], [facility] 05/04/2018 12:25:56 varicella 4 completed Rossy Lim PA-C Attn: Accounting,[address] [facility], [place], [address] [place] [address], [facility] - [facility] 05/04/2018 12:25:56 Hib (HbOC) 0 completed Rossy Lim PA-C Attn: Accounting,[address] [facility], [place], [address] [place] [address], [facility] 05/04/2018 12:25:57 meningococcal MPSV4 0 completed Rossy Lim PA-C Attn: Accounting,[address] [facility], [place], [address] [place] [address], [facility] - [facility] 05/04/2018 12:25:57 Hep A, ped/adol, 2 dose 9 completed Rossy Lim PA-C Attn: Accounting,[address] [facility], [place], [address] [place] [address], [facility] - [facility] 05/04/2018 12:25:57 Hib (HbOC) 9 completed Rossy Lim PA-C Attn: Accounting,[address] [facility], [place], [address] [place] [address], [facility] 05/04/2018 12:25:57 Tdap 3 completed Rossy Lim PA-C Attn: Accounting,[address] [facility], [place], [address] [place] [address], [facility] - [facility] 05/04/2018 12:25:57 DTaP 4 completed Rossy Lim PA-C Attn: Accounting,[address] [facility], [place], [address] [place] [address], [facility] - [facility] 05/04/2018 12:25:57 IPV 4 completed Rossy Lim PA-C Attn: Accounting,[address] [facility], [place], [address] [place] [address], [facility] 05/04/2018 12:25:57 Hep A, ped/adol, 2 dose 7 completed Rossy Lim PA-C Attn: Accounting,[address] [facility], [place], [address] [place] [address], [facility] 05/04/2018 12:25:57 meningococcal MCV4P 6 completed Rossy Lim PA-C Attn: Accounting,[address] [facility], [place], [address] [place] [address], [facility] 05/04/2018 12:25:57 DTaP 9 completed Rossy Lim PA-C Attn: Accounting,[address] [facility], [place], [address] [place] [address], [facility] 05/04/2018 12:25:57 HPV9 7 completed Rossy Lim PA-C Attn: Accounting,[address] [facility], [place], [address] [place] [address], [facility] - [facility] 05/04/2018 12:25:57 IPV 9 completed Rossy Lim PA-C Attn: Accounting,204 1 [facility], [place], [address], [facility] 05/04/2018 12:25:57 DTaP 9 completed Rossy Lim PA-C Attn: Accounting,204 1 [facility], [place], [address], [facility] - [facility] 05/04/2018 12:25:57 MMR 4 completed Rossy Lim PA-C Attn: Accounting,204 1 [facility], [place], [address], [facility] 05/04/2018 12:25:57 IPV 9 completed Rossy Lim PA-C Attn: Accounting,204 1 [facility], [place], [address], [facility] - [facility] 05/04/2018 12:25:57 Hep B, adolescent or pediatric 8 completed Rossy Lim PA-C Attn: Accounting,204 1 [facility], [place], [address], [place] [facility] 05/04/2018 12:25:57 Hib (HbOC) 9 completed Rossy Lim PA-C Attn: Accounting,204 1 [facility], [place], [address], [place] [facility] 05/04/2018 12:25:57 meningococcal MCV4P 3 completed Rossy Lim PA-C Attn: Accounting,204 1 [facility], [place], [address], [place] [facility] 05/04/2018 12:25:57 Hep B, adolescent or pediatric 9 completed Rossy Lim PA-C Attn: Accounting,204 1 [facility], [place], [address] [place] [address], [place] [facility] 05/04/2018 12:25:57 IPV 0 completed Rossy Lim PA-C Attn: Accounting,204 1 [facility], [place], [address], [place] [facility] 05/04/2018 12:25:57 Hib (HbOC) 9 completed Rossy Lim PA-C Attn: Accounting,204 1 [facility], [place], [address], [place] [facility] 05/04/2018 12:25:57 MMR 9 completed Rossy Lim PA-C Attn: Accounting,204 1 [facility], [place], [address], [place] [facility] 05/04/2018 12:25:57 DTaP 9 completed Rossy Lim PA-C Attn: Accounting,204 1 [facility], [place], [address], [place] [facility] 05/04/2018 12:25:57 Hep B, adolescent or pediatric 8 completed Rossy Lim PA-C Attn: Accounting,204 1 [facility], [place], [address], [place] [facility] 05/04/2018 12:25:57 Influenza, split virus, quadrivalent, PF 7 completed Not Available [facility] 03/06/2019 02:34:20 Influenza, split virus, quadrivalent, preservative 9 completed Not Available [facility] 03/06/2019 02:40:58 COVID-19, mRNA, LNP-S, PF, 100 mcg/0.5mL dose or 50 mcg/0.25mL dose 1 completed Sharon Lopez [place] null, [place] [facility] 06/19/2020 08:04:54 COVID-19, mRNA, LNP-S, PF, 100 mcg/0.5mL dose or 50 mcg/0.25mL dose 1 completed SADAF Martin [place], [place] [facility] 07/13/2020 16:59:59 Past Encounters Encounter ID Performer Location Encounter Start Date Encounter Closed Date Diagnosis/Indication Diagnosis SNOMED-CT Code Diagnosis ICD10 Code Diagnosis Note [id number] Luther Arora MD [facility] (Adult Med) [address] [place] [address] 11/20/2016 08:45:43 11/21/2016 08:34:43 Abdominal pain 94044533 R10.9 Reviewed ER notes, no imaging studies, [...] had ay more vomiting. Low back pain 897851763 M54.5 maybe associated w/ abdominal pain since it started at same time and not assoc w/ movement, non-tender on exam today. Rule out urinary cause. Pilonidal cyst without abscess 85273242 L05.91 Cyst is very small and superficia l today. discussed sitz baths to prevent worsening of current cyst. If it flares up, increases in size becomes more tender, instructed him to call here and we can refer to general surgeon for I&D or removal. Gastroesop hageal reflux disease without esophagitis 644473002 K21.9 Reviewed diet with patient, discussed making changes to current caffeine intake and limiting fried/fatt y foods. Did not improve w/ ranitidine . Given samples of nexium but instructed to hold until breath test can be done once he completes abx. Given handout with foods to try & avoid Influenza vaccine needed 0410127734 106 Z23 Body mass index 40+ - severely obese 054372223 Z68.41 discussed reducing caffeinate d products that are also high in sugar including sodas. stay active, goal of 1lb weight loss per week would be safe, reasses at f/u visit. 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 Positive s creening for depression on PHQ-9 (Patient Health Questionnaire 9) 1497238659 67234 Z13.89 pts pain is his main concern at this time, will revisit at f/u appt [id number] Luther Arora MD [facility] (Adult Med) [address] [place] [address] 12/24/2016 09:50:24 12/25/2016 15:39:33 Pilonidal cyst with abscess 53715232 L05.01 drains intermitte ntly since he was in grade school. continue sitz baths, see general surgeon for possible excision. Gastroesop hageal reflux disease without esophagitis 946386059 K21.9 improving w/ dietary changes. discussed use of medication s on as needed basis if he feels it is controlled w/ diet, especially with upcoming holidays and tendency to overeat during those times and eating high fat foods Depressive disorder 7096 0239 F33.0 patient deferred counseling and/or medication s at this time. Denies any SI or HI. He has good support system with friends and family. Understand s that if situation changes he can call here for referral or to discuss medication s. [id number] MD [facility] De La P[facility] (Adult Med) [address] [place] [address] 02/25/2017 10:48:10 02/25/2017 16:03:10 Contact dermatitis 08682275 L25.9 Likely from using new product, AXE 3 in 1 body wash. Stop using the product, use hypoallerg enic products. Take oral steroids due to diffuse rash, ok to use hydrocorti sone OTC. Take benadryl or other allergy med for itching. Call if rash persists after completing medication . Pilonidal cyst with abscess 72230505 L05.01 s/p excision by general surgery, healed well Depressive disorder 3548 9007 F33.0 Mood is unchanged, still defers referrals or treatment. Using activity/p unching bag to help and talks w/ friends & family. [id number] MD Connor De La Paz (Adult Med) [address] [place] [address] 03/31/2017 10:53:51 04/01/2017 14:28:27 Leukocytosis 087751909 D72.828 per ER records WBC 15K. will repeat in one week after acute illness treated to see if trending down. Did not see a 2/5 ER visit at either [facility] or [facility]. Acute bron chitis with bronchospasm 98653283 J20.9 rhonchi & mild wheeze improved w/ nebulizer tx. discussed restarting albuterol inhaler for acute illness, h/o childhood asthma that flares up with illness. Pharyngitis 145071460 J0 2.9 neg strep screen, likely due to postnasal drainage Otitis media 71342757 H6 5.01 rash w/ Keflex only, tolerated amoxicilli n in past. [id number] MD Connor De La Paz (Adult Med) [address] [facility] [address] 05/07/2017 15:10:20 05/13/2017 08:03:03 Abdominal pain 99099819 R10.9 suspicious for either gastritis or cholelithi asis. Will check labs and get x-ray first, if pain persists, may need RUQ ultrasound Nausea, vo miting and diarrhea 7442960 R11.2 R19.7 discussed bland diet, (BRAT), take zofran for nausea before meals. If not able to keep liquids down, go to ER. Low back pain 253220424 M54.5 not likely due to pilonidal cyst surgery. Recommend starting PT and check x-ray for bony abnormalit ies. Pilonidal cyst without abscess 61030671 L05.91 no abnormalit ies on exam, if it starts to drain, recommend he return to the surgeon for further evaluation [id number] MD Connor De La Paz (Adult Med) [address] [place] [address] 05/15/2017 15:04:00 05/16/2017 16:08:58 Right upper quadrant pain 037427513 R10.11 persistent RUQ pain with diarrhea/m ultiple BMs unchanged w/ eating or having BMs. elevated WBC count and elelvated transamina se worrisome for cholelithi asis with cholecysti tis.Assoc diarrhea and rUQ bloating sxs.didn't get XR KUB at last visit Instructed to follow low fat diet, no fried or fatty foods. Get U/S vita. Elevated l evel of transaminase and lactic acid dehydrogenase 489628238 R74.0 new finding, not present 11/2016. possible cholelithi asis? Leukocytosis 296371674 D 72.828 WBC 12K at last visit 05/07. has had elevated into 15K range in ER recently. [id number] MD Connor De La Paz (Adult Med) [address] [place] [address] 05/22/2017 12:23:23 05/26/2017 09:17:59 Gastroesophageal reflux disease without esophagitis 251835528 K21.9 Abdominal pain still problemati c, recommend restarting famotidine . 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 He is instructed to start salt water gargles, start anti-hista mine. Non-alcoho lic fatty liver 925299499 K76.0 reviewed ultrasound with patient, no gallstones or infection to ninfa godoy Recommend decreasing fried/fat foods and working on weight loss Abdominal pain 10245520 R10.11 instructed to go to ER if pain is feeling worse, if he develops fevers or if nausea/shanell rrhea worsen. Acute righ t otitis media 770959082 H66.91 start abx as above. Body mass index 40+ - severely obese 149552614 Z68.41 Admits that it has been hard since he eats food his great grandmothe gabe brings from diner, no one at home cooks. But he just got his EBT card and he and GF will be buying healthier foods. [id number] MD Connor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
[2024-09-07 16:40] VITALS: BP 170/99; PULSE 92; RESP 20; TEMP 36.4; O2SAT 95
--- NOTE | 2024-09-07 16:57 | ED.SKABFB ---
HPI - Skin/Abscess/Foreign Bdy General Chief complaint: Skin/Abscess/Foreign Body Stated complaint: Rash/Legs Time Seen by Provider: 09/07/24 16:52 Source: patient and RN notes reviewed Mode of arrival: ambulatory Limitations: no limitations History of Present Illness HPI narrative: 24-year-old male presents with concern for a rash on his bilateral lower legs. Reports that spread to his left arm. He reports he has use Benadryl cream without much relief. He reports the rash started after he was fishing. MD complaint: rash Related Data Allergies Allergy/AdvReac Type Severity Reaction Status Date / Time shrimp Allergy Severe Anaphylaxis Verified 09/07/24 16:48 cephalexin Allergy Intermediate Rash Verified 09/07/24 16:48 Review of Systems Review of Systems: CONSTITUTIONAL: Denies malaise, chills, sweats, or fever. EYES: Denies redness, or discharge. ENT: Denies rhinorrhea, congestion, swollen lips, swollen tongue CARDIOVASCULAR: Denies chest pain, palpitations, or edema. RESPIRATORY: Denies cough or dyspnea. GASTROINTESTINAL: Denies abdominal pain, nausea, vomiting SKIN: Reports rash on bilateral lower legs and left arm MUSCULOSKELETAL: Denies joint pain or myalgia. NEUROLOGIC: Denies headache. All systems reviewed & are unremarkable except as noted in HPI and below PMFSH Past Medical History Medical History (Updated 09/07/24 @ 17:00 by Melina Sandoval NP) Rotator cuff tendinitis Right shoulder pain Noncompliance Right shoulder injury Nausea Morbidly obese Hemorrhoids without complication Upper abdominal pain Pinworms Chronic GERD Palpitations Family history of osteoporosis Abdominal pain Constipation Fatigue Headache, migraine Chest pain Daytime hypersomnolence Obesity History of IBS Asthma Perianal cyst Surgical History Surgical History (Updated 07/06/24 @ 09:21 by Mirela Brown MA) History of appendicostomy History of removal of cyst Pilonidal History of endoscopy Hx of tonsillectomy Family History Family History Grandparent Cancer Diabetes mellitus Social History Social History (Updated 07/06/24 @ 09:24 by Mirela Brown MA) Social History: Single Smoking packs per day: 0.5 Smoking cigarettes per day: 10.0 Years smoked: 1.5 Smoking pack-years: 0.75 Smoking status: Former smoker Tobacco type: cigarettes and e-cigarettes/vaping Smoking end date: 07/18/22 Additional smoking assessment comments: Pt quit smoking and is now vaping. Alcohol intake: former Alcohol use details: rarely Substance use: former Substance use type: marijuana Last use: Pt smokes daily. 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 There is no relevant family history pertinent to the presenting complaint Exam Narrative: GENERAL: Well-appearing, well-nourished, and in no acute distress. HEAD: Normocephalic, atraumatic. EYES: PERRLA, conjunctivae clear, and EOMI. ENT: Mucous membranes moist. Oropharynx without edema, erythema or lesions. NECK: Supple. No lymphadenopathy CHEST: Clear to auscultation. No respiratory distress. HEART: Regular rate and rhythm. SKIN: Warm, dry. Large Erythematous raised patches with scabs noted to the bilateral lower legs, scattered papules to the left arm NEURO: Alert and oriented x3. PSYCH: Normal mood and affect Course Course Emergency Course: Patient is aware of diagnosis, understands and agrees to treatment plan. Anticipatory guidance given. Patient agrees to follow-up as directed and is aware of reasons to seek care at the emergency department. Portions of this record may have been created with voice recognition software Level of Care: Express Care Visit Vital Signs Vital signs: Vital Signs Temperature 97.6 F 09/07/24 16:40 Pulse Rate 92 09/07/24 16:40 Respiratory Rate 20 09/07/24 16:40 Blood Pressure 170/99 H 09/07/24 16:40 Pulse Oximetry 95 09/07/24 16:40 Oxygen Delivery Room Air 09/07/24 16:40 Temperature 97.6 F 07/22/25 16:40 Pulse Rate 92 09/07/24 16:40 Respiratory Rate 20 09/07/24 16:40 Blood Pressure 170/99 H 09/07/24 16:40 Pulse Oximetry 95 09/07/24 16:40 Oxygen Delivery Room Air 09/07/24 16:40 Reviewed. MDM - Skin/Abscess/Foreign Bdy MDM Narrative Medical decision making narrative: Does not appear at this time to be erythema multiforme, bullous, SJS, TEN; no evidence at this time to suggest RMSF, endocarditis or Lyme disease; patient looks well, nontoxic and is tolerating oral intake; no neurologic signs or symptoms; no headache, photophobia or neck pain; afebrile; appropriate for initial outpatient treatment; discussed the importance of follow-up, patient agrees; question, viral exanthema, contact dermatitis, allergic dermatitis, eczema, urticaria. No soft palate or uvula edema, no tongue, lip edema or other mucosal involvement, no respiratory compromise, no stridor, no wheezing, no wheezing, no history of syncope, no hypotension, no nausea, vomiting, or diarrhea. Instructed patient to go to nearest ER immediately for any worsening symptoms including but not limited to: fever, spreading rash, pain, sore throat, headache, dizziness, chest pain, trouble breathing, or any symptoms concerning to the patient. Critical Care Time Critical Care Time Critical Care Time: No Discharge Plan Discharge Clinical Impression: Contact dermatitis Patient Disposition: Home Condition: Stable Instructions: Poison Renee (ED) Additional Instructions: Prevention is always better than treatment. Learn to identify poison renee, oak, and sumac and avoid it. Wear long sleeves, long pants, shoes, and socks. If you touched the plant, try to keep your hands away from your eyes, mouth, and face. Wash the skin thoroughly with soap and cool water as soon as possible. Scrub under the fingernails with a brush to prevent spreading of the resin to other parts of the body by touching or scratching. Remember to wash any clothing with soap and hot water as the resin can persist for many months and cause further dermatitis. You should NOT use antihistamine creams or lotions, anesthetic creams containing benzocaine, or antibiotic creams containing neomycin or bacitracin to the skin. These creams or ointments could make the rash worse. Antihistamines do not help to relieve itching caused by poison renee dermatitis. For some people, adding oatmeal to a bath, applying cool wet compresses, and applying calamine lotion may help to relieve itching. Once the blisters begin weeping fluid, astringents containing aluminum acetate (Burow's solution) and Domeboro may help to relieve the rash. IF symptoms get worse to follow up with your primary care provider or seek ER visit if you developing difficulty breathing, weakness, dizziness. Patient Language: British Prescriptions: New prednisone 10 mg tablet 10 mg PO DAILY Qty: 42 0RF Rx Instructions: 6 tabs days 1-2, 5 tabs days 3-4, 4 tabs days 5-6, 3 tabs days 7-8, 2 tabs days 9-10, 1 tab days 11-12 triamcinolone acetonide 0.1 % cream 1 applic TOPICAL BID 7 Days Qty: 80 0RF No Action irbesartan-hydrochlorothiazide 300-12.5 mg tablet 1 tablet PO DAILY Qty: 90 3RF levothyroxine [Synthroid] 25 mcg tablet 25 mcg PO DAILY Qty: 30 1RF metformin [Glucophage XR] 500 mg tablet extended release 24 hr 500 mg PO DAILY Qty: 90 3RF Follow-up/Referrals: PHYSICIAN,FRONT DESK MONITOR [Primary Care Provider] - Time of Disposition: 17:02
== END 2024-09-07 17:05 | disposition home or self-care (01) ==
PROVIDERS: Emergency Provider Nurse Practitioner
DX: L25.9 Unspecified contact dermatitis, unspecified cause (principal); F17.290 Nicotine dependence, other tobacco product, uncomplicated; E66.01 Morbid (severe) obesity due to excess calories; Z68.44 Body mass index [BMI] 60.0-69.9, adult; K21.9 Gastro-esophageal reflux disease without esophagitis; J45.909 Unspecified asthma, uncomplicated
CPT/HCPCS: 99213; G0463

== ENCOUNTER 2024-11-08 08:21 | Emergency (ER) | payer BC, SELFPAY ==
[2024-11-08 08:26] VITALS: BP 176/100; PULSE 83; RESP 20; TEMP 36.9; O2SAT 98
--- NOTE | 2024-11-08 08:49 | ED_ITS ---
HPI - URI/Sore Throat General Chief Complaint: Upper Respiratory Infection Stated Complaint: cold/flu symptoms Time Seen by Provider: 11/08/24 08:35 Source: patient and RN notes reviewed Mode of arrival: ambulatory Limitations: no limitations History of Present Illness HPI Narrative: 24-year-old male presents Express Care complaining of nausea, vomiting, diarrhea, cough, tactile fevers approximately 4 days. Patient said he started nausea generalized feeling well 4 days ago when he started developing vomiting and diarrhea that evening. Patient says he has multiple episodes of diarrhea per day. Patient says he has vomited once or twice a day. Patient last vomited this morning. Patient says he has not daily much pain is able to keep fluids down. Patient denies any abdominal pain, bloody stools, vomiting blood, upper respiratory symptoms, chest pain, breathing problems, urinary symptoms, or any other symptoms. Patient said he tried some Tums without relief. Related Data Allergies Allergy/AdvReac Type Severity Reaction Status Date / Time shrimp Allergy Severe Anaphylaxis Verified 09/13/24 13:49 cephalexin Allergy Intermediate Rash Verified 11/08/24 08:30 Review of Systems Review of Systems: CONSTITUTIONAL: Denies fever, chills, body aches, or sweats. EYES: Denies visual changes, redness, or discharge. ENT: Denies rhinorrhea, congestion, sore throat, or otalgia. CARDIOVASCULAR: Denies chest pain, palpitations, or edema. RESPIRATORY: Positive for cough. Negative for wheezing or Dyspnea. GASTROINTESTINAL: Denies abdominal pain, bloody stools, vomiting blood, hematochezia. Positive for nausea, vomiting, or diarrhea. GENITOURINARY: Denies dysuria or hematuria. SKIN: Denies rash or itching. MUSCULOSKELETAL: Denies back pain, joint pain, or myalgia. NEUROLOGIC: Denies headache, numbness, or weakness. PSYCHIATRIC: Denies anxiety or depression. All other systems reviewed are negative, except as documented in HPI. [facility] Past Medical History Medical History Rotator cuff tendinitis Right shoulder pain Noncompliance Right shoulder injury Nausea Morbidly obese Hemorrhoids without complication Upper abdominal pain Pinworms Chronic GERD Palpitations Family history of osteoporosis Abdominal pain Constipation Fatigue Headache, migraine Chest pain Daytime hypersomnolence Obesity History of IBS Asthma Perianal cyst Surgical History Surgical History History of appendicostomy History of removal of cyst Pilonidal History of endoscopy Hx of tonsillectomy Family History Family History Grandparent Cancer Diabetes mellitus Social History Social History Social History: Single Smoking packs per day: 0.5 Smoking cigarettes per day: 10.0 Years smoked: 1.5 Smoking pack-years: 0.75 Smoking status: Former smoker Tobacco type: cigarettes and e-cigarettes/vaping Smoking end date: 07/18/22 Additional smoking assessment comments: Pt quit smoking and is now vaping. Alcohol intake: former Alcohol use details: rarely Substance use: former Substance use type: marijuana Last use: Pt smokes daily. Do You Feel Safe in your Home?: Yes Lack of Transportation: No Lack of Food: Never True Current Housing: I Have Housing Concerned About Future Housing: No Difficulty Paying Gas/Electric Bills: No Difficulty Paying for Meds: No Currently Unemployed: No Education: High School Diploma/GED Difficulty w/ Childcare or Family Care: No Living arrangements: with family Occupation/Education: occupation Additional occupation/education comments: [employer] Gender identity (if verbalized by the patient): Male Sexual Orientation (if Verbalized by the Patient): Straight or Heterosexual Agree to blood products: Yes Exam Narrative: GENERAL: This is a well-nourished, well-developed adult, in no apparent distress. They are non ill-appearing, nontoxic appearing. Patient is morbidly obese. Physical exam limited due to large body habitus. HEAD: normocephalic, atraumatic. EYES: Sclera clear/white. Vision is grossly intact. Conjunctiva normal cody aterally. Extraocular movements intact. EARS: External ears normal, Hearing grossly intact. NOSE: External nose normal THROAT: Mucous membranes moist NECK: Normal range of motion CARDIOVASCULAR: Regular rate and rhythm. Normal S1-S2. No clicks, gallops, rubs, or murmurs. RESPIRATORY: Respiratory rate normal, respiratory effort nonlabored, no respiratory distress. Lung sounds clear to auscultation. Breath sounds equal bilaterally. No adventitious lung sounds. GASTROINTESTINAL: Abdomen soft, round, large, non-tender, nondistended. Bowel sounds are active. No hepato-splenomegaly, or palpable masses. No guarding or rigidity. No rebound tenderness. SKIN: warm, Dry, intact with no suspicious lesions or rash, good texture and turgor. NEURO: awake, alert, and oriented to person, place and time. There were no obvious focal neurologic abnormalities. EXTREMITIES: No joint tenderness, effusion, or edema noted. BACK: Nontender without deformity. No CVA tenderness. Course Course Emergency Course: Portions of this record may have been created with voice recognition software Level of Care: Express Care Visit Vital Signs Vital signs: Vital Signs Temperature 98.4 F 11/08/24 08:26 Pulse Rate 83 11/08/24 08:26 Respiratory Rate 20 11/08/24 08:26 Blood Pressure 176/100 H 11/08/24 08:26 Pulse Oximetry 98 11/08/24 08:26 Oxygen Delivery Room Air 11/08/24 08:26 Temperature 98.4 F 11/08/24 08:26 Pulse Rate 83 11/08/24 08:26 Respiratory Rate 20 11/08/24 08:26 Blood Pressure 176/100 H 11/08/24 08:26 Pulse Oximetry 98 11/08/24 08:26 Oxygen Delivery Room Air 11/08/24 08:26 MDM - URI/Sore Throat MDM Narrative Medical decision making narrative: Patient likely has a viral gastroenteritis. Patient does not appear clinically dehydrated. No tachycardia, patient afebrile. Moist mucous membranes. No peritoneal findings. No abdominal tenderness. Patient is hypertensive however is not taking his blood pressure medication today. Will prescribe course of Zofran the help with vomiting. Discussed physical exam findings. Advised supportive measures and signs/symptoms to go to the ER. Pt is appropriate for outpt treatment and f/u. Differential Diagnosis Differential diagnosis: Likely other (Gastroenteritis, colitis, viral illness) Discharge Plan Discharge Clinical Impression: Gastroenteritis Patient Disposition: Home Condition: Stable Instructions: Antibiotic Form, Gastroenteritis (ED) Additional Instructions: It is likely you have a viral gastroenteritis. This is normally a self-limiting condition or resolve within 3-5 days. However sometimes symptoms may linger on up to 7 days. It is recommended not to take anything for the diarrhea and allow the diarrhea to run its course. If the diarrhea persist and you feeling better, you may take Pepto-Bismol as needed to help control the diarrhea. Recommend hydration with plenty of fluids electrolyte supplementation such as Pedialyte. Follow-up PCP in 3-5 days. You may take Zofran as needed for nausea or vomiting. If Your unable to keep anything down, you developed abdominal pain, fevers, uncontrollable diarrhea, concerns of dehydration, or any other concerns please go to the ER immediately. Patient Language: Tanzanian Prescriptions: New ondansetron 4 mg tablet,disintegrating 4 mg PO Q8H PRN (Reason: nausea and vomiting) Qty: 12 0RF No Action irbesartan-hydrochlorothiazide 300-12.5 mg tablet 1 tablet PO DAILY Qty: 90 3RF levothyroxine [Synthroid] 25 mcg tablet 25 mcg PO DAILY Qty: 30 1RF Follow-up/Referrals: Carin Olguin APRN [Primary Care Provider, Family Practice] Stand Alone Forms: Work/School Release IP Time of Disposition: 08:47
--- OUTSIDE RECORDS SUMMARY | 2024-11-08 08:55 | XMS_ITS | Clinical Summary ---
Author Organization [facility] Address [address] [place] [address] Phone Care Team Providers Care Racecourse Barrier Attendant Name Role Phone Provider, None Primary Care [...] Take 1 Tablet by mouth daily. Active Social History Tobacco Use Types Packs/Day Years [...] Combined (1 of 2 - PCV) 2017 Influenza Immunization (#1) 10/18/202404/17, 11/20/2016, 2011, Additional history exists SARS-COV-2 Immunization (3 - season) 2024 07/13/2020, 06/15/2020 Respiratory Syncytial Virus (RSV) Immunization (Adult) (1 [...] Inactivated Comments 06/11/2024 7:01 AM Care Teams Racecourse Barrier Attendant Relationship Specialty Start Date End Date Provider, None [place] PCP - General 12/12/23
--- OUTSIDE RECORDS SUMMARY | 2024-11-08 08:55 | XMS_ITS | Clinical Summary ---
Author Organization [facility] Address [address] [place] [address] Care Team Providers Care Food Safety Scientist Name Role Phone Unavailable Primary Care Provider Unavailabl e Source Comments [facility],non-owned Affiliates and Associated Physician Practices is amultiple site organization consisting of ambulatory clinics and hospital sitesin [place], [place], [place] and [place]. This disclosure is being madepursuant to the Care Everywhere program and may not contain all information available regarding this patient. Last updated 17.[facility] [employer] Allergies Active Allergy Reactions Criticality Noted Date [...] Sepsis 05/22/2024 Appendicitis, unspecified appendicitis type 05/2024 Family History Medical History Relation Name Comments [...] and heating? Not hard at all 05/21/2024 [facility] [place] of Occupat ional Health - Occupational Stress [...] any time in the past 12 m [facility], were you homeless or living in a fdc (including now)? 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
--- OUTSIDE RECORDS SUMMARY | 2024-11-08 08:55 | XMS_ITS | Clinical Summary ---
Author Organization 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 Continue to avoid exertion for 2-3 more weeks. 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 MEDICAID [facility] CHOICE PLUS [employer] [facility] PPO [place] Care Teams Earth Science Teacher Relationship Specialty Start Date End Date Cesia Banda NP [address] [place] [address] PCP - General 03/29/20
== END 2024-11-08 08:54 | disposition home or self-care (01) ==
PROVIDERS: PCP Nurse Practitioner Adult Health
DX: K52.9 Noninfective gastroenteritis and colitis, unspecified (principal); F17.290 Nicotine dependence, other tobacco product, uncomplicated; E66.01 Morbid (severe) obesity due to excess calories; Z68.44 Body mass index [BMI] 60.0-69.9, adult; K21.9 Gastro-esophageal reflux disease without esophagitis
CPT/HCPCS: 99213; G0463